=== PATIENT | male | born 1960 | race Caucasian/White ===

== ENCOUNTER 2020-08-24 08:09 | Outpatient (REF) | payer OTHER, SELFPAY ==
--- NOTE | 2020-08-24 08:16 | FL_ITS ---
EXAMINATION: FL BARIUM SWALLOW CLINICAL INFORMATION: Dysphagia. COMPARISON: None. TECHNIQUE: Barium swallow examination is performed using fluoroscopic evaluation in addition to multiple fluoroscopic spot views. The patient is imaged both upright and prone and using both thick and thin sulfate along with effervescent granules. Fluoroscopy time: 2.8 minutes DAP: 6.899 Gycm2 Images: 76 FINDINGS: On oral administration of thick barium in upright and left oblique view, there is normal propagation of bolus from the oral cavity through the pharynx and an initially tight cricoesophageal sphincter into the esophagus. Patient did have difficulty swallowing at this time. Mild ballooning of the pharynx was noted. On subsequent swallowing of thick barium in different positions, there is a patent cricoesophageal sphincter. Mild laryngeal aspiration was noted during the tightening of the cricoesophageal sphincter. There is normal passage of barium through the esophagus into the stomach with widely patent the GE junction. Incidentally noted is a small sliding hiatal hernia in upright, supine and prone lying positions. No intraluminal filling defects seen. On placing patient supine and prone lying, there is no gastroesophageal reflux seen. Small hiatal hernia is persistent. FL/FL barium swallow IMPRESSION: Initial tightness and narrowing of the cricoesophageal sphincter which opened up subsequently with further barium swallowing. Transient ballooning of the pharynx and a single episode of small laryngeal aspiration was noted. The rest of the barium swallow exam appears unremarkable.
--- NOTE | 2020-08-24 09:09 | ECG_ITS ---
Test Reason : EFF OF ANTIVIR MED Blood Pressure : / mmHG Vent. Rate : 068 BPM Atrial Rate : 068 BPM P-R Int : 150 ms QRS Dur : 064 ms QT Int : 392 ms P-R-T Axes : 086 060 093 degrees QTc Int : 416 ms Normal sinus rhythm Nonspecific T wave abnormality Abnormal ECG When compared with ECG of 27-AUG-2019 08:00, No significant change was found Referred By: Josué Esteban / [facility] Electronically Signed By:MARGARITA PAPPAS MD
== END 2020-08-24 08:10 | disposition home or self-care (01) ==
LOC: HO.XRAY 08:09
PROVIDERS: PCP Family Medicine; Visit Provider Otolaryngology
DX: Z79.899 Other long term (current) drug therapy (principal); T37.5X5A Adverse effect of antiviral drugs, initial encounter
CPT/HCPCS: 74220; 93005

== ENCOUNTER 2021-06-21 13:40 | Outpatient (REF) | payer OTHER, SELFPAY ==
--- NOTE | ~2021-06-21 | XR_ITS ---
EXAMINATION: XR CHEST CLINICAL INFORMATION: Dyspnea COMPARISON: Previous chest x-rays most recent July [address] scans most recent May 2020 TECHNIQUE: 2 views of the chest were obtained. FINDINGS: The cardiac and mediastinal contours are stable. The lungs are well inflated. The lungs are clear. There is blunting of the right lateral costophrenic angle. This is unchanged from previous exams. There is no pleural effusion or pneumothorax. Bony structures are unremarkable. XR/XR chest 2V IMPRESSION: Well-inflated lungs. No evidence for acute disease in the chest.
== END 2021-06-21 13:41 | disposition home or self-care (01) ==
LOC: HO.XRAY 13:40
PROVIDERS: PCP Family Medicine; Visit Provider Family Medicine
DX: B20 Human immunodeficiency virus [HIV] disease (principal); R06.00 Dyspnea, unspecified; J44.9 Chronic obstructive pulmonary disease, unspecified; F17.210 Nicotine dependence, cigarettes, uncomplicated; Z71.6 Tobacco abuse counseling
CPT/HCPCS: 71046; 99202

== ENCOUNTER → 2021-06-29 09:43 | Outpatient (BNVA) | payer OTHER, SELFPAY | PROVIDERS: PCP Family Medicine; Visit Provider Internal Medicine | DX: E23.0 Hypopituitarism (principal); R97.20 Elevated prostate specific antigen [PSA] | CPT/HCPCS: Q3014 ==

== ENCOUNTER 2021-07-07 13:30 | Outpatient (REF) | payer OTHER, SELFPAY ==
--- NOTE | 2021-07-07 17:01 | PFT_ITS ---
INDICATION: COPD. SPIROMETRY: The FEV1 to FVC of 27% with an FEV1 of 1.21 L, which is 35% predicted, and an FVC of 4.45 L, which is 97% predicted. Post bronchodilators, there was a significant improvement of the FEV1 by 14%. To note, the [id number] down to about 11% predicted. The maximum voluntary ventilation 35% predicted. LUNG VOLUMES: Total lung capacity 110% predicted with residual volume 169% predicted. DIFFUSION CAPACITY: DLCO 38% predicted. COMPARISONS: None available at this time. INTERPRETATION: There is an obstructive ventilatory defect consistent with severe COPD. There is a significant response to bronchodilators noted. There is also severe decrease in the maximum voluntary ventilation secondary to deconditioning, but also due to worsening dynamic inspiratory capacity. Lung volumes do demonstrate significant air trapping due to the COPD and there is also severe diffusion impairment secondary to emphysema and/or other parenchymal lung conditions or pulmonary vascular conditions should also be considered. Clinical correlation warranted. MD GOPAL Lynn/[facility] / [id number]
== END 2021-07-07 13:31 | disposition home or self-care (01) ==
LOC: HO.RESP 13:30
PROVIDERS: PCP Family Medicine; Visit Provider Internal Medicine
DX: J44.9 Chronic obstructive pulmonary disease, unspecified (principal); F17.210 Nicotine dependence, cigarettes, uncomplicated
CPT/HCPCS: 94060; 94727; 94729

== ENCOUNTER → 2021-08-29 14:15 | Outpatient (BNVA) | payer OTHER, SELFPAY | PROVIDERS: PCP Family Medicine; Visit Provider Internal Medicine | DX: J44.9 Chronic obstructive pulmonary disease, unspecified (principal); R09.02 Hypoxemia; F17.210 Nicotine dependence, cigarettes, uncomplicated | CPT/HCPCS: 99212 ==

== ENCOUNTER 2021-10-28 09:19 | Outpatient (REF) | payer OTHER, SELFPAY ==
[2021-10-28 09:42] LABS: MANUAL DIFF FLAG NO
[2021-10-28 10:17] LABS: Hematocrit 40.8 % (42.0-52.0); Hemoglobin 12.9 g/dl (14.0-18.0)
[2021-10-28 10:18] LABS: Basophils Percent Auto 0.4 % (0-2); Eosinophils Absolute Auto 0.1 X10*3/uL (0.0-0.4); Eosinophils Percent Auto 2.3 % (0-4); Hematocrit 40.6 % (42.0-52.0); Hemoglobin 12.8 g/dl (14.0-18.0); Imm Gran Abs Auto 0.01 X10*3/uL (0.00-0.03); Imm Gran Pct Auto 0.2 % (0.0-0.4); Lymphocytes Absolute Auto 1.5 X10*3/uL (1.2-4.9); Lymphocytes Percent Auto 28.5 % (20-40); Mean Corpuscular HGB Conc 31.5 g/dl (31.0-36.0); Mean Corpuscular Hemoglobin 27.6 pg (27.0-33.0); Mean Corpuscular Volume 87.7 fL (80.0-98.0); Mean Platelet Volume 9.6 fL (9.4-12.4); Monocytes Absolute Auto 0.3 X10*3/uL (0.1-1.2); Monocytes Percent Auto 5.4 % (2-11); Neutrophils Absolute Auto 3.3 x10*3/uL (2.0-8.3); Neutrophils Percent Auto 63.2 % (45-73); Platelet Count 176 X10*3/uL (160-400); Red Blood Count 4.63 X10*6/uL (4.60-5.80); White Blood Count 5.2 X10*3/uL (4.8-10.8)
[2021-10-28 10:48] LABS: Alanine Aminotransferase 20 U/L (0-40); Albumin Level 3.9 g/dL (3.5-5.0); Alkaline Phosphatase 168 U/L (39-117); Anion Gap 12 (12-20); Aspartate Amino Transferase 24 U/L (5-37); Bilirubin Total 0.5 mg/dL (0.0-1.0); Blood Urea Nitrogen 27 mg/dL (9-16); Calcium 9.2 mg/dL (8.4-10.2); Carbon Dioxide 29 mmol/L (22-29); Chloride 103 mmol/L (96-108); Estimated Glomerular Filt Rate 54; Glucose Random 71 mg/dL (60-115); Potassium 4.2 mmol/L (3.3-5.1); Sodium 140 mmol/L (135-145); Total Protein 7.5 g/dL (6.5-8.0)
[2021-10-28 10:52] LABS: Cholesterol 130 mg/dL; HDL Cholesterol 31 mg/dL; LDL Cholesterol Calculated 66 mg/dl; Triglycerides 166 mg/dL
[2021-10-28 11:07] LABS: Prostate Specific Antigen 4.74 ng/mL (<0.05-4.0)
[2021-10-28 11:09] LABS: TSH reflex Free T4 4.02 uIU/mL (0.32-4.0)
[2021-10-28 11:43] LABS: Free T4 (Free Thyroxine) 0.91 ng/dL (0.71-1.85)
[2021-10-29 13:41] LABS: Absolute CD3 Count 1172 cells/uL (840-3060); Absolute CD4 Count 495 cells/uL (490-1740); Absolute CD8 Count 630 cells/uL (180-1170); Absolute Lymphocytes 1479 cells/uL (850-3900); CD4 CD8 Ratio 0.79 (0.86-5.00); Percent CD3 Cells 79 % (57-85); Percent CD4 Cells 33 % (30-61); Percent CD8 Cells 43 % (12-42)
[2021-10-30 02:12] LABS: LDL Cholesterol Direct 65 mg/dL (<100)
[2021-10-30 08:06] LABS: Lutenizing Hormone 3.5 mIU/mL (1.6-15.2); Sex Hormone Binding Globulin 68 nmol/L (22-77)
[2021-11-03 10:26] LABS: Testosterone, Free 36.5 pg/mL (35.0-155.0); Testosterone, Total 304 ng/dL (250-1100)
[2021-11-03 10:46] LABS: HIV RNA PCR Qn Copies <20 Copies/mL; HIV RNA PCR Qn Log Copies <1.30 Log cps/mL
== END 2021-10-28 09:20 | disposition home or self-care (01) ==
LOC: HO.LAB 09:19
PROVIDERS: Absent Provider Internal Medicine; PCP Family Medicine; Visit Provider Internal Medicine
DX: B20 Human immunodeficiency virus [HIV] disease (principal); E23.0 Hypopituitarism
CPT/HCPCS: 36415; 80053; 80061; 83001; 83002; 83721; 84153; 84270; 84402; 84403; 84439; 84443; 85014; 85018; 85025; 86359; 86360; 87536

== ENCOUNTER → 2021-10-31 12:13 | Outpatient (BNVA) | payer OTHER, SELFPAY | PROVIDERS: PCP Family Medicine; Visit Provider Internal Medicine | DX: E23.0 Hypopituitarism (principal); R97.20 Elevated prostate specific antigen [PSA]; E03.9 Hypothyroidism, unspecified; Z79.899 Other long term (current) drug therapy | CPT/HCPCS: 99212 ==

== ENCOUNTER → 2021-11-07 13:51 | Outpatient (BNVA) | payer OTHER, SELFPAY | PROVIDERS: PCP Family Medicine; Visit Provider Internal Medicine | DX: J44.9 Chronic obstructive pulmonary disease, unspecified (principal); R09.02 Hypoxemia; F17.210 Nicotine dependence, cigarettes, uncomplicated | CPT/HCPCS: 99212 ==

== ENCOUNTER → 2022-03-06 13:36 | Outpatient (BNVA) | payer OTHER, SELFPAY | PROVIDERS: PCP Family Medicine; Visit Provider Internal Medicine | DX: J44.9 Chronic obstructive pulmonary disease, unspecified (principal); F17.210 Nicotine dependence, cigarettes, uncomplicated; Z71.6 Tobacco abuse counseling | CPT/HCPCS: 99212 ==

== ENCOUNTER → 2022-05-16 08:00 | Outpatient (BNV) | payer OTHER, SELFPAY | PROVIDERS: PCP Family Medicine; Visit Provider Internal Medicine | DX: Z85.72 Personal history of non-Hodgkin lymphomas (principal); Z87.891 Personal history of nicotine dependence | CPT/HCPCS: 99204; 99214 ==

== ENCOUNTER 2022-05-26 07:19 | Outpatient (REF) | payer OTHER, SELFPAY | END 2022-05-26 07:20 | disposition home or self-care (01) | LOC: HO.US 07:19 | PROVIDERS: PCP Family Medicine; Visit Provider Family Medicine | DX: Z13.89 Encounter for screening for other disorder (principal) ==

== ENCOUNTER 2022-07-25 07:07 | Outpatient (REF) | payer OTHER, SELFPAY ==
--- NOTE | ~2022-07-25 | CT_ITS ---
EXAMINATION: CT CHEST SCREENING CLINICAL INFORMATION: 50-pack year history. Former smoker. Quit 1 year ago. COMPARISON: Previous CT May 2020 and chest x-ray June 2021. TECHNIQUE: Multidetector volumetric CT imaging of the chest is performed without contrast using low dose technique. Additional 2-D coronal and sagittal reformatted images and axial 3-D maximum intensity projection (MIP) images are generated on the CT workstation. This CT examination was performed using dose optimization techniques as appropriate, variously including the following: *Automated exposure control *Adjustment of mA and/or kV according to patient size (this includes techniques or standardized protocols for targeted exams where dose is matched to indication/reason for exam; i.e. extremities or head) *Use of iterative reconstruction technique DLP: 58 mGy-cm FINDINGS: LUNGS: There is evidence of emphysema. There is a new 4 mm semisolid peripheral or subpleural posterior segment right upper lobe nodule adjacent to the fissure axial image 190 series 5. There is a 4 mm calcified left upper lobe nodule axial image 239 series 5 that is stable. There is a 2 mm right lower lobe nodule axial image 259 series 5 that is new. There is a 2 mm right lower lobe nodule axial image 437 series 5 that is new. There is increased soft tissue seen dependently in the trachea. This may represents patient secretions. No other endobronchial or endotracheal lesion. There are increased peripheral interstitial markings, particularly at the right lung base questionable for mild interstitial lung disease.. MEDIASTINUM: The mediastinum is normal. CORONARY ARTERY CALCIFICATION: Mild. PLEURA: There is no pleural effusion. No pleural mass or thickening. AXILLA: No lymphadenopathy. UPPER ABDOMEN: Unremarkable. OSSEOUS STRUCTURES: Degenerative changes. CT/CT lung screening IMPRESSION: Emphysema. New small right pulmonary nodules. Stable calcified left upper lobe nodule. Increased soft tissue in the dependent left side of the trachea, question representing patient secretions. Mild coronary artery calcification. ASSESSMENT: Lung-RADS Category 3: Probably Benign RECOMMENDATION: Six-month low-dose chest CT followup for dependent endotracheal density.
[2022-07-25 08:14] LABS: Free T4 (Free Thyroxine) 1.05 ng/dL (0.71-1.85); Thyroid Stimulating Hormone 3.14 uIU/mL (0.32-4.0)
[2022-07-26 17:46] LABS: Thyroid Peroxidase Antibodies 2 IU/mL (<9)
[2022-07-26 22:16] LABS: Thyroglobulin Antibodies <1 IU/mL (< or = 1)
== END 2022-07-25 07:08 | disposition home or self-care (01) ==
LOC: HO.CT 07:07
PROVIDERS: Absent Provider Internal Medicine; PCP Family Medicine; Visit Provider Physician Assistant Medical
DX: E03.9 Hypothyroidism, unspecified (principal); F17.210 Nicotine dependence, cigarettes, uncomplicated
CPT/HCPCS: 36415; 71271; 84439; 84443; 86376; 86800

== ENCOUNTER → 2022-09-04 14:06 | Outpatient (BNVA) | payer OTHER, SELFPAY | PROVIDERS: PCP Family Medicine; Visit Provider Internal Medicine | DX: J44.9 Chronic obstructive pulmonary disease, unspecified (principal); B20 Human immunodeficiency virus [HIV] disease; Z87.891 Personal history of nicotine dependence; Z85.79 Personal history of other malignant neoplasms of lymphoid, hematopoietic and related tissues | CPT/HCPCS: 99212 ==

== ENCOUNTER → 2023-02-08 13:11 | Outpatient (BNVA) | payer OTHER, SELFPAY | PROVIDERS: PCP Family Medicine; Visit Provider Internal Medicine | DX: J44.9 Chronic obstructive pulmonary disease, unspecified (principal); R06.09 Other forms of dyspnea | CPT/HCPCS: 99212 ==

== ENCOUNTER → 2023-03-07 08:26 | Outpatient (BNVA) | payer OTHER, SELFPAY | PROVIDERS: PCP Family Medicine; Referring Provider Family Medicine; Visit Provider Internal Medicine | DX: I25.10 Atherosclerotic heart disease of native coronary artery without angina pectoris (principal); I49.3 Ventricular premature depolarization; R06.09 Other forms of dyspnea | CPT/HCPCS: 93005; 99202 ==

== ENCOUNTER → 2023-03-23 10:24 | Outpatient (BNVA) | payer OTHER, SELFPAY | PROVIDERS: PCP Family Medicine; Visit Provider Nurse Practitioner Family | DX: R97.20 Elevated prostate specific antigen [PSA] (principal); R53.83 Other fatigue | CPT/HCPCS: 99202 ==

== ENCOUNTER 2023-03-28 12:55 | Outpatient (REF) | payer OTHER, SELFPAY ==
--- NOTE | ~2023-03-28 | CT_ITS ---
EXAMINATION: CT LOW-DOSE SCREENING CHEST WITHOUT CONTRAST CLINICAL INFORMATION: History of smoking. Follow-up lung nodule. COMPARISON: Chest CTs dating between July 25, 2022 and February 12, 2007. TECHNIQUE: Multidetector volumetric noncontrast CT imaging of the chest was obtained using low-dose screening CT technique. Axial thin section 0.625 mm reformations in soft tissue and lung windows were obtained. Sagittal and coronal reformations were obtained. Axial MIP images were also created and reviewed. RECONSTRUCTED WIDTH: 1.25 mm x1.[address] examination was performed using dose optimization techniques as appropriate, variously including the following: *Automated exposure control *Adjustment of mA and/or kV according to patient size (this includes techniques or standardized protocols for targeted exams where dose is matched to indication/reason for exam; i.e. extremities or head) *Use of iterative reconstruction technique TOTAL EXAM DLP: 56 mGy-cm. CTDIvol: 1.5 mGy. FINDINGS: PULMONARY NODULES: Approximately 1.2 cm right lower lobe groundglass density with possible 2 mm solid component (image 49, series 5). This was not evident on most recent prior study from July 25, 2022. No change in previously described, 4 mm right upper lobe lung nodule (image 188, series 5) compared with July 25, 2022. No change in previously described, 4 mm calcified left upper lobe lung nodule (image 240, series 5). No change in previously described 2 mm right lower lobe lung nodule (image 257, series 5). Additional, previously described 2 mm right lower lobe nodule not appreciated on the current study. Patent central bronchi. LUNGS: Mild bibasilar fibrotic changes, similar compared with July 25, 2022. No effusion or pneumothorax. Central airways patent. MEDIASTINUM: No mediastinal adenopathy by size criteria. No obvious hilar adenopathy on this noncontrast study. CORONARY ARTERY CALCIFICATION: Mild. THYROID GLAND: Unremarkable to the extent seen. CARDIOVASCULAR STRUCTURES: Aorta and heart size normal. No pericardial effusion. CHEST WALL/AXILLA: Unremarkable. No evidence of axillary adenopathy by size criteria. UPPER ABDOMEN: Suspect small hiatus hernia. OSSEOUS STRUCTURES: No suspicious finding. CT/CT lung screen follow up IMPRESSION: Approximately 1.2 cm right lower lobe groundglass density with possible 2 mm solid component. This was not evident on most recent prior study from July 25, 2022. Otherwise, no significant radiographic change, as above. ASSESSMENT: Lung-RADS category 4A: Suspicious RECOMMENDATION: Short interval 3 month follow up low dose CT chest.
== END 2023-03-28 12:56 | disposition home or self-care (01) ==
LOC: HO.CT 12:55
PROVIDERS: Visit Provider Physician Assistant Medical
DX: R91.1 Solitary pulmonary nodule (principal); Z87.891 Personal history of nicotine dependence
CPT/HCPCS: 71250

== ENCOUNTER → 2023-03-30 07:39 | Outpatient (REF) | payer OTHER, SELFPAY | LOC: HO.CARD 07:39 | PROVIDERS: PCP Family Medicine; Visit Provider Internal Medicine | DX: I49.3 Ventricular premature depolarization (principal); R00.2 Palpitations; R06.09 Other forms of dyspnea; I25.10 Atherosclerotic heart disease of native coronary artery without angina pectoris | CPT/HCPCS: 93225; 93306; Q9957 ==

== ENCOUNTER → 2023-04-05 07:31 | Outpatient (REF) | payer OTHER, SELFPAY | LOC: HO.CARD 07:31 | PROVIDERS: PCP Family Medicine; Visit Provider Internal Medicine | DX: R07.2 Precordial pain (principal); I25.119 Atherosclerotic heart disease of native coronary artery with unspecified angina pectoris | CPT/HCPCS: 78452; 93017; A9500; J0280; J2785 ==

== ENCOUNTER 2023-04-23 09:37 | Outpatient (REF) | payer OTHER, SELFPAY ==
--- NOTE | ~2023-04-23 | US_ITS ---
EXAMINATION: US RETROPERITONEAL LIMITED (RENAL ONLY) CLINICAL INFORMATION: Nocturia. COMPARISON: CT chest, abdomen and pelvis without contrast 08/25/2019. TECHNIQUE: Real-time imaging of the kidneys. Limited visualization due to bowel gas. FINDINGS: RIGHT KIDNEY: 10.2 x 5.4 x 4.8 cm (SAG x AP x TRV). Multiple echogenic foci scattered throughout the kidney may represent tiny calcified vessels versus tiny calculi. No hydronephrosis. No obstructing renal calculi. Limited visualization. LEFT KIDNEY: 10.5 x 4.5 x 5.0 cm (SAG x AP x TRV). Multiple echogenic foci scattered throughout the kidney may represent tiny calcified vessels versus tiny calculi. No hydronephrosis. No obstructing renal calculi. Limited visualization. US/US renal BI IMPRESSION: Multiple echogenic foci scattered throughout the kidney may represent tiny calcified vessels versus tiny calculi. No hydronephrosis. No obstructing renal calculi. Limited visualization. CT scan could be considered for further evaluation.
== END 2023-04-23 09:38 | disposition home or self-care (01) ==
LOC: HO.US 09:37
PROVIDERS: PCP Family Medicine; Visit Provider Nurse Practitioner Family
DX: R35.1 Nocturia (principal); R97.20 Elevated prostate specific antigen [PSA]
CPT/HCPCS: 76775

== ENCOUNTER 2023-04-25 11:11 | Outpatient (REF) | payer OTHER, SELFPAY ==
--- NOTE | ~2023-04-25 | US_ITS ---
EXAMINATION: US PELVIS LIMITED (BLADDER) CLINICAL INFORMATION: Nocturia. Elevated PSA. COMPARISON: CT abdomen and pelvis 08/25/2019. TECHNIQUE: Real-time imaging of the bladder. FINDINGS: BLADDER: Well distended and normal. Bilateral ureteral jets are demonstrated. Prevoid bladder volume is 179.2 mL. Postvoid bladder volume is 1.2 mL. Prostate volume 14 mL. Tiny prostatic calcification. US/US bladder IMPRESSION: 1. Normal sonographic appearance of the bladder. 2. Prostate volume is 14 mL which is within normal limits for size.
== END 2023-04-25 11:12 | disposition home or self-care (01) ==
LOC: HO.US 11:11
PROVIDERS: PCP Family Medicine; Visit Provider Nurse Practitioner Family
DX: R35.1 Nocturia (principal); R97.20 Elevated prostate specific antigen [PSA]
CPT/HCPCS: 76857

== ENCOUNTER 2023-05-01 12:46 | Outpatient (REF) | payer OTHER, SELFPAY ==
[2023-05-01 12:58] LABS: MANUAL DIFF FLAG NO
[2023-05-01 14:56] LABS: Basophils Percent Auto 0.8 % (0-2); Eosinophils Absolute Auto 0.2 X10*3/uL (0.0-0.4); Eosinophils Percent Auto 4.2 % (0-4); Hematocrit 37.1 % (42.0-52.0); Hemoglobin 11.8 g/dl (14.0-18.0); Lymphocytes Absolute Auto 1.2 X10*3/uL (1.2-4.9); Lymphocytes Percent Auto 32.3 % (20-40); Mean Corpuscular HGB Conc 31.8 g/dl (31.0-36.0); Mean Corpuscular Hemoglobin 27.6 pg (27.0-33.0); Mean Corpuscular Volume 86.7 fL (80.0-98.0); Mean Platelet Volume 9.5 fL (9.4-12.4); Monocytes Absolute Auto 0.2 X10*3/uL (0.1-1.2); Monocytes Percent Auto 6.4 % (2-11); Neutrophils Percent Auto 56.3 % (45-73); Platelet Count 133 X10*3/uL (160-400); Red Blood Count 4.28 X10*6/uL (4.60-5.80); Red Cell Distribution Width 13.8 % (11.0-16.0); White Blood Count 3.6 X10*3/uL (4.8-10.8)
[2023-05-01 15:32] LABS: Anion Gap 15 (12-20); Blood Urea Nitrogen 17 mg/dL (9-16); Calcium 9.2 mg/dL (8.4-10.2); Carbon Dioxide 22 mmol/L (22-29); Chloride 107 mmol/L (96-108); Estimated Glomerular Filt Rate 50; Glucose Random 111 mg/dL (60-115); Potassium 4.2 mmol/L (3.3-5.1); Sodium 140 mmol/L (135-145)
== END 2023-05-01 12:47 | disposition home or self-care (01) ==
LOC: HO.LAB 12:46
PROVIDERS: PCP Family Medicine; Visit Provider Internal Medicine
DX: J44.9 Chronic obstructive pulmonary disease, unspecified (principal); R09.02 Hypoxemia; I25.10 Atherosclerotic heart disease of native coronary artery without angina pectoris; R94.39 Abnormal result of other cardiovascular function study; Z87.891 Personal history of nicotine dependence
CPT/HCPCS: 36415; 80048; 85025; 99212

== ENCOUNTER 2023-05-01 13:02 | Outpatient (AMB) | payer OTHER, SELFPAY ==
--- NOTE | 2023-05-01 13:57 | MHC.OFFVIS ---
Intake Vital Signs 05/01/23 13:58 Height 5 ft 9 in Weight 160 lb BMI 23.6 BP 110/70 Blood Pressure Location Lt brachial Position Sitting Pulse 62 Pulse Source Pulse Oximeter Pulse Oximetry (%) 93 Oxygen Delivery Method Room Air Intake Visit Reasons: COPD Intake Note: pt is here for follow up and states he is having an angiogram in May, he is having fatigue, and states his breathing is okay when using his medication which he does most of the times. It Desktop Support Technician Required: No Allergies No Known Allergies [No Known Allergies*] Allergy (Verified 05/01/23 14:26) Medication List - Last Reconciled 05/01/23 by Virgilio Momin MD albuterol sulfate 90 mcg/actuation (Ventolin HFA) 1 puff PO Q4H PRN aspirin 81 mg PO DAILY 90 days gtmvxzggdc-ykwghebc-cgiety ala 200-25-25 mg (Odefsey) 1 tab PO DAILY fluticasone propion-salmeterol 250-50 mcg/dose (Wixela Inhub) 1 inh inhalation BID levothyroxine 25 mcg PO DAILY methadone 55 mg PO Q4H umeclidinium 62.5 mcg/actuation (Incruse Ellipta) 1 inh PO DAILY Do you need a note to return to daycare/school/sports/work: No HPI COPD HPI Details 63 YEARS OLD GENTLEMAN, BEING TREATED FOR COPD. HE CLAIMS THAT LONG HE TAKES HIS MAINTENANCE INHALERS INCLUDING WIXELA 250-50 AND INCRUSE ELLIPTA 1 INHALATION DAILY, HE DOES WELL. ONLY ON DAYS WHEN HE DOES NOT USE 1 OF THESE INHALERS THEN HE MAY USE ALBUTEROL ONCE OR TWICE ON THAT DAY. HE DENIES ANY COUGH OR EXPECTORATION. HE STILL FEELS SOMEWHAT WEAK AND GETS SHORT OF BREATH ON EXERTION SUCH WALKING UP HILL OR CLIMBING STAIRS. DOES NOT SMOKE ANYMORE. HE IS 80 DENTAL IS AND EATS ONLY SOME I SOLID TYPE OF FOODS. PATIENT IS ON MAINTENANCE THERAPY FOR HIV. HYPOTHYROIDISM. AND ALSO ON METHADONE 55 MG PER DAY. FOR[facility]LY [facility], LATER [facility] Medical History Anal fistula Chronic hepatitis C without hepatic coma COPD (chronic obstructive pulmonary disease) Dyspnea on exertion Elevated PSA Exercise hypoxemia History of lymphoma (~2004) HIV (human immunodeficiency virus infection) Hypogonadism in male Hypogonadotropic hypogonadism (~2019) Hypothyroidism Personal history of nicotine dependence Polysubstance abuse Surgical History History of surgery Hx of fracture Family History Father Cancer Mother No problems noted. Sister Cancer Social History Household Members: Family Housing: Apartment Alcohol intake: never Patient Tobacco Use Status: Former Tobacco user Quit Date: 3 weeks ago from 06/21/21 Years Smoked: 40 years +/- Substance Use Type: Amphetamines, Crack/Cocaine, Heroin, Marijuana and Painkillers service: No Current occupational status: disabled Review of Systems Const All systems reviewed & are unremarkable except as noted in HPI and below Eyes Reports no additional complaints ENT Reports nasal congestion (Mild off and on) Card Reports chest pain, Denies irregular heart rhythm and Denies leg edema Resp Reports as per HPI GI Reports no additional complaints Reports no additional complaints Musc Reports no additional complaints Skin/Breast Reports system reviewed and no additional complaints, except as documented Neuro Reports no additional complaints Psych Reports no additional complaints Endo Reports other (Being treated for diabetes mellitus, and hypothyroidism.) Physical Exam Vital Signs: Last Vital Signs Pulse 62 05/01/23 13:58 BP 110/70 05/01/23 13:58 Pulse Ox 93 05/01/23 13:58 Oxygen Delivery Method Room Air 05/01/23 13:58 BMI result Body Mass Index 23.6 Const General: comfortable (Slightly short of breath when walking), no acute distress, alert and awake Orientation/consciousness: patient oriented x3 HEENT Head: Yes normal to inspection General nose exam: No nasal polyps present and No nasal discharge present Face and sinus: Yes sinuses nontender Mouth: oropharynx normal Teeth and gingiva: edentulous Throat: Yes posterior oropharynx normal Eyes General: appearance normal, both eyes and all related structures Neck Neck: Yes normal visual inspection, Yes no lymphadenopathy, Yes trachea midline and Yes no JVD Thyroid: Thyroid normal Chest Chest palpation & inspection: normal inspection of the chest, normal palpation of entire chest wall and no tenderness Resp Other: Percussion note hyper-resonant, breath sounds are distant with prolonged expiratory phase, but equal on both sides. No audible wheezes or rhonchi. Cardio Palpation: normal PMI Rate: regular rate Rhythm: regular rhythm Heart sounds: no gallops and no murmurs GI Palpation (GI): Soft to palpation, nontender, No hepatosplenomegaly present and no masses Auscultation: normal bowel sounds Back/Spine/Pelvis Thoracic/Lumbar Spine: thoracic and lumbar spine normal to inspection Skin General skin exam: no rashes or lesions noted and dry skin Neuro General: patient oriented x3 and no focal motor deficits Cranial nerves: Yes CN's II-XII intact bilaterally Extrem General: Yes normal to inspection, Yes no clubbing, cyanosis or edema and Yes no calf tenderness Psych Appearance: grossly normal and well kempt Speech and movement: Normal speech and movement present Assessment & Plan Assessment & Plan (1) COPD (chronic obstructive pulmonary disease): Comment: Has advanced chronic obstructive pulmonary disease, related to his past smoking He is doing very well with the current regimen. And is advised to continue the same,: TX : Incruse Ellipta 62.5 mg 1 inhalation daily Fluticasone-Salmetrol ( Wixela ) 250-50 1 inhalation b.i.d.. Ventolin HFA 2 puffs Q 4-6 hours p.r.n..( explained about the usage when he needs ) Code(s): J44.9 - Chronic obstructive pulmonary disease, unspecified (2) Personal history of nicotine dependence: Comment: (Former smoker, onset 12yo, 1-2ppd x 49yrs, 60+PYH, quit in 2020) He is active in annual lung screening program. Code(s): Z87.891 - Personal history of nicotine dependence (3) Exercise hypoxemia: Comment: Pulmonary function test showed severe obstructive disorder. And 6 minutes walk showed that he does desaturate quickly on walking, but O2 sat resumes back to normal after rest. On his last visit , he was tested for portable O2 . But it was found that his O2 sat to remained between 93-94% even on walking. So it was determined that he does not need oxygen. Code(s): R09.02 - Hypoxemia Coding Level of Care Code Est Pt Level 3 (30746) Diagnoses COPD (chronic obstructive pulmonary disease) J44.9 Personal history of nicotine dependence Z87.891 Exercise hypoxemia R09.02
[2023-05-01 13:58] VITALS: BP 110/70; PULSE 62; O2SAT 93; BMI 23.6
== END 2023-05-01 14:27 | disposition home or self-care (01) ==
PROVIDERS: PCP Family Medicine; Visit Provider Internal Medicine
DX: J44.9 Chronic obstructive pulmonary disease, unspecified (principal); Z87.891 Personal history of nicotine dependence; R09.02 Hypoxemia
CPT/HCPCS: 99213

== ENCOUNTER 2023-05-09 11:59 | Outpatient (REF) | payer OTHER, SELFPAY ==
[2023-05-09 12:33] LABS: INTERNATIONAL NORM RATIO 0.9 (0.9-1.1); Prothrombin Time 11.5 SEC (11.1-13.3)
== END 2023-05-09 12:00 | disposition home or self-care (01) ==
LOC: HO.LAB 11:59
PROVIDERS: Internal Medicine; PCP Family Medicine; Visit Provider Nurse Practitioner Family
DX: I25.10 Atherosclerotic heart disease of native coronary artery without angina pectoris (principal); R94.39 Abnormal result of other cardiovascular function study
CPT/HCPCS: 36415; 85610

== ENCOUNTER → 2023-05-22 23:59 | Outpatient (BNV) | payer OTHER, SELFPAY | PROVIDERS: PCP Family Medicine; Visit Provider Internal Medicine Cardiovascular Disease | DX: I20.8 Other forms of angina pectoris (principal) | CPT/HCPCS: 93458; 99152 ==

== ENCOUNTER 2023-05-29 11:37 | Outpatient (REF) | payer OTHER, SELFPAY ==
[2023-05-31 10:38] LABS: Free Prostate Spec Ag 0.6 ng/mL; Percent Free Prostate Spec Ag 12 % (calc) (>25); Prostate Specific Ag Total 4.9 ng/mL (< OR = 4.0)
[2023-06-02 17:13] LABS: Testosterone, Free 29.8 pg/mL (35.0-155.0); Testosterone, Total 211 ng/dL (250-1100)
== END 2023-05-29 11:38 | disposition home or self-care (01) ==
LOC: HO.LAB 11:37
PROVIDERS: Visit Provider Nurse Practitioner Family
DX: R97.20 Elevated prostate specific antigen [PSA] (principal); R53.83 Other fatigue; Z12.5 Encounter for screening for malignant neoplasm of prostate
CPT/HCPCS: 36415; 84153; 84154; 84402; 84403

== ENCOUNTER 2023-06-11 08:23 | Outpatient (AMB) | payer OTHER, SELFPAY ==
--- NOTE | 2023-06-11 08:25 | A.OFFVIS_ITS ---
Intake Intake Visit Reasons: 2m/US/labs(set) Intake Note: Patient presents for follow up visit Elevated PSA/labs/ultrasound (imaging 04/23 & 04/25) (total psa 5.60) (test 211) Urology Medications: none Blood Thinner: aspirin Material Damage Appraiser Required: No Accompanied by: Self / Same As Patient Allergies No Known Allergies [No Known Allergies*] Allergy (Verified 06/11/23 11:15) Medication List - Last Reconciled 06/11/23 by PAULA Adames- albuterol sulfate 90 mcg/actuation (Ventolin HFA) 1 puff PO Q4H PRN aspirin 81 mg PO DAILY 90 days xqmtxwseha-jddkdfex-hpqsvn ala 200-25-25 mg (Odefsey) 1 tab PO DAILY fluticasone propion-salmeterol 250-50 mcg/dose (Wixela Inhub) 1 inh inhalation BID levothyroxine 25 mcg PO DAILY methadone 55 mg PO Q4H umeclidinium 62.5 mcg/actuation (Incruse Ellipta) 1 inh PO DAILY HPI HPI Comments History of Present Illness Details Ra is a 63 year old male patient of Dr. Quintanilla. He has a past medical history of chronic hep C, history of lymphoma, HIV, hypothyroidism, nicotine dependence, and polysubstance abuse on methadone maintenance. He presents to the office today for follow-up. Of note, patient was seen as a new patient for elevated PSA and hypogonadism approximately 2 months ago at which t keila a retroperitoneal ultrasound and labs were drawn for further assessment evaluation. These results reviewed with the patient today. Bilateral multiple echogenic foci scattered throughout the kidney may represent tiny calcified vessels versus tiny calculi. No hydronephrosis or obstructing calculi noted. The bladder is well distended and normal. Bilateral ureteral jets are demonstrated. Pre void bladder volume is approximately 180 mL. Postvoid bladder volume is approximately 2 mL. Prostate volume 14 mL. PSAs are as follows: 11/19--2.7, 02/16--3.5, 05/23--5.6, 05/23--4 .9 percent free 12% Testosterone levels are as follows: 11/19--226, 02/20--317, 10/22--304, 05/23--2 11. Discussed at length potential causes for elevated PSA as well as low testosterone levels. Patient reports he feels symptoms are related to his COPD and breathing issues. He reports since his last visit here his fatigue has somewhat improved as he is more compliant with his inhalers. He denies any urinary issues or concerns at this time. He denies any known family history of prostate cancer. Discussed at length potential causes for elevated PSA as well as hypogonadism in the setting of HIV, hep C, and chronic methadone use. He otherwise offers no issues or concerns at this time. In office urinalysis results reviewed with the patient today. When asked he reports to be happy with his current voiding paramters. YESSICA offered however decline. Discussed redraw of PSA as well as potential prostate biopsy risks versus benefits. Discussed trial of low-dose Cialis for improvement in testosterone levels verses testosterone therapy. However, patient does not wish to start any medications at this time as he reports feeling issues or more related to his breathing and feels symptoms of fatigue are improving. He otherwise offers no other issues or concerns at this time. [facility] Medical History (Updated 06/11/23 @ 18:04 by ATIYA Adames) Dyspnea on exertion Personal history of nicotine dependence History of lymphoma (~2004) Hypogonadism in male Chronic hepatitis C without hepatic coma Anal fistula Polysubstance abuse Hypothyroidism Exercise hypoxemia Elevated PSA Hypogonadotropic hypogonadism (~2018) HIV (human immunodeficiency virus infection) COPD (chronic obstructive pulmonary disease) Surgical History History of surgery Hx of fracture Family History Father Cancer Mother No problems noted. Sister Cancer Social History Household Members: Family Housing: Apartment Alcohol intake: never Patient Tobacco Use Status: Former Tobacco user Quit Date: 3 weeks ago from 06/21/21 Years Smoked: 40 years +/- Substance Use Type: Amphetamines, Crack/Cocaine, Heroin, Marijuana and Painkillers service: No Current occupational status: disabled Review of Systems Const Reports as per HPI Eyes Reports no additional complaints ENT Reports no additional complaints Card Reports no additional complaints Resp Reports as per HPI GI Reports as per HPI Reports as per HPI Musc Reports as per HPI Psych Reports as per HPI Endo Reports as per HPI Randy/Lymph Reports as per HPI Physical Exam Const General: cooperative, comfortable, no acute distress, well developed, alert and awake Orientation/consciousness: patient oriented x3 Limitations: no limitations HEENT Head: Yes normal to inspection, Yes normocephalic and Yes atraumatic Ears: hearing grossly normal bilaterally Eyes General: appearance normal, both eyes and all related structures Neck Neck: Yes normal visual inspection and Yes trachea midline Chest Chest palpation & inspection: normal inspection of the chest Resp Effort & Inspection: normal respiratory effort and able to speak in complete sentences Cardio Rate: regular rate GI Inspection: Yes normal to inspection Rectal Exam - Male: Yes deferred General: Yes no CVA tenderness Back/Spine/Pelvis Back: no CVA tenderness Skin General skin exam: no rashes or lesions noted Neuro General: patient oriented x3 Extrem General: Yes normal to inspection Psych Appearance: grossly normal and well kempt Mental Status: mental status grossly normal Speech and movement: Normal speech and movement present and Clear speech present Affect: normal affect Attitude: cooperative Thought process: Normal thought process present Thought content: Normal thought content present Insight: Fair insight present (Psych) Judgement: Fair judgement present (Psych) Results AMB Urinalysis, Automated UA Leukoctes 0 Asha/uL Last Edit by Mindi Clark on 06/11/23 08:33 UA Nitrite Last Edit by Mindi Clark on 06/11/23 08:33 UA Urobilinogen 0.2 mg/dL Last Edit by Mindi Clark on 06/11/23 08:33 UA Protein 15 mg/dL Last Edit by Mindi Clark on 06/11/23 08:33 UA pH 5.5 Last Edit by [email or web address] Clark on 06/11/23 08:33 UA Blood 0 Jerome/uL Last Edit by [email or web address] Clark on 06/11/23 08:33 UA Specific Koppel 1.030 Last Edit by OcAuxogynrk Clark on 06/11/23 08:33 UA Ketone Negative Last Edit by OcAuxogynrk Clark on 06/11/23 08:33 UA Bilirubin 1 mg/dL Last Edit by OcAuxogynrk Clark on 06/11/23 08:33 UA Glucose 0 mg/dL Last Edit by Mindi Clark on 06/11/23 08:33 Results Reviewed Results Reviewed: Laboratory Last Values Urine pH (Auto) 5.5 06/11/23 08:26 Specific Koppel (Auto) 1.030 06/11/23 08:26 Urine Protein (Auto) 15 mg/dL 06/11/23 08:26 Glucose (UA)(Auto) 0 mg/dL 06/11/23 08:26 Urine Ketones (Auto) Negative 06/11/23 08:26 Urine Blood (Auto) 0 Jerome/uL 06/11/23 08:26 Urine Bilirubin (Auto) 1 mg/dL 06/11/23 08:26 Urine Urobilinogen (Auto) 0.2 mg/dL 06/11/23 08:26 Leukocyte Esterase (Auto) 0 Asha/uL 06/11/23 08:26 Date of Service: 04/23/23 EXAMINATION: US RETROPERITONEAL LIMITED (RENAL ONLY) FINDINGS: RIGHT KIDNEY: 10.2 x 5.4 x 4.8 cm (SAG x AP x TRV). Multiple echogenic foci scattered throughout the kidney may represent tiny calcified vessels versus tiny calculi. No hydronephrosis. No obstructing renal calculi. Limited visualization. LEFT KIDNEY: 10.5 x 4.5 x 5.0 cm (SAG x AP x TRV). Multiple echogenic foci scattered throughout the kidney may represent tiny calcified vessels versus tiny calculi. No hydronephrosis. No obstructing renal calculi. Limited visualization. IMPRESSION: Multiple echogenic foci scattered throughout the kidney may represent tiny calcified vessels versus tiny calculi. No hydronephrosis. No obstructing renal calculi. Limited visualization. CT scan could be considered for further evaluation. Ordering Physician: Ines Mosher Date of Service: 04/25/23 EXAMINATION: US PELVIS LIMITED (BLADDER) FINDINGS: BLADDER: Well distended and normal. Bilateral ureteral jets are demonstrated. Prevoid bladder volume is 179.2 mL. Postvoid bladder volume is 1.2 mL. Prostate volume 14 mL. Tiny prostatic calcification. IMPRESSION: 1. Normal sonographic appearance of the bladder. 2. Prostate volume is 14 mL which is within normal limits for size. Assessment & Plan Assessment & Plan (1) Elevated PSA: Code(s): R97.20 - Elevated prostate specific antigen [PSA] (2) Fatigue: Code(s): R53.83 - Other fatigue (3) Hypogonadism in male: Code(s): E29.1 - Testicular hypofunction Plan In office urinalysis results reviewed with the patient today; as noted above. Recent labs reviewed with the patient today; as noted above. Recent retroperitoneal ultrasound results reviewed with the patient today; as noted above. Discussed at length potential causes for hypogonadism as well as elevated PSA. Patient reports improvement in fatigue since last office visit and does not wish to undergo low-dose Cialis or testosterone replacement therapy at this time. Discussed redraw of PSA Discussed surveillance monitoring of elevated PSA verses prostate biopsy. Discussed ultrasound results showing 14 mL prostate volume PSA ordered Follow-up in 1 month with lab to be completed prior; or sooner with any issues, concerns, and or questions. Orders: Orders AMB Urinalysis Automated Today Z13.9 - Encounter for screening, unspecified PSA,Total (Free>4and<10) Today R97.20 - Elevated prostate specific antigen [PSA] Patient Instructions: The patient had an opportunity to ask questions regarding the treatment plan. All questions were answered. Physical exam, labs, and imaging were discussed and reviewed in detail. As well as risks, benefits, and discussion of treatment choices. No major barriers to understanding were identified. The patient expressed understanding and agreement with the above treatment plan. The patient was made aware they should contact our office by phone for worsening of their current condition, the appearance of new symptoms, or with any questions or concerns. Compliance is encouraged with any medications and follow up testing that is ordered. It is a privilege to be allowed the opportunity to participate in? your urological care.? Again, if you have any questions or concerns If you have any questions or concerns please do not hesitate to contact me. The office is [phone]. This note is constructed using voice recognition software. While every effort has been made to ensure accuracy manual lathe machinist errors may have been included. Yours sincerely, PAULA Adames-NELIDA Coding Level of Care Code Est Pt Level 3 (99755) Diagnoses Elevated PSA R97.20 Fatigue R53.83 Hypogonadism in male E29.1
== END 2023-06-11 09:10 | disposition home or self-care (01) ==
LOC: HO.HUSH 08:23
PROVIDERS: PCP Family Medicine; Visit Provider Nurse Practitioner Family
DX: R97.20 Elevated prostate specific antigen [PSA] (principal); R53.83 Other fatigue; E29.1 Testicular hypofunction; Z13.9 Encounter for screening, unspecified
CPT/HCPCS: 99213

== ENCOUNTER → 2023-06-11 08:23 | Outpatient (BNVA) | payer OTHER, SELFPAY | PROVIDERS: PCP Family Medicine; Visit Provider Nurse Practitioner Family | DX: R97.20 Elevated prostate specific antigen [PSA] (principal); E29.1 Testicular hypofunction; R53.83 Other fatigue | CPT/HCPCS: 81003; 99212 ==

== ENCOUNTER 2023-06-15 11:18 | Outpatient (REF) | payer OTHER, SELFPAY ==
[2023-06-15 13:19] LABS: PSA,Total (Free>4and<10) 6.78 ng/mL (0.00-4.00)
[2023-06-19 10:28] LABS: Free Prostate Spec Ag 0.8 ng/mL; Percent Free Prostate Spec Ag 12 % (calc) (>25); Prostate Specific Ag Total 6.7 ng/mL (< OR = 4.0)
== END 2023-06-15 11:19 | disposition home or self-care (01) ==
LOC: HO.LAB 11:18
PROVIDERS: PCP Family Medicine; Visit Provider Nurse Practitioner Family
DX: Z12.5 Encounter for screening for malignant neoplasm of prostate (principal); R97.20 Elevated prostate specific antigen [PSA]
CPT/HCPCS: 36415; 84153; 84154

== ENCOUNTER 2023-07-13 08:27 | Outpatient (AMB) | payer OTHER, SELFPAY ==
--- NOTE | 2023-07-13 08:35 | A.OFFVIS_ITS ---
Intake Intake Visit Reasons: Hypogonadism- follow up/PSA(set) Intake Note: Patient presents for follow up visit Elevated PSA/lab (total psa 5.60) Urology Medications: none Blood Thinner: aspirin Flight Data Technician Required: No Accompanied by: Self / Same As Patient Allergies No Known Allergies [No Known Allergies*] Allergy (Verified 07/13/23 09:19) Medication List - Last Reconciled 07/13/23 by PAULA Adames- albuterol sulfate 90 mcg/actuation (Ventolin HFA) 1 puff PO Q4H PRN aspirin 81 mg PO DAILY 90 days ppmodbscyc-fqmnqkvt-cregvv ala 200-25-25 mg (Odefsey) 1 tab PO DAILY fluticasone propion-salmeterol 250-50 mcg/dose (Wixela Inhub) 1 inh inhalation BID levothyroxine 25 mcg PO DAILY methadone 55 mg PO Q4H umeclidinium 62.5 mcg/actuation (Incruse Ellipta) 1 inh PO DAILY HPI HPI Comments History of Present Illness Details Ra is a pleasant 63 year old male patient of Dr. Quintanilla. He has a past medical history of chronic hep C, history of lymphoma, HIV, hypothyroidism, nicotine dependence, and polysubstance abuse on methadone maintenance. He presents to the office today for follow-up. Of note, patient was seen approximately 1 month ago at which time redraw of PSA was ordered for further assessment evaluation. These results reviewed with the patient today. Previous workup has included a retroperitoneal ultrasound noting bilateral multiple echogenic foci scattered throughout the kidney may represent tiny calcified vessels versus tiny calculi. No hydronephrosis or obstructing calculi noted. The bladder is well distended and normal. Bilateral ureteral jets are demonstrated. Pre void bladder volume is approximately 180 mL. Postvoid bladder volume is approximately 2 mL. Prostate volume 14 mL. PSAs are as follows: 11/19--2.7, 02/16--3.5, 05/23--5.6, 05/23--4 .9 percent free 12%, 06/23--6.8 % free PSA 12% Testosterone levels are as follows: 11/19--226, 02/20--317, 10/22--304, 05/23--2 11. Discussed at length potential causes for elevated PSA as well as low testosterone levels. PCP T calculator 07/23 52% negative, 34% chance of low- grade prostate cancer, and 14% chance of high-grade prostate cancer. Discussed at length surveillance monitoring verses prostate biopsy versus trial of Finasteride. Discussed risks and benefits of these asforementioned interventions/treatement options at length. In office urinalysis results reviewed with the patient today. Discuss treatment of hypogonadism with low-dose Cialis however will await at this time as patient wished to have prostate biopsy first. He states he would like tackle one thing at a time. He otherwise denies any bothersome urinary issues at this time. He denies urinary urgency, urinary frequency, incontinence, nocturia, hematuria, dysuria, foul smelling urine, changes to urinary stream, flank pain, fever, and or chills. He otherwise offers no other issues or concerns at this time. [facility] Medical History Dyspnea on exertion Personal history of nicotine dependence History of lymphoma (~2004) Hypogonadism in male Chronic hepatitis C without hepatic coma Anal fistula Polysubstance abuse Hypothyroidism Exercise hypoxemia Elevated PSA Hypogonadotropic hypogonadism (~2018) HIV (human immunodeficiency virus infection) COPD (chronic obstructive pulmonary disease) Surgical History History of surgery Hx of fracture Family History Father Cancer Mother No problems noted. Sister Cancer Social History Household Members: Family Housing: Apartment Alcohol intake: never Patient Tobacco Use Status: Former Tobacco user Quit Date: 3 weeks ago from 06/21/21 Years Smoked: 40 years +/- Substance Use Type: Amphetamines, Crack/Cocaine, Heroin, Marijuana and Painkillers service: No Current occupational status: disabled Review of Systems Const Reports as per HPI Eyes Reports no additional complaints ENT Reports no additional complaints Card Reports no additional complaints Resp Reports as per HPI GI Reports as per HPI Reports as per HPI Musc Reports as per HPI Psych Reports as per HPI Endo Reports as per HPI Randy/Lymph Reports as per HPI Physical Exam Const General: cooperative, comfortable, no acute distress, well developed, alert and awake Orientation/consciousness: patient oriented x3 Limitations: no limitations HEENT Head: Yes normal to inspection, Yes normocephalic and Yes atraumatic Ears: hearing grossly normal bilaterally Eyes General: appearance normal, both eyes and all related structures Neck Neck: Yes normal visual inspection and Yes trachea midline Chest Chest palpation & inspection: normal inspection of the chest Resp Effort & Inspection: normal respiratory effort and able to speak in complete sentences Cardio Rate: regular rate GI Inspection: Yes normal to inspection Rectal Exam - Male: Yes deferred General: Yes no CVA tenderness Back/Spine/Pelvis Back: no CVA tenderness Skin General skin exam: no rashes or lesions noted Neuro General: patient oriented x3 Extrem General: Yes normal to inspection Psych Appearance: grossly normal and well kempt Mental Status: mental status grossly normal Speech and movement: Normal speech and movement present and Clear speech present Affect: normal affect Attitude: cooperative Thought process: Normal thought process present Thought content: Normal thought content present Insight: Fair insight present (Psych) Judgement: Fair judgement present (Psych) Results AMB Urinalysis, Automated UA Leukoctes 0 Asha/uL Last Edit by [employer] on 07/13/23 09:05 UA Nitrite Negative Last Edit by [employer] on 07/13/23 09:05 UA Urobilinogen 0.2 mg/dL Last Edit by [employer] on 07/13/23 09:05 UA Protein 0 mg/dL Last Edit by [employer] on 07/13/23 09:05 UA pH 5.5 Last Edit by [employer] on 07/13/23 09:05 UA Blood 0 Jerome/uL Last Edit by [employer] on 07/13/23 09:05 UA Specific Robards 1.015 Last Edit by [employer] on 07/13/23 09:05 UA Ketone Negative Last Edit by [employer] on 07/13/23 09:05 UA Bilirubin 0 mg/dL Last Edit by [employer] on 07/13/23 09:05 UA Glucose 0 mg/dL Last Edit by [employer] on 07/13/23 09:05 Assessment & Plan Assessment & Plan (1) Hypogonadism in male: Code(s): E29.1 - Testicular hypofunction (2) Elevated PSA: Code(s): R97.20 - Elevated prostate specific antigen [PSA] Plan: Plan Risks and benefits regarding trans rectal ultrasound with prostate biopsy were discussed.? Options of continued surveillance, no treatment and biopsy were offered. The risks include but are not limited to, urinary tract infection, sepsis, difficulty urinating, bleeding into the rectum or bladder that requires intervention and transfusion,and failure to diagnose prostate cancer. The patient understands the options and the risks involved. They wish to proceed. Printed information was provided to ensure he remains off anticoagulation for the appropriate length of time. He may require cardiology or PCP clearance.? An antibiotic will be administered prior to, and following the procedure Plan In office urinalysis results reviewed with the patient today; as noted above Recent PSA results reviewed with the patient today; as noted above PCP T risk calculator reviewed with the patient today; as noted above Discussed risks and benefits of surveillance monitoring versus prostate biopsy;discussed at length Antibiotic therapy discussed; take day before, day of, and day after. Will address hypogonadism s/p biopsy per patient request. Will schedule for prostate biopsy as discussed Orders: Orders AMB Urinalysis Automated Today Z13.9 - Encounter for screening, unspecified Medications: New levofloxacin take 1 tablet day before procedure, 1 tablet day of procedure and 1 tablet day after procedure 500 mg PO daily 3 days 3 tabs 0RF Patient Instructions: The patient had an opportunity to ask questions regarding the treatment plan. All questions were answered. Physical exam, labs, and imaging were discussed and reviewed in detail. As well as risks, benefits, and discussion of treatment choices. No major barriers to understanding were identified. The patient expressed understanding and agreement with the above treatment plan. The patient was made aware they should contact our office by phone for worsening of their current condition, the appearance of new symptoms, or with any questions or concerns. Compliance is encouraged with any medications and follow up testing that is ordered. It is a privilege to be allowed the opportunity to participate in? your urological care.? Again, if you have any questions or concerns If you have any questions or concerns please do not hesitate to contact me. The office is [phone]. This note is constructed using voice recognition software. While every effort has been made to ensure accuracy pipe foreman errors may have been included. Yours sincerely, Ines Mosher, [employer] Coding Level of Care Code Est Pt Level 4 (05543) Diagnoses Hypogonadism in male E29.1 Elevated PSA R97.20
== END 2023-07-13 09:22 | disposition home or self-care (01) ==
LOC: HO.HUSH 08:27
PROVIDERS: PCP Family Medicine; Visit Provider Nurse Practitioner Family
DX: E29.1 Testicular hypofunction (principal); R97.20 Elevated prostate specific antigen [PSA]; Z13.9 Encounter for screening, unspecified
CPT/HCPCS: 99214

== ENCOUNTER → 2023-07-13 08:27 | Outpatient (BNVA) | payer OTHER, SELFPAY | PROVIDERS: PCP Family Medicine; Visit Provider Nurse Practitioner Family | DX: E29.1 Testicular hypofunction (principal); R97.20 Elevated prostate specific antigen [PSA] | CPT/HCPCS: 81003; 99212 ==

== ENCOUNTER → 2023-08-01 14:53 | Outpatient (BNVA) | payer OTHER, SELFPAY | PROVIDERS: PCP Family Medicine; Visit Provider Internal Medicine | DX: J44.9 Chronic obstructive pulmonary disease, unspecified (principal) | CPT/HCPCS: 99211 ==

== ENCOUNTER 2023-08-02 07:32 | Outpatient (REF) | payer OTHER, SELFPAY ==
[2023-08-02 07:48] VITALS: BMI 23.6
[2023-08-02 07:49] VITALS: BP 149/86; PULSE 61; RESP 16; TEMP 36.3; O2SAT 95
--- NOTE | 2023-08-02 08:18 | W.PM.OPN ---
Operative Note Operative Note Date of Service: 08/02/23 Narrative: Preoperative diagnosis: Elevated PSA Postoperative diagnosis: Elevated PSA Procedure: 1. transrectal ultrasound measurement of prostate 2. transrectal ultrasound-guided pudendal nerve block 3. transrectal ultrasound-guided prostate biopsy 12 core Surgeon: Dr. Yobani Stewart Anesthetic: Local Indications for procedure: Elevated PSA PSA 6.8 F 12% Procedure: After informed consent was verified, the patient was brought into the procedure area and lay left-hand side down on the table. Patient identity confirmed. Perioperative antibiotics confirmed. Safety pause time out performed. YESSICA performed to dilate rectal sphincter Iodine 10cc with Gel was placed per rectum Ultrasound probe was placed per rectum The prostate was measured in 3 dimensions Total volume equals 16 gm No cystic structures were noted calcifications were noted at the surgical margin The prostate was otherwise homogeneous in nature An ultrasound-guided pudendal nerve block was performed using 10 cc of 1% lidocaine. 8 cc was placed at the base and 2 cc of the apex. A 12 core biopsy was performed with 6 cores each side. Two cores were taken at the apex, mid and base. Cores were spaced between lateral and medial. He tolerated the procedure well. Was able to ambulate to bathroom after 5 minutes. Printed instructions regarding antibiotic use and common side effects such as low-grade temperature, potential infection and bleeding were given Pathology: 12 core prostate biopsy.
[2023-08-02 08:50] VITALS: BP 169/84; PULSE 73; RESP 18; O2SAT 95
== END 2023-08-02 07:33 | disposition home or self-care (01) ==
LOC: HO.MS 07:32
PROVIDERS: PCP Family Medicine; Visit Provider Urology
PROC: (CPT 55700; principal; 2023-08-02 08:00)
DX: C61 Malignant neoplasm of prostate (principal); R97.20 Elevated prostate specific antigen [PSA]
CPT/HCPCS: 55700; 76942; 88305; 88344

== ENCOUNTER → 2023-08-02 07:32 | Outpatient (BNV) | payer OTHER, SELFPAY | PROVIDERS: PCP Family Medicine; Visit Provider Urology | DX: R97.20 Elevated prostate specific antigen [PSA] (principal) | CPT/HCPCS: 55700; 76942 ==

== ENCOUNTER 2023-08-16 09:29 | Outpatient (AMB) | payer OTHER, SELFPAY ==
--- NOTE | 2023-08-16 09:35 | A.OFFVIS_ITS ---
Intake Intake Visit Reasons: Bx results Intake Note: Patient is Present for Follow Up [facility] U[facility] Medication: None Antibiotic Allergies: Levofloxacin Blood Thinners: Aspirin Allergies levofloxacin Allergy (Intermediate, Verified 08/01/23 10:18) Nausea, chills, SOB Medication List - Last Reconciled 08/16/23 by Yobani Stewart MD albuterol sulfate 90 mcg/actuation (Ventolin HFA) 1 puff PO Q4H PRN aspirin 81 mg PO DAILY 90 days wyrtcgrvoe-befeotrp-acwuhh ala 200-25-25 mg (Odefsey) 1 tab PO DAILY fluticasone propion-salmeterol 250-50 mcg/dose (Wixela Inhub) 1 inh inhalation BID levofloxacin 500 mg PO daily 3 days levothyroxine 25 mcg PO DAILY methadone 55 mg PO Q4H sulfamethoxazole-trimethoprim 800-160 mg (Bactrim DS) 1 tab PO BID 3 days umeclidinium 62.5 mcg/actuation (Incruse Ellipta) 1 inh PO DAILY HPI HPI Comments History of Present Illness Details Ra is a pleasant male. He is a patient of Dr. Hancock. He seen for the following urologic conditions - prostate cancer Background of HIV with lymphoma treated approximately 2009. Chronic hep C, polysubstance abuse. Discussion of biopsy results - PSA 6.8 12% Free Grade Group 2 prostate cancer Recommendation for prostate cancer staging per NCCN Guideline Prognostic Model Information calculated using STAR-CAPS [email or web address] Stage Prediction 1C 5yr Specific Mortality 0.5% 10yr Specfic Mortality 2.0% NCCN criteria for initial risk stratification and staging with evaluation were discussed. NCCN Guidelines Version 4.2023 INITIAL RISK STRATIFICATION AND STAGING WORKUP FOR CLINICALLY LOCALIZED DISEASE Pg 19 Evaluation depends on assignment to both risk group and grade group. This determines recommended evaluation. Grade group 2/favorable intermediate - included is the exact text from the NCCN Guideline NCCN Prostate Cancer Guideline 4.2022 PROS-F Page 2 PRINCIPLES OF ACTIVE SURVEILLANCE AND OBSERVATION Confirmatory Testing to Establish Appropriateness of Active Surveillance: - Goals of confirmatory testing are to h elp facilitate early identification of those patients who may be at a higher risk of future grade reclassification or cancer progression. - Since an initial prostate biopsy may u nderestimate tumor grade or volume, confirmatory testing is strongly recommended within the first 6 to 12 months of diagnosis for patients who are considering active surveillance. - Options for confirmatory testing inclu de prostate biopsy, mpMRI with calculation of PSA density (and repeat biopsy as indicated), and/or molecular tumor analysis, see Principles of Risk Stratification (PROS-D). - Early confirmatory testing may not be necessary in patients who have had an mpMRI prior to diagnostic biopsy. All patients should undergo a confirmatory prostate biopsy within 1?2 years of their diagnostic biopsy PRINCIPLES OF RISK STRATIFICATION PROS-D Page 2 There are advanced risk stratification tools (ie, gene expression biomarkers, AI digital pathology) that independently improve risk stratification. See Table 1: Initial Risk Stratification for Clinically Localized Disease. These tools are recommended to be used when they will have the potential ability to size changer. These tools should not be ordered reflexively. There are an extensive number of these tools created with substantial variability in quality of reporting and model design, endpoint selection, and quality and caliber of validation. It is recommended to use models that have high-quality and robust validation, ideally with randomized clinical trial data across multiple clinical trials. These tools are not recommended for patients with [id number] prostate cancer. Patients with NCCN low, favorable intermediate, unfavorable intermediate, or high-risk disease and life expectancy >=0 y may consider the use of the follow ing tumor-based molecular assays: Decipher, Oncotype DX Prostate, and Prolaris In accordance with NCCN guidelines multiparametric MRI will be ordered and due to diagnosis of favorable intermediate disease Prolaris testing will be requested - these tests will determine treatment a ctive surveillance versus cryotherapy versus brachytherapy. The stools in accordance with NCCN guidelines are recommended due to the potential ability to size changer Prostate Cancer 08/23 GG2, low volume Diagnosed by Dr. Stewart PSA at diagnosis 6.8 TRUS volume at diagnosis 20gm Histologic type: Prostatic adenocarcinoma Histologic grade: [place] score: 3+4=7 Grade group: 2 Tumor quantitation:Number cores positive: 3 (LBM 25%, LMM 5%, RBL 60%) Total number of cores: 12 - Periprostatic fat inv.: Not identified Seminal vesicle inv.: Not identified Perineural inv.: Present LVI: Not identified PFSH Medical History Dyspnea on exertion Personal history of nicotine dependence History of lymphoma (~2004) Hypogonadism in male Chronic hepatitis C without hepatic coma Anal fistula Polysubstance abuse Hypothyroidism Exercise hypoxemia Elevated PSA Hypogonadotropic hypogonadism (~2018) HIV (human immunodeficiency virus infection) COPD (chronic obstructive pulmonary disease) Surgical History History of surgery Hx of fracture Family History Father Cancer Mother No problems noted. Sister Cancer Social History Household Members: Family Housing: Apartment Alcohol intake: never Patient Tobacco Use Status: Former Tobacco user Quit Date: 3 weeks ago from 06/21/21 Years Smoked: 40 years +/- Substance Use Type: Amphetamines, Crack/Cocaine, Heroin, Marijuana and Painkillers service: No Current occupational status: disabled Review of Systems Const Denies chills and Denies fever(s) Card Reports no additional complaints and Denies syncope Resp Denies cough GI Denies abdominal pain and Denies heartburn Reports as per HPI and Denies change in libido Neuro Denies syncope Psych Denies change in libido Endo Denies change in libido Physical Exam Const General: cooperative, healthy appearing, comfortable and no acute distress Orientation/consciousness: patient oriented x3 HEENT Face and sinus: Yes normal facial exam Mouth: moist mucous membranes Neck Neck: Yes normal visual inspection, Yes full ROM and Yes trachea midline Chest Chest palpation & inspection: normal inspection of the chest Resp Effort & Inspection: normal respiratory effort, able to speak in complete sentences and no respiratory distress GI Inspection: Yes normal to inspection Back/Spine/Pelvis Cervical Spine: normal cervical lordosis Thoracic/Lumbar Spine: thoracic and lumbar spine normal to inspection Skin General skin exam: no rashes or lesions noted Neuro General: patient oriented x3, gait normal, tone normal and moves all extremities Extrem General: Yes normal to inspection and Yes capillary refill normal Assessment & Plan Assessment & Plan (1) Prostate cancer: Code(s): C61 - Malignant neoplasm of prostate Plan Prostate MRI Prolaris Genetic Testing Orders: Orders Creatinine Today C61 - Malignant neoplasm of prostate, R39.15 - Urgency of urination Blood Urea Nitrogen Today C61 - Malignant neoplasm of prostate, R39.15 - Urgency of urination MR pelvis wo/w con 4 Weeks C61 - Malignant neoplasm of prostate Patient Instructions: Imaging studies, laboratory and physical exam results were discussed and reviewed in detail. No major barriers to patient understanding were identified. An opportunity to ask questions regarding the treatment plan was provided. All questions were answered. The patient expressed understanding and agreement with the above treatment plan. The patient is aware they should contact our office by phone for worsening of their current condition or the appearance of new urologic symptoms. Compliance is encouraged with any medications and followup testing that is ordered. It is a privilege to participate in the urologic care of your patient. If you have any questions or concerns regarding treatment for the above conditions, or other urologic issues, please do not hesitate to contact me. The office telephone contact is [phone]. This note is constructed using voice recognition software. While every effort has been made to ensure accuracy coach driver errors may have been included. Yours sincerely, Dr Yobani Stewart MD, VARINDER [facility] - Urology Providers of Expert, Compassionate Care for the Genitourinary System Coding Level of Care Code Est Pt Level 4 (72540) Diagnoses Prostate cancer C61
== END 2023-08-16 10:04 | disposition home or self-care (01) ==
LOC: HO.HUSH 09:29
PROVIDERS: PCP Family Medicine; Visit Provider Urology
DX: C61 Malignant neoplasm of prostate (principal)
CPT/HCPCS: 99214

== ENCOUNTER → 2023-08-16 09:29 | Outpatient (BNVA) | payer OTHER, SELFPAY | PROVIDERS: PCP Family Medicine; Visit Provider Urology | DX: C61 Malignant neoplasm of prostate (principal) | CPT/HCPCS: 99212 ==

== ENCOUNTER 2023-09-04 07:07 | Outpatient (REF) | payer OTHER, SELFPAY ==
--- NOTE | ~2023-09-04 | CT_ITS ---
EXAMINATION: CT CHEST LOW-DOSE SCREENING WITHOUT CONTRAST HISTORY: Asymptomatic patient meeting criteria for lung screening. Nicotine dependence PATIENT PACK-YEAR HISTORY: 40 Current Smoker: No If former smoker, years since quittin COMPARISON: 03/28/2023 and 07/25/2022 TECHNIQUE: Multidetector volumetric non-contrast CT imaging of the chest was obtained on a [id number] 128 slice scanner using low dose screening CT technique. Axial thin section 0.625 mm reformations in soft tissue and lung windows were obtained. Sagittal and coronal reformations were obtained. Axial MIP images were also created and reviewed. RECONSTRUCTED WIDTH: 1.25 mm x 1.25 mm TOTAL EXAM DLP: 59 mGy-cm CTDIvol: 1.24 mGy FINDINGS: LUNGS: Lung nodules seen again bilaterally such as partially calcified 0.2 cm nodule in the left upper lobe seen on image 233 series 5. There are 0.2 cm right lower lobe subpleural nodule seen on image 185, there are no new lung nodules seen. There are changes of centrilobular emphysema with minimal subpleural scarring seen in the dependent portions of both upper lobes and no evidence of consolidation. MEDIASTINUM/LYMPHATIC STRUCTURES: No mediastinal, hilar or axillary adenopathy or free fluid collection. THYROID GLAND: Unremarkable to the extent seen. CARDIOVASCULAR STRUCTURES: Aortic and heart size normal. The mild coronary artery calcifications. No pericardial effusion. PLEURA: No evidence of pleural effusion or pleural thickening VISUALIZED ABDOMEN: Included portions of the solid organs in the upper abdomen unremarkable on noncontrast imaging. MUSCULO-SKELETAL: No suspicious focal findings. SPINAL COMPRESSION: Absent. CT/CT lung screen follow up IMPRESSION: 1. No findings suspicious for malignancy/pulmonary nodule(s)/other. 2. History of lung cancer: None 3. Lung-Rads DESCRIPTOR: benign 2. PHYSICAL FINDINGS (S CATEGORY): Finding: Coronary artery calcifications, mild Significance category: Potentially clinically significant RECOMMENDATION: Low dose lung CT. overall in 1 year. Visual estimate of coronary calcified plaque burden: None. However, this exam cannot replace a dedicated cardiac CT calcium score for accurate assessment.
== END 2023-09-04 07:08 | disposition home or self-care (01) ==
LOC: HO.CT 07:07
PROVIDERS: PCP Family Medicine; Visit Provider Physician Assistant Medical
DX: R91.1 Solitary pulmonary nodule (principal); Z87.891 Personal history of nicotine dependence
CPT/HCPCS: 71250

== ENCOUNTER 2023-09-06 10:41 | Outpatient (REF) | payer OTHER, SELFPAY ==
[2023-09-06 13:45] LABS: Anion Gap 13 (12-20); Blood Urea Nitrogen 21 mg/dL (9-16); Calcium 9.1 mg/dL (8.4-10.2); Carbon Dioxide 26 mmol/L (22-29); Chloride 105 mmol/L (96-108); Estimated Glomerular Filt Rate 55; Glucose Random 110 mg/dL (60-115); Potassium 4.3 mmol/L (3.3-5.1); Sodium 140 mmol/L (135-145)
[2023-09-06 14:04] LABS: TSH reflex Free T4 3.33 uIU/mL (0.32-4.0); Vitamin D 25-OH Total 29.8 ng/mL (>30)
[2023-09-06 14:09] LABS: Parathyroid Hormone Intact 57.3 pg/mL (8.7-77.1)
== END 2023-09-06 10:42 | disposition home or self-care (01) ==
LOC: HO.HHCL 10:41
PROVIDERS: Visit Provider Family Medicine
DX: E03.9 Hypothyroidism, unspecified (principal); E55.9 Vitamin D deficiency, unspecified
CPT/HCPCS: 36415; 80048; 82306; 83970; 84443

== ENCOUNTER 2023-09-11 08:48 | Outpatient (AMB) | payer OTHER, SELFPAY ==
[2023-09-11 08:50] VITALS: BP 120/82; PULSE 89; O2SAT 95; BMI 25.4
--- NOTE | 2023-09-11 08:50 | MHC.OFFVIS ---
Intake Vital Signs 09/11/23 08:50 Height 5 ft 9 in Weight 172 lb BMI 25.4 BP 120/82 Blood Pressure Location Lt brachial Position Sitting Pulse 89 Pulse Source Pulse Oximeter Pulse Oximetry (%) 95 Oxygen Delivery Method Room Air Intake Visit Reasons: copd Intake Note: pt is here and stating he is having some great difficulty with shortness of breath, it is very scary to him to have this short on breath, when in the shower, he has to get out and hit his inhaler (which he is doing very often) and hope is works and if not he has to sit and pray that his breathing is going to come back. He just doesnt' feel right at all with this breathing. Corporate Safety Manager Required: No Allergies levofloxacin Allergy (Intermediate, Verified 09/11/23 09:15) Nausea, chills, SOB Medication List - Last Reconciled 09/11/23 by Virgilio Momin MD albuterol sulfate 90 mcg/actuation (Ventolin HFA) 1 puff PO Q4H PRN pbsvoobnxd-bnzeypro-tmrvzw ala 200-25-25 mg (Odefsey) 1 tab PO DAILY fluticasone propion-salmeterol 250-50 mcg/dose (Wixela Inhub) 1 inh inhalation BID levothyroxine 25 mcg PO DAILY methadone 55 mg PO Q4H umeclidinium 62.5 mcg/actuation (Incruse Ellipta) 1 inh PO DAILY Do you need a note to return to daycare/school/sports/work: No HPI copd HPI Details This 63 years old gentleman a case of advanced chronic obstructive pulmonary disease in addition to multiple comorbidities including: All chronic opioids abuse, now on methadone, HIV infection, hypothyroidism, recent diagnosis of prostate cancer. He is edentulous, . Eats only soft diet For the last 2 weeks has increased cough and shortness of breath and has been overusing the Ventolin inhaler. However he has no fever chills or chest pain. He was checked for exercise hypoxemia about a month ago and he does desaturate on walking around. 6 minutes walk was positive. However because his oxygen level come down when he rests, he had opted not to use oxygen. Today he is describing that he feels weak and somewhat wobbly when walking. He feels insecure, and is expressing that if he had oxygen he may feel better. [facility] Medical History Dyspnea on exertion Personal history of nicotine dependence History of lymphoma (~2004) Hypogonadism in male Chronic hepatitis C without hepatic coma Anal fistula Polysubstance abuse Hypothyroidism Exercise hypoxemia Elevated PSA Hypogonadotropic hypogonadism (~2018) HIV (human immunodeficiency virus infection) COPD (chronic obstructive pulmonary disease) Surgical History History of surgery Hx of fracture Family History Father Cancer Mother No problems noted. Sister Cancer Social History Household Members: Family Housing: Apartment Alcohol intake: never Comment: NO COUNTS NEEDED Patient Tobacco Use Status: Former Tobacco user Quit Date: 3 weeks ago from 06/21/21 Years Smoked: 40 years +/- Substance Use Type: Amphetamines, Crack/Cocaine, Heroin, Marijuana and Painkillers service: No Current occupational status: disabled Review of Systems Const All systems reviewed & are unremarkable except as noted in HPI and below Eyes Reports no additional complaints ENT Reports nasal congestion (Mild off and on) Card Reports chest pain, Denies irregular heart rhythm and Denies leg edema Resp Reports as per HPI GI Reports no additional complaints Reports no additional complaints Musc Reports no additional complaints Skin/Breast Reports system reviewed and no additional complaints, except as documented Neuro Reports no additional complaints Psych Reports no additional complaints Endo Reports other (Being treated for diabetes mellitus, and hypothyroidism.) Physical Exam Vital Signs: Last Vital Signs Pulse 89 09/11/23 08:50 BP 120/82 09/11/23 08:50 Pulse Ox 95 09/11/23 08:50 Oxygen Delivery Method Room Air 09/11/23 08:50 BMI result Body Mass Index 25.4 Const General: comfortable (Slightly short of breath when walking), no acute distress, alert and awake Orientation/consciousness: patient oriented x3 HEENT Head: Yes normal to inspection General nose exam: No nasal polyps present and No nasal discharge present Face and sinus: Yes sinuses nontender Mouth: oropharynx normal Teeth and gingiva: edentulous Throat: Yes posterior oropharynx normal Eyes General: appearance normal, both eyes and all related structures Neck Neck: Yes normal visual inspection, Yes no lymphadenopathy, Yes trachea midline and Yes no JVD Thyroid: Thyroid normal Chest Chest palpation & inspection: normal inspection of the chest, normal palpation of entire chest wall and no tenderness Resp Other: Percussion note hyper-resonant, breath sounds are distant with prolonged expiratory phase, but equal on both sides. No audible wheezes or rhonchi. Cardio Palpation: normal PMI Rate: regular rate Rhythm: regular rhythm Heart sounds: no gallops and no murmurs GI Palpation (GI): Soft to palpation, nontender, No hepatosplenomegaly present and no masses Auscultation: normal bowel sounds Back/Spine/Pelvis Thoracic/Lumbar Spine: thoracic and lumbar spine normal to inspection Skin General skin exam: no rashes or lesions noted and dry skin Neuro General: patient oriented x3 and no focal motor deficits Cranial nerves: Yes CN's II-XII intact bilaterally Extrem General: Yes normal to inspection, Yes no clubbing, cyanosis or edema and Yes no calf tenderness Psych Appearance: grossly normal and well kempt Speech and movement: Normal speech and movement present Results Reviewed Results Reviewed: Office Procedures 6 Minute Walk on 08/02/23 Time:: 03:08 SPO2 % at rest:: 93 Pulse at rest:: 75 SPO2 % during excercise:: 86 Pulse during excercise:: 94 SPO2 % after excercise:: 95 Pulse after excercise:: 82 Distance in yards walked:: 200 Arlen Score: 2 Supplemental Oxygen: 2lpm Performance Observations:: Pt completed walk test w/o complications or stopping to rest. Sp02 dropped to 86% after 50 yards ambulating. Placed pt on 2 Lpm 02 . Pt completed walk with sp02 90-94% on 2 Lpm. 73953 - 6 Minute Walk TODAY I WALKED WITH HIM FOR 5 MINUTES IN THE HALLWAY. RESTING O2 SAT 95%, AFTER WALKING O2 SAT IS DOWN TO 87%, WITHIN 2 MINUTES IT COMES UP TO 90%. Assessment & Plan Assessment & Plan (1) COPD (chronic obstructive pulmonary disease): Comment: Has advanced chronic obstructive pulmonary disease, related to his past smoking He is doing very well with the current regimen. BUT HAS BEEN OVERUSING THE IT VENTOLIN INHALER And is advised to continue the same,: Code(s): J44.9 - Chronic obstructive pulmonary disease, unspecified Plan: TX : Incruse Ellipta 62.5 mg 1 inhalation daily Fluticasone-Salmetrol ( Wixela ) 250-50 1 inhalation b.i.d.. Ventolin HFA 2 puffs Q 4-6 hours p.r.n..( explained about the usage when he needs ) (2) Personal history of nicotine dependence: Comment: (Former smoker, onset 12yo, 1-2ppd x 49yrs, 60+PYH, quit in 2020) He is active in annual lung screening program. Code(s): Z87.891 - Personal history of nicotine dependence Plan: HE DOES NOT SMOKE ANY MORE WILL STAY IN ANNUAL LUNG SCREENING PROGRAM. (3) Exercise hypoxemia: Comment: Pulmonary function test showed severe obstructive disorder. And 6 minutes walk showed that he does desaturate quickly on walking, but O2 sat resumes back to normal after rest. THIS IS REINFORCED TODAY WHEN I WALKED HIM IN THE SU FOR 4-5 MINUTES O2 SAT DID COME DOWN TO 87%. Code(s): R09.02 - Hypoxemia Plan: WE WILL ORDER O2 SAT FOR HIS HOME AND HE IS INSTRUCTED TO USE O2 2 L/MINUTE WITH PORTABLE UNIT, WHENEVER HE HAS TO DO ANY EXERTION IN THE HOUSE OR GOING OUTDOORS. Coding Level of Care Code Est Pt Level 4 (06555) Diagnoses COPD (chronic obstructive pulmonary disease) J44.9 Personal history of nicotine dependence Z87.891 Exercise hypoxemia R09.02
== END 2023-09-11 09:12 | disposition home or self-care (01) ==
PROVIDERS: PCP Family Medicine; Visit Provider Internal Medicine
DX: J44.9 Chronic obstructive pulmonary disease, unspecified (principal); Z87.891 Personal history of nicotine dependence; R09.02 Hypoxemia
CPT/HCPCS: 99214

== ENCOUNTER → 2023-09-11 08:48 | Outpatient (BNVA) | payer OTHER, SELFPAY | PROVIDERS: PCP Family Medicine; Visit Provider Internal Medicine | DX: J44.9 Chronic obstructive pulmonary disease, unspecified (principal); R09.02 Hypoxemia; Z87.891 Personal history of nicotine dependence | CPT/HCPCS: 99212 ==

== ENCOUNTER 2023-09-13 10:16 | Outpatient (AMB) | payer OTHER, SELFPAY ==
--- NOTE | 2023-09-13 10:18 | MHC.OFFVIS ---
Intake Intake Visit Reasons: Prolaris results Intake Note: Patient is Present for Telephone Follow Up Prol[facility] Urology Med: none Antibiotic Allergy: Levofloxacin Blood Thinner: None Allergies levofloxacin Allergy (Intermediate, Verified 09/13/23 10:20) Nausea, chills, SOB HPI HPI Comments History of Present Illness Details Ra is a pleasant male. He is a patient of Dr. Hancock. He seen for the following urologic conditions - prostate cancer Telemedicine Evaluation 15 min Consultation Doximity Fela Video attempted Discussed Prolaris result Given background will continue with active surveillance Background of HIV with lymphoma treated approximately 2009. Chronic hep C, polysubstance abuse. Prognostic Model Information calculated using STAR-CAPS [email or web address]/ Stage Prediction 1C 5yr Specific Mortality 0.5% 10yr Specfic Mortality 2.0% Prostate Cancer 08/23 GG2, low volume Diagnosed by Dr. Stewart PSA at diagnosis 6.8 TRUS volume at diagnosis 20gm Prolaris 09/22 active surveillance cohort Histologic type: Prostatic adenocarcinoma Histologic grade: [place] score: 3+4=7 Grade group: 2 Tumor quantitation:Number cores positive: 3 (LBM 25%, LMM 5%, RBL 60%) Total number of cores: 12 - Periprostatic fat inv.: Not identified Seminal vesicle inv.: Not identified Perineural inv.: Present LVI: Not identified PFSH Medical History Dyspnea on exertion Personal history of nicotine dependence History of lymphoma (~2004) Hypogonadism in male Chronic hepatitis C without hepatic coma Anal fistula Polysubstance abuse Hypothyroidism Exercise hypoxemia Elevated PSA Hypogonadotropic hypogonadism (~2018) HIV (human immunodeficiency virus infection) COPD (chronic obstructive pulmonary disease) Surgical History History of surgery Hx of fracture Family History Father Cancer Mother No problems noted. Sister Cancer Social History Household Members: Family Housing: Apartment Alcohol intake: never Comment: NO COUNTS NEEDED Patient Tobacco Use Status: Former Tobacco user Quit Date: 3 weeks ago from 06/21/21 Years Smoked: 40 years +/- Substance Use Type: Amphetamines, Crack/Cocaine, Heroin, Marijuana and Painkillers service: No Current occupational status: disabled Review of Systems Const All systems reviewed & are unremarkable except as noted in HPI and below Reports no additional complaints Resp Reports no additional complaints GI Reports no additional complaints Reports as per HPI Musc Reports no additional complaints Physical Exam Telemedicine evaluation Appropriate responses Regular breathing rate and rhythm HEENT Head: Yes normal to inspection Ears: hearing grossly normal bilaterally Eyes General: appearance normal, both eyes and all related structures Neck Neck: Yes normal visual inspection Chest Chest palpation & inspection: normal inspection of the chest Resp Effort & Inspection: normal respiratory effort and able to speak in complete sentences Assessment & Plan Assessment & Plan (1) Prostate cancer: Code(s): C61 - Malignant neoplasm of prostate Plan Four month follow-up PSA Orders: Orders Prostate Specific Antigen 4 Months C61 - Malignant neoplasm of prostate Patient Instructions: Imaging studies, laboratory and physical exam results were discussed and reviewed in detail. No major barriers to patient understanding were identified. An opportunity to ask questions regarding the treatment plan was provided. All questions were answered. The patient expressed understanding and agreement with the above treatment plan. The patient is aware they should contact our office by phone for worsening of their current condition or the appearance of new urologic symptoms. Compliance is encouraged with any medications and followup testing that is ordered. It is a privilege to participate in the urologic care of your patient. If you have any questions or concerns regarding treatment for the above conditions, or other urologic issues, please do not hesitate to contact me. The office telephone contact is [phone]. This note is constructed using voice recognition software. While every effort has been made to ensure accuracy back shoe cutter errors may have been included. Yours sincerely, Dr Yobani Stewart MD, VARINDER [facility] - Urology Providers of Expert, Compassionate Care for the Genitourinary System Telehealth Telehealth Location of provider rendering services: practice address Location of patient: address on file Patient Identification confirmed using: Name, : Yes Telehealth method: video Patient verbally consented to treatment: Yes Patient verbally consented to billing insurance company: Yes Patient informed of any privacy concerns related to visit: Yes Coding Level of Care Code Tele Est Pt Level 3 (87367) Diagnoses Prostate cancer C61
== END 2023-09-13 11:41 | disposition home or self-care (01) ==
LOC: HO.HUSH 10:16
PROVIDERS: PCP Family Medicine; Visit Provider Urology
DX: C61 Malignant neoplasm of prostate (principal)
CPT/HCPCS: 99213

== ENCOUNTER → 2023-09-13 10:16 | Outpatient (BNVA) | payer OTHER, SELFPAY | PROVIDERS: PCP Family Medicine; Visit Provider Urology ==

== ENCOUNTER 2023-10-30 06:56 | Outpatient (REF) | payer OTHER, SELFPAY ==
--- NOTE | ~2023-10-30 | CT_ITS ---
EXAMINATION: CT ABDOMEN AND PELVIS WITHOUT CONTRAST CLINICAL INFORMATION: 63-year-old male with questionable splenomegaly COMPARISON: 08/25/2019 TECHNIQUE: Multidetector volumetric imaging was performed from the superior aspect of the liver through the pubic symphysis. Sagittal and coronal reformatted images were obtained on the technologist's workstation. This CT examination was performed using dose optimization techniques as appropriate, variously including the following: *Automated exposure control *Adjustment of mA and/or kV according to patient size (this includes techniques or standardized protocols for targeted exams where dose is matched to indication/reason for exam; i.e. extremities or head) *Use of iterative reconstruction technique DLP: 467 mGy-cm FINDINGS: LUNG BASES: There are changes of centrilobular emphysema and bullous disease, no evidence of masses or lung nodules. LIVER, GALLBLADDER, AND BILIARY TREE: The liver is normal in size, shape, and attenuation. No focal hepatic lesion or biliary ductal dilatation is present. The gallbladder is unremarkable with no evidence of radiopaque gallstones, gallbladder wall thickening, or obvious pericholecystic inflammatory changes. PANCREAS: Unremarkable. SPLEEN: When compared to the previous examination spleen diminished in size, measures now 13 cm and the larger dimension and on the previous study the spleen measured 16 cm and the larger dimension. ADRENAL GLANDS: Unremarkable. KIDNEYS AND URETERS: The kidneys are normal in size, shape, and attenuation. No hydronephrosis, hydroureter, or calculi seen. No perinephric stranding. BLADDER: Unremarkable. GASTROINTESTINAL TRACT: There is small hiatal hernia. The stomach and small bowel are unremarkable. Loops of colon are normal without evidence of diverticulitis or diverticulosis. Appendix is unremarkable. ABDOMINAL WALL: No significant hernia is appreciated. LYMPH NODES: Normal. VASCULAR: Unremarkable. PELVIC VISCERA: Unremarkable. OSSEOUS STRUCTURES: Unremarkable. CT/CT abdomen pelvis wo IV con IMPRESSION: 1. Interval decrease in size of spleen, with mild splenomegaly. 2. Changes of centrilobular emphysema and bullous disease at the lung bases. 3. Small hiatal hernia. Fleischner guidelines were followed.
[2023-10-30] MEDS: Barium Sulfate Oral (Berry) 450 ML ORAL.SUSP 900 ML PO (10:19)
== END 2023-10-30 06:57 | disposition home or self-care (01) ==
LOC: HO.CT 06:56
PROVIDERS: PCP Family Medicine; Visit Provider Internal Medicine
DX: Z85.79 Personal history of other malignant neoplasms of lymphoid, hematopoietic and related tissues (principal)
CPT/HCPCS: 74176

== ENCOUNTER 2023-11-07 09:53 | Outpatient (REF) | payer OTHER, SELFPAY ==
[2023-11-07 11:45] LABS: MANUAL DIFF FLAG NO
[2023-11-07 11:52] LABS: Basophils Percent Auto 0.8 % (0-2); Eosinophils Absolute Auto 0.2 X10*3/uL (0.0-0.4); Eosinophils Percent Auto 4.9 % (0-4); Hematocrit 38.1 % (42.0-52.0); Hemoglobin 12.5 g/dl (14.0-18.0); Imm Gran Abs Auto 0.02 X10*3/uL (0.00-0.03); Imm Gran Pct Auto 0.5 % (0.0-0.4); Lymphocytes Absolute Auto 1.2 X10*3/uL (1.2-4.9); Lymphocytes Percent Auto 30.1 % (20-40); Mean Corpuscular HGB Conc 32.8 g/dl (31.0-36.0); Mean Corpuscular Hemoglobin 28.5 pg (27.0-33.0); Mean Platelet Volume 9.5 fL (9.4-12.4); Monocytes Absolute Auto 0.2 X10*3/uL (0.1-1.2); Monocytes Percent Auto 5.4 % (2-11); Neutrophils Absolute Auto 2.3 x10*3/uL (2.0-8.3); Neutrophils Percent Auto 58.3 % (45-73); Platelet Count 142 X10*3/uL (160-400); Red Blood Count 4.38 X10*6/uL (4.60-5.80); Red Cell Distribution Width 14.1 % (11.0-16.0); White Blood Count 3.9 X10*3/uL (4.8-10.8)
[2023-11-08 10:49] LABS: Absolute CD3 Count 998 cells/uL (840-3060); Absolute CD4 Count 346 cells/uL (490-1740); Absolute CD8 Count 601 cells/uL (180-1170); Absolute Lymphocytes 1303 cells/uL (850-3900); CD4 CD8 Ratio 0.58 (0.86-5.00); Percent CD3 Cells 77 % (57-85); Percent CD4 Cells 27 % (30-61); Percent CD8 Cells 46 % (12-42)
[2023-11-08 14:04] LABS: HIV RNA PCR Qn Copies 76 copies/mL (NOT DETECTED); HIV RNA PCR Qn Log Copies 1.88 (NOT DETECTED)
== END 2023-11-07 09:54 | disposition home or self-care (01) ==
LOC: HO.HHCL 09:53
PROVIDERS: Visit Provider Internal Medicine
DX: B20 Human immunodeficiency virus [HIV] disease (principal)
CPT/HCPCS: 36415; 85025; 86359; 86360; 87536

== ENCOUNTER 2023-11-21 08:34 | Outpatient (AMB) | payer OTHER, SELFPAY ==
[2023-11-21 08:36] VITALS: BP 104/67; PULSE 100; BMI 25.2
--- NOTE | 2023-11-21 08:36 | A.OFFVIS_ITS ---
Intake Vital Signs 11/21/23 08:36 Height 5 ft 9 in Weight 170 lb 10.205 oz BMI 25.2 BP 104/67 Blood Pressure Location Lt brachial Position Sitting Pulse 100 Pulse Source Pulse Oximeter Intake Visit Reasons: Gastroesophageal reflux disease (GERD) Intake Note: Pt presents to the office today for GERD. Pt states he has been having GERD for years. He sates he gets burning in his chest that goes up his throat. Pt states he notices its worse when he eat or drinks acidic foods/drinks. Pt denies any N/V/D. Allergies levofloxacin Allergy (Intermediate, Verified 11/21/23 10:27) Nausea, chills, SOB HPI Gastroesophageal reflux disease (GERD) HPI Details 63-year-old male here for initial evalua tion of GERD. He is referred by Sisi Rivers of [facility]. PMX Methadone therapy History of opioid use disorder (heroin and cocaine) History of non-Hodgkin's lymphoma HIV History of [id number] with interferon therapy COPD Elevated PSA Hypogonadism Hypothyroid PVCs CAD ? 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% Major depressive disorder Fatigue History of declining colonoscopy History of anal fistula History of prostate cancer History of leg fractures * SURGICAL HISTORY Perirectal incision and drainage with seton placement-Sid * ALLERGIES: NKDA * [employer] LABS: Laboratory Tests 09/06/23 11/07/23 10:42 09:57 WBC 3.9 L RBC 4.38 L Hgb 12.5 L Hct 38.1 L MCV 87.0 MCH 28.5 Estimated GFR 55 TSH 3.33 BARIUM SWALLOW 08/24/20 FINDINGS: On oral administration of thick barium in upright and left oblique view, there is normal propagation of bolus from the oral cavity through the pharynx and an initially tight cricoesophageal sphincter into the esophagus. Patient did have difficulty swallowing at this time. Mild ballooning of the pharynx was noted. On subsequent swallowing of thick barium in different positions, there is a patent cricoesophageal sphincter. Mild laryngeal aspiration was noted during the tightening of the cricoesophageal sphincter. There is normal passage of barium through the esophagus into the stomach with widely patent the GE junction. Incidentally noted is a small sliding hiatal hernia in upright, supine and prone lying positions. No intraluminal filling defects seen. On placing patient supine and prone lying, there is no gastroesophageal reflux seen. Small hiatal hernia is persistent. FL/FL barium swallow IMPRESSION: Initial tightness and narrowing of the cricoesophageal sphincter which opened up subsequently with further barium swallowing. Transient ballooning of the pharynx and a single episode of small laryngeal aspiration was noted. The rest of the barium swallow exam appears unremarkable. TODAY'S VISIT He says he has had lifelong HB tierra with spaghetti sauce, but at times he will have it even with water. He will drink milk to calm it, but then I get milk problems. He was given omeprazole, but he was very resistant to taking a pill every day as he already has a complex medical regimen with his methadone and HIV meidcations. He also has some CIC, but is fearful of diarrhea. I will start with MOM and titrate as this is likely c/t the GERD. He had a barium swallow in 2019 after he was treated for lymphoma any had an endoscopy but this was out of a [place] facility. He was told at that point he had the beginnings of peptic ulcer disease. He did undergo extensive chemotherapy for his lymphoma which happily has been cured. He does have occasional dysphagia with food getting stuck at the sternal notch sometimes it is meat sometimes it is things like Ramen noodles. I think we should do an endoscopy to see if he has ulcer disease but also to see if we can dilate the esophagus in ease this for him at all. He does have absent dentition and this probably contributes since he can not chew very well. He also does not drink much water he says he has a small bottle by the side of his bed and that will last him for weeks! He drinks a lot of milk. He does not drink a lot of coffee but he does drink tea, he has been avoiding soda for quite some time because he knows that makes the heartburn worse. As above, will try giving him some milk of magnesia for constipation and titrate to affect her side effect. 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 He also tends to have his worst acid brash overnight when he lays down so the bedtime dosing may become a ritual when he finds it helpful for his sleep. Return office visit in 4 weeks. [facility] Medical History Dyspnea on exertion Personal history of nicotine dependence History of lymphoma (~2005) Hypogonadism in male Chronic hepatitis C without hepatic coma Anal fistula Polysubstance abuse Hypothyroidism Exercise hypoxemia Elevated PSA Hypogonadotropic hypogonadism (~2019) HIV (human immunodeficiency virus infection) COPD (chronic obstructive pulmonary disease) Surgical History S/P lesley-rectal abscess repair, follow-up exam Hx of fracture Family History Father Cancer Mother No problems noted. Sister Cancer Social History Household Members: Family Housing: Apartment Alcohol intake: never Comment: NO COUNTS NEEDED Patient Tobacco Use Status: Former Tobacco user Quit Date: 3 weeks ago from 06/21/21 Years Smoked: 40 years +/- Substance Use Type: Amphetamines, Crack/Cocaine, Heroin, Marijuana and Painkillers service: No Current occupational status: disabled Review of Systems Const Denies fatigue, Denies fever(s), Denies night sweats, Denies poor appetite and Denies weight loss ENT Reports Normal hearing present, Reports dysphagia, Denies odynophagia, Denies throat swelling and Denies tongue swelling Card Reports dyspnea on exertion Resp Reports dyspnea on exertion GI Details: Denies abdominal pain, Denies melena, Denies bloating, Denies hematochezia, Reports constipation, Denies GI cramping, Reports dysphagia, Denies excessive flatus, Denies early satiety, Reports heartburn, Denies diarrhea, Denies nausea, Denies odynophagia, Denies vomiting and Denies hematemesis Skin/Breast Details: Improves with sun exposure question psoriasis Reports dry skin, Denies pruritus, Denies lesions, Denies rash and Denies jaundice Neuro Reports Normal hearing present and Denies Abnormal speech present Endo Denies fatigue Aller/Immun Denies throat swelling and Denies tongue swelling Physical Exam Vital Signs: Last Vital Signs Pulse 100 11/21/23 08:36 BP 104/67 11/21/23 08:36 BMI result Body Mass Index 25.2 Const General: cooperative, no acute distress, well developed and well groomed Nutritional Appearance: average body habitus and well nourished Orientation/consciousness: oriented to person, oriented to place and oriented to time Limitations: No language barrier HEENT Head: Yes normocephalic and Yes atraumatic Teeth and gingiva: edentulous Eyes General: appearance normal, both eyes and all related structures Pupils: Equal, round and reactive pupils present Neck Neck: Yes normal visual inspection and Yes no lymphadenopathy Thyroid: Thyroid normal Resp Effort & Inspection: normal respiratory effort and able to speak in complete sentences Auscultation: clear to auscultation bilaterally Cardio Rate: regular rate Rhythm: regular rhythm Heart sounds: Normal, physiologic split S2 sound present Peripheral pulses: radial pulses present and posterior tibial pulses present GI Inspection: No distended and No Abdominal panniculus present Palpation (GI): Soft to palpation, nontender, no guarding, not rigid and No hepatosplenomegaly present Percussion: Yes normal to percussion Auscultation: normal bowel sounds Rectal Exam - Male: Yes deferred Skin General skin exam: no rashes or lesions noted, dry skin, no jaundice, lichenification, No spider nevi, no striae and turgor decreased Rashes: no rashes Nails: normal Neuro General: oriented to person, oriented to place and oriented to time Cranial nerves: Yes Equal, round and reactive pupils present and Yes Normal hearing present Speech: No Abnormal speech present Extrem General: Yes normal to inspection, No clubbing, No cyanosis and No edema Psych Appearance: grossly normal and well kempt Mental Status: mental status grossly normal Speech and movement: Normal speech and movement present Affect: normal affect Attitude: cooperative Thought process: Normal thought process present and not confabulating Thought content: Normal thought content present Insight: Limited insight present (Psych) Judgement: Limited judgement present (Psych) Assessment & Plan Assessment & Plan (1) GERD (gastroesophageal reflux disease): Code(s): K21.9 - Gastro-esophageal reflux disease without esophagitis (2) History of peripheral arterial disease: Code(s): Z86.79 - Personal history of other diseases of the circulatory system (3) Constipation: Code(s): K59.00 - Constipation, unspecified (4) Dysphagia: Code(s): R13.10 - Dysphagia, unspecified (5) Pre-op examination: Code(s): Z01.818 - Encounter for other preprocedural examination Plan He says he has had lifelong HB tierra with spaghetti sauce, but at times he will have it even with water. He will drink milk to calm it, but then I get milk problems. He was given omeprazole, but he was very resistant to taking a pill every day as he already has a complex medical regimen with his methadone and HIV meidcations. He also has some CIC, but is fearful of diarrhea. I will start with MOM and titrate as this is likely c/t the GERD. He had a barium swallow in 2019 after he was treated for lymphoma any had an endoscopy but this was out of a [place] facility. He was told at that point he had the beginnings of peptic ulcer disease. He did undergo extensive chemotherapy for his lymphoma which happily has been cured. He does have occasional dysphagia with food getting stuck at the sternal notch sometimes it is meat sometimes it is things like Ramen noodles. I think we should do an endoscopy to see if he has ulcer disease but also to see if we can dilate the esophagus in ease this for him at all. He does have absent dentition and this probably contributes since he can not chew very well. He also does not drink much water he says he has a small bottle by the side of his bed and that will last him for weeks! He drinks a lot of milk. He does not drink a lot of coffee but he does drink tea, he has been avoiding soda for quite some time because he knows that makes the heartburn worse. As above, will try giving him some milk of magnesia for constipation and titrate to affect her side effect. 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 He also tends to have his worst acid brash overnight when he lays down so the bedtime dosing may become a ritual when he finds it helpful for his sleep. He is also due for colonoscopy so we will order an EGD/colonoscopy There are no prior problems with anesthesia or sedation. He has COPD and a cardiac history that he says is currently stable. He is on anti-retroviral therapy for HIV but there are no other known infectious disease problems. His mother had breast cancer but there is no known family history of colorectal cancer or polyps. Return office visit in 4 weeks. Orders: Orders EGD/[place] Combo - GI Use Only Today K21.9 - Gastro-esophageal reflux disease without esophagitis, R13.10 - Dysphagia, unspecified Comprehensive Met. Panel Today Z01.818 - Encounter for other preprocedural examination Medications: New famotidine (Pepcid) 40 mg PO BEDTIME PRN 30 tabs 6RF heartburn K21.9 - Gastro- esophageal reflux disease without esophagitis, K59.00 - Constipation, unspecified, Z86.79 - Personal history of other diseases of the circulatory system magnesium hydroxide (Milk of Magnesia) 10 mL PO BEDTIME PRN 355 mL 3RF constipation K59.00 - Constipation, unspecified bisacodyl (Dulcolax (bisacodyl)) 10 mg (2 x 5 mg) PO BEDTIME 2 days 4 tabs 0RF peg 3350-electrolytes 236-22.74-6.74 -5.86 gram (Golytely) until fecal effluent is clear; do not exceed a total volume of 2,000 mL 240 mL PO Q10M 1 day 4,000 mL 0RF Z12.11 - Encounter for screening for malignant neoplasm of colon Coding Level of Care Code New Pt Level 3 (93644) Diagnoses GERD (gastroesophageal reflux disease) K21.9 History of peripheral arterial disease Z86.79 Constipation K59.00 Dysphagia R13.10 Pre-op examination Z01.818
== END 2023-11-21 17:48 ==
PROVIDERS: PCP Family Medicine; Visit Provider Nurse Practitioner
DX: K21.9 Gastro-esophageal reflux disease without esophagitis (principal); Z86.79 Personal history of other diseases of the circulatory system; K59.00 Constipation, unspecified; R13.10 Dysphagia, unspecified; Z01.818 Encounter for other preprocedural examination
CPT/HCPCS: 99203

== ENCOUNTER → 2023-11-21 08:34 | Outpatient (BNVA) | payer OTHER, SELFPAY | PROVIDERS: PCP Family Medicine; Visit Provider Nurse Practitioner | DX: Z01.818 Encounter for other preprocedural examination (principal); K21.9 Gastro-esophageal reflux disease without esophagitis; K59.00 Constipation, unspecified; R13.10 Dysphagia, unspecified; J44.9 Chronic obstructive pulmonary disease, unspecified; R09.02 Hypoxemia; Z87.891 Personal history of nicotine dependence; Z85.79 Personal history of other malignant neoplasms of lymphoid, hematopoietic and related tissues; Z86.79 Personal history of other diseases of the circulatory system | CPT/HCPCS: 94618; 99202; 99212 ==

== ENCOUNTER 2023-11-21 09:51 | Outpatient (AMB) | payer OTHER, SELFPAY ==
[2023-11-21 10:06] VITALS: BP 130/78; PULSE 50; O2SAT 94; BMI 25.1
--- NOTE | 2023-11-21 10:06 | MHC.OFFVIS ---
Intake Vital Signs 11/21/23 10:06 Height 5 ft 9 in Weight 170 lb BMI 25.1 BP 130/78 Blood Pressure Location Lt brachial Position Sitting Pulse 50 Pulse Source Pulse Oximeter Pulse Oximetry (%) 94 Oxygen Delivery Method Room Air Intake Visit Reasons: copd Intake Note: pt is here for follow up and would like to be tested for poc or pulse delivery for smaller tanks. pt has questions on the length of time he holds his inhaler in. Still having episodes of short of breath in early am, either using oxygen or inhaler. 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 Allergies levofloxacin Allergy (Intermediate, Verified 11/21/23 10:27) Nausea, chills, SOB Medication List - Last Reconciled 11/21/23 by Virgilio Momin MD albuterol sulfate 90 mcg/actuation (Ventolin HFA) 1 puff PO Q4H PRN bisacodyl (Dulcolax (bisacodyl)) 10 mg (2 x 5 mg) PO BEDTIME 2 days [id number]-egqwoqfo-hcpaib ala 200-25-25 mg (Odefsey) 1 tab PO DAILY famotidine (Pepcid) 40 mg PO BEDTIME PRN fluticasone propion-salmeterol 250-50 mcg/dose (Wixela Inhub) 1 inh inhalation BID levothyroxine 25 mcg PO DAILY magnesium hydroxide (Milk of Magnesia) 10 mL PO BEDTIME PRN methadone 55 mg PO Q4H peg 3350-electrolytes 236-22.74-6.74 -5.86 gram (Golytely) 240 mL PO Q10M 1 day umeclidinium 62.5 mcg/actuation (Incruse Ellipta) 1 inh PO DAILY Do you need a note to return to daycare/school/sports/work: No HPI copd HPI Details Ra is 63 years old gentleman of his simple mind, Comes for follow-up, Still gets short of breath on minimal effort at home or walking outdoors. He is not using portable cylinders because they are too bulky and he is shy of bringing them outdoors. When resting at home he is O2 sats are in normal range. But as he moves going to the bathroom or doing any physical work the O2 sats drop below 90%. He feels short of breath on doing any physical work, but not at rest. He has minimal cough or expectoration [facility] Medical History Dyspnea on exertion Personal history of nicotine dependence History of lymphoma (~2005) Hypogonadism in male Chronic hepatitis C without hepatic coma Anal fistula Polysubstance abuse Hypothyroidism Exercise hypoxemia Elevated PSA Hypogonadotropic hypogonadism (~2019) HIV (human immunodeficiency virus infection) COPD (chronic obstructive pulmonary disease) Surgical History S/P lesley-rectal abscess repair, follow-up exam Hx of fracture Family History Father Cancer Mother No problems noted. Sister Cancer Social History Household Members: Family Housing: Apartment Alcohol intake: never Comment: NO COUNTS NEEDED Patient Tobacco Use Status: Former Tobacco user Quit Date: 3 weeks ago from 06/21/21 Years Smoked: 40 years +/- Substance Use Type: Amphetamines, Crack/Cocaine, Heroin, Marijuana and Painkillers service: No Current occupational status: disabled Review of Systems Const All systems reviewed & are unremarkable except as noted in HPI and below Eyes Reports no additional complaints ENT Reports nasal congestion (Mild off and on) Card Reports chest pain, Denies irregular heart rhythm and Denies leg edema Resp Reports as per HPI GI Reports no additional complaints Reports no additional complaints Musc Reports no additional complaints Skin/Breast Reports system reviewed and no additional complaints, except as documented Neuro Reports no additional complaints Psych Reports no additional complaints Endo Reports other (Being treated for diabetes mellitus, and hypothyroidism.) Physical Exam Vital Signs: Last Vital Signs Pulse 50 11/21/23 10:06 BP 130/78 11/21/23 10:06 Pulse Ox 94 11/21/23 10:06 Oxygen Delivery Method Room Air 11/21/23 10:06 BMI result Body Mass Index 25.1 Const General: comfortable (Slightly short of breath when walking), no acute distress, alert and awake Orientation/consciousness: patient oriented x3 HEENT Head: Yes normal to inspection General nose exam: No nasal polyps present and No nasal discharge present Face and sinus: Yes sinuses nontender Mouth: oropharynx normal Teeth and gingiva: edentulous Throat: Yes posterior oropharynx normal Eyes General: appearance normal, both eyes and all related structures Neck Neck: Yes normal visual inspection, Yes no lymphadenopathy, Yes trachea midline and Yes no JVD Thyroid: Thyroid normal Chest Chest palpation & inspection: normal inspection of the chest, normal palpation of entire chest wall and no tenderness Resp Other: Percussion note hyper-resonant, breath sounds are distant with prolonged expiratory phase, but equal on both sides. No audible wheezes or rhonchi. Cardio Palpation: normal PMI Rate: regular rate Rhythm: regular rhythm Heart sounds: no gallops and no murmurs GI Palpation (GI): Soft to palpation, nontender, No hepatosplenomegaly present and no masses Auscultation: normal bowel sounds Back/Spine/Pelvis Thoracic/Lumbar Spine: thoracic and lumbar spine normal to inspection Skin General skin exam: no rashes or lesions noted and dry skin Neuro General: patient oriented x3 and no focal motor deficits Cranial nerves: Yes CN's II-XII intact bilaterally Extrem General: Yes normal to inspection, Yes no clubbing, cyanosis or edema and Yes no calf tenderness Psych Appearance: grossly normal and well kempt Speech and movement: Normal speech and movement present Results Reviewed Results Reviewed: 6 minutes walk, for use of O2 conserving unit. He does desaturate on minimal walking, He walked with 2 L/minute with, the POC ended well , maintained O2 sat above 90%. Assessment & Plan Assessment & Plan (1) COPD (chronic obstructive pulmonary disease): Comment: Has advanced chronic obstructive pulmonary disease, related to his past smoking He is doing very well with the current regimen. Code(s): J44.9 - Chronic obstructive pulmonary disease, unspecified Plan: Educated about the proper use of inhalers. Advair 250-51 inhalation b.i.d.. .Incruse Ellipta 1 inhalation daily Albuterol HFA 2 puffs Q 4-6 hours only p.r.n.. (2) Exercise hypoxemia: Comment: Pulmonary function test showed severe obstructive disorder. And 6 minutes walk showed that he does desaturate quickly on walking, Tested for using POC ( O2 conserving mode) he did okay with 2 L/minute , O2 sat stayed above 91%. Code(s): R09.02 - Hypoxemia Plan: Order for oxygen conserving unit for portability, ( POC OR B- CYLINDER ) IS BEING SENT TO DME SUPPLIER. (3) Personal history of nicotine dependence: Comment: (Former smoker, onset 12yo, 1-2ppd x 49yrs, 60+PYH, quit in 2020) He is active in annual lung screening program. Code(s): Z87.891 - Personal history of nicotine dependence Plan: Reinforced that he should not go back to smoking. 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 s/p EPOCH [id number] and intrathecal MANAGER CRISIS prophylaxis) No remissions . Code(s): Z85.79 - Personal history of other malignant neoplasms of lymphoid, hematopoietic and related tissues Plan: Patient was explained about his past history and reassured. Coding Level of Care Code Est Pt Level 3 (26770) Diagnoses COPD (chronic obstructive pulmonary disease) J44.9 Exercise hypoxemia R09.02 Personal history of nicotine dependence Z87.891 History of lymphoma Z85.79
[2023-11-21 10:51] VITALS: PULSE 77; O2SAT 94
== END 2023-11-21 10:49 | disposition home or self-care (01) ==
PROVIDERS: PCP Family Medicine; Visit Provider Internal Medicine
DX: J44.9 Chronic obstructive pulmonary disease, unspecified (principal); R09.02 Hypoxemia; Z87.891 Personal history of nicotine dependence; Z85.79 Personal history of other malignant neoplasms of lymphoid, hematopoietic and related tissues
CPT/HCPCS: 94618; 99213

== ENCOUNTER 2023-12-19 12:49 | Outpatient (AMB) | payer OTHER, SELFPAY ==
--- NOTE | 2023-12-19 12:50 | A.OFFVIS_ITS ---
Intake Visit Reasons: MRI results(set) Intake Note: Patient presents today for a telehealth follow-up on MRI Meds- None Allergies to Antibiotic- Levofloxacin Blood Thinner- None Storage Receipt Poster Required: No Allergies levofloxacin Allergy (Intermediate, Verified 12/19/23 12:52) Nausea, chills, SOB HPI Comments Details: Ra is a pleasant male. He is a patient of Dr. Hancock. He seen for the following urologic conditions - prostate cancer Telemedicine Evaluation 15 min Consultation [employer] Fela Video attempted Four month follow-up PSA Start finasteride Discussed Prolaris result Given background will continue with active surveillance Background of HIV with lymphoma treated approximately 2009. Chronic hep C, polysubstance abuse. Prognostic Model Information calculated using STAR[employer] [email or web address] (deal [email or web address]).[place] [address]/star-cap/ Stage Prediction 1C 5yr Specific Mortality 0.5% 10yr Specfic Mortality 2.0% Prostate Cancer 08/23 GG2, low volume Diagnosed by Dr. Stewart PSA at diagnosis 6.8 TRUS volume at diagnosis 20gm Prolaris 09/22 active surveillance cohort Histologic type: Prostatic adenocarcinoma Histologic grade: Brianne score: 3+4=7 Grade group: 2 Tumor quantitation:Number cores positive: 3 (LBM 25%, LMM 5%, RBL 60%) Total number of cores: 12 - Periprostatic fat inv.: Not identified Seminal vesicle inv.: Not identified Perineural inv.: Present LVI: Not identified PFSH Medical History Dyspnea on exertion Personal history of nicotine dependence History of lymphoma (~2004) Hypogonadism in male Chronic hepatitis C without hepatic coma Anal fistula Polysubstance abuse Hypothyroidism Exercise hypoxemia Elevated PSA Hypogonadotropic hypogonadism (~2018) HIV (human immunodeficiency virus infection) COPD (chronic obstructive pulmonary disease) Surgical History S/P lesley-rectal abscess repair, follow-up exam Hx of fracture Family History Father Cancer Mother No problems noted. Sister Cancer Social History Household Members: Family Housing: Apartment Alcohol intake: never Comment: NO COUNTS NEEDED Patient Tobacco Use Status: Former Tobacco user Quit Date: 3 weeks ago from 06/21/21 Years Smoked: 40 years +/- Substance Use Type: Amphetamines, Crack/Cocaine, Heroin, Marijuana and Painkillers service: No Current occupational status: disabled Review of Systems Const All systems reviewed & are unremarkable except as noted in HPI and below Reports no additional complaints Resp Reports no additional complaints GI Reports no additional complaints Reports as per HPI Musc Reports no additional complaints Physical Exam Telemedicine evaluation Appropriate responses Regular breathing rate and rhythm HEENT Head: Yes normal to inspection Ears: hearing grossly normal bilaterally Eyes General: appearance normal, both eyes and all related structures Neck Neck: Yes normal visual inspection Chest Chest palpation & inspection: normal inspection of the chest Resp Effort & Inspection: normal respiratory effort and able to speak in complete sentences Telehealth Telehealth Location of provider rendering services: practice address Location of patient: address on file Patient Identification confirmed using: Name, : Yes Telehealth method: video Patient verbally consented to treatment: Yes Patient verbally consented to billing insurance company: Yes Patient informed of any privacy concerns related to visit: Yes Assessment & Plan Assessment & Plan (1) Prostate cancer: Code(s): C61 - Malignant neoplasm of prostate Category: Medical Plan Start finasteride Four month follow-up PSA Orders: Orders Prostate Specific Antigen 4 Months C61 - Malignant neoplasm of prostate Medications: New finasteride 5 mg PO DAILY 90 tabs 1RF 90 days C61 - Malignant neoplasm of prostate, N40.1 - Benign prostatic hyperplasia with lower urinary tract symptoms, N13.8 - Other obstructive and reflux uropathy, R33.9 - Retention of urine, unspecified Patient Instructions: Imaging studies, laboratory and physical exam results were discussed and reviewed in detail. No major barriers to patient understanding were identified. An opportunity to ask questions regarding the treatment plan was provided. All questions were answered. The patient expressed understanding and agreement with the above treatment plan. The patient is aware they should contact our office by phone for worsening of their current condition or the appearance of new urologic symptoms. Compliance is encouraged with any medications and followup testing that is ordered. It is a privilege to participate in the urologic care of your patient. If you have any questions or concerns regarding treatment for the above conditions, or other urologic issues, please do not hesitate to contact me. The office telephone contact is [phone]. This note is constructed using voice recognition software. While every effort has been made to ensure accuracy fur examiner errors may have been included. Yours sincerely, Dr Yobani Stewart MD, [facility] - Urology Providers of Expert, Compassionate Care for the Genitourinary System
== END 2023-12-19 16:49 | disposition home or self-care (01) ==
LOC: HO.HUSH 12:50
PROVIDERS: PCP Family Medicine; Visit Provider Urology
DX: C61 Malignant neoplasm of prostate (principal)
CPT/HCPCS: 99213

== ENCOUNTER → 2023-12-19 12:49 | Outpatient (BNVA) | payer OTHER, SELFPAY | PROVIDERS: PCP Family Medicine; Visit Provider Urology ==

== ENCOUNTER 2024-02-04 11:41 | Outpatient (REF) | payer OTHER, SELFPAY ==
[2024-02-04 14:02] LABS: Estimated Average Glucose 126 mg/dL
[2024-02-04 14:23] LABS: Cholesterol 162 mg/dL (<200); HDL Cholesterol 40 mg/dL (>40); LDL Cholesterol Calculated 75 mg/dL (<100); TSH reflex Free T4 2.78 uIU/mL (0.32-4.0); Triglycerides 236 mg/dL (<150)
[2024-02-04 14:28] LABS: Reflex LDLD? No
== END 2024-02-04 11:42 | disposition home or self-care (01) ==
LOC: HO.HHCL 11:41
PROVIDERS: Visit Provider Family Medicine
DX: Z13.220 Encounter for screening for lipoid disorders (principal); E03.9 Hypothyroidism, unspecified
CPT/HCPCS: 36415; 80061; 83036; 84443

== ENCOUNTER 2024-03-10 13:22 | Outpatient (AMB) | payer OTHER, SELFPAY ==
--- NOTE | 2024-03-10 13:32 | MHC.OFFVIS ---
Vital Signs 03/10/24 13:33 Height 5 ft 9 in Weight 179 lb 10.828 oz BMI 26.5 BP 122/80 Blood Pressure Location Lt brachial Position Sitting Pulse 93 Pulse Source Pulse Oximeter Pulse Oximetry (%) 72 L Oxygen Delivery Method Room Air Intake Visit Reasons: COPD Intake Note: pt is here for follow up and is having a difficult time understanding the copd dx, he just doesn't feel right, he is tired all the time, phlegm is stuck in the chest, he feels like the could taste it (nasty taste) sometimes yellow. 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 Allergies levofloxacin Allergy (Intermediate, Verified 03/10/24 13:55) Nausea, chills, SOB Medication List - Last Reconciled 03/10/24 by Virgilio Momin MD albuterol sulfate 90 mcg/actuation (Ventolin HFA) 1 puff PO Q4H PRN bisacodyl (Dulcolax (bisacodyl)) 10 mg (2 x 5 mg) PO BEDTIME 2 days obbcrvfjxf-zkzmcavb-qzvjbi ala 200-25-25 mg (Odefsey) 1 tab PO DAILY famotidine (Pepcid) 40 mg PO BEDTIME PRN finasteride 5 mg PO DAILY 90 days fluticasone propion-salmeterol 250-50 mcg/dose (Wixela Inhub) 1 inh inhalation BID levothyroxine 25 mcg PO DAILY magnesium hydroxide (Milk of Magnesia) 10 mL PO BEDTIME PRN methadone 55 mg PO Q4H peg 3350-electrolytes 236-22.74-6.74 -5.86 gram (Golytely) 240 mL PO Q10M 1 day umeclidinium 62.5 mcg/actuation (Incruse Ellipta) 1 inh PO DAILY Do you need a note to return to daycare/school/sports/work: No HPI HPI COPD: Details: DOING FAIRLY WELL AND IS HERE FOR HIS ROUTINE FOLLOW-UP. HE DOES HAVE O2 CONCENTRATOR AT HOME AND ALSO HAS PORTABLE UNIT. HOWEVER HE DOES NOT USE MUCH OXYGEN. WHEN HE COMES OUT HE DOES NOT BRING HIS. PORTABLE UNIT HE HAS HAD NO ACUTE INFECTION OR EXACERBATION. HOWEVER HE CONTINUES TO BE SHORT OF BREATH ON WALKING AROUND AND ALSO FEELS TIRED AND EXHAUSTED. USUAL ON EVERY VISIT HE WOULD ASK WHY HE GETS TIRED AND EXHAUSTED AND I HAVE GIVEN HIM THE SAME EXPLANATION ALL THE TIME. HE DOES HAVE SEVERE OBSTRUCTIVE AIRWAY DISORDER, HE IS ON OPTIMAL MEDICAL REGIMEN. LUCKILY HE HAS QUIT SMOKING SINCE A FEW YEARS AGO. [facility] Medical History Dyspnea on exertion Personal history of nicotine dependence History of lymphoma (~2004) Hypogonadism in male Chronic hepatitis C without hepatic coma Anal fistula Polysubstance abuse Hypothyroidism Exercise hypoxemia Elevated PSA Hypogonadotropic hypogonadism (~2018) HIV (human immunodeficiency virus infection) COPD (chronic obstructive pulmonary disease) Surgical History S/P lesley-rectal abscess repair, follow-up exam Hx of fracture Family History Father Cancer Mother No problems noted. Sister Cancer Social History Household Members: Family Housing: Apartment Alcohol intake: never Comment: NO COUNTS NEEDED Patient Tobacco Use Status: Former Tobacco user Years Smoked: 40 years +/- Substance Use Type: Amphetamines, Crack/Cocaine, Heroin, Marijuana and Painkillers service: No Current occupational status: disabled Review of Systems Const All systems reviewed & are unremarkable except as noted in HPI and below Eyes Reports no additional complaints ENT Reports nasal congestion (Mild off and on) Card Reports chest pain, Denies irregular heart rhythm and Denies leg edema Resp Reports as per HPI GI Reports no additional complaints Reports no additional complaints Musc Reports no additional complaints Skin/Breast Reports system reviewed and no additional complaints, except as documented Neuro Reports no additional complaints Psych Reports no additional complaints Endo Reports other (Being treated for diabetes mellitus, and hypothyroidism.) Physical Exam Vital Signs: Last Vital Signs Pulse 93 03/10/24 13:33 BP 122/80 03/10/24 13:33 Pulse Ox 72 L 03/10/24 13:33 Oxygen Delivery Method Room Air 03/10/24 13:33 BMI result Body Mass Index 26.5 Const General: comfortable (Slightly short of breath when walking), no acute distress, alert and awake Orientation/consciousness: patient oriented x3 HEENT Head: Yes normal to inspection General nose exam: No nasal polyps present and No nasal discharge present Face and sinus: Yes sinuses nontender Mouth: oropharynx normal Teeth and gingiva: edentulous Throat: Yes posterior oropharynx normal Eyes General: appearance normal, both eyes and all related structures Neck Neck: Yes normal visual inspection, Yes no lymphadenopathy, Yes trachea midline and Yes no JVD Thyroid: Thyroid normal Chest Chest palpation & inspection: normal inspection of the chest, normal palpation of entire chest wall and no tenderness Resp Other: Percussion note hyper-resonant, breath sounds are distant with prolonged expiratory phase, but equal on both sides. No audible wheezes or rhonchi. Cardio Palpation: normal PMI Rate: regular rate Rhythm: regular rhythm Heart sounds: no gallops and no murmurs GI Palpation (GI): Soft to palpation, nontender, No hepatosplenomegaly present and no masses Auscultation: normal bowel sounds Back/Spine/Pelvis Thoracic/Lumbar Spine: thoracic and lumbar spine normal to inspection Skin General skin exam: no rashes or lesions noted and dry skin Neuro General: patient oriented x3 and no focal motor deficits Cranial nerves: Yes CN's II-XII intact bilaterally Extrem General: Yes normal to inspection, Yes no clubbing, cyanosis or edema and Yes no calf tenderness Psych Appearance: grossly normal and well kempt Speech and movement: Normal speech and movement present Assessment & Plan Assessment & Plan (1) COPD (chronic obstructive pulmonary disease): Comment: Has advanced chronic obstructive pulmonary disease, related to his past smoking He is doing very well with the current regimen. Code(s): J44.9 - Chronic obstructive pulmonary disease, unspecified Category: Medical Plan: CONTINUE TO USE Wixela 250-51 inhalation b.i.d. and Incruse Ellipta 1 inhalation daily. Ventolin HFA 2 puffs Q 4-6 hours p.r.n.. (2) Exercise hypoxemia: Comment: Pulmonary function test showed severe obstructive disorder. And 6 minutes walk showed that he does desaturate quickly on walking, Tested for using POC ( O2 conserving mode) he did okay with 2 L/minute , O2 sat stayed above 91%. Patient does not use portable oxygen , and even at home he uses O2 only sparingly. Code(s): R09.02 - Hypoxemia Category: Medical Plan: I again reinforced that he is supposed to bring the portable unit with him when he comes outdoors to the office or if he goes to the mall. At home he should use stationary O2 2 L/minute, if he feels short of breath. I think it will be good for him to use O2 2 L/minute even at night. (3) Personal history of nicotine dependence: Comment: (Former smoker, onset 12yo, 1-2ppd x 49yrs, 60+PYH, quit in 2020) He is active in annual lung screening program. Code(s): Z87.891 - Personal history of nicotine dependence Category: Medical Plan: Again commended for not going back to smoking. Coding Level of Care Code Est Pt Level 3 (23423) Diagnoses COPD (chronic obstructive pulmonary disease) J44.9 Exercise hypoxemia R09.02 Personal history of nicotine dependence Z87.891
[2024-03-10 13:33] VITALS: BP 122/80; PULSE 93; O2SAT 72; BMI 26.5
== END 2024-03-10 14:03 | disposition home or self-care (01) ==
PROVIDERS: PCP Family Medicine; Visit Provider Internal Medicine
DX: J44.9 Chronic obstructive pulmonary disease, unspecified (principal); R09.02 Hypoxemia; Z87.891 Personal history of nicotine dependence
CPT/HCPCS: 99213

== ENCOUNTER → 2024-03-10 13:22 | Outpatient (BNVA) | payer OTHER, SELFPAY | PROVIDERS: PCP Family Medicine; Visit Provider Internal Medicine | DX: J44.9 Chronic obstructive pulmonary disease, unspecified (principal); R09.02 Hypoxemia; Z87.891 Personal history of nicotine dependence | CPT/HCPCS: 99212 ==

== ENCOUNTER 2024-04-11 11:43 | Outpatient (REF) | payer OTHER, SELFPAY ==
[2024-04-11 12:04] LABS: MANUAL DIFF FLAG NO
[2024-04-11 12:42] LABS: Basophils Percent Auto 0.6 % (0-2); Eosinophils Absolute Auto 0.1 X10*3/uL (0.0-0.4); Eosinophils Percent Auto 1.8 % (0-4); Hematocrit 39.9 % (42.0-52.0); Hemoglobin 13.2 g/dl (14.0-18.0); Imm Gran Abs Auto 0.01 X10*3/uL (0.00-0.03); Imm Gran Pct Auto 0.2 % (0.0-0.4); Lymphocytes Absolute Auto 0.8 X10*3/uL (1.2-4.9); Lymphocytes Percent Auto 14.7 % (20-40); Mean Corpuscular HGB Conc 33.1 g/dl (31.0-36.0); Mean Corpuscular Hemoglobin 29.7 pg (27.0-33.0); Mean Corpuscular Volume 89.7 fL (80.0-98.0); Mean Platelet Volume 9.5 fL (9.4-12.4); Monocytes Absolute Auto 0.3 X10*3/uL (0.1-1.2); Monocytes Percent Auto 5.7 % (2-11); Neutrophils Absolute Auto 3.9 x10*3/uL (2.0-8.3); Platelet Count 142 X10*3/uL (160-400); Red Blood Count 4.45 X10*6/uL (4.60-5.80); Red Cell Distribution Width 13.7 % (11.0-16.0); White Blood Count 5.1 X10*3/uL (4.8-10.8)
[2024-04-11 13:10] LABS: Blood Urea Nitrogen 24 mg/dL (9-16)
[2024-04-11 13:13] LABS: Alanine Aminotransferase 16 U/L (0-40); Albumin Level 4.2 g/dL (3.5-5.0); Alkaline Phosphatase 142 U/L (39-117); Anion Gap 13 (12-20); Aspartate Amino Transferase 24 U/L (5-37); Bilirubin Total 0.8 mg/dL (0.0-1.0); Blood Urea Nitrogen 24 mg/dL (9-16); Carbon Dioxide 26 mmol/L (22-29); Chloride 106 mmol/L (96-108); Estimated Glomerular Filt Rate 35; Glucose Random 119 mg/dL (60-115); Potassium 4.5 mmol/L (3.3-5.1); Sodium 140 mmol/L (135-145); Total Protein 8.2 g/dL (6.5-8.0)
[2024-04-11 13:29] LABS: Prostate Specific Antigen 1.62 ng/mL (<0.05-4.0)
[2024-04-11 14:47] LABS: CT PCR NOT DETECTED (Not Detect.); NG PCR NOT DETECTED (Not Detect.)
[2024-04-14 00:14] LABS: TS Negative Control Passed; TS Panel A 2; TS Panel B 1; TS Positive Control Passed; TSpotTB Negative (Negative)
[2024-04-14 04:51] LABS: Syphilis Screen Nonreactive (Nonreactive)
[2024-04-14 05:13] LABS: HBS Num1 171.83 mIU/mL (0-7.99); HBc Num1 3.27 S/CO (0.00-0.79); HBsAGNum1 0.32 S/CO (0.00-0.99); Hepatitis B Surface Antigen Negative (Negative); ~Hepatitis B Surface Antibody REACTIVE (Nonreactive)
[2024-04-14 05:25] LABS: Hepatitis A Antibody IgG REACTIVE (Nonreactive)
[2024-04-14 05:58] LABS: HBc Num2 2.59 S/CO; HBc Num3 2.78 S/CO; Hepatitis B Core Antibody Reactive (Nonreactive)
[2024-04-14 13:24] LABS: HCV Log PCR <1.18 NOT DETECTED Log IU/mL (NOT DETECTED); HepC Viral Load <15 NOT DETECTED IU/mL (NOT DETECTED)
[2024-04-15 12:27] LABS: Absolute CD3 Count 633 cells/uL (840-3060); Absolute CD4 Count 237 cells/uL (490-1740); Absolute CD8 Count 381 cells/uL (180-1170); Absolute Lymphocytes 824 cells/uL (850-3900); CD4 CD8 Ratio 0.62 (0.86-5.00); Percent CD3 Cells 77 % (57-85); Percent CD4 Cells 29 % (30-61); Percent CD8 Cells 46 % (12-42)
[2024-04-16 08:42] LABS: HIV RNA PCR Qn Copies <20 DETECTED copies/mL (NOT DETECTED); HIV RNA PCR Qn Log Copies <1.30 DETECTED (NOT DETECTED)
== END 2024-04-11 11:44 | disposition home or self-care (01) ==
LOC: HO.LAB 11:43
PROVIDERS: Internal Medicine; Visit Provider Urology
DX: B20 Human immunodeficiency virus [HIV] disease (principal); R39.15 Urgency of urination; C61 Malignant neoplasm of prostate; Z12.5 Encounter for screening for malignant neoplasm of prostate
CPT/HCPCS: 36415; 80053; 84153; 84520; 85025; 86359; 86360; 86481; 86704; 86706; 86708; 86780; 87340; 87491; 87522; 87536; 87591

== ENCOUNTER 2024-05-30 10:40 | Outpatient (AMB) | payer OTHER, SELFPAY ==
--- NOTE | 2024-05-30 11:11 | A.OFFVIS_ITS ---
Intake Visit Reasons: 4M PSA(set) Intake Note: Patient is Present for Follow Up PSA Urology Medication: Finasteride Antibiotic Allergies:Levofloxacin Blood Thinners:None Informatics Physician Required: No Accompanied by: Self / Same As Patient Allergies levofloxacin Allergy (Intermediate, Verified 07/30/24 10:58) Nausea, chills, SOB HPI Comments Details: Ra is a pleasant male. He is a patient of Dr. Hancock. He seen for the following urologic conditions - prostate cancer Active surveillance continue to check PSA every 6 months PSA 04/23 1.6, 06/24 1.4 Background of HIV with lymphoma treated approximately 2009. Chronic hep C, polysubstance abuse. Prostate Cancer 08/23 GG2, low volume - Current therapy active surveillance Diagnosed by Dr. Stewart PSA at diagnosis 6.8 TRUS volume at diagnosis 20gm Prolaris 09/22 active surveillance cohort Stage Prediction 1C 5yr Specific Mortality 0.5% 10yr Specfic Mortality 2.0% Histologic type: Prostatic adenocarcinoma Histologic grade: Toledo score: 3+4=7 Grade group: 2 Tumor quantitation:Number cores positive: 3 (LBM 25%, LMM 5%, RBL 60%) Total number of cores: 12 - Periprostatic fat inv.: Not identified Seminal vesicle inv.: Not identified Perineural inv.: Present LVI: Not identified PFSH Medical History (Updated 08/05/24 @ 21:21 by Yobani Stewart MD) MICHELLE (obstructive sleep apnea) Dyspnea on exertion Personal history of nicotine dependence History of lymphoma (~2004) Hypogonadism in male Chronic hepatitis C without hepatic coma Anal fistula Polysubstance abuse Hypothyroidism Exercise hypoxemia Hypogonadotropic hypogonadism (~2018) HIV (human immunodeficiency virus infection) COPD (chronic obstructive pulmonary disease) Surgical History S/P lesley-rectal abscess repair, follow-up exam Hx of fracture Family History Father Cancer Mother No problems noted. Sister Cancer Social History Household Members: Family Housing: Apartment Alcohol intake: never Comment: NO COUNTS NEEDED Patient Tobacco Use Status: Former Tobacco user Years Smoked: 40 years +/- Substance Use Type: Amphetamines, Crack/Cocaine, Heroin, Marijuana and Painkillers service: No Current occupational status: disabled Review of Systems Const Denies chills and Denies fever(s) Card Reports no additional complaints and Denies syncope Resp Denies cough GI Denies abdominal pain and Denies heartburn Reports as per HPI and Denies change in libido Neuro Denies syncope Psych Denies change in libido Endo Denies change in libido Physical Exam Const General: cooperative, healthy appearing, comfortable and no acute distress Orientation/consciousness: patient oriented x3 HEENT Face and sinus: Yes normal facial exam Mouth: moist mucous membranes Neck Neck: Yes normal visual inspection, Yes full ROM and Yes trachea midline Chest Chest palpation & inspection: normal inspection of the chest Resp Effort & Inspection: normal respiratory effort, able to speak in complete sentences and no respiratory distress GI Inspection: Yes normal to inspection Back/Spine/Pelvis Cervical Spine: normal cervical lordosis Thoracic/Lumbar Spine: thoracic and lumbar spine normal to inspection Skin General skin exam: no rashes or lesions noted Neuro General: patient oriented x3, gait normal, tone normal and moves all extremities Extrem General: Yes normal to inspection and Yes capillary refill normal Assessment & Plan Assessment & Plan (1) Prostate cancer: Code(s): C61 - Malignant neoplasm of prostate Category: Medical Plan Six-month follow-up PSA Orders: Orders Prostate Specific Antigen 6 Months C61 - Malignant neoplasm of prostate Patient Instructions: Imaging studies, laboratory and physical exam results were discussed and reviewed in detail. No major barriers to patient understanding were identified. An opportunity to ask questions regarding the treatment plan was provided. All questions were answered. The patient expressed understanding and agreement with the above treatment plan. The patient is aware they should contact our office by phone for worsening of their current condition or the appearance of new urologic symptoms. Compliance is encouraged with any medications and followup testing that is ordered. It is a privilege to participate in the urologic care of your patient. If you have any questions or concerns regarding treatment for the above conditions, or other urologic issues, please do not hesitate to contact me. The office tel ephone contact is [phone]. This note is constructed using voice recognition software. While every effort has been made to ensure accuracy interactive media designer errors may have been included. Yours sincerely, Dr Yobani Stewart MD, [facility] - Urology Providers of Expert, Compassionate Care for the Genitourinary System Coding Level of Care Code Est Pt Level 3 (99369) Diagnoses Prostate cancer C61
== END 2024-05-30 11:48 | disposition home or self-care (01) ==
LOC: HO.HUSH 10:40
PROVIDERS: PCP Family Medicine; Visit Provider Urology
DX: C61 Malignant neoplasm of prostate (principal)
CPT/HCPCS: 99213

== ENCOUNTER → 2024-05-30 10:40 | Outpatient (BNVA) | payer OTHER, SELFPAY | PROVIDERS: PCP Family Medicine; Visit Provider Urology | DX: C61 Malignant neoplasm of prostate (principal) | CPT/HCPCS: 99212 ==

== ENCOUNTER 2024-06-04 14:18 | Outpatient (REF) | payer OTHER, SELFPAY ==
[2024-06-04 16:30] LABS: Estimated Average Glucose 120 mg/dL; Hemoglobin A1c % 5.8 % (<6.0)
[2024-06-04 16:55] LABS: Alanine Aminotransferase 22 U/L (0-40); Albumin Level 4.2 g/dL (3.5-5.0); Alkaline Phosphatase 140 U/L (39-117); Anion Gap 15 (12-20); Aspartate Amino Transferase 27 U/L (5-37); Bilirubin Direct 0.2 mg/dL (0.0-0.5); Bilirubin Total 0.6 mg/dL (0.0-1.0); Blood Urea Nitrogen 23 mg/dL (9-16); Calcium 9.7 mg/dL (8.4-10.2); Carbon Dioxide 23 mmol/L (22-29); Chloride 107 mmol/L (96-108); Cholesterol 160 mg/dL (<200); Estimated Glomerular Filt Rate 45; Glucose Random 123 mg/dL (60-115); HDL Cholesterol 42 mg/dL (>40); LDL Cholesterol Calculated 97 mg/dL (<100); Magnesium 2.2 mg/dL (1.6-2.6); Potassium 4.5 mmol/L (3.3-5.1); Sodium 140 mmol/L (135-145); Total Protein 8.2 g/dL (6.5-8.0); Triglycerides 107 mg/dL (<150)
[2024-06-04 16:59] LABS: TSH reflex Free T4 2.57 uIU/mL (0.32-4.0)
[2024-06-04 17:47] LABS: Reflex LDLD? No
== END 2024-06-04 14:19 | disposition home or self-care (01) ==
LOC: HO.HHCL 14:18
PROVIDERS: Visit Provider Family Medicine
DX: N18.30 Chronic kidney disease, stage 3 unspecified (principal); E03.9 Hypothyroidism, unspecified; Z91.89 Other specified personal risk factors, not elsewhere classified; R53.83 Other fatigue; R73.01 Impaired fasting glucose
CPT/HCPCS: 36415; 80048; 80061; 80076; 83036; 83735; 84443

== ENCOUNTER 2024-06-05 09:59 | Outpatient (REF) | payer OTHER, SELFPAY ==
[2024-06-05 12:20] LABS: Creatinine Urine 316.32 mg/dL; Microalbum/Creatinine Ratio Ur 6.3 ug/mg cr (<30)
== END 2024-06-05 10:00 | disposition home or self-care (01) ==
LOC: HO.HHCL 09:59
PROVIDERS: Visit Provider Family Medicine
DX: N18.30 Chronic kidney disease, stage 3 unspecified (principal)
CPT/HCPCS: 82043; 82570

== ENCOUNTER → 2024-06-18 20:30 | Outpatient (REF) | payer OTHER, SELFPAY | LOC: HO.SL 20:30 | PROVIDERS: PCP Family Medicine; Visit Provider Family Medicine | DX: Z13.89 Encounter for screening for other disorder (principal) ==

== ENCOUNTER 2024-06-27 14:53 | Outpatient (AMB) | payer OTHER, SELFPAY ==
[2024-06-27 14:59] VITALS: BP 120/82; PULSE 80; O2SAT 94; BMI 25.8
--- NOTE | 2024-06-27 14:59 | HO.NEPHOV ---
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 End Required: No Accompanied by: Self / Same As Patient Allergies levofloxacin Allergy (Intermediate, Verified 06/27/24 15:01) Nausea, chills, SOB Medication List - Last Reconciled 06/27/24 by Harpal Sotomayor MD albuterol sulfate 90 mcg/actuation (Ventolin HFA) 1 puff PO Q4H PRN bisacodyl (Dulcolax (bisacodyl)) 10 mg (2 x 5 mg) PO BEDTIME 2 days xseetgktfj-qxunyevt-jpmceo ala 200-25-25 mg (Odefsey) 1 tab PO DAILY famotidine (Pepcid) 40 mg PO BEDTIME PRN finasteride 5 mg PO DAILY 90 days fluticasone propion-salmeterol 250-50 mcg/dose (Wixela Inhub) 1 inh inhalation BID levothyroxine 25 mcg PO DAILY magnesium hydroxide (Milk of Magnesia) 10 mL PO BEDTIME PRN methadone 55 mg PO Q4H peg 3350-electrolytes 236-22.74-6.74 -5.86 gram (Golytely) 240 mL PO Q10M 1 day umeclidinium 62.5 mcg/actuation (Incruse Ellipta) 1 inh PO DAILY HPI Comments Details: Boo is a pleasant 64-year-old man who has been referred for evaluation of CKD. He has a history of prostate cancer Adenocarcinoma grade [address] Stewart. History of COPD History of non-Hodgkin's lymphoma and being followed by Dr. Guerin History of HIV and being followed by Dr. Almaguer. He is currently on odetsey Recent creatinine was 1.96 mg/dL hence this referral. He underwent renal ultrasonogram which was unremarkable. Back in 2022 serum creatinine was 1.53. [facility] Medical History Dyspnea on exertion Personal history of nicotine dependence History of lymphoma (~2004) Hypogonadism in male Chronic hepatitis C without hepatic coma Anal fistula Polysubstance abuse Hypothyroidism Exercise hypoxemia Elevated PSA Hypogonadotropic hypogonadism (~2019) HIV (human immunodeficiency virus infection) COPD (chronic obstructive pulmonary disease) Surgical History S/P lesley-rectal abscess repair, follow-up exam Hx of fracture Family History Father Cancer Mother No problems noted. Sister Cancer Social History Household Members: Family Housing: Apartment Alcohol intake: never Comment: NO COUNTS NEEDED Patient Tobacco Use Status: Former Tobacco user Years Smoked: 40 years +/- Substance Use Type: Amphetamines, Crack/Cocaine, Heroin, Marijuana and Painkillers service: No Current occupational status: disabled Review of Systems Const Denies fever(s) and Denies weight loss Card Denies chest pain Resp Denies cough and Denies hemoptysis GI Denies abdominal pain, Denies diarrhea and Denies nausea Musc Denies back pain Neuro Denies focal weakness Physical Exam Vital Signs: Last Vital Signs Pulse 80 06/27/24 14:59 BP 120/82 06/27/24 14:59 Pulse Ox 94 06/27/24 14:59 Oxygen Delivery Method Room Air 06/27/24 14:59 BMI result Body Mass Index 25.8 Const General: comfortable; No acute distress Orientation/consciousness: patient oriented x3 Eyes General: appearance normal, both eyes and all related structures Visual Rudolph: normal visual rudolph by confrontation Neck Neck: Yes supple and Yes no JVD Resp Effort & Inspection: normal respiratory effort and respiratory effort not decreased Auscultation: rhonchi Cardio Palpation: no palpable S3 and no palpable S4 Heart sounds: no rubs GI Inspection: Yes normal to inspection Palpation (GI): Soft to palpation Percussion: Yes normal to percussion Auscultation: normal bowel sounds General: Yes no CVA tenderness Back/Spine/Pelvis Back: no CVA tenderness Skin General skin exam: no petechiae and no purpura Neuro General: patient oriented x3 and no focal motor deficits Extrem General: No clubbing and No edema Results Reviewed Nephrology Results: Hgb 13.2 g/dl (14.0-18.0) L 04/11/24 WBC 5.1 X10*3/uL (4.8-10.8) 04/11/24 Plt Count 142 X10*3/uL (160-400) L 04/11/24 Sodium 140 mmol/L (135-145) 06/04/24 Potassium 4.5 mmol/L (3.3-5.1) 06/04/24 Chloride 107 mmol/L (96-108) 06/04/24 Carbon Dioxide 23 mmol/L (22-29) 06/04/24 BUN 23 mg/dL (9-16) H 06/04/24 Creatinine 1.57 mg/dL (0.5-1.4) H 06/04/24 Calcium 9.7 mg/dL (8.4-10.2) 06/04/24 Urine Creatinine 316.32 mg/dL 06/05/24 Assessment & Plan Assessment & Plan (1) CKD (chronic kidney disease) stage 3, GFR 30-59 ml/min: Code(s): N18.30 - Chronic kidney disease, stage 3 unspecified Category: Medical (2) Prostate cancer: Code(s): C61 - Malignant neoplasm of prostate Category: Medical (3) HIV (human immunodeficiency virus infection): Comment: (on HAART tx - stable in the last 20 years) Code(s): B20 - Human immunodeficiency virus [HIV] disease Category: Medical (4) History of lymphoma: Onset Date: ~2004 Comment: (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 Code(s): Z85.79 - Personal history of other malignant neoplasms of lymphoid, hematopoietic and related tissues Category: Medical Plan [age] man with stage III CKD in a setting of prostate cancer and HIV. He did sustained acute kidney injury with a creatinine peaking at 1.9 and subsequently decreased to 1.5. His baseline might be 1.5 mg/dL. Further clinical course we will determine this. Urinalysis unremarkable and no significant proteinuria. Underlying glomerular nephritis seems unlikely. Ongoing obstructive uropathy should be ruled out. Workup as outlined below including urine studies, blood studies and renal ultrasonogram. Encouraged him to increase his fluid intake to avoid dehydration. Continue to avoid nephrotoxic agents including NSAIDs. Optimize blood pressure and avoid hypotension. Further workup will depend on the outcome of the baseline investigations. All his questions were answered. Orders: Orders Basic Metabolic Panel Today N18.30 - Chronic kidney disease, stage 3 unspecified UA and rflx microscopic Today N18.30 - Chronic kidney disease, stage 3 unspecified Creatinine Urine Today N18.30 - Chronic kidney disease, stage 3 unspecified Creatinine Clearance Urine 24U Today N18.30 - Chronic kidney disease, stage 3 unspecified Creatinine, 24 Hr Group Today N18.30 - Chronic kidney disease, stage 3 unspecified Total Protein Urine Random Today N18.30 - Chronic kidney disease, stage 3 unspecified Complete Blood Count no Diff Today N18.30 - Chronic kidney disease, stage 3 unspecified Protein Electrophoresis, Serum Today N18.30 - Chronic kidney disease, stage 3 unspecified Scribe Plan - Not visible on output: HIV many yrs Coding Level of Care Code New Pt Level 4 (22788) Diagnoses CKD (chronic kidney disease) stage 3, GFR 30-59 ml/min N18.30 Prostate cancer C61 HIV (human immunodeficiency virus infection) B20 History of lymphoma Z85.79
== END 2024-06-27 15:13 | disposition home or self-care (01) ==
PROVIDERS: PCP Family Medicine; Referring Provider Family Medicine; Visit Provider Internal Medicine Hypertension Specialist
DX: N18.30 Chronic kidney disease, stage 3 unspecified (principal); C61 Malignant neoplasm of prostate; B20 Human immunodeficiency virus [HIV] disease; Z85.79 Personal history of other malignant neoplasms of lymphoid, hematopoietic and related tissues
CPT/HCPCS: 99204

== ENCOUNTER 2024-06-27 14:53 | Outpatient (REF) | payer OTHER, SELFPAY ==
[2024-06-27 16:01] LABS: Hematocrit 37.1 % (42.0-52.0); Hemoglobin 12.5 g/dl (14.0-18.0); Mean Corpuscular HGB Conc 33.7 g/dl (31.0-36.0); Mean Corpuscular Hemoglobin 29.8 pg (27.0-33.0); Mean Corpuscular Volume 88.3 fL (80.0-98.0); Mean Platelet Volume 9.5 fL (9.4-12.4); NRBC Pct Auto 0.6 /100WBC (0.0-0.2); Platelet Count 144 X10*3/uL (160-400); Red Cell Distribution Width 13.4 % (11.0-16.0); White Blood Count 3.5 X10*3/uL (4.8-10.8)
[2024-06-27 16:24] LABS: Alanine Aminotransferase 16 U/L (0-40); Albumin Level 4.1 g/dL (3.5-5.0); Alkaline Phosphatase 141 U/L (39-117); Anion Gap 15 (12-20); Aspartate Amino Transferase 21 U/L (5-37); Bilirubin Total 0.7 mg/dL (0.0-1.0); Blood Urea Nitrogen 22 mg/dL (9-16); Calcium 9.6 mg/dL (8.4-10.2); Carbon Dioxide 26 mmol/L (22-29); Chloride 102 mmol/L (96-108); Estimated Glomerular Filt Rate 41; Glucose Random 85 mg/dL (60-115); Potassium 3.9 mmol/L (3.3-5.1); Sodium 139 mmol/L (135-145); Total Protein 8.2 g/dL (6.5-8.0)
[2024-06-27 16:45] LABS: Prostate Specific Antigen 1.36 ng/mL (<0.05-4.0)
[2024-07-01 12:49] LABS: Prot Elec - Albumin 3.9 g/dL (3.8-4.8); Prot Elec - Alpha1 0.3 g/dL (0.2-0.3); Prot Elec - Alpha2 0.7 g/dL (0.5-0.9); Prot Elec - Beta 1 0.5 g/dL (0.4-0.6); Prot Elec - Beta 2 0.5 g/dL (0.2-0.5); Prot Elec - Gamma 1.6 g/dL (0.8-1.7); Prot Elec - Total Protein 7.4 g/dL (6.1-8.1)
== END 2024-06-27 14:54 | disposition home or self-care (01) ==
LOC: HO.LAB 14:53
PROVIDERS: Urology; PCP Family Medicine; Referring Provider Family Medicine; Visit Provider Internal Medicine Hypertension Specialist
DX: Z01.818 Encounter for other preprocedural examination (principal); N18.30 Chronic kidney disease, stage 3 unspecified; C61 Malignant neoplasm of prostate; Z12.5 Encounter for screening for malignant neoplasm of prostate; B20 Human immunodeficiency virus [HIV] disease; Z85.79 Personal history of other malignant neoplasms of lymphoid, hematopoietic and related tissues
CPT/HCPCS: 36415; 80053; 84153; 84165; 85027; 99202

== ENCOUNTER 2024-07-01 12:09 | Outpatient (REF) | payer OTHER, SELFPAY | END 2024-07-01 12:10 | disposition home or self-care (01) | LOC: HO.LAB 12:09 | PROVIDERS: Visit Provider Internal Medicine Hypertension Specialist | DX: Z13.89 Encounter for screening for other disorder (principal) | CPT/HCPCS: 82575 ==

== ENCOUNTER 2024-07-01 15:19 | Outpatient (REF) | payer OTHER, SELFPAY ==
[2024-07-01 16:07] LABS: Appearance Urine Clear; Color Urine Yellow; Glucose Urine UA Negative (Negative); Leukocyte Esterase Urine Trace (Negative); Nitrite Urine Negative (Negative); Specific Gravity - Urine 1.015 (1.005-1.025); UMIC TRIGGER UA YES; Urine Blood Negative (Negative); Urine Ketones Negative (Negative); Urine Protein Negative (Neg-Trace)
[2024-07-01 16:12] LABS: Bacteria Urine None Seen (None Seen); Hyaline Casts Urine 0-2 /LPF (0-2); RBC Urine 0-2 /HPF (0-2); Squamous Epithelial Cell Urine 0-2 /HPF (0-2); WBC Urine 0-5 /HPF (0-5)
[2024-07-01 16:21] LABS: Anion Gap 14 (12-20); Blood Urea Nitrogen 27 mg/dL (9-16); Calcium 9.2 mg/dL (8.4-10.2); Carbon Dioxide 25 mmol/L (22-29); Chloride 104 mmol/L (96-108); Estimated Glomerular Filt Rate 41; Glucose Random 97 mg/dL (60-115); Sodium 139 mmol/L (135-145)
[2024-07-01 17:07] LABS: Creatinine, mg/dL 88.27
[2024-07-01 17:16] LABS: Creatinine Urine 102.16 mg/dL; Total Protein Urine Random < 7 mg/dL (<12)
[2024-07-01 18:07] LABS: Creatinine Clearance 50.4 mL/min (85-125); Creatinine, 24Hr Urine 1.2 G/Day (1.0-2.0); Total Volume 24 Hour Urine 1400 mL
== END 2024-07-01 15:20 | disposition home or self-care (01) ==
LOC: HO.LAB 15:19
PROVIDERS: Visit Provider Internal Medicine Hypertension Specialist
DX: N18.30 Chronic kidney disease, stage 3 unspecified (principal)
CPT/HCPCS: 36415; 80048; 81001; 81003; 82570; 82575; 84156

== ENCOUNTER 2024-07-25 09:30 | Outpatient (AMB) | payer OTHER, SELFPAY ==
[2024-07-25 09:33] VITALS: BP 110/72; PULSE 52; O2SAT 90; BMI 25.8
--- NOTE | 2024-07-25 09:33 | HO.NEPHOV_ITS ---
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 Required: No Accompanied by: Self / Same As Patient Allergies levofloxacin Allergy (Intermediate, Verified 07/25/24 09:35) Nausea, chills, SOB Medication List - Last Reconciled 07/25/24 by Harpal Sotomayor MD albuterol sulfate 90 mcg/actuation (Ventolin HFA) 1 puff PO Q4H PRN bisacodyl (Dulcolax (bisacodyl)) 10 mg (2 x 5 mg) PO BEDTIME 2 days twmpqgpzvj-zgitkaff-hjdbcs ala 200-25-25 mg (Odefsey) 1 tab PO DAILY famotidine (Pepcid) 40 mg PO BEDTIME PRN finasteride 5 mg PO DAILY 90 days fluticasone propion-salmeterol 250-50 mcg/dose (Wixela Inhub) 1 inh inhalation BID levothyroxine 25 mcg PO DAILY magnesium hydroxide (Milk of Magnesia) 10 mL PO BEDTIME PRN methadone 55 mg PO Q4H peg 3350-electrolytes 236-22.74-6.74 -5.86 gram (Golytely) 240 mL PO Q10M 1 day umeclidinium 62.5 mcg/actuation (Incruse Ellipta) 1 inh PO DAILY HPI Comments Details: Boo is a pleasant 64-year-old man who has been referred for evaluation of CKD. He has a history of prostate cancer Adenocarcinoma grade [address] Stewart. History of COPD History of non-Hodgkin's lymphoma and being followed by Dr. Guerin History of HIV and being followed by Dr. Almaguer. He is currently on odetsey Recent creatinine was 1.96 mg/dL hence this referral. He underwent renal ultrasonogram which was unremarkable. Back in 2022 serum creatinine was 1.53. 07/25/24 Increased urinary frequency PFSH Medical History (Updated 07/22/24 @ 08:50 by Nancy Villarreal PA-C) Dyspnea on exertion Personal history of nicotine dependence History of lymphoma (~2005) Hypogonadism in male Chronic hepatitis C without hepatic coma Anal fistula Polysubstance abuse Hypothyroidism Exercise hypoxemia Elevated PSA Hypogonadotropic hypogonadism (~2019) HIV (human immunodeficiency virus infection) COPD (chronic obstructive pulmonary disease) Surgical History S/P lesley-rectal abscess repair, follow-up exam Hx of fracture Family History Father Cancer Mother No problems noted. Sister Cancer Social History Household Members: Family Housing: Apartment Alcohol intake: never Comment: NO COUNTS NEEDED Patient Tobacco Use Status: Former Tobacco user Years Smoked: 40 years +/- Substance Use Type: Amphetamines, Crack/Cocaine, Heroin, Marijuana and Painkillers service: No Current occupational status: disabled Physical Exam Vital Signs: Last Vital Signs Pulse 52 07/25/24 09:33 BP 110/72 07/25/24 09:33 Pulse Ox 90 L 07/25/24 09:33 Oxygen Delivery Method Room Air 07/25/24 09:33 BMI result Body Mass Index 25.8 Const General: comfortable; No acute distress Orientation/consciousness: patient oriented x3 Eyes General: appearance normal, both eyes and all related structures Visual Rudolph: normal visual rudolph by confrontation Neck Neck: Yes supple and Yes no JVD Resp Effort & Inspection: normal respiratory effort and respiratory effort not decreased Auscultation: rhonchi Cardio Palpation: no palpable S3 and no palpable S4 Heart sounds: no rubs GI Inspection: Yes normal to inspection Palpation (GI): Soft to palpation Percussion: Yes normal to percussion Auscultation: normal bowel sounds General: Yes no CVA tenderness Back/Spine/Pelvis Back: no CVA tenderness Skin General skin exam: no petechiae and no purpura Neuro General: patient oriented x3 and no focal motor deficits Extrem General: No clubbing and No edema Results Reviewed Nephrology Results: Hgb 12.5 g/dl (14.0-18.0) L 06/27/24 WBC 3.5 X10*3/uL (4.8-10.8) L 06/27/24 Plt Count 144 X10*3/uL (160-400) L 06/27/24 Sodium 139 mmol/L (135-145) 07/01/24 Potassium 4.0 mmol/L (3.3-5.1) 07/01/24 Chloride 104 mmol/L (96-108) 07/01/24 Carbon Dioxide 25 mmol/L (22-29) 07/01/24 BUN 27 mg/dL (9-16) H 07/01/24 Creatinine 1.70 mg/dL (0.5-1.4) H 07/01/24 Calcium 9.2 mg/dL (8.4-10.2) 07/01/24 Urine Protein Negative mg/dL (Neg-Trace) 07/01/24 Urine Creatinine 102.16 mg/dL 07/01/24 Assessment & Plan Assessment & Plan (1) CKD (chronic kidney disease) stage 3, GFR 30-59 ml/min: Code(s): N18.30 - Chronic kidney disease, stage 3 unspecified Category: Medical (2) HIV (human immunodeficiency virus infection): Comment: (on HAART tx - stable in the last 20 years) Code(s): B20 - Human immunodeficiency virus [HIV] disease Category: Medical (3) History of lymphoma: Onset Date: ~2004 Comment: (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 Code(s): Z85.79 - Personal history of other malignant neoplasms of lymphoid, hematopoietic and related tissues Category: Medical Plan [age] man with stage III CKD in a setting of prostate cancer and HIV. He did sustained acute kidney injury with a creatinine peaking at 1.9 and subsequently decreased to 1.5. His baseline might be 1.5 mg/dL. Creatinine appears stable around 1.7 Increase PO fluids Low salt diet Avoid nephrotoxins including NSAIDS Urinalysis unremarkable and no significant proteinuria. Underlying glomerular nephritis seems unlikely. Ongoing obstructive uropathy should be ruled out. Will reorder USG Encouraged him to increase his fluid intake to avoid dehydration. Continue to avoid nephrotoxic agents including NSAIDs. Optimize blood pressure and avoid hypotension. Orders: Orders US renal BI Today I10 - Essential (primary) hypertension, N18.30 - Chronic kidney disease, stage 3 unspecified Basic Metabolic Panel 3 Months N18.30 - Chronic kidney disease, stage 3 unspecified Coding Level of Care Code Est Pt Level 4 (49365) Diagnoses CKD (chronic kidney disease) stage 3, GFR 30-59 ml/min N18.30 HIV (human immunodeficiency virus infection) B20 History of lymphoma Z85.79
== END 2024-07-25 09:56 | disposition home or self-care (01) ==
PROVIDERS: PCP Family Medicine; Visit Provider Internal Medicine Hypertension Specialist
DX: N18.30 Chronic kidney disease, stage 3 unspecified (principal); B20 Human immunodeficiency virus [HIV] disease; Z85.79 Personal history of other malignant neoplasms of lymphoid, hematopoietic and related tissues
CPT/HCPCS: 99214

== ENCOUNTER → 2024-07-25 09:30 | Outpatient (BNVA) | payer OTHER, SELFPAY | PROVIDERS: PCP Family Medicine; Visit Provider Internal Medicine Hypertension Specialist | DX: N18.30 Chronic kidney disease, stage 3 unspecified (principal); B20 Human immunodeficiency virus [HIV] disease; Z85.79 Personal history of other malignant neoplasms of lymphoid, hematopoietic and related tissues | CPT/HCPCS: 99212 ==

== ENCOUNTER 2024-07-28 09:01 | Outpatient (REF) | payer OTHER, SELFPAY ==
--- NOTE | ~2024-07-28 | US_ITS ---
EXAMINATION: US RETROPERITONEAL LIMITED (RENAL ONLY) CLINICAL INFORMATION: Essential (primary) hypertension. COMPARISON: CT abdomen and pelvis 10/30/2023. Renal ultrasound 04/23/2023. TECHNIQUE: Real-time imaging of the kidneys. Limited visualization due to bowel gas. FINDINGS: RIGHT KIDNEY: 10.4 x 4.4 x 4.8 cm (SAG x AP x TRV). No hydronephrosis. No renal calculi. Renal cortical thickness is normal. Limited visualization. LEFT KIDNEY: 10.4 x 4.7 x 4.6 cm (SAG x AP x TRV). No hydronephrosis. No renal calculi. Renal cortical thickness is normal. Limited visualization. US/US renal BI IMPRESSION: No hydronephrosis. No renal calculi. Electronically signed by: Theresa Pelletier MD 07/28/2024 12:44 PM EDT
== END 2024-07-28 09:02 | disposition home or self-care (01) ==
LOC: HO.US 09:01
PROVIDERS: PCP Family Medicine; Visit Provider Internal Medicine Hypertension Specialist
DX: I12.9 Hypertensive chronic kidney disease with stage 1 through stage 4 chronic kidney disease, or unspecified chronic kidney disease (principal); N18.30 Chronic kidney disease, stage 3 unspecified
CPT/HCPCS: 76775

== ENCOUNTER 2024-07-30 10:14 | Outpatient (AMB) | payer OTHER, SELFPAY ==
[2024-07-30 10:22] VITALS: BP 130/72; PULSE 51; O2SAT 95; BMI 25.8
--- NOTE | 2024-07-30 10:22 | A.OFFVIS_ITS ---
Vital Signs 07/30/24 10:22 Height 5 ft 9 in Weight 175 lb BMI 25.8 BP 130/72 Blood Pressure Location Lt brachial Position Sitting Pulse 51 Pulse Source Pulse Oximeter Pulse Oximetry (%) 95 Oxygen Delivery Method Room Air Intake Visit Reasons: increased shortness of breath Intake Note: pt is here for follow up and having a lot of issues with his breathing, he has a lot of episodes to discuss. 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 Required: No Allergies levofloxacin Allergy (Intermediate, Verified 07/30/24 10:58) Nausea, chills, SOB Medication List - Last Reconciled 07/30/24 by Virgilio Momin MD albuterol sulfate 90 mcg/actuation (Ventolin HFA) 1 puff PO Q4H PRN bisacodyl (Dulcolax (bisacodyl)) 10 mg (2 x 5 mg) PO BEDTIME 2 days uvkqlkunok-cokwtelo-nevnsw ala 200-25-25 mg (Odefsey) 1 tab PO DAILY famotidine 40 mg PO BEDTIME PRN finasteride 5 mg PO DAILY 90 days fluticasone propion-salmeterol 250-50 mcg/dose (Wixela Inhub) 1 inh inhalation BID levothyroxine 25 mcg PO DAILY magnesium hydroxide (Milk of Magnesia) 10 mL PO BEDTIME PRN methadone 70 mg PO DAILY peg 3350-electrolytes 236-22.74-6.74 -5.86 gram (Golytely) 240 mL PO Q10M 1 day umeclidinium 62.5 mcg/actuation (Incruse Ellipta) 1 inh PO DAILY Do you need a note to return to daycare/school/sports/work: No HPI HPI increased shortness of breath: Details: Ra is 64 years old gentleman a case of severe obstructive airway disorder, and he also has obstructive sleep apnea , 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 He is not overweight his BMI is only 25.8. He is being treated for advanced chronic obstructive pulmonary disease and he is doing fairly well. His symptoms continue to be somewhat nonspecific. When he goes to the shower and comes out he has feeling of choking, He sits down and uses oxygen but it takes several minutes before he feels better. Similarly at night he wakes up with some choking like feeling and he sits by the bedside puts on the oxygen and it takes several minutes for him to recover. Psychologically he is afraid that after one of these spells use the mask he may . During the daytime he is okay except when he walks around then he gets short of breath. He does have a stationary concentrator at home and uses oxygen only as needed. Similarly he has a POC which he has started carrying with him when he goes outdoors. He had a polysomnogram study in the sleep lab on 06/18/2024 . The baseline study was positive for sleep apnea with total sleep time AHI 21 per hours. CPAP titration was started but after 2 hours he pulled off the mask and did not want to go any further. He say is that he would not use the mask . [facility] Medical History (Updated 07/30/24 @ 11:09 by Virgilio Momin MD) MICHELLE (obstructive sleep apnea) Dyspnea on exertion Personal history of nicotine dependence History of lymphoma (~2004) Hypogonadism in male Chronic hepatitis C without hepatic coma Anal fistula Polysubstance abuse Hypothyroidism Exercise hypoxemia Elevated PSA Hypogonadotropic hypogonadism (~2018) HIV (human immunodeficiency virus infection) COPD (chronic obstructive pulmonary disease) Surgical History S/P lesley-rectal abscess repair, follow-up exam Hx of fracture Family History Father Cancer Mother No problems noted. Sister Cancer Social History Household Members: Family Housing: Apartment Alcohol intake: never Comment: NO COUNTS NEEDED Patient Tobacco Use Status: Former Tobacco user Years Smoked: 40 years +/- Substance Use Type: Amphetamines, Crack/Cocaine, Heroin, Marijuana and Painkillers service: No Current occupational status: disabled Review of Systems Const All systems reviewed & are unremarkable except as noted in HPI and below Eyes Reports no additional complaints ENT Reports nasal congestion (Mild off and on) Card Reports chest pain, Denies irregular heart rhythm and Denies leg edema Resp Reports as per HPI GI Reports no additional complaints Reports no additional complaints Musc Reports no additional complaints Skin/Breast Reports system reviewed and no additional complaints, except as documented Neuro Reports no additional complaints Psych Reports no additional complaints Endo Reports other (Being treated for diabetes mellitus, and hypothyroidism.) Physical Exam Vital Signs: Last Vital Signs Pulse 51 07/30/24 10:22 BP 130/72 07/30/24 10:22 Pulse Ox 95 07/30/24 10:22 Oxygen Delivery Method Room Air 07/30/24 10:22 BMI result Body Mass Index 25.8 Const General: comfortable (Slightly short of breath when walking), no acute distress, alert and awake Orientation/consciousness: patient oriented x3 HEENT Head: Yes normal to inspection General nose exam: No nasal polyps present and No nasal discharge present Face and sinus: Yes sinuses nontender Mouth: oropharynx normal Teeth and gingiva: edentulous Throat: Yes posterior oropharynx normal Eyes General: appearance normal, both eyes and all related structures Neck Neck: Yes normal visual inspection, Yes no lymphadenopathy, Yes trachea midline and Yes no JVD Thyroid: Thyroid normal Chest Chest palpation & inspection: normal inspection of the chest, normal palpation of entire chest wall and no tenderness Resp Other: Percussion note hyper-resonant, breath sounds are distant with prolonged expiratory phase, but equal on both sides. No audible wheezes or rhonchi. Cardio Palpation: normal PMI Rate: regular rate Rhythm: regular rhythm Heart sounds: no gallops and no murmurs GI Palpation (GI): Soft to palpation, nontender, No hepatosplenomegaly present and no masses Auscultation: normal bowel sounds Back/Spine/Pelvis Thoracic/Lumbar Spine: thoracic and lumbar spine normal to inspection Skin General skin exam: no rashes or lesions noted and dry skin Neuro General: patient oriented x3 and no focal motor deficits Cranial nerves: Yes CN's II-XII intact bilaterally Extrem General: Yes normal to inspection, Yes no clubbing, cyanosis or edema and Yes no calf tenderness Psych Appearance: grossly normal and well kempt Speech and movement: Normal speech and movement present Results Reviewed Results Reviewed: Results of polysomnogram study on 06/18/2024 as described above. He does have obstructive sleep apnea but did not tolerate the CPAP at all Assessment & Plan Assessment & Plan (1) COPD (chronic obstructive pulmonary disease): Comment: Has advanced chronic obstructive pulmonary disease, related to his past smoking He is doing very well with the current regimen. Code(s): J44.9 - Chronic obstructive pulmonary disease, unspecified Category: Medical Plan: Continue to use Wixela 250-51 inhalation b.i.d. Incruse Ellipta 1 inhalation daily in the evening Albuterol HFA 2 puffs Q 6 hours p.r.n. (2) History of lymphoma: Onset Date: ~2004 Comment: (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 Code(s): Z85.79 - Personal history of other malignant neoplasms of lymphoid, hematopoietic and related tissues Category: Medical Plan: Continue to follow with the Oncology Service (3) Exercise hypoxemia: Comment: Pulmonary function test showed severe obstructive disorder. And 6 minutes walk showed that he does desaturate quickly on walking, Tested for using POC ( O2 conserving mode) he did okay with 2 L/minute , O2 sat stayed above 91%. Patient does not use portable oxygen , and even at home he uses O2 only sparingly. Code(s): R09.02 - Hypoxemia Category: Medical Plan: Encouraged to use POC and O2 2 L/minute with any physical exercise and also when he goes outdoors. I had a long discussion with him and told him that sometime it will take a few minutes before the O2 sat comes up , and he should not feel panicky. .He is reassured and understands well (4) Personal history of nicotine dependence: Comment: (Former smoker, onset 12yo, 1-2ppd x 49yrs, 60+PYH, quit in 2020) He is active in annual lung screening program. Code(s): Z87.891 - Personal history of nicotine dependence Category: Medical Plan: Continue to participate in the annual lung screening program (5) MICHELLE (obstructive sleep apnea): Code(s): G47.33 - Obstructive sleep apnea (adult) (pediatric) Category: Medical Plan: This patient had polysomnogram study on 06/18/2024. ( SPLIT NIGHT STUDY ) Baseline study did show that he has moderate degree of obstructive sleep apnea. CPAP titration was started but he did not tolerate the mask at all and discontinued the study. Plan This gentleman is going to be intolerant of the CPAP, He is not overweight, the MICHELLE aim is mainly due to chronic craniofacial abnorm ality. Other options such as Deysi dental device or inspire discussed with him. I do not think he understands very well and would take some time to think and then decide. Coding Level of Care Code Est Pt Level 4 (60327) Diagnoses COPD (chronic obstructive pulmonary disease) J44.9 History of lymphoma Z85.79 Exercise hypoxemia R09.02 Personal history of nicotine dependence Z87.891 MICHELLE (obstructive sleep apnea) G47.33
== END 2024-07-30 11:01 | disposition home or self-care (01) ==
LOC: HO.HPS 10:15
PROVIDERS: PCP Family Medicine; Visit Provider Internal Medicine
DX: J44.9 Chronic obstructive pulmonary disease, unspecified (principal); Z85.79 Personal history of other malignant neoplasms of lymphoid, hematopoietic and related tissues; R09.02 Hypoxemia; Z87.891 Personal history of nicotine dependence; G47.33 Obstructive sleep apnea (adult) (pediatric)
CPT/HCPCS: 99214

== ENCOUNTER → 2024-07-30 10:14 | Outpatient (BNVA) | payer OTHER, SELFPAY | PROVIDERS: PCP Family Medicine; Visit Provider Internal Medicine | DX: J44.9 Chronic obstructive pulmonary disease, unspecified (principal); G47.33 Obstructive sleep apnea (adult) (pediatric); R09.02 Hypoxemia; Z85.79 Personal history of other malignant neoplasms of lymphoid, hematopoietic and related tissues; Z87.891 Personal history of nicotine dependence | CPT/HCPCS: 99212 ==

== ENCOUNTER 2024-09-08 15:07 | Outpatient (AMB) | payer OTHER, SELFPAY ==
[2024-09-08 15:20] VITALS: BP 120/68; PULSE 47; O2SAT 94; BMI 26.0
--- NOTE | 2024-09-08 15:20 | MHC.OFFVIS ---
Vital Signs 09/08/24 15:20 Height 5 ft 9 in Weight 176 lb 5.917 oz BMI 26.0 BP 120/68 Blood Pressure Location Lt brachial Position Sitting Pulse 47 L Pulse Source Pulse Oximeter Pulse Oximetry (%) 94 Oxygen Delivery Method Room Air Intake Visit Reasons: copd Intake Note: pt is here for follow up and still having good days and bad days, but understands little better now. showering still bothering him, but he is trying more all the time. 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 Allergies levofloxacin Allergy (Intermediate, Verified 09/08/24 15:33) Nausea, chills, SOB Medication List - Last Reconciled 09/08/24 by Virgilio Momin MD albuterol sulfate 90 mcg/actuation (Ventolin HFA) 1 puff PO Q4H PRN bisacodyl (Dulcolax (bisacodyl)) 10 mg (2 x 5 mg) PO BEDTIME 2 days pdntejmbkz-bjprzfcc-yuvndw ala 200-25-25 mg (Odefsey) 1 tab PO DAILY famotidine 40 mg PO BEDTIME PRN finasteride 5 mg PO DAILY 90 days fluticasone propion-salmeterol 250-50 mcg/dose (Wixela Inhub) 1 inh inhalation BID levothyroxine 25 mcg PO DAILY magnesium hydroxide (Milk of Magnesia) 10 mL PO BEDTIME PRN methadone 70 mg PO DAILY peg 3350-electrolytes 236-22.74-6.74 -5.86 gram (Golytely) 240 mL PO Q10M 1 day umeclidinium 62.5 mcg/actuation (Incruse Ellipta) 1 inh PO DAILY Do you need a note to return to daycare/school/sports/work: No HPI HPI copd: Details: THIS 64 YEARS OLD GENTLEMAN IS HERE FOR HIS ROUTINE FOLLOW-UP. HE CLAIMS THAT HIS BREATHING IS BETTER THIS TIME. .COUGH IS MUCH LESS HE GOES OUTDOORS AND DOES NOT HAVE TO USE THE PORTABLE OXYGEN THOUGH HE CARRIES POC WITH HIM. AT HOME HE USES OXYGEN 2 L/MINUTE P.R.N. DURING THE DAYTIME . HE DOES NOT USE OXYGEN AT NIGHT. HE CLAIMS THAT HIS APPETITE IS BETTER AND HE IS A EATING WELL. [facility] Medical History IMCHELLE (obstructive sleep apnea) Dyspnea on exertion Personal history of nicotine dependence History of lymphoma (~2005) Hypogonadism in male Chronic hepatitis C without hepatic coma Anal fistula Polysubstance abuse Hypothyroidism Exercise hypoxemia Hypogonadotropic hypogonadism (~2018) HIV (human immunodeficiency virus infection) COPD (chronic obstructive pulmonary disease) Surgical History S/P lesley-rectal abscess repair, follow-up exam Hx of fracture Family History Father Cancer Mother No problems noted. Sister Cancer Social History Household Members: Family Housing: Apartment Alcohol intake: never Comment: NO COUNTS NEEDED Patient Tobacco Use Status: Former Tobacco user Years Smoked: 40 years +/- Substance Use Type: Amphetamines, Crack/Cocaine, Heroin, Marijuana and Painkillers service: No Current occupational status: disabled Review of Systems Const All systems reviewed & are unremarkable except as noted in HPI and below Eyes Reports no additional complaints ENT Reports nasal congestion (Mild off and on) Card Reports chest pain, Denies irregular heart rhythm and Denies leg edema Resp Reports as per HPI GI Reports no additional complaints Reports no additional complaints Musc Reports no additional complaints Skin/Breast Reports system reviewed and no additional complaints, except as documented Neuro Reports no additional complaints Psych Reports no additional complaints Endo Reports other (Being treated for diabetes mellitus, and hypothyroidism.) Physical Exam Vital Signs: Last Vital Signs Pulse 47 L 09/08/24 15:20 BP 120/68 09/08/24 15:20 Pulse Ox 94 09/08/24 15:20 Oxygen Delivery Method Room Air 09/08/24 15:20 BMI result Body Mass Index 26.0 Const General: comfortable (Slightly short of breath when walking), no acute distress, alert and awake Orientation/consciousness: patient oriented x3 HEENT Head: Yes normal to inspection General nose exam: No nasal polyps present and No nasal discharge present Face and sinus: Yes sinuses nontender Mouth: oropharynx normal Teeth and gingiva: edentulous Throat: Yes posterior oropharynx normal Eyes General: appearance normal, both eyes and all related structures Neck Neck: Yes normal visual inspection, Yes no lymphadenopathy, Yes trachea midline and Yes no JVD Thyroid: Thyroid normal Chest Chest palpation & inspection: normal inspection of the chest, normal palpation of entire chest wall and no tenderness Resp Other: Percussion note hyper-resonant, breath sounds are distant with prolonged expiratory phase, but equal on both sides. No audible wheezes or rhonchi. Cardio Palpation: normal PMI Rate: regular rate Rhythm: regular rhythm Heart sounds: no gallops and no murmurs GI Palpation (GI): Soft to palpation, nontender, No hepatosplenomegaly present and no masses Auscultation: normal bowel sounds Back/Spine/Pelvis Thoracic/Lumbar Spine: thoracic and lumbar spine normal to inspection Skin General skin exam: no rashes or lesions noted and dry skin Neuro General: patient oriented x3 and no focal motor deficits Cranial nerves: Yes CN's II-XII intact bilaterally Extrem General: Yes normal to inspection, Yes no clubbing, cyanosis or edema and Yes no calf tenderness Psych Appearance: grossly normal and well kempt Speech and movement: Normal speech and movement present Assessment & Plan Assessment & Plan (1) History of lymphoma: Onset Date: ~2004 Comment: (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 s/p EPOCH 1734-4646 and intrathecal CHIEF PORT DIRECTOR prophylaxis) No remissions . Code(s): Z85.79 - Personal history of other malignant neoplasms of lymphoid, hematopoietic and related tissues Category: Medical Plan: CONTINUE FOLLOW-UP WITH ONCOLOGY SERVICE (2) COPD (chronic obstructive pulmonary disease): Comment: Has advanced chronic obstructive pulmonary disease, related to his past smoking He is doing very well with the current regimen. Code(s): J44.9 - Chronic obstructive pulmonary disease, unspecified Category: Medical Plan: WIXELA 250-50 1 INHALATION B.I.D. INCRUSE ELLIPTA 1 INHALATION DAILY ALBUTEROL HFA 2 PUFFS Q 4-6 HOURS P.R.N. (3) Personal history of nicotine dependence: Comment: (Former smoker, onset 12yo, 1-2ppd x 49yrs, 60+PYH, quit in 2020) He is active in annual lung screening program. Code(s): Z87.891 - Personal history of nicotine dependence Category: Medical Plan: CONTINUE ANNUAL LUNG SCREENING (4) Exercise hypoxemia: Comment: Pulmonary function test showed severe obstructive disorder. And 6 minutes walk showed that he does desaturate quickly on walking, Tested for using POC ( O2 conserving mode) he did okay with 2 L/minute , O2 sat stayed above 91%. Patient does not use portable oxygen , and even at home he uses O2 only sparingly. Code(s): R09.02 - Hypoxemia Category: Medical Plan: KEEP THE POC ON HAND WHEN GOING OUTDOORS AND USE IT IF THERE IS ANY RESPIRATORY DISTRESS. 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 HE CLAIMS THAT HE IS SLEEPING WELL AND HE IS NOT ABLE TO USE THE CPAP. Code(s): G47.33 - Obstructive sleep apnea (adult) (pediatric) Category: Medical Plan: NO ACTIVE TREATMENT AT THIS TIME BUT HE WILL LET US KNOW IF THERE IS ANY DISTRESS AT NIGHT. Coding Level of Care Code Est Pt Level 3 (91869) Diagnoses History of lymphoma Z85.79 COPD (chronic obstructive pulmonary disease) J44.9 Personal history of nicotine dependence Z87.891 Exercise hypoxemia R09.02 HIV (human immunodeficiency virus infection) B20 MICHELLE (obstructive sleep apnea) G47.33
== END 2024-09-08 15:34 | disposition home or self-care (01) ==
PROVIDERS: PCP Family Medicine; Visit Provider Internal Medicine
DX: Z85.79 Personal history of other malignant neoplasms of lymphoid, hematopoietic and related tissues (principal); J44.9 Chronic obstructive pulmonary disease, unspecified; Z87.891 Personal history of nicotine dependence; R09.02 Hypoxemia; B20 Human immunodeficiency virus [HIV] disease; G47.33 Obstructive sleep apnea (adult) (pediatric)
CPT/HCPCS: 99213

== ENCOUNTER → 2024-09-08 15:07 | Outpatient (BNVA) | payer OTHER, SELFPAY | PROVIDERS: PCP Family Medicine; Visit Provider Internal Medicine | DX: J44.9 Chronic obstructive pulmonary disease, unspecified (principal); R09.02 Hypoxemia; G47.33 Obstructive sleep apnea (adult) (pediatric); B20 Human immunodeficiency virus [HIV] disease; Z87.891 Personal history of nicotine dependence; Z85.79 Personal history of other malignant neoplasms of lymphoid, hematopoietic and related tissues; Z99.89 Dependence on other enabling machines and devices | CPT/HCPCS: 99212 ==

== ENCOUNTER 2024-10-13 07:15 | Outpatient (REF) | payer OTHER, SELFPAY ==
--- NOTE | ~2024-10-13 | CT_ITS ---
CLINICAL HISTORY: hoarseness. CT soft tissue neck with contrast Comparison: None Findings: The visualized intracranial contents are unremarkable. Pharyngeal mucosal space, parapharyngeal fat, prevertebral tissues, and epiglottis are within normal limits. Salivary glands are within normal limits. No sialoliths. Thyroid gland is unremarkable. Approximately 50% narrowing noted of the origin of the left internal carotid artery. Less than 50% narrowing of the origin of the right internal carotid artery. The right vertebral artery is significantly attenuated. The left vertebral dominant. Visualized lung apices are clear. No acute fractures. IMPRESSION: No acute findings. No CT explanation for the reported hoarseness. There is approximately 50% narrowing of the origin of the left internal carotid artery. This document has been electronically signed by: Franklin Smith MD on 10/13/2024 12:40:23
[2024-10-13] MEDS: iohexoL 350 MG/ML 100 ML INFUS..BTL 60 ML IV (08:44)
[2024-10-14 07:52] LABS: Creatinine POC 0.9 mg/dL (0.5-1.4); GFR POC > 60
== END 2024-10-13 07:16 | disposition home or self-care (01) ==
LOC: HO.CT 07:15
PROVIDERS: PCP Family Medicine; Visit Provider Family Medicine
DX: R49.0 Dysphonia (principal); Z87.891 Personal history of nicotine dependence; Z85.72 Personal history of non-Hodgkin lymphomas
CPT/HCPCS: 70491; 82565; 99212; Q9967

== ENCOUNTER → 2024-10-13 07:17 | Outpatient (BNV) | payer OTHER, SELFPAY | PROVIDERS: PCP Family Medicine; Visit Provider Radiology Vascular & Interventional Radiology | DX: R49.0 Dysphonia (principal) | CPT/HCPCS: 70491 ==

== ENCOUNTER 2024-10-13 08:47 | Outpatient (AMB) | payer OTHER, SELFPAY ==
[2024-10-13 08:52] VITALS: BP 152/72; PULSE 93; O2SAT 95; BMI 25.7
--- NOTE | 2024-10-13 08:52 | A.OFFVIS_ITS ---
Vital Signs 10/13/24 08:52 Height 5 ft 9 in Weight 174 lb 2.643 oz BMI 25.7 BP 152/72 H Blood Pressure Location Lt brachial Position Sitting Pulse 93 Pulse Source Pulse Oximeter Pulse Oximetry (%) 95 Oxygen Delivery Method Nasal Cannula Oxygen Flow Rate 2 Intake Visit Reasons: copd Intake Note: pt is here for follow up and has been sick for a few weeks, dealing with mucous, and low oxygen with exertion and oxygen on poc and home concentrator this occurs on. Inspector Aligning Required: No Allergies levofloxacin Allergy (Intermediate, Verified 10/13/24 09:03) Nausea, chills, SOB Medication List - Last Reconciled 10/13/24 by Virgilio Momin MD albuterol sulfate 90 mcg/actuation (Ventolin HFA) 1 puff PO Q4H PRN bisacodyl (Dulcolax (bisacodyl)) 10 mg (2 x 5 mg) PO BEDTIME 2 days mbfmetqrfc-vhjksrbd-vsozhq ala 200-25-25 mg (Odefsey) 1 tab PO DAILY famotidine 40 mg PO BEDTIME PRN finasteride 5 mg PO DAILY 90 days fluticasone propion-salmeterol 250-50 mcg/dose (Wixela Inhub) 1 inh inhalation BID levothyroxine 25 mcg PO DAILY magnesium hydroxide (Milk of Magnesia) 10 mL PO BEDTIME PRN methadone 70 mg PO DAILY peg 3350-electrolytes 236-22.74-6.74 -5.86 gram (Golytely) 240 mL PO Q10M 1 day umeclidinium 62.5 mcg/actuation (Incruse Ellipta) 1 inh PO DAILY Do you need a note to return to daycare/school/sports/work: No HPI HPI copd: Details: Ra, 64 years old gentleman, comes here for follow-up after 4 weeks. In the last 2 weeks he was having increased chest congestion cough and expectoration. Last week was started on short course of prednisone and Z-Jovon. He feels better and now his cough is minimal. He still gets short of breath on minimal exertion and even his O2 sat falls below 88% ( with POC 2 L/minute ) on walking. Today he just had CT scan of the chest as ordered by his PCP. [facility] Medical History (Updated 10/13/24 @ 09:19 by Virgilio Momin MD) Bronchitis MICHELLE (obstructive sleep apnea) Dyspnea on exertion Personal history of nicotine dependence History of lymphoma (~2005) Hypogonadism in male Chronic hepatitis C without hepatic coma Anal fistula Polysubstance abuse Hypothyroidism Exercise hypoxemia Hypogonadotropic hypogonadism (~2019) HIV (human immunodeficiency virus infection) COPD (chronic obstructive pulmonary disease) Surgical History S/P lesley-rectal abscess repair, follow-up exam Hx of fracture Family History Father Cancer Mother No problems noted. Sister Cancer Social History Household Members: Family Housing: Apartment Alcohol intake: never Comment: NO COUNTS NEEDED Patient Tobacco Use Status: Former Tobacco user Years Smoked: 40 years +/- Substance Use Type: Amphetamines, Crack/Cocaine, Heroin, Marijuana and Painkillers service: No Current occupational status: disabled Review of Systems Const All systems reviewed & are unremarkable except as noted in HPI and below Eyes Reports no additional complaints ENT Reports nasal congestion (Mild off and on) Card Reports chest pain, Denies irregular heart rhythm and Denies leg edema Resp Reports as per HPI GI Reports no additional complaints Reports no additional complaints Musc Reports no additional complaints Skin/Breast Reports system reviewed and no additional complaints, except as documented Neuro Reports no additional complaints Psych Reports no additional complaints Endo Reports other (Being treated for diabetes mellitus, and hypothyroidism.) Physical Exam Vital Signs: Last Vital Signs Pulse 93 10/13/24 08:52 BP 152/72 H 10/13/24 08:52 Pulse Ox 95 10/13/24 08:52 Oxygen Delivery Method Nasal Cannula 10/13/24 08:52 Oxygen Flow Rate 2 10/13/24 08:52 BMI result Body Mass Index 25.7 Const General: comfortable (Slightly short of breath when walking), no acute distress, alert and awake Orientation/consciousness: patient oriented x3 HEENT Head: Yes normal to inspection General nose exam: No nasal polyps present and No nasal discharge present Face and sinus: Yes sinuses nontender Mouth: oropharynx normal Teeth and gingiva: edentulous Throat: Yes posterior oropharynx normal Eyes General: appearance normal, both eyes and all related structures Neck Neck: Yes normal visual inspection, Yes no lymphadenopathy, Yes trachea midline and Yes no JVD Thyroid: Thyroid normal Chest Chest palpation & inspection: normal inspection of the chest, normal palpation of entire chest wall and no tenderness Resp Other: Percussion note hyper-resonant, breath sounds are distant with prolonged expiratory phase, but equal on both sides. No audible wheezes or rhonchi. Cardio Palpation: normal PMI Rate: regular rate Rhythm: regular rhythm Heart sounds: no gallops and no murmurs GI Palpation (GI): Soft to palpation, nontender, No hepatosplenomegaly present and no masses Auscultation: normal bowel sounds Back/Spine/Pelvis Thoracic/Lumbar Spine: thoracic and lumbar spine normal to inspection Skin General skin exam: no rashes or lesions noted and dry skin Neuro General: patient oriented x3 and no focal motor deficits Cranial nerves: Yes CN's II-XII intact bilaterally Extrem General: Yes normal to inspection, Yes no clubbing, cyanosis or edema and Yes no calf tenderness Psych Appearance: grossly normal and well kempt Speech and movement: Normal speech and movement present Assessment & Plan Assessment & Plan (1) MICHELLE (obstructive sleep apnea): Comment: PATIENT DOES HAVE CHRONIC OBSTRUCTIVE SLEEP APNEA DUE TO COURTNEY DENTAL MALFORMATION. HE CLAIMS THAT HE IS SLEEPING WELL AND HE IS NOT ABLE TO USE THE CPAP. Code(s): G47.33 - Obstructive sleep apnea (adult) (pediatric) Category: Medical Plan: sleep hygiene explained . CANNOT USE CPAP (2) COPD (chronic obstructive pulmonary disease): Comment: Has advanced chronic obstructive pulmonary disease, related to his past smoking He is doing very well with the current regimen. BUT STILL GETS VERY FREQUENT ACUTE EXACERBATIONS. JUST COMPLETED COURSE OF PREDNISONE AND Z-JOVON AND IS FEELING BETTER. Code(s): J44.9 - Chronic obstructive pulmonary disease, unspecified Category: Medical Plan: CONTINUE: WIXELA 250-51 INHALATION B.I.D. INCRUSE ELLIPTA 1 INHALATION DAILY ALBUTEROL HFA 2 PUFFS Q 4-6 HOURS P.R.N. (3) Exercise hypoxemia: Comment: Pulmonary function test showed severe obstructive disorder. And 6 minutes walk showed that he does desaturate quickly on walking, Tested for using POC ( O2 conserving mode) he did okay with 2 L/minute , O2 sat stayed above 91%. Patient is now using the portable O2 with POC, when he goes outdoors, and p.r.n. at home Code(s): R09.02 - Hypoxemia Category: Medical Plan: Continue as above. (4) HIV (human immunodeficiency virus infection): Comment: (on HAART tx - stable in the last 20 years) Code(s): B20 - Human immunodeficiency virus [HIV] disease Category: Medical Plan: He is doing well and it has been in remission for the last 20+ years with his . Maintenance medical regimen (5) Bronchitis: Comment: Patient is prone to have recurrent bouts of bronchitis/alveolitis, Code(s): J40 - Bronchitis, not specified as acute or chronic Category: Medical Plan: As he improves with short course of prednisone and azithromycin, I think I will keep him on azithromycin 250 mg 3 days a week on an ongoing basis. Coding Level of Care Code Est Pt Level 3 (41369) Diagnoses MICHELLE (obstructive sleep apnea) G47.33 COPD (chronic obstructive pulmonary disease) J44.9 Exercise hypoxemia R09.02 HIV (human immunodeficiency virus infection) B20 Bronchitis J40
== END 2024-10-13 09:10 | disposition home or self-care (01) ==
PROVIDERS: PCP Family Medicine; Visit Provider Internal Medicine
DX: G47.33 Obstructive sleep apnea (adult) (pediatric) (principal); J44.9 Chronic obstructive pulmonary disease, unspecified; R09.02 Hypoxemia; B20 Human immunodeficiency virus [HIV] disease; J40 Bronchitis, not specified as acute or chronic
CPT/HCPCS: 99213

== ENCOUNTER 2024-10-16 11:54 | Outpatient (REF) | payer OTHER, SELFPAY ==
[2024-10-16 13:04] LABS: MANUAL DIFF FLAG NO
[2024-10-16 13:18] LABS: Basophils Percent Auto 0.5 % (0-2); Eosinophils Absolute Auto 0.2 X10*3/uL (0.0-0.4); Eosinophils Percent Auto 2.5 % (0-4); Hematocrit 40.6 % (42.0-52.0); Hemoglobin 13.2 g/dl (14.0-18.0); Imm Gran Abs Auto 0.05 X10*3/uL (0.00-0.03); Imm Gran Pct Auto 0.8 % (0.0-0.4); Lymphocytes Absolute Auto 1.7 X10*3/uL (1.2-4.9); Lymphocytes Percent Auto 26.4 % (20-40); Mean Corpuscular HGB Conc 32.5 g/dl (31.0-36.0); Mean Corpuscular Hemoglobin 29.7 pg (27.0-33.0); Mean Corpuscular Volume 91.2 fL (80.0-98.0); Mean Platelet Volume 9.1 fL (9.4-12.4); Monocytes Absolute Auto 0.4 X10*3/uL (0.1-1.2); Monocytes Percent Auto 5.9 % (2-11); Neutrophils Absolute Auto 4.1 x10*3/uL (2.0-8.3); Neutrophils Percent Auto 63.9 % (45-73); Platelet Count 224 X10*3/uL (160-400); Red Blood Count 4.45 X10*6/uL (4.60-5.80); Red Cell Distribution Width 13.8 % (11.0-16.0); White Blood Count 6.4 X10*3/uL (4.8-10.8)
[2024-10-16 13:37] LABS: Alanine Aminotransferase 17 U/L (0-40); Albumin Level 3.9 g/dL (3.5-5.0); Alkaline Phosphatase 119 U/L (39-117); Anion Gap 11 (12-20); Aspartate Amino Transferase 20 U/L (5-37); Bilirubin Total 0.4 mg/dL (0.0-1.0); Blood Urea Nitrogen 27 mg/dL (9-16); Calcium 8.9 mg/dL (8.4-10.2); Carbon Dioxide 28 mmol/L (22-29); Chloride 105 mmol/L (96-108); Estimated Glomerular Filt Rate 50; Glucose Random 86 mg/dL (60-115); Potassium 4.7 mmol/L (3.3-5.1); Sodium 139 mmol/L (135-145); Total Protein 8.2 g/dL (6.5-8.0)
[2024-10-18 19:44] LABS: HIV RNA PCR Qn Copies 65 copies/mL (NOT DETECTED); HIV RNA PCR Qn Log Copies 1.81 (NOT DETECTED)
[2024-10-20 16:28] LABS: Absolute CD3 Count 1187 cells/uL (840-3060); Absolute CD4 Count 480 cells/uL (490-1740); Absolute CD8 Count 716 cells/uL (180-1170); Absolute Lymphocytes 1630 cells/uL (850-3900); CD4 CD8 Ratio 0.67 (0.86-5.00); Percent CD3 Cells 73 % (57-85); Percent CD4 Cells 29 % (30-61); Percent CD8 Cells 44 % (12-42)
== END 2024-10-16 11:55 | disposition home or self-care (01) ==
LOC: HO.HHCL 11:54
PROVIDERS: Internal Medicine; Visit Provider Internal Medicine Hypertension Specialist
DX: Z21 Asymptomatic human immunodeficiency virus [HIV] infection status (principal)
CPT/HCPCS: 36415; 80053; 85025; 86359; 86360; 87536

== ENCOUNTER 2024-10-20 11:53 | Outpatient (AMB) | payer OTHER, SELFPAY ==
--- NOTE | 2024-10-20 12:01 | HO.NEPHOV_ITS ---
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 Accompanied by: Self / Same As Patient Allergies levofloxacin Allergy (Intermediate, Verified 10/20/24 12:02) Nausea, chills, SOB Medication List - Last Reconciled 10/20/24 by Harpal Sotomayor MD albuterol sulfate 90 mcg/actuation (Ventolin HFA) 1 puff PO Q4H PRN azithromycin 250 mg PO 3XW 10 days bisacodyl (Dulcolax (bisacodyl)) 10 mg (2 x 5 mg) PO BEDTIME 2 days fypqinmxff-wepdjgpd-ukafco ala 200-25-25 mg (Odefsey) 1 tab PO DAILY famotidine 40 mg PO BEDTIME PRN finasteride 5 mg PO DAILY 90 days fluticasone propion-salmeterol 250-50 mcg/dose (Wixela Inhub) 1 inh inhalation BID levothyroxine 25 mcg PO DAILY magnesium hydroxide (Milk of Magnesia) 10 mL PO BEDTIME PRN methadone 70 mg PO DAILY peg 3350-electrolytes 236-22.74-6.74 -5.86 gram (Golytely) 240 mL PO Q10M 1 day umeclidinium 62.5 mcg/actuation (Incruse Ellipta) 1 inh PO DAILY HPI Comments Details: Boo is a pleasant 64-year-old man who has been referred for evaluation of CKD. He has a history of prostate cancer Adenocarcinoma grade [address] Stewart. History of COPD History of non-Hodgkin's lymphoma and being followed by Dr. Guerin History of HIV and being followed by Dr. Almaguer. He is currently on odetsey Recent creatinine was 1.96 mg/dL hence this referral. He underwent renal ultrasonogram which was unremarkable. Back in 2022 serum creatinine was 1.53. 07/25/24 Increased urinary frequency 10/20/24 Overall doing well. Hoarsenessof voice x dew months CT neck unremarkable -except for < 50% stenosis of carotid PFSH Medical History (Updated 10/13/24 @ 09:19 by Virgilio Momin MD) Bronchitis MICHELLE (obstructive sleep apnea) Dyspnea on exertion Personal history of nicotine dependence History of lymphoma (~2004) Hypogonadism in male Chronic hepatitis C without hepatic coma Anal fistula Polysubstance abuse Hypothyroidism Exercise hypoxemia Hypogonadotropic hypogonadism (~2018) HIV (human immunodeficiency virus infection) COPD (chronic obstructive pulmonary disease) Surgical History S/P lesley-rectal abscess repair, follow-up exam Hx of fracture Family History Father Cancer Mother No problems noted. Sister Cancer Social History Household Members: Family Housing: Apartment Alcohol intake: never Comment: NO COUNTS NEEDED Patient Tobacco Use Status: Former Tobacco user Years Smoked: 40 years +/- Substance Use Type: Amphetamines, Crack/Cocaine, Heroin, Marijuana and Painkillers service: No Current occupational status: disabled Physical Exam Vital Signs: Last Vital Signs Pulse 51 10/20/24 12:02 BP 152/62 H 10/20/24 12:02 Pulse Ox 93 10/20/24 12:02 Oxygen Delivery Method Room Air 10/20/24 12:02 Comfortable Neck supple no JVD. Lungs entry equal no rales. Heart S1-S2 heard no gallop or rub. Abdomen soft nontender. Neuro alert awake oriented. No asterixis. Extremities no edema. Results Reviewed Nephrology Results: Hgb 13.2 g/dl (14.0-18.0) L 10/16/24 WBC 6.4 X10*3/uL (4.8-10.8) 10/16/24 Plt Count 224 X10*3/uL (160-400) 10/16/24 Sodium 139 mmol/L (135-145) 10/16/24 Potassium 4.7 mmol/L (3.3-5.1) 10/16/24 Chloride 105 mmol/L (96-108) 10/16/24 Carbon Dioxide 28 mmol/L (22-29) 10/16/24 BUN 27 mg/dL (9-16) H 10/16/24 Creatinine 1.43 mg/dL (0.5-1.4) H 10/16/24 Calcium 8.9 mg/dL (8.4-10.2) 10/16/24 Renal US 07/28/24 Assessment & Plan Assessment & Plan (1) CKD (chronic kidney disease) stage 3, GFR 30-59 ml/min: Code(s): N18.30 - Chronic kidney disease, stage 3 unspecified Category: Medical (2) HIV (human immunodeficiency virus infection): Comment: (on HAART tx - stable in the last 20 years) Code(s): B20 - Human immunodeficiency virus [HIV] disease Category: Medical (3) History of lymphoma: Onset Date: ~2004 Comment: (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 s/p EPOCH 5065-8007 and intrathecal [employer] prophylaxis) No remissions . Code(s): Z85.79 - Personal history of other malignant neoplasms of lymphoid, hematopoietic and related tissues Category: Medical Plan [age] man with stage III CKD in a setting of prostate cancer and HIV. He did sustained acute kidney injury with a creatinine peaking at 1.9 and subsequently decreased to 1.5. His baseline might be 1.5 mg/dL. Creatinine appears stable around 1.43 ! Increase PO fluids Low salt diet Avoid nephrotoxins including NSAIDS Encouraged him to increase his fluid intake to avoid dehydration. Continue to avoid nephrotoxic agents including NSAIDs. Optimize blood pressure and avoid hypotension. Orders: Orders Basic Metabolic Panel 4 Months N18.30 - Chronic kidney disease, stage 3 unspecified Coding Level of Care Code Est Pt Level 4 (20348) Diagnoses CKD (chronic kidney disease) stage 3, GFR 30-59 ml/min N18.30 HIV (human immunodeficiency virus infection) B20 History of lymphoma Z85.79
[2024-10-20 12:02] VITALS: BP 152/62; PULSE 51; O2SAT 93
[2024-10-20 12:10] VITALS: BP 128/70
== END 2024-10-20 12:14 | disposition home or self-care (01) ==
PROVIDERS: PCP Family Medicine; Visit Provider Internal Medicine Hypertension Specialist
DX: N18.30 Chronic kidney disease, stage 3 unspecified (principal); B20 Human immunodeficiency virus [HIV] disease; Z85.79 Personal history of other malignant neoplasms of lymphoid, hematopoietic and related tissues
CPT/HCPCS: 99214

== ENCOUNTER → 2024-10-20 11:53 | Outpatient (BNVA) | payer OTHER, SELFPAY | PROVIDERS: PCP Family Medicine; Visit Provider Internal Medicine Hypertension Specialist | DX: N18.30 Chronic kidney disease, stage 3 unspecified (principal); B20 Human immunodeficiency virus [HIV] disease; Z85.79 Personal history of other malignant neoplasms of lymphoid, hematopoietic and related tissues | CPT/HCPCS: 99212 ==

== ENCOUNTER 2024-11-04 08:35 | Emergency (ER) | payer OTHER, SELFPAY ==
--- NOTE | ~2024-11-04 | XR_ITS ---
EXAMINATION: XR WRIST, LEFT CLINICAL INFORMATION: fall COMPARISON: None available. TECHNIQUE: PA, lateral, and oblique views of the left wrist. Scaphoid projection. FINDINGS: The carpal bones are intact. The alignment is normal. Distal radius and ulna are intact. Probable old traumatic deformity of the proximal diaphysis of the fifth metacarpal. No lytic or blastic lesions. The scaphoid bone is intact. XR/XR wrist LT min 3V IMPRESSION: No acute fracture or dislocation. Electronically signed by: Sam Wolfe MD 11/04/2024 12:30 PM EST
--- NOTE | ~2024-11-04 | CT_ITS ---
EXAMINATION: CT CERVICAL SPINE WITHOUT CONTRAST CLINICAL INFORMATION: Neck trauma COMPARISON: None available. TECHNIQUE: Axial 3 mm thin and reformatted 2 mm thin sagittal and coronal images of cervical spine were obtained without contrast. This CT examination was performed using dose optimization techniques as appropriate, variously including the following: *Automated exposure control *Adjustment of mA and/or kV according to patient size (this includes techniques or standardized protocols for targeted exams where dose is matched to indication/reason for exam; i.e. extremities or head) *Use of iterative reconstruction technique DLP: 1045 mGy/cm. FINDINGS: There is mild straightening of cervical lordosis. There is grade 1 anterolisthesis C4 or C5. Rest of the alignment is normal. There is loss of C5-C6 and C6-C7 disc heights with mild ventral and posterior spondylosis. No aggressive lytic or sclerotic process seen . The craniovertebral junction and the C1-C2 alignment is normal. There is moderate bilateral C2-3, left C3-4 facet joint arthropathy and hypertrophy. This results in moderate left C3-4 and bilateral mild C4-5, C5-6 neural foraminal narrowing. Also visualized is moderate right C7-T1 facet joint arthropathy and hypertrophy. No visible acute fracture or dislocation seen. The pharyngeal and tracheal airway is widely patent. The prevertebral and paravertebral soft tissues are normal. CT/CT cervical spine wo IV con IMPRESSION: No acute fracture or dislocation. Grade 1 anterolisthesis C4 over C5 and degenerative disc changes C5-6 and C6-7 disc levels. Facet joint arthropathy as described above Fleischner guidelines were followed. Electronically signed by: Daquan Jimenez MD 11/04/2024 01:51 PM [facility]
--- NOTE | ~2024-11-04 | CT_ITS ---
EXAMINATION: CT HEAD WITHOUT CONTRAST CLINICAL INFORMATION: Head trauma COMPARISON: None available. TECHNIQUE: Contiguous axial imaging was performed from the skull base to vertex without intravenous administration of contrast. This CT examination was performed using dose optimization techniques as appropriate, variously including the following: *Automated exposure control *Adjustment of mA and/or kV according to patient size (this includes techniques or standardized protocols for targeted exams where dose is matched to indication/reason for exam; i.e. extremities or head) *Use of iterative reconstruction technique DLP: 1045 mGy/cm. FINDINGS: There is no acute intra-axial, extracerebral bleed, masses, collection or midline shift. There is no acute infarction evolution. There is no edema the jacques to white matter differentiation is maintained normal. The lateral ventricles are symmetrical in size and configuration without enlargement. Windows reveal no calvarial abnormality. There is no scalp soft tissue abnormality. Bilateral paranasal sinuses and mastoid air cells are well-aerated. There is no scalp soft tissue abnormality. CT/CT head/brain wo IV con IMPRESSION: No acute intracranial process seen seen. Electronically signed by: Daquan Jimenez MD 11/04/2024 01:46 PM EST
[2024-11-04 08:42] VITALS: BP 158/90; PULSE 51; O2SAT 97
[2024-11-04 08:45] VITALS: BP 154/99; PULSE 79; RESP 18; TEMP 36.5; O2SAT 96; BMI 26.0
[2024-11-04] MEDS: Lidocaine HCl 1 % MPF 5 ML VIAL SUBCUT (11:46)
--- NOTE | 2024-11-04 11:47 | ED.FALL ---
HPI - Fall General Chief Complaint: Fall Stated Complaint: FALL,HIT HEAD,ABOVE L EYE CUT PER EMS Time Seen by Provider: 11/04/24 10:50 Source: patient and old records reviewed Mode of arrival: ambulatory Limitations: no limitations History of Present Illness ED Provider: YARED HOFFMAN Narrative: 64 yo male with PMH of MICHELLE, GERD, CKD, CAD, HIV, hypothyroidism, COPD on 2L NC, not on blood thinners here with c/o tripping on curb with R foot and landing on head no LOC was able to get up c/o laceration to face (Tdap is UTD) and L wrist pain. He denies any other injury or complaint. He reports he is able to walk without issue and denies CP/SOB or dizziness preceding fall. 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) Fall from: standing Fall witnessed: yes, by bystander Place fall occurred: street Loss of consciousness: none Prolonged down time: no Symptoms prior to fall: none Context: tripped/slipped Location of injury: head and face Location of injury - extremities: left: arm (wrist) Severity: mild Quality: aching Associated symptoms (after fall): denies Related Data Home Medications ?Medication ?Instructions ?Recorded ?Confirmed albuterol sulfate 90 mcg/actuation 1 puff PO Q4H PRN dyspnea 06/21/21 10/20/24 aerosol inhaler (Ventolin HFA) fluticasone 250 mcg-salmeterol 50 1 inh inhalation BID 06/21/21 10/20/24 mcg/dose blistr powdr for inhalation (Wixela Inhub) levothyroxine 25 mcg tablet 25 mcg PO DAILY 06/21/21 10/20/24 umeclidinium 62.5 mcg/actuation 1 inh PO DAILY 06/21/21 10/20/24 blister powder for inhalation (Incruse Ellipta) emtricitabine 200 mg-rilpivirine 1 tab PO DAILY 05/05/22 10/20/24 25 mg-tenofovir alafenam 25 mg tablet (Annaefsey) methadone 5 mg tablet 70 mg PO DAILY 07/30/24 10/20/24 Previous Rx's ?Medication ?Instructions ?Recorded bisacodyl 5 mg tablet,delayed 10 mg (2 x 5 mg) PO BEDTIME 2 days 11/21/23 release (Dulcolax (bisacodyl)) #4 tabs peg 3350-electrolytes 236 240 ml PO Q10M 1 day #4,000 mL 11/21/23 gram-22.74 gram-6.74 gram-5.86 gram solution (Golytely) magnesium hydroxide 400 mg/5 mL 10 ml PO BEDTIME PRN for 04/17/24 oral suspension (Milk of Magnesia) constipation #355 mL finasteride 5 mg tablet 5 mg PO DAILY 90 days #90 tabs 05/30/24 famotidine 40 mg tablet 40 mg PO BEDTIME PRN for heartburn 07/28/24 #30 tabs azithromycin 250 mg tablet 250 mg PO 3XW recurrent bronchitis 10/13/24 10 days #5 tabs Allergies Allergy/AdvReac Type Severity Reaction Status Date / Time levofloxacin Allergy Intermediate Nausea, Verified 11/04/24 08:46 chills, SOB Review of Systems Review of Systems: Constitutional : No Fever, No Chills, No Fatigue ENT/Mouth : No sore throat, No Rhinorrhea Eyes: No Eye Pain, No Swelling, No Redness Cardiovascular : No Chest Pain, No SOB, No Dyspnea on Exertion Respiratory : No Cough, No Sputum Gastrointestinal : No Nausea, No Vomiting, No Diarrhea, No abdominal Pain Genitourinary : No Dysuria, No Urinary Frequency, No Hematuria, Musculoskeletal : pos joint pain, No Myalgias, No Joint Swelling Skin : No Skin Lesions, No rash, pos laceration Neuro : No Weakness, No Numbness, No Dizziness, no Headache All other systems reviewed and are negative PMFSH Past Medical History Attestation statement: The following information was validated with the patient. Source: old records reviewed Medical History Bronchitis MICHELLE (obstructive sleep apnea) Dyspnea on exertion Personal history of nicotine dependence History of lymphoma (~2005) Hypogonadism in male Chronic hepatitis C without hepatic coma Anal fistula Polysubstance abuse Hypothyroidism Exercise hypoxemia Hypogonadotropic hypogonadism (~2018) HIV (human immunodeficiency virus infection) COPD (chronic obstructive pulmonary disease) Surgical History S/P lesley-rectal abscess repair, follow-up exam Hx of fracture Family History Family History Father Cancer Mother No problems noted. Sister Cancer Social History Social History Household Members: Family Housing: Apartment Alcohol intake: never Comment: NO COUNTS NEEDED Patient Tobacco Use Status: Former Tobacco user Years Smoked: 40 years +/- Smoked in Last 30 Days: No Use of substances other than those prescribed or required for medical reasons: No Substance Use Type: Amphetamines, Crack/Cocaine, Heroin, Marijuana and Painkillers Advance Directives: Yes Advance Directives Information Provided: Yes Advance Directives on File: No service: No Current occupational status: disabled Physical Exam Vital Signs: Vital Signs: Last Vital Signs Temp 97.7 F 11/04/24 08:45 Pulse 58 11/04/24 13:17 Resp 16 11/04/24 13:17 BP 132/78 11/04/24 13:17 Pulse Ox 98 11/04/24 13:17 O2 Del Method Room Air 11/04/24 13:17 O2 Flow Rate 2 11/04/24 13:17 Oxygen Flow Rate 2 11/04/24 08:45 BMI result Body Mass Index 26.0 Appearance: Alert. Oriented X3. No acute distress. Eyes: Pupils equal, round and reactive to light. ENT: Pharynx normal. L forehead 2cm gouge but abrasion Neck: Normal inspection. Neck supple. no midline ttp CVS: Normal heart rate and rhythm. Pulses normal. Respiratory: No respiratory distress. Breath sounds normal. Abdomen: Soft and non-tender. Skin: Skin warm and dry. Normal skin color. Normal skin turgor. Extremities: No lower extremity edema. No calf ttp L wrist ttp along dorsum but normal NV exam and no other sites of pain, flex and ext fingers. Neuro: Oriented X 3. No motor deficit. No sensory deficit. CN2-12 intact Medications Administered Discontinued Medications Generic Name Dose Route Start Last Admin Trade Name Freq PRN Reason Stop Dose Admin Acetaminophen 650 mg 11/04/24 11:54 11/04/24 12:17 Acetaminophen 325 Mg Tablet PO 11/04/24 11:55 650 mg ONCE ONE Administration Lidocaine HCl 5 ml 11/04/24 11:17 11/04/24 11:46 Lidocaine Hcl 1 % Mpf 5 Ml Vial SUBCUT 11/04/24 11:18 5 ml ONCE ONE Administration Procedures Laceration Laceration 1: Site: face Side (If applicable): left Size (cm): 2 Description: irregular Depth: simple, single layer Local Anesthetic: lidocaine 1% Amount of anesthesia used (mL): 2 Pre-repair: wound explored Skin layer closed with: nylon Size (cm): 6-0 Number of sutures: 4 Technique: simple, interrupted Medical Decision Making Medical Decision Making MDM Narrative: 64 yo male with PMH of MICHELLE, GERD, CKD, CAD, HIV, hypothyroidism, COPD on 2L NC, not on blood thinners here with c/o L facial laceration after a trip and fall. No preceding CP/SOB or illness. He will need sutures on L eyebrow and given age and fall CT head/cspine and xray of L wrist Differential Diagnosis Differential Diagnoses: The differential diagnosis associated with the presentation includes laceration, head injury, wrist sprain/fracture Admission/Observation Consideration of admission/observation: Escalation of care including admission/observation considered GCS 15 stable for DC Independent Interpretation I performed an independent interpretation of an: Plain X-Ray (no trauma) and CT Scan (no trauma) Radiology Impression Discussion of test interpretation with radiology: I have reviewed the radiologist's reading. Independent Historian Clinical information obtained from an independent historian. History obtained from or confirmed by: EMS External Record Review External record reviewed: Outpatient record Discharge Plan Discharge Clinical Impression: Head injury Qualifiers: Encounter type: initial encounter Qualified Code(s): S09.90XA - Unspecified injury of head, initial encounter Left wrist sprain Qualifiers: Encounter type: initial encounter Qualified Code(s): S63.502A - Unspecified sprain of left wrist, initial encounter Face lacerations Qualifiers: Encounter type: initial encounter Qualified Code(s): S01.81XA - Laceration without foreign body of other part of head, initial encounter Patient Disposition: Home, Self-Care Instructions: Laceration (ED), Sprain (ED), Head Injury (ED) Additional Instructions: CT scans and xray no broken bones or trauma okay to get stitches wet in 24 hours but only a quick shower return for redness, fevers, swelling, yellow drainage, confusion, vomiting, severe pain or any other concerns stitches out in 7 days here, urgent care or primary care provider Prescriptions: No Action magnesium hydroxide [Milk of Magnesia] 400 mg/5 mL suspension 10 ml PO BEDTIME PRN (Reason: for constipation) Qty: 355 3RF famotidine 40 mg tablet 40 mg PO BEDTIME PRN (Reason: for heartburn) Qty: 30 6RF albuterol sulfate [Ventolin HFA] 90 mcg/actuation HFA aerosol inhaler 1 puff PO Q4H PRN (Reason: dyspnea) fluticasone propion-salmeterol [Wixela Inhub] 250-50 mcg/dose blister with device 1 inh inhalation BID Incruse Ellipta 62.5 mcg/actuation blister with device 1 inh PO DAILY levothyroxine 25 mcg tablet 25 mcg PO DAILY Odefsey 200-25-25 mg tablet 1 tab PO DAILY methadone 5 mg tablet 70 mg PO DAILY finasteride 5 mg tablet 5 mg PO DAILY 90 Days Qty: 90 1RF azithromycin 250 mg tablet 250 mg PO 3XW 10 Days Qty: 5 3RF bisacodyl [Dulcolax (bisacodyl)] 5 mg tablet,delayed release (DR/EC) 10 mg PO BEDTIME 2 Days Qty: 4 0RF peg 3350-electrolytes [Golytely] 236-22.74-6.74 -5.86 gram recon soln 240 ml PO Q10M 1 Days Qty: 4000 0RF Rx Instructions: until fecal effluent is clear; do not exceed a total volume of 2,000 mL Print Language: Gibraltarian
[2024-11-04] MEDS: Acetaminophen 325 MG TABLET 650 MG PO (12:17)
[2024-11-04 13:17] VITALS: BP 132/78; PULSE 58; RESP 16; O2SAT 98
[2024-11-04 14:26] VITALS: BP 132/78; PULSE 58; RESP 16; TEMP 36.4; O2SAT 98
== END 2024-11-04 14:27 | disposition home or self-care (01) ==
PROVIDERS: Emergency Provider Emergency Medicine; PCP Family Medicine
DX: S01.81XA Laceration without foreign body of other part of head, initial encounter (principal); S63.502A Unspecified sprain of left wrist, initial encounter; R51.9 Headache, unspecified; M25.532 Pain in left wrist; I25.10 Atherosclerotic heart disease of native coronary artery without angina pectoris; J44.9 Chronic obstructive pulmonary disease, unspecified; Y93.01 Activity, walking, marching and hiking; W01.0XXA Fall on same level from slipping, tripping and stumbling without subsequent striking against object, initial encounter; Y92.480 Sidewalk as the place of occurrence of the external cause; Y99.8 Other external cause status; Z99.81 Dependence on supplemental oxygen; Z79.899 Other long term (current) drug therapy; Z87.891 Personal history of nicotine dependence
CPT/HCPCS: 12011; 70450; 72125; 73110; 99284; J2003

== ENCOUNTER → 2024-11-04 11:17 | Outpatient (BNV) | payer OTHER, SELFPAY | PROVIDERS: Emergency Provider Emergency Medicine; PCP Family Medicine; Visit Provider Radiology Diagnostic Radiology | DX: M46.92 Unspecified inflammatory spondylopathy, cervical region (principal); S09.90XA Unspecified injury of head, initial encounter; M25.532 Pain in left wrist | CPT/HCPCS: 70450; 72125; 73110 ==

== ENCOUNTER → 2024-11-05 09:48 | Outpatient (BNVA) | payer OTHER, SELFPAY | PROVIDERS: PCP Family Medicine; Visit Provider Surgery | DX: Z01.818 Encounter for other preprocedural examination (principal) | CPT/HCPCS: 99202 ==

== ENCOUNTER 2024-11-11 11:17 | Outpatient (REF) | payer OTHER, SELFPAY | END 2024-11-11 11:18 | disposition home or self-care (01) | LOC: HO.US 11:17 | PROVIDERS: PCP Family Medicine; Visit Provider Family Medicine | DX: I65.23 Occlusion and stenosis of bilateral carotid arteries (principal) | CPT/HCPCS: 93880 ==

== ENCOUNTER → 2024-11-11 11:20 | Outpatient (BNV) | payer OTHER, SELFPAY | PROVIDERS: PCP Family Medicine; Visit Provider Radiology Diagnostic Radiology | DX: I65.23 Occlusion and stenosis of bilateral carotid arteries (principal) | CPT/HCPCS: 93880 ==

== ENCOUNTER 2024-11-11 12:04 | Emergency (ER) | payer OTHER, SELFPAY | END 2024-11-11 16:25 | disposition left against medical advice (07) | PROVIDERS: Emergency Provider Emergency Medicine | DX: Z53.21 Procedure and treatment not carried out due to patient leaving prior to being seen by health care provider (principal); R06.02 Shortness of breath ==

== ENCOUNTER 2024-11-24 08:57 | Outpatient (AMB) | payer OTHER, SELFPAY ==
[2024-11-24 09:34] VITALS: BP 130/68; PULSE 58; O2SAT 90; BMI 25.9
--- NOTE | 2024-11-24 09:34 | MHC.OFFVIS ---
Vital Signs 11/24/24 09:34 Height 5 ft 9 in Weight 175 lb 4.28 oz BMI 25.9 BP 130/68 Blood Pressure Location Lt brachial Position Sitting Pulse 58 Pulse Source Pulse Oximeter Pulse Oximetry (%) 90 L Oxygen Delivery Method Room Air Intake Visit Reasons: COPD Intake Note: pt is here for follow up and states he is holding off colonoscopy until 6 months, he wishes to hold off at this time. 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: No Allergies levofloxacin Allergy (Intermediate, Verified 11/24/24 10:01) Nausea, chills, SOB Medication List - Last Reconciled 11/24/24 by Virgilio Momin MD albuterol sulfate 90 mcg/actuation (Ventolin HFA) 1 puff PO Q4H PRN azithromycin 250 mg PO 3XW 10 days bisacodyl (Dulcolax (bisacodyl)) 10 mg (2 x 5 mg) PO BEDTIME 2 days budesonide-formoterol 160-4.5 mcg/actuation 2 puffs inhalation BID 30 days kbactpgodo-ddtiasbq-wrgbud ala 200-25-25 mg (Odefsey) 1 tab PO DAILY famotidine 40 mg PO BEDTIME PRN finasteride 5 mg PO DAILY 90 days levothyroxine 25 mcg PO DAILY magnesium hydroxide (Milk of Magnesia) 10 mL PO BEDTIME PRN methadone 70 mg PO DAILY peg 3350-electrolytes 236-22.74-6.74 -5.86 gram (Golytely) 240 mL PO Q10M 1 day sodium,potassium,mag sulfates 17.5-3.13-1.6 gram (Suprep Bowel Prep Kit) DILUTE; drink full amount early evening before AND next morning at least 2 hr before procedure; follow w 960 mL water PO umeclidinium 62.5 mcg/actuation (Incruse Ellipta) 1 inh PO DAILY Do you need a note to return to daycare/school/sports/work: No HPI HPI COPD: Details: THIS 64 YEARS OLD GENTLEMAN CAME TO THE OFFICE FOR FOLLOW-UP, ACTUALLY INITIALLY INTENDED TO BE CLEARED FOR COLONOSCOPY. HOWEVER TODAY HE IS TELLING ME THAT HE IS NOT GOING TO HAVE COLONOSCOPY FOR AT LEAST 6 MONTHS FROM NOW. BREATHING CUMMINGS HE IS DOING WELL, AND HAS HAD NO ACUTE EXACERBATION. HE DOES HAVE INOGEN FOR PORTABLE OXYGEN, BUT IS USING IT ONLY SPARINGLY. AT HOME HE USES FOR ANY PHYSICAL ACTIVITY. [facility] Medical History Colon cancer screening Bronchitis MICHELLE (obstructive sleep apnea) Dyspnea on exertion Personal history of nicotine dependence History of lymphoma (~2004) Hypogonadism in male Chronic hepatitis C without hepatic coma Anal fistula Polysubstance abuse Hypothyroidism Exercise hypoxemia Hypogonadotropic hypogonadism (~2018) HIV (human immunodeficiency virus infection) COPD (chronic obstructive pulmonary disease) Surgical History S/P lesley-rectal abscess repair, follow-up exam Hx of fracture Family History Father Cancer Mother No problems noted. Sister Cancer Social History Household Members: Family Housing: Apartment Alcohol intake: never Comment: NO COUNTS NEEDED Patient Tobacco Use Status: Former Tobacco user Years Smoked: 40 years +/- Substance Use Type: Amphetamines, Crack/Cocaine, Heroin, Marijuana and Painkillers service: No Current occupational status: disabled Review of Systems Const All systems reviewed & are unremarkable except as noted in HPI and below Eyes Reports no additional complaints ENT Reports nasal congestion (Mild off and on) Card Reports chest pain, Denies irregular heart rhythm and Denies leg edema Resp Reports as per HPI GI Reports no additional complaints Reports no additional complaints Musc Reports no additional complaints Skin/Breast Reports system reviewed and no additional complaints, except as documented Neuro Reports no additional complaints Psych Reports no additional complaints Endo Reports other (Being treated for diabetes mellitus, and hypothyroidism.) Physical Exam Vital Signs: Last Vital Signs Pulse 58 11/24/24 09:34 BP 130/68 11/24/24 09:34 Pulse Ox 90 L 11/24/24 09:34 Oxygen Delivery Method Room Air 11/24/24 09:34 BMI result Body Mass Index 25.9 Const General: comfortable (Slightly short of breath when walking), no acute distress, alert and awake Orientation/consciousness: patient oriented x3 HEENT Head: Yes normal to inspection General nose exam: No nasal polyps present and No nasal discharge present Face and sinus: Yes sinuses nontender Mouth: oropharynx normal Teeth and gingiva: edentulous Throat: Yes posterior oropharynx normal Eyes General: appearance normal, both eyes and all related structures Neck Neck: Yes normal visual inspection, Yes no lymphadenopathy, Yes trachea midline and Yes no JVD Thyroid: Thyroid normal Chest Chest palpation & inspection: normal inspection of the chest, normal palpation of entire chest wall and no tenderness Resp Other: Percussion note hyper-resonant, breath sounds are distant with prolonged expiratory phase, but equal on both sides. No audible wheezes or rhonchi. Cardio Palpation: normal PMI Rate: regular rate Rhythm: regular rhythm Heart sounds: no gallops and no murmurs GI Palpation (GI): Soft to palpation, nontender, No hepatosplenomegaly present and no masses Auscultation: normal bowel sounds Back/Spine/Pelvis Thoracic/Lumbar Spine: thoracic and lumbar spine normal to inspection Skin General skin exam: no rashes or lesions noted and dry skin Neuro General: patient oriented x3 and no focal motor deficits Cranial nerves: Yes CN's II-XII intact bilaterally Extrem General: Yes normal to inspection, Yes no clubbing, cyanosis or edema and Yes no calf tenderness Psych Appearance: grossly normal and well kempt Speech and movement: Normal speech and movement present Assessment & Plan Assessment & Plan (1) COPD (chronic obstructive pulmonary disease): Comment: Has advanced chronic obstructive pulmonary disease, related to his past smoking He is doing very well with the current regimen. BUT STILL GETS VERY FREQUENT ACUTE EXACERBATIONS. RECENTLY HAS NOT NEEDED ANY PREDNISONE. Code(s): J44.9 - Chronic obstructive pulmonary disease, unspecified Category: Medical Plan: CONTINUE PRESENT MEDICAL REGIMEN INCLUDING : SYMBICORT. 160-4.52 PUFFS B.I.D. INCRUSE ELLIPTA 1 INHALATION DAILY ALBUTEROL HFA 2 PUFFS Q 6 HOURS P.R.N. AZITHROMYCIN 250 MG ON Sunday (2) Personal history of nicotine dependence: Comment: (Former smoker, onset 12yo, 1-2ppd x 49yrs, 60+PYH, quit in 2020) He is active in annual lung screening program. Code(s): Z87.891 - Personal history of nicotine dependence Category: Medical Plan: ADVISE THAT HE SHOULD CONTINUE TO HAVE ANNUAL LUNG SCREENING WITH LDCT (3) Exercise hypoxemia: Comment: Pulmonary function test showed severe obstructive disorder. And 6 minutes walk showed that he does desaturate quickly on walking, Tested for using POC ( O2 conserving mode) he did okay with 2 L/minute , O2 sat stayed above 91%. Patient is now using the portable O2 with POC, when he goes outdoors, and p.r.n. at home Code(s): R09.02 - Hypoxemia Category: Medical Plan: HE IS USING POC WHENEVER HE GOES OUTDOORS FOR SHOPPING OTHER CHORES HE IS NOT USING OXYGEN AT NIGHT Coding Level of Care Code Est Pt Level 3 (27345) Diagnoses COPD (chronic obstructive pulmonary disease) J44.9 Personal history of nicotine dependence Z87.891 Exercise hypoxemia R09.02
== END 2024-11-24 10:13 | disposition home or self-care (01) ==
PROVIDERS: PCP Family Medicine; Visit Provider Internal Medicine
DX: J44.9 Chronic obstructive pulmonary disease, unspecified (principal); Z87.891 Personal history of nicotine dependence; R09.02 Hypoxemia
CPT/HCPCS: 99213

== ENCOUNTER → 2024-11-24 08:57 | Outpatient (BNVA) | payer OTHER, SELFPAY | PROVIDERS: PCP Family Medicine; Visit Provider Internal Medicine | DX: J44.9 Chronic obstructive pulmonary disease, unspecified (principal); R09.02 Hypoxemia; Z87.891 Personal history of nicotine dependence | CPT/HCPCS: 99212 ==

== ENCOUNTER 2024-12-03 12:10 | Outpatient (REF) | payer OTHER, SELFPAY ==
--- NOTE | ~2024-12-03 | CT_ITS ---
CLINICAL HISTORY: Z87.891 - Personal history of nicotine dependence CT lung cancer screening (LDCT) Comparison: Chest CT from 09/04/2023 Technique: Axial CT images of the chest using low-dose technique. Referring provider counseled the patient on shared decision-making for LDCT screening. Additional counseling was provided on smoking cessation. Effective radiation dose total: DLP 45.4 mGycm, CTDIvol 1.2 mGy. Findings: Lung: Multiple pulmonary nodules in the right upper lobe, are new from comparison, measuring up to 5 mm, imaged 69 of series 6 (category 3, given new from comparison) redemonstration of mild-moderate emphysematous changes and mild bilateral scarring. Mild secretions present in the trachea. No pneumothorax or pleural effusion. Coronary artery calcifications: Mild-moderate Limited upper abdomen: Small hiatal hernia. Mild volume loss of the imaged pancreas Other: Degenerative changes include imaged shoulders and imaged spine Impression: Category 3: Probably benign, [address] recommended, given NEW pulmonary nodules measuring up to 5 mm in the right upper lobe This document has been electronically signed by: Yves Guerrero MD on 12/04/2024 20:14:50
[2024-12-03 14:19] LABS: Prostate Specific Antigen 1.21 ng/mL (<0.05-4.0)
== END 2024-12-03 12:11 | disposition home or self-care (01) ==
LOC: HO.CT 12:10
PROVIDERS: Nurse Practitioner Family; PCP Family Medicine; Visit Provider Physician Assistant Medical
DX: Z12.2 Encounter for screening for malignant neoplasm of respiratory organs (principal); Z12.5 Encounter for screening for malignant neoplasm of prostate; Z87.891 Personal history of nicotine dependence
CPT/HCPCS: 36415; 71271; 84153

== ENCOUNTER → 2024-12-03 12:12 | Outpatient (BNV) | payer OTHER, SELFPAY | PROVIDERS: PCP Family Medicine; Visit Provider Radiology Neuroradiology | DX: Z87.891 Personal history of nicotine dependence (principal); C61 Malignant neoplasm of prostate | CPT/HCPCS: 71271 ==

== ENCOUNTER 2025-02-05 09:12 | Outpatient (AMB) | payer OTHER, SELFPAY ==
--- NOTE | 2025-02-05 09:34 | MHC.OFFVIS ---
Vital Signs 02/05/25 09:35 Height 5 ft 9 in Weight 181 lb BMI 26.7 BP 132/84 Blood Pressure Location Lt brachial Position Sitting Pulse 83 Pulse Source Pulse Oximeter Pulse Oximetry (%) 90 L Oxygen Delivery Method Room Air Intake Visit Reasons: Obstructive sleep apnea Intake Note: pt is here to talk about sleep study, he sleeps about 15 min and wakes up and this happens all the time, using oxygen with exertion. Inspector Bicycle Required: No Allergies levofloxacin Allergy (Intermediate, Verified 02/05/25 10:00) Nausea, chills, SOB Medication List - Last Reconciled 02/05/25 by Virgilio Momin MD albuterol sulfate 90 mcg/actuation (Ventolin HFA) 1 puff PO Q4H PRN azithromycin 250 mg PO 3XW 10 days bisacodyl (Dulcolax (bisacodyl)) 10 mg (2 x 5 mg) PO BEDTIME 2 days budesonide-formoterol 160-4.5 mcg/actuation 2 puffs inhalation BID 30 days rpdpydnhsj-hjcubkbb-vrlpsl ala 200-25-25 mg (Odefsey) 1 tab PO DAILY famotidine 40 mg PO BEDTIME PRN finasteride 5 mg PO DAILY 90 days levothyroxine 25 mcg PO DAILY magnesium hydroxide (Milk of Magnesia) 10 mL PO BEDTIME PRN methadone 70 mg PO DAILY peg 3350-electrolytes 236-22.74-6.74 -5.86 gram (Golytely) 240 mL PO Q10M 1 day sodium,potassium,mag sulfates 17.5-3.13-1.6 gram (Suprep Bowel Prep Kit) DILUTE; drink full amount early evening before AND next morning at least 2 hr before procedure; follow w 960 mL water PO umeclidinium 62.5 mcg/actuation (Incruse Ellipta) 1 inh PO DAILY Do you need a note to return to daycare/school/sports/work: No HPI HPI Obstructive sleep apnea: Details: JONATHAN IS 64 YEARS OLD GENTLEMAN HERE FOR HIS ROUTINE F U. VISIT HE IS CURRENTLY LIVING WITH HIS BROTHER. FROM COPD POINT OF VIEW HE IS DOING WELL. HAS HAD NO EXACERBATIONS SINCE HIS LAST VISIT. HE IS EATING BETTER AND HAS ACTUALLY PUT ON SOME WEIGHT. HIS MAIN COMPLAINT TODAY IS THAT HE KEEPS ON WAKING UP EVERY 15-20 MINUTES. HE DOES HAVE HISTORY OF OBSTRUCTIVE SLEEP APNEA IN THE PAST BUT COULD NOT USE THE CPAP. HAD A POLYSOMNOGRAM STUDY IN THE SLEEP LAB LOST July BASELINE PART OF THE STUDY CONFIRMED MICHELLE WITH TOTAL SLEEP TIME AHI 21. HE DID NOT TOLERATE THE CPAP, AND SO COULD NOT COMPLETE THE STUDY. TODAY HE WANTS TO TALK ABOUT AND SEE IF HE CAN TRY TO USE THE CPAP. [facility] [place] Medical History (Updated 02/05/25 @ 10:08 by Virgilio Momin MD) History of smoking at least 1 pack per day for at least 30 years Colon cancer screening Bronchitis MICHELLE (obstructive sleep apnea) Dyspnea on exertion Personal history of nicotine dependence History of lymphoma (~2004) Hypogonadism in male Chronic hepatitis C without hepatic coma Anal fistula Polysubstance abuse Hypothyroidism Exercise hypoxemia Hypogonadotropic hypogonadism (~2018) HIV (human immunodeficiency virus infection) COPD (chronic obstructive pulmonary disease) Surgical History S/P lesley-rectal abscess repair, follow-up exam Hx of fracture Family History Father Cancer Mother No problems noted. Sister Cancer Social History Household Members: Family Housing: Apartment Alcohol intake: never Comment: NO COUNTS NEEDED Patient Tobacco Use Status: Former Tobacco user Years Smoked: 40 years +/- Substance Use Type: Amphetamines, Crack/Cocaine, Heroin, Marijuana and Painkillers service: No Current occupational status: disabled Review of Systems Const All systems reviewed & are unremarkable except as noted in HPI and below Eyes Reports no additional complaints ENT Reports nasal congestion (Mild off and on) Card Reports chest pain, Denies irregular heart rhythm and Denies leg edema Resp Reports as per HPI GI Reports no additional complaints Reports no additional complaints Musc Reports no additional complaints Skin/Breast Reports system reviewed and no additional complaints, except as documented Neuro Reports no additional complaints Psych Reports no additional complaints Endo Reports other (Being treated for diabetes mellitus, and hypothyroidism.) Physical Exam Vital Signs: Last Vital Signs Pulse 83 02/05/25 09:35 BP 132/84 02/05/25 09:35 Pulse Ox 90 L 02/05/25 09:35 Oxygen Delivery Method Room Air 02/05/25 09:35 BMI result Body Mass Index 26.7 Const General: comfortable (Slightly short of breath when walking), no acute distress, alert and awake Orientation/consciousness: patient oriented x3 HEENT Head: Yes normal to inspection General nose exam: No nasal polyps present and No nasal discharge present Face and sinus: Yes sinuses nontender Mouth: oropharynx normal Teeth and gingiva: edentulous Throat: Yes posterior oropharynx normal Eyes General: appearance normal, both eyes and all related structures Neck Neck: Yes normal visual inspection, Yes no lymphadenopathy, Yes trachea midline and Yes no JVD Thyroid: Thyroid normal Chest Chest palpation & inspection: normal inspection of the chest, normal palpation of entire chest wall and no tenderness Resp Other: Percussion note hyper-resonant, breath sounds are distant with prolonged expiratory phase, but equal on both sides. No audible wheezes or rhonchi. Cardio Palpation: normal PMI Rate: regular rate Rhythm: regular rhythm Heart sounds: no gallops and no murmurs GI Palpation (GI): Soft to palpation, nontender, No hepatosplenomegaly present and no masses Auscultation: normal bowel sounds Back/Spine/Pelvis Thoracic/Lumbar Spine: thoracic and lumbar spine normal to inspection Skin General skin exam: no rashes or lesions noted and dry skin Neuro General: patient oriented x3 and no focal motor deficits Cranial nerves: Yes CN's II-XII intact bilaterally Extrem General: Yes normal to inspection, Yes no clubbing, cyanosis or edema and Yes no calf tenderness Psych Appearance: grossly normal and well kempt Speech and movement: Normal speech and movement present Assessment & Plan Assessment & Plan (1) COPD (chronic obstructive pulmonary disease): Comment: Has advanced chronic obstructive pulmonary disease, related to his past smoking He is doing very well with the current regimen. BUT STILL GETS VERY FREQUENT ACUTE EXACERBATIONS. RECENTLY HAS NOT NEEDED ANY PREDNISONE. Code(s): J44.9 - Chronic obstructive pulmonary disease, unspecified Category: Medical Plan: CONTINUE THE FOLLOWING : SYMBICORT. 160-4.52 PUFFS B.I.D. AZITHROMYCIN 250 MG P.O. 3 DAYS A WEEK ALBUTEROL HFA 2 PUFFS Q 6 HOURS P.R.N. 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 HE HAD POLYSOMNOGRAM STUDY IN THE SLEEP LAB IN JULY 2024. BASELINE PART OF THE STUDY WAS POSITIVE FOR MODERATELY SEVERE OBSTRUCTIVE SLEEP APNEA. HE COULD NOT TOLERATE WEARING THE CPAP MASK SO LEFT D LAB. TODAY HIS MAIN COMPLAINT IS ABOUT SLEEP PATTERN. CLAIMS THAT HE WAKES UP EVERY 15-20 MINUTES, AND DOES NOT GET GOOD SLEEP. HE WANTS TO TRY USING THE CPAP MASK. * HE ALSO SAT THAT IF HE USES O2 2 L/MINUTE AT NIGHT THEN HE SLEEPS BETTER. Code(s): G47.33 - Obstructive sleep apnea (adult) (pediatric) Category: Medical Plan: BASED ON THE RESULTS OF HIS POLYSOMNOGRAM STUDY IN JULY 2024, I WILL GO AHEAD AND ORDER A CPAP APPARATUS WITH PRESSURE SETTING OF 6-20 CM, USING A FULLFACE MASK WHICH WOULD FIT HIM WELL. IF HE CAN NOT USE THE CPAP MASK, THEN HE MAY NEED TO RESORT TO USING O2 2 L/MINUTE AT NIGHTTIME. (3) Exercise hypoxemia: Comment: Pulmonary function test showed severe obstructive disorder. And 6 minutes walk showed that he does desaturate quickly on walking, Tested for using POC ( O2 conserving mode) he did okay with 2 L/minute , O2 sat stayed above 91%. Patient is now using the portable O2 with POC, when he goes outdoors, and p.r.n. at home Code(s): R09.02 - Hypoxemia Category: Medical Plan: CONTINUE TO USE O2 AT 2 L/MINUTE WHENEVER GOING OUTDOORS OR DOING ANY PHYSICAL WORK AT HOME (4) History of smoking at least 1 pack per day for at least 30 years: Comment: THIS GENTLEMAN DOES HAVE PAST HISTORY OF SMOKING FOR ALMOST 40 YEARS, 1 PACK A DAY. LUCKILY HE WAS ABLE TO QUIT BACK IN 2020. HE DOES NOT HAVE ANY URGE TO GO BACK TO SMOKING. Code(s): Z87.891 - Personal history of nicotine dependence Category: Social Hx Plan: COMMENDED FOR NOT GOING BACK TO SMOKING. CONTINUE IN ANNUAL LUNG SCREENING PROGRAM . Coding Level of Care Code Est Pt Level 3 (38650) Diagnoses COPD (chronic obstructive pulmonary disease) J44.9 MICHELLE (obstructive sleep apnea) G47.33 Exercise hypoxemia R09.02 History of smoking at least 1 pack per day for at least 30 years Z87.891
[2025-02-05 09:35] VITALS: BP 132/84; PULSE 83; O2SAT 90; BMI 26.7
== END 2025-02-05 10:04 | disposition home or self-care (01) ==
LOC: HO.HPS 09:12
PROVIDERS: PCP Family Medicine; Visit Provider Internal Medicine
DX: J44.9 Chronic obstructive pulmonary disease, unspecified (principal); G47.33 Obstructive sleep apnea (adult) (pediatric); R09.02 Hypoxemia; Z87.891 Personal history of nicotine dependence
CPT/HCPCS: 99213

== ENCOUNTER → 2025-02-05 09:12 | Outpatient (BNVA) | payer OTHER, SELFPAY | PROVIDERS: PCP Family Medicine; Visit Provider Internal Medicine | DX: N18.30 Chronic kidney disease, stage 3 unspecified (principal); B20 Human immunodeficiency virus [HIV] disease; G47.33 Obstructive sleep apnea (adult) (pediatric); J44.9 Chronic obstructive pulmonary disease, unspecified; R09.02 Hypoxemia; Z85.79 Personal history of other malignant neoplasms of lymphoid, hematopoietic and related tissues; Z87.891 Personal history of nicotine dependence | CPT/HCPCS: 99212 ==

== ENCOUNTER 2025-02-05 10:43 | Outpatient (AMB) | payer OTHER, SELFPAY ==
--- NOTE | 2025-02-05 10:51 | HO.NEPHOV ---
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 Accompanied by: Self / Same As Patient Allergies levofloxacin Allergy (Intermediate, Verified 02/05/25 10:53) Nausea, chills, SOB Medication List - Last Reconciled 02/05/25 by Harpal Sotomayor MD albuterol sulfate 90 mcg/actuation (Ventolin HFA) 1 puff PO Q4H PRN azithromycin 250 mg PO 3XW 10 days bisacodyl (Dulcolax (bisacodyl)) 10 mg (2 x 5 mg) PO BEDTIME 2 days budesonide-formoterol 160-4.5 mcg/actuation 2 puffs inhalation BID 30 days cjhxbdesrc-pvdsydey-eqpupi ala 200-25-25 mg (Odefsey) 1 tab PO DAILY famotidine 40 mg PO BEDTIME PRN finasteride 5 mg PO DAILY 90 days levothyroxine 25 mcg PO DAILY magnesium hydroxide (Milk of Magnesia) 10 mL PO BEDTIME PRN methadone 70 mg PO DAILY peg 3350-electrolytes 236-22.74-6.74 -5.86 gram (Golytely) 240 mL PO Q10M 1 day sodium,potassium,mag sulfates 17.5-3.13-1.6 gram (Suprep Bowel Prep Kit) DILUTE; drink full amount early evening before AND next morning at least 2 hr before procedure; follow w 960 mL water PO umeclidinium 62.5 mcg/actuation (Incruse Ellipta) 1 inh PO DAILY HPI Comments Details: Ra is a pleasant 64-year-old man who has been referred for evaluation of CKD. He has a history of prostate cancer Adenocarcinoma grade [address] Stewart. History of COPD History of non-Hodgkin's lymphoma and being followed by Dr. Guerin History of HIV and being followed by Dr. Almaguer. He is currently on odetsey Recent creatinine was 1.96 mg/dL hence this referral. He underwent renal ultrasonogram which was unremarkable. Back in 2022 serum creatinine was 1.53. 10/25/24; Increased urinary frequency 10/20/24 ;Overall doing well. Hoarseness of voice x few months CT neck unremarkable -except for < 50% stenosis of carotid 02/05/25; Recently had a fall.No syncope. No improvement in hoarseness [facility] Medical History (Updated 02/05/25 @ 10:08 by Virgilio Momin MD) History of smoking at least 1 pack per day for at least 30 years Colon cancer screening Bronchitis MICHELLE (obstructive sleep apnea) Dyspnea on exertion Personal history of nicotine dependence History of lymphoma (~2004) Hypogonadism in male Chronic hepatitis C without hepatic coma Anal fistula Polysubstance abuse Hypothyroidism Exercise hypoxemia Hypogonadotropic hypogonadism (~2018) HIV (human immunodeficiency virus infection) COPD (chronic obstructive pulmonary disease) Surgical History S/P lesley-rectal abscess repair, follow-up exam Hx of fracture Family History Father Cancer Mother No problems noted. Sister Cancer Social History Household Members: Family Housing: Apartment Alcohol intake: never Comment: NO COUNTS NEEDED Patient Tobacco Use Status: Former Tobacco user Years Smoked: 40 years +/- Substance Use Type: Amphetamines, Crack/Cocaine, Heroin, Marijuana and Painkillers service: No Current occupational status: disabled Physical Exam Vital Signs: Last Vital Signs Pulse 78 02/05/25 10:52 BP 112/68 02/05/25 10:52 Pulse Ox 93 02/05/25 10:52 Oxygen Delivery Method Room Air 02/05/25 10:52 BMI result Body Mass Index 26.3 Comfortable Neck supple no JVD. Lungs entry equal no rales. Heart S1-S2 heard no gallop or rub. Abdomen soft nontender. Neuro alert awake oriented. No asterixis. Extremities no edema. Results Reviewed Results Reviewed: Jul 2024 USG RIGHT KIDNEY: 10.4 x 4.4 x 4.8 cm (SAG x AP x TRV). No hydronephrosis. No renal calculi. Renal cortical thickness is normal. Limited visualization. LEFT KIDNEY: 10.4 x 4.7 x 4.6 cm (SAG x AP x TRV). No hydronephrosis. No renal calculi. Renal cortical thickness is normal. Limited visualization. Nephrology Results: Hgb 13.7 g/dl (14.0-18.0) L 01/28/25 WBC 4.8 X10*3/uL (4.8-10.8) 01/28/25 Plt Count 148 X10*3/uL (160-400) L 01/28/25 Sodium 141 mmol/L (135-145) 01/28/25 Potassium 4.2 mmol/L (3.3-5.1) 01/28/25 Chloride 103 mmol/L (96-108) 01/28/25 Carbon Dioxide 26 mmol/L (22-29) 01/28/25 BUN 23 mg/dL (9-16) H 01/28/25 Creatinine 1.74 mg/dL (0.5-1.4) H 01/28/25 Calcium 9.6 mg/dL (8.4-10.2) 01/28/25 Assessment & Plan Assessment & Plan (1) CKD (chronic kidney disease) stage 3, GFR 30-59 ml/min: Code(s): N18.30 - Chronic kidney disease, stage 3 unspecified Category: Medical (2) HIV (human immunodeficiency virus infection): Comment: (on HAART tx - stable in the last 20 years) Code(s): B20 - Human immunodeficiency virus [HIV] disease Category: Medical (3) History of lymphoma: Onset Date: ~2004 Comment: (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 Code(s): Z85.79 - Personal history of other malignant neoplasms of lymphoid, hematopoietic and related tissues Category: Medical Plan [age] man with stage III CKD in a setting of prostate cancer and HIV. He did sustained acute kidney injury with a creatinine peaking at 1.9 and subsequently decreased to 1.5. His baseline might be 1.5 mg/dL. to 1.7 mg/dL Urine : No protein or RBCs and benign Low salt diet Avoid nephrotoxins including NSAIDS Encouraged him to increase his fluid intake to avoid dehydration. Continue to avoid nephrotoxic agents including NSAIDs. Optimize blood pressure and avoid hypotension. Orders: Orders Basic Metabolic Panel 4 Months N18.30 - Chronic kidney disease, stage 3 unspecified UA and rflx microscopic 4 Months N18.30 - Chronic kidney disease, stage 3 unspecified Creatinine Urine 4 Months N18.30 - Chronic kidney disease, stage 3 unspecified Total Protein Urine Random 4 Months N18.30 - Chronic kidney disease, stage 3 unspecified Coding Level of Care Code Est Pt Level 4 (44361) Diagnoses CKD (chronic kidney disease) stage 3, GFR 30-59 ml/min N18.30 HIV (human immunodeficiency virus infection) B20 History of lymphoma Z85.79
[2025-02-05 10:52] VITALS: BP 112/68; PULSE 78; O2SAT 93; BMI 26.3
== END 2025-02-05 11:03 | disposition home or self-care (01) ==
LOC: HO.HKA 10:44
PROVIDERS: PCP Family Medicine; Visit Provider Internal Medicine Hypertension Specialist
DX: N18.30 Chronic kidney disease, stage 3 unspecified (principal); B20 Human immunodeficiency virus [HIV] disease; Z85.79 Personal history of other malignant neoplasms of lymphoid, hematopoietic and related tissues
CPT/HCPCS: 99214

== ENCOUNTER 2025-02-10 11:51 | Outpatient (REF) | payer OTHER, SELFPAY ==
[2025-02-10 14:15] LABS: Erythrocyte Sedimentation Rate 19 MM/HR (0-15)
[2025-02-12 13:28] LABS: ANA Pattern 2 Nuclear, Speckled; ANA Titer 2 1:40 titer; Anti Nuclear Antibody Screen POSITIVE (NEGATIVE)
[2025-02-12 16:09] LABS: Antibody to SS-A Antigen <1.0 NEG AI (<1.0 NEG); Antibody to SS-B Antigen <1.0 NEG AI (<1.0 NEG)
== END 2025-02-10 11:52 | disposition home or self-care (01) ==
LOC: HO.HHCL 11:51
PROVIDERS: Visit Provider Family Medicine
DX: R68.2 Dry mouth, unspecified (principal)
CPT/HCPCS: 36415; 85652; 86038; 86039; 86140; 86235

== ENCOUNTER 2025-03-30 10:29 | Outpatient (REF) | payer OTHER, SELFPAY ==
[2025-03-30 11:51] LABS: Estimated Average Glucose 126 mg/dL
[2025-03-30 12:00] LABS: Creatinine Urine 165.28 mg/dL; Microalbum/Creatinine Ratio Ur 5.4 ug/mg cr (<30)
[2025-03-30 12:11] LABS: Alanine Aminotransferase 24 U/L (0-40); Albumin Level 4.4 g/dL (3.5-5.0); Alkaline Phosphatase 122 U/L (39-117); Anion Gap 15 (12-20); Aspartate Amino Transferase 28 U/L (5-37); Bilirubin Total 0.5 mg/dL (0.0-1.0); Blood Urea Nitrogen 27 mg/dL (9-16); Calcium 9.2 mg/dL (8.4-10.2); Carbon Dioxide 25 mmol/L (22-29); Chloride 102 mmol/L (96-108); Cholesterol 165 mg/dL (<200); Estimated Glomerular Filt Rate 46; Glucose Random 108 mg/dL (60-115); HDL Cholesterol 43 mg/dL (>40); LDL Cholesterol Calculated 84 mg/dL (<100); Sodium 138 mmol/L (135-145); Total Protein 7.5 g/dL (6.5-8.0); Triglycerides 193 mg/dL (<150)
[2025-03-30 13:42] LABS: Reflex LDLD? No
== END 2025-03-30 10:30 | disposition home or self-care (01) ==
LOC: HO.HHCL 10:29
PROVIDERS: PCP Family Medicine; Visit Provider Family Medicine
DX: Z13.1 Encounter for screening for diabetes mellitus (principal); Z13.220 Encounter for screening for lipoid disorders; E03.9 Hypothyroidism, unspecified; N18.31 Chronic kidney disease, stage 3a
CPT/HCPCS: 36415; 80053; 80061; 82043; 82570; 83036; 84443

== ENCOUNTER 2025-04-03 10:30 | Emergency (ER) | payer OTHER, SELFPAY ==
--- NOTE | ~2025-04-03 | CT_ITS ---
CLINICAL HISTORY: fall, head strike, pain CT head without contrast Comparison: None Findings: No evidence of acute territorial infarct. There is patchy low density in the periventricular and subcortical white matter. Diffuse volume loss is noted. No hydrocephalus. No hemorrhage, mass effect, mass lesion, or midline shift. No abnormal extra-axial fluid. No calvarial fracture. Paranasal sinuses and mastoid air cells are clear. Impression: No acute intracranial process. Chronic changes as detailed. This document has been electronically signed by: Franklin Smith MD on 04/03/2025 12:33:35
--- NOTE | ~2025-04-03 | CT_ITS ---
CLINICAL HISTORY: fall, head strike, pain CT maxillofacial without contrast Comparison: None provided Findings: Age-indeterminate nasal bone fracture, axial 177. Bony orbits and remaining osseous structures appear unremarkable. Temporomandibular joints are intact. Paranasal sinuses and mastoid air cells clear. Rightward nasal septal deviation. Orbital contents within normal limits. Visualized intracranial contents are within normal limits. No foreign bodies. IMPRESSION: Age-indeterminate nasal bone fracture. No surrounding soft tissue edema to confirm acuity. This document has been electronically signed by: Franklin Smith MD on 04/03/2025 12:39:34
--- NOTE | ~2025-04-03 | CT_ITS ---
CLINICAL HISTORY: fall, head strike, pain CT cervical spine without contrast Comparison: 10/13/2024 Findings: There is straightening of the normal cervical lordosis. No fracture or acute malalignment. Multilevel degenerative changes with disc space narrowing throughout the cervical spine. The facet joints are normally imbricated. No prevertebral soft tissue edema. Lung apicies demonstrate no acute process. Impression: Multilevel degenerative changes without evidence of acute fracture or acute malalignment. This document has been electronically signed by: Franklin Smith MD on 04/03/2025 12:36:47
[2025-04-03 10:45] VITALS: BP 171/63; PULSE 68; RESP 18; TEMP 36.6; O2SAT 95; BMI 26.6
--- NOTE | 2025-04-03 11:05 | ED_ITS ---
HPI - General Adult General Chief complaint: Fall Stated complaint: SOB, wound R arm Time Seen by Provider: 04/03/25 11:03 Source: patient Mode of arrival: ambulatory Limitations: no limitations History of Present Illness ED Provider: Nayeli Odom PA-C HPI narrative: Patient is a 65 year old assigned male at with a history of CKD, MICHELLE, GERD, prostate cancer, CAD, HIV, lymphoma, COPD, and tobacco use presenting to the emergency department today with right forearm pain and nose pain after a fall. Patient states that he often has dreams where he fights in his sleep and he had one last night that caused him to fall out of bed, hitting his face and arm on his nightstand. Patient states that he is unsure when his last tetanus shot was. Patient denies any dizziness, lightheadedness, abdominal pain, nausea, vomiting, fever, chills, blurry vision, double vision, loss of vision, chest pain, difficulty breathing, shortness of breath, back pain, night sweats, pain with urination, increased urinary frequency, increased urinary urgency, blood in his urine or stool, syncope or a near syncopal episode, bowel incontinence, bladder incontinence, or any other complaints at this time. Relieving factors: none Exacerbating factors: none Associated symptoms: denies other symptoms Treatments prior to arrival: none Related Data Home Medications ?Medication ?Instructions ?Recorded ?Confirmed albuterol sulfate 90 mcg/actuation 1 puff PO Q4H PRN d yspnea 06/21/21 02/05/25 aerosol inhaler (Ventolin HFA) levothyroxine 25 mcg tablet 25 mcg PO DAILY 06/21/21 0 02/05/25 umeclidinium 62.5 mcg/actuation 1 inh PO DAILY 1 02/05/25 blister powder for inhalation (Incruse Ellipta) emtricitabine 200 mg-rilpivirine 1 tab PO DAILY 02/05/25 25 mg-tenofovir alafenam 25 mg tablet (Annaefsey) methadone 5 mg tablet 70 mg PO DAILY 07/30/2405/25 Previous Rx's ?Medication ?Instructions ?Recorded bisacodyl 5 mg tablet,delayed 10 mg (2 x 5 mg) PO BEDT ALONSO 2 days 11/21/23 release (Dulcolax (bisacodyl)) #4 tabs peg 3350-electrolytes 236 240 ml PO Q10M 1 day #4,000 mL 11/21/23 gram-22.74 gram-6.74 gram-5.86 gram solution (Golytely) magnesium hydroxide 400 mg/5 mL 10 ml PO BEDTIME PRN f or 04/17/24 oral suspension (Milk of Magnesia) constipation #355 m L famotidine 40 mg tablet 40 mg PO BEDTIME PRN for hea rtburn 07/28/24 #30 tabs sodium,potassium,mag sulfates 17.5 See Rx Instructions PO .COMPLEX 11/05/24 gram-3.13 gram-1.6 gram oral soln #354 mL (Suprep Bowel Prep Kit) budesonide-formoterol HFA 160 2 puff inhalation BID 30 days 11/20/24 mcg-4.5 mcg/actuation aerosol #10.2 grams inhaler azithromycin 250 mg tablet 250 mg PO 3XW recurrent bro nchitis 12/04/24 10 days #5 tabs finasteride 5 mg tablet 5 mg PO DAILY 90 days #90 ta bs 12/29/24 prednisone 20 mg tablet 20 mg PO BID COPD EXCERBATIO N 5 02/24/25 days #10 tabs Allergies Allergy/AdvReac Type Severity Reaction Status Date / Time levofloxacin Allergy Intermediate Nausea, Verified 04/03/25 10:48 chills, SOB Review of Systems 2 Constitutional: Constitutional: Reports no additional constitutional complaints, Denies chills, Denies fever(s) and Denies night sweats Eyes: Eyes: Reports no additional eye complaints, Denies blurry vision, Denies change in vision, Denies diplopia, Denies eye discharge, Denies loss of vision and Denies eye pain ENT: Denies dizziness Comments: nasal pain Cardiovascular: Cardiovascular: Reports no additional cardiovascular complaints, Denies chest pain, Denies lightheadedness, Denies Loss of Consciousness and Denies dyspnea Respiratory: Respiratory: Reports no additional respiratory complaints and Denies dyspnea Gastrointestinal: Gastrointestinal: Reports no additional gastrointestinal complaints, Denies abdominal pain, Denies melena, Denies hematochezia, Denies change in bowel habits and Denies change in stool character Genitourinary: Genitourinary: Reports no additional male genitourinary complaints, Denies hematuria, Denies oliguria, Denies difficulty urinating, Denies dysuria, Denies urinary frequency, Denies urinary hesitancy, Denies urinary incontinence and Denies urinary urgency Musculoskeletal: Musculoskeletal: Reports no additional musculoskeletal complaints, Denies numbness and Denies tingling Comments: right arm pain Neurologic: Denies dizziness, Denies loss of vision, Denies numbness and Denies tingling Psychiatric: Psychiatric: Reports no additional psychiatric complaints Endocrine: Endocrine: Reports no additional endocrine complaints Hematologic/Lymphatic: Hematologic/Lymphatic: Reports no additional hematologic/lymphatic complaints Allergic/Immunologic: Allergic/Immunologic: Reports no additional allergic/immunologic complaints [facility] Past Medical History Attestation statement: The following information was validated with the patient. Source: old records reviewed and nursing notes reviewed Medical History History of smoking at least 1 pack per day for at least 30 years Colon cancer screening Bronchitis MICHELLE (obstructive sleep apnea) Dyspnea on exertion Personal history of nicotine dependence History of lymphoma (~2004) Hypogonadism in male Chronic hepatitis C without hepatic coma Anal fistula Polysubstance abuse Hypothyroidism Exercise hypoxemia Hypogonadotropic hypogonadism (~2018) HIV (human immunodeficiency virus infection) COPD (chronic obstructive pulmonary disease) Surgical History S/P lesley-rectal abscess repair, follow-up exam Hx of fracture Family History Family History Father Cancer Mother No problems noted. Sister Cancer Social History Social History Household Members: Family Housing: Apartment Alcohol intake: never Comment: NO COUNTS NEEDED Patient Tobacco Use Status: Former Tobacco user Years Smoked: 40 years +/- Substance Use Type: Amphetamines, Crack/Cocaine, Heroin, Marijuana and Painkillers service: No Current occupational status: disabled Physical Exam ED Vital Signs: Vital Signs - 24 hr 04/03/25 10:45 04/03/25 12:06 04/03/25 13:02 Temperature 97.9 F 97.1 F 98.2 F Pulse Rate 68 54 60 Respiratory Rate 18 14 16 Blood Pressure 171/63 H 130/75 151/90 H Pulse Oximetry 95 96 93 Oxygen Delivery Method Room Air Room Air Room Air BMI result Body Mass Index 26.6 Const General: cooperative, no acute distress, alert and awake Nutritional Appearance: well nourished Orientation/consciousness: patient oriented x3 HENMT Other: Head: Yes normal to inspection Ears: hearing grossly normal bilaterally and external ears normal General nose exam: no nasal discharge noted and no epistaxis Mouth: Normal oral and palatal mucosa present, no drooling and no muffled voice Eyes General: appearance normal, both eyes and all related structures Periorbital: periorbital findings normal Eyelids: Yes eyelids normal Conjunctivae: conjunctivae normal Pupils: Equal, round and reactive pupils present EOM: EOMs intact bilaterally Neck Neck: Yes normal visual inspection, Yes full ROM and Yes no lymphadenopathy Resp Effort & Inspection: normal respiratory effort and able to speak in complete sentences Neuro General: patient oriented x3, moves all extremities and CN's II-XI intact bilaterally Cranial nerves: Yes Equal, round and reactive pupils present Cognition (Neuro): normal cognition Extrem Other: General: Yes full ROM and Yes capillary refill normal Psych Appearance: grossly normal Mental Status: mental status grossly normal Affect: normal affect Attitude: cooperative Thought process: Normal thought process present Thought content: Normal thought content present Insight: Good insight present (Psych) Medications Administered Discontinued Medications Generic Name Dose Route Start Last Admin Trade Name Freq PRN Reason Stop Dose Admin Diphtheria/Tetanus/Acell Pertussis 0.5 ml 04/03/25 11:24 04/03/25 11:48 Diphth,Pertus(Acell),Tet Adult 0.5 Ml Syringe IM 04/03/25 11:25 0.5 ml .ONCE ONE Administration Procedures Laceration R forearm skin tear: Site: upper extremity Side (If applicable): right Size (cm): 0.5 Description: flap Depth: simple, single layer Pre-repair: irrigated extensively and deep structures intact Skin layer closed with: other (steri-strips) Size (cm): other (steri-strips) Technique: other (3 steri-strips) Medical Decision Making Medical Decision Making MDM Narrative: Patient is a 65 year old assigned male at with a history of CKD, MICHELLE, GERD, prostate cancer, CAD, HIV, lymphoma, COPD, and tobacco use presenting to the emergency department today with right forearm pain and nose pain after a fall. Patient's physical exam was as noted in the physical exam portion of this note. Patient's CT head and c-spine showed no acute process. Patient's facial CT showed an age indeterminate nasal fracture - given the patient's physical examination and mechanism of injury, will consider it acute. I explained my physical exam findings as well as all test results to the patient. I answered all questions asked by the patient. Patient's right forearm skin tear was repaired, per procedure note, with steri-strips - without incident. Patient's PMS was intact prior to and after steri-strip application. I stressed the importance of the patient taking his medication as directed (either prescribed or as the over the counter packaging recommends). I stressed the importance of the patient following up with his primary care provider and an ENT. I stressed the importance of the patient returning to the emergency department immediately if his symptoms were to worsen or if he were to develop any dizziness, shortness of breath, difficulty breathing, chest pain, blurry vision, loss of vision, nausea, vomiting, abdominal pain, fever, chills, back pain, or any other complaints. Patient verbalized agreement and understanding with this treatment plan and discharge. Differential Diagnosis Differential Diagnoses: The differential diagnosis associated with the presentation includes Skin tear Fall Nasal fracture Admission/Observation Consideration of admission/observation: Escalation of care including admission/observation considered Patient would have been admitted to the hospital had his work up had any findings where hospital admission was appropriate and his clinical presentation warranted hospital admission. Independent Interpretation I performed an independent interpretation of an: CT Scan Interpretation: My interpretation is in agreement with the radiologist's impression of these imaging studies. L Report Number: [id number]: Total DLP = 661.50 mGy-cm CLINICAL HISTORY: fall, head strike, pain CT head without contrast Comparison: None Findings: No evidence of acute territorial infarct. There is patchy low density in the periventricular and subcortical white matter. Diffuse volume loss is noted. No hydrocephalus. No hemorrhage, mass effect, mass lesion, or midline shift. No abnormal extra-axial fluid. No calvarial fracture. Paranasal sinuses and mastoid air cells are clear. Impression: No acute intracranial process. Chronic changes as detailed. This document has been electronically signed by: Franklin Smith MD on 04/03/2025 12:33:35 Dictated By: Franklin Smith MD Signed By: Electronically signed by Franklin Smith MD 04/03/25 1234 Report Number: [id number]: Total DLP = 422.72 mGy-cm CLINICAL HISTORY: fall, head strike, pain CT cervical spine without contrast Comparison: 10/13/2024 Findings: There is straightening of the normal cervical lordosis. No fracture or acute malalignment. Multilevel degenerative changes with disc space narrowing throughout the cervical spine. The facet joints are normally imbricated. No prevertebral soft tissue edema. Lung apicies demonstrate no acute process. Impression: Multilevel degenerative changes without evidence of acute fracture or acute malalignment. This document has been electronically signed by: Franklin Smith MD on 04/03/2025 12:36:47 Dictated By: Franklin Smith MD Signed By: Electronically signed by Franklin Smith MD 04/03/25 1237 Report Number: [id number]: Total DLP = 310.94 mGy-cm CLINICAL HISTORY: fall, head strike, pain CT maxillofacial without contrast Comparison: None provided Findings: Age-indeterminate nasal bone fracture, axial 177. Bony orbits and remaining osseous structures appear unremarkable. Temporomandibular joints are intact. Paranasal sinuses and mastoid air cells clear. Rightward nasal septal deviation. Orbital contents within normal limits. Visualized intracranial contents are within normal limits. No foreign bodies. IMPRESSION: Age-indeterminate nasal bone fracture. No surrounding soft tissue edema to confirm acuity. This document has been electronically signed by: Franklin Smith MD on 04/03/2025 12:39:34 Dictated By: Franklin Smith MD Signed By: Electronically signed by Franklin Smith MD 04/03/25 1240 Radiology Impression Discussion of test interpretation with radiology: I have reviewed the radiologist's reading. Discharge Plan Discharge Clinical Impression: Skin tear of forearm without complication, Closed fracture nasal bone Patient Disposition: Home, Self-Care Instructions: Nasal Fracture (ED), Skin Tear (ED), Skin Adhesive Strips (ED) Additional Instructions: Your imaging today showed a nasal bone fracture. You should avoid blowing your nose or sneezing (as best you can). You got 3 steri strips to your right forearm. Do NOT get these wet. They will fall off on their own. Perform daily wound checks and dressing changes. Follow up with your primary care provider and an ENT. Return to the emergency department immediately if your symptoms worsen or if you develop any numbness, tingling, dizziness, shortness of breath, difficulty breathing, chest pain, blurry vision, loss of vision, nausea, vomiting, abdominal pain, fever, chills, back pain, or any other complaints. Please see the information below about our Patient Portal. If you are not yet enrolled in the [facility] Patient Portal, you will receive an enrollment email invitation following your visit to any [facility] care setting. You may also self-enroll in the Patient Portal by visiting our website: [email or web address] The following information is required to access the Patient Portal: - Your [facility] Medical Record Number - Your personal home email address (must match what is in your electronic medical record, Registration staff can assist with this) - Name - Date of Capabilities of the Patient Portal: - Message some providers - View upcoming appointments - Access your health summary, medical history, and visit history - View current conditions and allergies - View procedure and lab results - View your medications, including guidelines, side effects, and precautions - Complete pre-appointment questionnaires requested by your provider - Ready summary reports of your office visits and procedures To access the Patient Portal Mobile Fela, follow these directions: - Search abeo in the Fela Store or Google Play Store - Download the Fela - Search for [facility] - Enter your login/password Prescriptions: No Action magnesium hydroxide [Milk of Magnesia] 400 mg/5 mL suspension 10 ml PO BEDTIME PRN (Reason: for constipation) Qty: 355 3RF famotidine 40 mg tablet 40 mg PO BEDTIME PRN (Reason: for heartburn) Qty: 30 6RF budesonide-formoterol 160-4.5 mcg/actuation HFA aerosol inhaler 2 puff inhalation BID 30 Days Qty: 10.2 5RF azithromycin 250 mg tablet 250 mg PO 3XW 10 Days Qty: 5 3RF finasteride 5 mg tablet 5 mg PO DAILY 90 Days Qty: 90 1RF prednisone 20 mg tablet 20 mg PO BID 5 Days Qty: 10 0RF albuterol sulfate [Ventolin HFA] 90 mcg/actuation HFA aerosol inhaler 1 puff PO Q4H PRN (Reason: dyspnea) Incruse Ellipta 62.5 mcg/actuation blister with device 1 inh PO DAILY levothyroxine 25 mcg tablet 25 mcg PO DAILY Odefsey 200-25-25 mg tablet 1 tab PO DAILY methadone 5 mg tablet 70 mg PO DAILY sodium,potassium,mag sulfates [Suprep Bowel Prep Kit] 17.5-3.13-1.6 gram recon soln See Rx Instructions PO .COMPLEX Qty: 354 0RF Rx Instructions: DILUTE; drink full amount early evening before AND next morning at least 2 hr before procedure; follow w 960 mL water PO bisacodyl [Dulcolax (bisacodyl)] 5 mg tablet,delayed release (DR/EC) 10 mg PO BEDTIME 2 Days Qty: 4 0RF peg 3350-electrolytes [Golytely] 236-22.74-6.74 -5.86 gram recon soln 240 ml PO Q10M 1 Days Qty: 4000 0RF Rx Instructions: until fecal effluent is clear; do not exceed a total volume of 2,000 mL Referrals: [facility] [Provider Group, Ear, Nose, Throat] Referral Note: Call to establish and follow up with the ENT for your nasal bone fracture. Sisi Quintanilla MD [Primary Care Provider, Internal Medicine] Interventions: ED Discharge Assessment Last Done: 04/03/25 13:02 Discharge Date/Time: 04/03/25 13:02 Print Language: Czech
[2025-04-03] MEDS: Diphth,Pertus(ACell),Tet Adult 0.5 ML SYRINGE IM (11:48)
[2025-04-03 12:06] VITALS: BP 130/75; PULSE 54; RESP 14; TEMP 36.2; O2SAT 96
[2025-04-03 13:02] VITALS: BP 151/90; PULSE 60; RESP 16; TEMP 36.8; O2SAT 93
== END 2025-04-03 13:02 | disposition home or self-care (01) ==
PROVIDERS: Emergency Provider Emergency Medicine Emergency Medical Services; PCP Family Medicine
DX: S51.811A Laceration without foreign body of right forearm, initial encounter (principal); S00.31XA Abrasion of nose, initial encounter; R51.9 Headache, unspecified; M54.2 Cervicalgia; R06.02 Shortness of breath; I25.10 Atherosclerotic heart disease of native coronary artery without angina pectoris; M79.631 Pain in right forearm; W06.XXXA Fall from bed, initial encounter; Z91.81 History of falling; Y93.9 Activity, unspecified; Y92.9 Unspecified place or not applicable; Y99.8 Other external cause status; Z87.891 Personal history of nicotine dependence; Z23 Encounter for immunization; Z79.899 Other long term (current) drug therapy
CPT/HCPCS: 12001; 70450; 70486; 72125; 90471; 90715; 99283; 99284

== ENCOUNTER → 2025-04-03 11:24 | Outpatient (BNV) | payer OTHER, SELFPAY | PROVIDERS: PCP Family Medicine; Visit Provider Radiology Vascular & Interventional Radiology | DX: M50.30 Other cervical disc degeneration, unspecified cervical region (principal); S09.90XA Unspecified injury of head, initial encounter; R51.9 Headache, unspecified; W19.XXXA Unspecified fall, initial encounter | CPT/HCPCS: 70450; 70486; 72125 ==

== ENCOUNTER 2025-04-07 08:25 | Outpatient (AMB) | payer OTHER, SELFPAY ==
--- NOTE | 2025-04-07 09:06 | A.OFFVIS_ITS ---
Vital Signs 04/07/25 09:09 Height 5 ft 9 in Weight 174 lb 2.643 oz BMI 25.7 BP 110/70 Blood Pressure Location Lt brachial Position Sitting Pulse 77 Pulse Source Pulse Oximeter Pulse Oximetry (%) 94 Oxygen Delivery Method Room Air Intake Visit Reasons: Obstructive sleep apnea Intake Note: pt is here for follow up and states he had a breathing attack in [facility], he is learning how to deal, and he on the cpap he is struggling due to a broken nose, Lace Burn Out Tender Required: No Allergies levofloxacin Allergy (Intermediate, Verified 04/07/25 09:15) Nausea, chills, SOB Medication List - Last Reviewed 04/07/25 by Olivia Camarillo, Robert albuterol sulfate 90 mcg/actuation (Ventolin HFA) 1 puff PO Q4H PRN azithromycin 250 mg PO 3XW 10 days bisacodyl (Dulcolax (bisacodyl)) 10 mg (2 x 5 mg) PO BEDTIME 2 days budesonide-formoterol 160-4.5 mcg/actuation 2 puffs inhalation BID 30 days ebkoasimpw-xmgbebao-ehgarr ala 200-25-25 mg (Odefsey) 1 tab PO DAILY famotidine 40 mg PO BEDTIME PRN finasteride 5 mg PO DAILY 90 days levothyroxine 25 mcg PO DAILY magnesium hydroxide (Milk of Magnesia) 10 mL PO BEDTIME PRN methadone 70 mg PO DAILY peg 3350-electrolytes 236-22.74-6.74 -5.86 gram (Golytely) 240 mL PO Q10M 1 day sodium,potassium,mag sulfates 17.5-3.13-1.6 gram (Suprep Bowel Prep Kit) DILUTE; drink full amount early evening before AND next morning at least 2 hr before procedure; follow w 960 mL water PO umeclidinium 62.5 mcg/actuation (Incruse Ellipta) 1 inh PO DAILY HPI HPI Obstructive sleep apnea: Details: This 65 years old very pleasant but somewhat anxious gentleman is here for follow-up. Breathing maher has remained very stable without any acute infection or exacerbation. He does have spells of anxiety with increased shortness of breath once in a while. He has portable O2 but does not use it all the times. For his sleep apnea he is trying to use the CPAP more often. Recently he has had nasal trauma due to falling down from the bed, and could not use the CPAP all the nights. He is now using with F 40 mask , which seems to be more comfortable. [facility] Medical History History of smoking at least 1 pack per day for at least 30 years Colon cancer screening Bronchitis MICHELLE (obstructive sleep apnea) Dyspnea on exertion Personal history of nicotine dependence History of lymphoma (~2004) Hypogonadism in male Chronic hepatitis C without hepatic coma Anal fistula Polysubstance abuse Hypothyroidism Exercise hypoxemia Hypogonadotropic hypogonadism (~2018) HIV (human immunodeficiency virus infection) COPD (chronic obstructive pulmonary disease) Surgical History S/P lesley-rectal abscess repair, follow-up exam Hx of fracture Family History Father Cancer Mother No problems noted. Sister Cancer Social History Household Members: Family Housing: Apartment Alcohol intake: never Comment: NO COUNTS NEEDED Patient Tobacco Use Status: Former Tobacco user Years Smoked: 40 years +/- Substance Use Type: Amphetamines, Crack/Cocaine, Heroin, Marijuana and Painkillers service: No Current occupational status: disabled Review of Systems Const All systems reviewed & are unremarkable except as noted in HPI and below Eyes Reports no additional complaints ENT Reports nasal congestion (Mild off and on) Card Reports chest pain, Denies irregular heart rhythm and Denies leg edema Resp Reports as per HPI GI Reports no additional complaints Reports no additional complaints Musc Reports no additional complaints Skin/Breast Reports system reviewed and no additional complaints, except as documented Neuro Reports no additional complaints Psych Reports no additional complaints Endo Reports other (Being treated for diabetes mellitus, and hypothyroidism.) Physical Exam Const General: comfortable (Slightly short of breath when walking), no acute distress, alert and awake Orientation/consciousness: patient oriented x3 HEENT Head: Yes normal to inspection General nose exam: No nasal polyps present and No nasal discharge present Face and sinus: Yes sinuses nontender Mouth: oropharynx normal Teeth and gingiva: edentulous Throat: Yes posterior oropharynx normal Eyes General: appearance normal, both eyes and all related structures Neck Neck: Yes normal visual inspection, Yes no lymphadenopathy, Yes trachea midline and Yes no JVD Thyroid: Thyroid normal Chest Chest palpation & inspection: normal inspection of the chest, normal palpation of entire chest wall and no tenderness Resp Other: Percussion note hyper-resonant, breath sounds are distant with prolonged expiratory phase, but equal on both sides. No audible wheezes or rhonchi. Cardio Palpation: normal PMI Rate: regular rate Rhythm: regular rhythm Heart sounds: no gallops and no murmurs GI Palpation (GI): Soft to palpation, nontender, No hepatosplenomegaly present and no masses Auscultation: normal bowel sounds Back/Spine/Pelvis Thoracic/Lumbar Spine: thoracic and lumbar spine normal to inspection Skin General skin exam: no rashes or lesions noted and dry skin Neuro General: patient oriented x3 and no focal motor deficits Cranial nerves: Yes CN's II-XII intact bilaterally Extrem General: Yes normal to inspection, Yes no clubbing, cyanosis or edema and Yes no calf tenderness Psych Appearance: grossly normal and well kempt Speech and movement: Normal speech and movement present Results Reviewed Results Reviewed: Compliance report for the last 30 nights reviewed and he has use 19/30 nights,, 63% Average usage per night 3 hours 33 minutes which is still suboptimal but improved from before. His residual AHI is still 21 Assessment & Plan Assessment & Plan (1) COPD (chronic obstructive pulmonary disease): Comment: Has advanced chronic obstructive pulmonary disease, related to his past smoking He is doing very well with the current regimen. BUT STILL GETS intermittent attacks of Dyspnea, more like Hyperventilation . Code(s): J44.9 - Chronic obstructive pulmonary disease, unspecified Category: Medical Plan: Advised to continue the present regimen which is as follows : Symbicort 160-4.52 puffs b.i.d. Incruse Ellipta 1 inhalation daily Azithromycin 250 mg 3 days a week Ventolin HFA 2 puffs Q 4-6 hours p.r.n.. (2) Exercise hypoxemia: Comment: He is known to have exercise induced hypoxemia. He does have POC which he uses when walking around, and doing some physical work , outside the house. Code(s): R09.02 - Hypoxemia Category: Medical Plan: Use O2 2 L/minute p.r.n. 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 HE HAD POLYSOMNOGRAM STUDY IN THE SLEEP LAB IN JULY 2024. BASELINE PART OF THE STUDY WAS POSITIVE FOR MODERATELY SEVERE OBSTRUCTIVE SLEEP APNEA. INITIALLY HAD DIFFICULTY IN USING THE CPAP. NOW HE HAS NASAL MASK WELL A FULLFACE MASK AND TRIES TO USE ALTERNATIVELY. HE IS MORE COMPLIANT BUT THE COMPLIANCE IS STILL SUBOPTIMAL. Code(s): G47.33 - Obstructive sleep apnea (adult) (pediatric) Category: Medical Plan: ADVISED TO IMPROVE THE COMPLIANCE AND TRY TO USE THE CPAP EVERY NIGHT FOR AT LEAST 4 HOURS PER NIGHT. (4) History of smoking at least 1 pack per day for at least 30 years: Comment: THIS GENTLEMAN DOES HAVE PAST HISTORY OF SMOKING FOR ALMOST 40 YEARS, 1 PACK A DAY. LUCKILY HE WAS ABLE TO QUIT BACK IN 2020. HE DOES NOT HAVE ANY URGE TO GO BACK TO SMOKING. Code(s): Z87.891 - Personal history of nicotine dependence Category: Social Hx Plan: COMMENDED FOR NOT GOING BACK TO SMOKING Coding Level of Care Code Est Pt Level 3 (78164) Diagnoses COPD (chronic obstructive pulmonary disease) J44.9 Exercise hypoxemia R09.02 MICHELLE (obstructive sleep apnea) G47.33 History of smoking at least 1 pack per day for at least 30 years Z87.891
[2025-04-07 09:09] VITALS: BP 110/70; PULSE 77; O2SAT 94; BMI 25.7
== END 2025-04-07 09:26 | disposition home or self-care (01) ==
LOC: HO.HPS 08:26
PROVIDERS: PCP Family Medicine; Visit Provider Internal Medicine
DX: J44.9 Chronic obstructive pulmonary disease, unspecified (principal); R09.02 Hypoxemia; G47.33 Obstructive sleep apnea (adult) (pediatric); Z87.891 Personal history of nicotine dependence
CPT/HCPCS: 99213

== ENCOUNTER → 2025-04-07 08:25 | Outpatient (BNVA) | payer OTHER, SELFPAY | PROVIDERS: PCP Family Medicine; Visit Provider Internal Medicine | DX: G47.33 Obstructive sleep apnea (adult) (pediatric) (principal); J44.9 Chronic obstructive pulmonary disease, unspecified; R09.02 Hypoxemia; Z87.891 Personal history of nicotine dependence | CPT/HCPCS: 99212 ==

== ENCOUNTER 2025-04-17 09:44 | Outpatient (REF) | payer OTHER, SELFPAY ==
[2025-04-17 11:29] LABS: MANUAL DIFF FLAG NO
[2025-04-17 11:35] LABS: Hematocrit 39.7 % (42.0-52.0); Hemoglobin 13.1 g/dl (14.0-18.0); Imm Gran Abs Auto 0.02 X10*3/uL (0.00-0.03); Imm Gran Pct Auto 0.5 % (0.0-0.4); Lymphocytes Absolute Auto 1.2 X10*3/uL (1.2-4.9); Mean Corpuscular HGB Conc 33.0 g/dl (31.0-36.0); Mean Corpuscular Hemoglobin 29.6 pg (27.0-33.0); Mean Corpuscular Volume 89.6 fL (80.0-98.0); NRBC Abs Auto 0.000 X10*3/uL (0.0-0.012); NRBC Pct Auto 0.0 /100WBC (0.0-0.2); Platelet Count 142 X10*3/uL (160-400); Red Blood Count 4.43 X10*6/uL (4.60-5.80); White Blood Count 4.0 X10*3/uL (4.8-10.8)
[2025-04-17 12:05] LABS: Alanine Aminotransferase 21 U/L (0-40); Albumin Level 4.5 g/dL (3.5-5.0); Alkaline Phosphatase 122 U/L (39-117); Anion Gap 13 (12-20); Aspartate Amino Transferase 28 U/L (5-37); Blood Urea Nitrogen 21 mg/dL (9-16); Calcium 8.8 mg/dL (8.4-10.2); Carbon Dioxide 25 mmol/L (22-29); Chloride 107 mmol/L (96-108); Cholesterol 172 mg/dL (<200); Estimated Glomerular Filt Rate 47; HDL Cholesterol 46 mg/dL (>40); Potassium 4.2 mmol/L (3.3-5.1); Sodium 141 mmol/L (135-145); Total Protein 7.5 g/dL (6.5-8.0); Triglycerides 129 mg/dL (<150)
[2025-04-17 12:10] LABS: Syphilis Screen Nonreactive (Nonreactive)
[2025-04-17 12:11] LABS: ~HepC Num1 4.47 S/CO (0.00-0.79); ~Hepatitis C Antibody Reactive (Nonreactive)
[2025-04-17 12:12] LABS: Reflex LDLD? No
[2025-04-20 12:59] LABS: HCV Log PCR <1.18 NOT DETECTED Log IU/mL (NOT DETECTED); HepC Viral Load <15 NOT DETECTED IU/mL (NOT DETECTED)
[2025-04-20 16:49] LABS: TS Negative Control Passed; TS Panel A 0; TS Panel B 0; TS Positive Control Passed; TSpotTB Negative (Negative)
== END 2025-04-17 09:45 | disposition home or self-care (01) ==
LOC: HO.HHCL 09:44
PROVIDERS: PCP Family Medicine; Visit Provider Internal Medicine
DX: Z21 Asymptomatic human immunodeficiency virus [HIV] infection status (principal)
CPT/HCPCS: 36415; 80053; 80061; 85025; 86481; 86780; 86803; 87522; 87536

== ENCOUNTER 2025-04-20 09:24 | Outpatient (REF) | payer OTHER, SELFPAY ==
[2025-04-20 11:40] LABS: Appearance Urine Clear; Glucose Urine UA Negative (Negative); PH 5.5 (5.0-9.0); Specific Gravity - Urine 1.010 (1.005-1.025)
[2025-04-20 11:58] LABS: Anion Gap 14 (12-20); Blood Urea Nitrogen 20 mg/dL (9-16); Calcium 9.0 mg/dL (8.4-10.2); Carbon Dioxide 26 mmol/L (22-29); Chloride 106 mmol/L (96-108); Estimated Glomerular Filt Rate 46; Potassium 3.9 mmol/L (3.3-5.1); Sodium 142 mmol/L (135-145)
[2025-04-21 17:19] LABS: HIV RNA PCR Qn Copies 34 copies/mL (NOT DETECTED); HIV RNA PCR Qn Log Copies 1.53 (NOT DETECTED)
== END 2025-04-20 09:25 | disposition home or self-care (01) ==
LOC: HO.HHCL 09:24
PROVIDERS: Internal Medicine Hypertension Specialist; PCP Family Medicine; Visit Provider Internal Medicine
DX: C61 Malignant neoplasm of prostate (principal); N18.30 Chronic kidney disease, stage 3 unspecified; R39.15 Urgency of urination; Z21 Asymptomatic human immunodeficiency virus [HIV] infection status
CPT/HCPCS: 36415; 80048; 81003; 87536

== ENCOUNTER → 2025-04-26 00:22 | Outpatient (BNV) | payer OTHER, SELFPAY | PROVIDERS: Emergency Provider Emergency Medicine; Visit Provider Radiology Diagnostic Radiology | DX: R91.8 Other nonspecific abnormal finding of lung field (principal); R68.89 Other general symptoms and signs | CPT/HCPCS: 71045; 71275 ==

== ENCOUNTER 2025-04-26 01:05 | Inpatient (IN) | payer OTHER, SELFPAY ==
[2025-04-26] VITALS (12 sets, daily range): BP systolic 111–148; BP diastolic 61–87; PULSE 57–106; RESP 16–26; TEMP 36–36.6; O2SAT 91–99; BMI 20.8; BMI 25.7; BMI 25.0
--- NOTE | 2025-04-26 | ECG_ITS ---
Test Reason : cp Blood Pressure : */* mmHG Vent. Rate : 82 BPM Atrial Rate : 82 BPM P-R Int : 134 ms QRS Dur : 68 ms QT Int : 418 ms P-R-T Axes : 74 7 54 degrees QTcB Int : 488 ms Sinus rhythm with frequent Premature ventricular complexes in a pattern of bigeminy Prolonged QT Abnormal ECG When compared with ECG of 26-Apr-2025 01:30, Premature ventricular complexes are now Present QT has lengthened Referred By: Antelmo Almeida Electronically Signed By: ABRIL BAEZ MD
--- NOTE | ~2025-04-26 | CT_ITS ---
CLINICAL HISTORY: Shortness of Breath; Hypoxia CT angiography chest with contrast. 3D Postprocessing. Comparison: None provided Findings: The heart size is normal. RV/LV ratio is normal. The thoracic aorta is normal caliber. No pulmonary artery filling defects to the lobar or segmental levels. There are right lower lobe predominant airspace and multifocal reticular opacities. Right lower lobe bronchial thickening is present. No large endobronchial lesions. No pneumothorax or pleural effusion. The visualized thyroid and mediastinum are unremarkable. Aorta and cervical vasculature are normal. The visualized upper abdomen is unremarkable. No acute fractures. IMPRESSION: 1. No pulmonary embolus. 2. Multifocal airspace and reticular opacities predominantly in the right lower lobe may represent sequelae of infection, inflammation, or pneumonitis. This document has been electronically signed by: Chad Linares III, MD PHD on 04/26/2025 04:56:10
--- NOTE | ~2025-04-26 | XR_ITS ---
CLINICAL HISTORY: short of breath 1 view chest x-ray Comparison: None provided Findings: Increased interstitial markings which may represent volume overload. Possible tiny right pleural effusion. No pleural effusion on the left. No focal consolidative airspace opacity. Heart size normal. IMPRESSION: 1. Increased interstitial markings possibly representing volume overload along with possible tiny right pleural effusion. This document has been electronically signed by: Norman Zimmerman MD on 04/26/2025 01:45:12
--- NOTE | ~2025-04-26 | XR_ITS ---
EXAMINATION: XR ABDOMEN 1 VIEW (KUB) HISTORY: abd pain COMPARISON: There are no prior studies available for comparison. FINDINGS: Two supine views of the abdomen are submitted. The bowel gas pattern is unremarkable, without evidence of mechanical obstruction. There is a large amount of stool throughout the colon. There is a phlebolith in the left hemipelvis. There are no abnormal soft tissue masses. There is mild degenerative disc disease of the spine. XR/XR KUB IMPRESSION: Large amount of stool throughout the colon. Electronically signed by: Awais Saenz MD 04/28/2025 07:04 AM EDT
--- NOTE | 2025-04-26 01:23 | ED_ITS ---
HPI - SOB/Dyspnea General Chief Complaint: Dyspnea Stated Complaint: SOB hx COPD Time Seen by Provider: 04/26/25 01:10 Source: patient Mode of arrival: ambulatory Limitations: no limitations History of Present Illness ED Provider: Antelmo SMALL HPI Narrative: The patient is a 65-year-old male with a history of COPD, MICHELLE, CKD, PID, GERD, HIV, and lymphoma in 2004, presenting to the ED for evaluation of worsening shortness of breath over the past 2 days without significant relief from rescue inhalers. The patient reports he uses oxygen intermittently at home, usually at 2 L/min, has required 4 L today. The patient was found hypoxic by EMS, however oxygenation improved with DuoNeb and Solu-Medrol. Patient denies associated chest pain, fever/chills, nausea, vomiting, abdominal pain, recent sick contacts, or recent trauma. The patient reports he just recently was prescribed CPAP for MICHELLE, but has not gotten used to using it yet, denies previous in- hospital intubation or BiPAP. Related Data Home Medications ?Medication ?Instructions ?Recorded ?Confirmed albuterol sulfate 90 mcg/actuation 1 puff PO Q4H PRN d yspnea 06/21/21 04/07/25 aerosol inhaler (Ventolin HFA) levothyroxine 25 mcg tablet 25 mcg PO DAILY 06/21/21 0 04/07/25 umeclidinium 62.5 mcg/actuation 1 inh PO DAILY 1 04/07/25 blister powder for inhalation (Incruse Ellipta) emtricitabine 200 mg-rilpivirine 1 tab PO DAILY 04/07/25 25 mg-tenofovir alafenam 25 mg tablet (Guillerminasey) methadone 5 mg tablet 70 mg PO DAILY 07/30/2405/25 Previous Rx's ?Medication ?Instructions ?Recorded bisacodyl 5 mg tablet,delayed 10 mg (2 x 5 mg) PO BEDT ALONSO 2 days 11/21/23 release (Dulcolax (bisacodyl)) #4 tabs peg 3350-electrolytes 236 240 ml PO Q10M 1 day #4,000 mL 11/21/23 gram-22.74 gram-6.74 gram-5.86 gram solution (Golytely) magnesium hydroxide 400 mg/5 mL 10 ml PO BEDTIME PRN f or 04/17/24 oral suspension (Milk of Magnesia) constipation #355 m L famotidine 40 mg tablet 40 mg PO BEDTIME PRN for hea rtburn 07/28/24 #30 tabs sodium,potassium,mag sulfates 17.5 See Rx Instructions PO .COMPLEX 11/05/24 gram-3.13 gram-1.6 gram oral soln #354 mL (Suprep Bowel Prep Kit) budesonide-formoterol HFA 160 2 puff inhalation BID 30 days 11/20/24 mcg-4.5 mcg/actuation aerosol #10.2 grams inhaler azithromycin 250 mg tablet 250 mg PO 3XW recurrent bro nchitis 12/04/24 10 days #5 tabs finasteride 5 mg tablet 5 mg PO DAILY 90 days #90 ta bs 12/29/24 Allergies Allergy/AdvReac Type Severity Reaction Status Date / Time levofloxacin Allergy Intermediate Nausea, Verified 04/26/25 01:22 chills, SOB Review of Systems 2 Review of Systems: Yes all other systems are reviewed and are negative [facility] Past Medical History Medical History History of smoking at least 1 pack per day for at least 30 years Colon cancer screening Bronchitis MICHELLE (obstructive sleep apnea) Dyspnea on exertion Personal history of nicotine dependence History of lymphoma (~2004) Hypogonadism in male Chronic hepatitis C without hepatic coma Anal fistula Polysubstance abuse Hypothyroidism Exercise hypoxemia Hypogonadotropic hypogonadism (~2018) HIV (human immunodeficiency virus infection) COPD (chronic obstructive pulmonary disease) Surgical History S/P lesley-rectal abscess repair, follow-up exam Hx of fracture Family History Family History Father Cancer Mother No problems noted. Sister Cancer Social History Social History Household Members: Family Housing: Apartment Alcohol intake: never Comment: NO COUNTS NEEDED Patient Tobacco Use Status: Former Tobacco user Years Smoked: 40 years +/- Substance Use Type: Amphetamines, Crack/Cocaine, Heroin, Marijuana and Painkillers Advance Directives: No Advance Directives Information Provided: Yes service: No Current occupational status: disabled Physical Exam 2 Vital Signs: Vital Signs: Last Vital Signs Temp 97.8 F 04/26/25 01:20 Pulse 92 04/26/25 05:20 Resp 26 H 04/26/25 05:20 BP 148/73 H 04/26/25 05:31 Pulse Ox 93 04/26/25 05:20 O2 Del Method Nasal Cannula 04/26/25 05:20 O2 Flow Rate 2 04/26/25 05:20 Oxygen Flow Rate 4 04/26/25 01:20 BMI result Body Mass Index 20.8 CONSTITUTIONAL: The patient appears chronically ill, but otherwise non-toxic, well nourished and in no acute distress. Vital signs as documented. HEAD: Atraumatic, normocephalic. EYES: EOMs grossly intact, pupils equal, conjunctiva clear, no exudate. ENT: Nares patent, no discharge. Airway patent, no audible stridor, visible mucosa is pink and moist without noted lesions. NECK: Trachea is midline, no obvious masses or gross abnormalities. CHEST: Symmetric movement, normal appearance. LUNGS: LS present but with diminished breath sounds throughout. Non-labored work of breathing at rest with FiO2 in the exam stretcher. CARDIAC: Regular Rhythm, S1/S2 appreciated, no murmurs, rubs or gallops. ABDOMEN: Abdomen soft and non-tender x4 quadrants, no palpable masses or organomegaly. : Deferred. EXTREMITIES: Normal tone, moves all extremities spontaneously without reported pain. No obvious acute injury or deformity noted. No pedal edema. NEURO: Alert and oriented x3, CN II-XII appear grossly intact. Cerebellar Functioning grossly intact. No obvious sensory or motor deficits. Speech clear and appropriate. PSYCH: normal affect, appropriate eye contact, fluid speech, with appropriate response to questioning. No reported suicidality or homicidality. SKIN: Warm, dry, color appropriate, normal turgor. No rashes noted. Medications Administered Generic Name Dose Route Start Last Admin Trade Name Freq PRN Reason Stop Dose Admin Enoxaparin Sodium 40 mg 04/26/25 06:00 04/26/25 05:32 Enoxaparin Sodium 40 Mg/0.4 Ml Syringe SUBCUT 40 mg Q24H AURELIANO Administration Discontinued Medications Generic Name Dose Route Start Last Admin Trade Name Freq PRN Reason Stop Dose Admin Albuterol Sulfate 2.5 mg/ 5 mg 04/26/25 03:47 04/26/25 03:49 Albuterol Sulfate 2.5 mg INHALE 04/26/25 03:48 5 mg ONCE ONE Administration Famotidine 20 mg 04/26/25 04:54 04/26/25 05:31 Famotidine/Pf 20 Mg/2 Ml Vial IVPUSH 04/26/25 04:55 20 mg ONCE ONE Administration Furosemide 10 mg 04/26/25 04:55 04/26/25 05:31 Furosemide 20 Mg/2 Ml Vial IVPUSH 04/26/25 04:56 10 mg ONCE ONE Administration Protocol Magnesium Sulfate/Dextrose 1 gm in 100 mls @ 100 mls/hr 04/26/25 04:54 04/26/25 05:31 Magnesium Sulfate/D5w IV 04/26/25 05:53 100 mls/hr ONCE ONE Administration Iohexol 75 ml 04/26/25 03:56 04/26/25 03:57 Iohexol 350 Mg/Ml 100 Ml Infus..Btl IV 04/26/25 03:57 75 ml ONCE ONE Administration Medical Decision Making Medical Decision Making MDM Narrative: 2:47 AM 04/26/2025 (Latoya SMALL): The patient is a 65-year-old male with history of COPD presenting to the ED for evaluation of worsening shortness of breath with increased oxygen requirement and no relief from rescue inhalers. Patient's EKG is nonischemic, troponin is negative, patient does not endorse chest pain. The patient is BNP is normal, there is no pedal edema. The patient is viral swab is negative. Laboratory evaluation shows no leukocytosis, clinically significant anemia, or electrolyte abnormality, renal function demonstrates known CKD, no significant deviation from baseline renal function, T bili is mildly elevated at 1.2, no other LFT abnormalities. Chest x-ray shows question increased interstitial markings possibly representing volume overload and a tiny right pleural effusion. Patient will be treated with a additional DuoNeb, and we will add on a VBG and chest CT to further clarify x-ray findings. 4:21 AM 04/26/2025 (Latoya SMALL): The patient reports breathing has improved with additional nebs. The patient's WBCs normal, T bili less than 2, creatinine less than 2, no hypotension, tachypnea, or fever. The patient's mild tachycardia is due to treatment with beta agonists, not due to an infectious source, patient is not requiring mechanical ventilation, at this time the patient does not meet sepsis criteria. The patient is requiring increased FiO2 compared to his baseline, patient's case will be discussed with the hospitalist for admission for COPD exacerbation pending CTA interpretation. 6:53 AM 04/26/2025 (Dr. Arabella Caceres, Bridget.O.) CT shows evidence of multifocal airspace disease, potential pneumonia versus pneumonitis. At this time infection is suspected. We will cover with antibiotics including doxycycline and Rocephin. Added on lactic acid and blood cultures. Patient will be admitted for further care and evaluation. Differential Diagnosis Differential Diagnoses: The differential diagnosis associated with the presentation includes (As above) Admission/Observation Consideration of admission/observation: Escalation of care including admission/observation considered Consult Healthcare Provider Management of the patient was discussed with: Hospitalist (Dr. Martinez) Lab Data MDM Lab Attestation statement: I reviewed the patient's lab results. 04/26/25 01:45 04/26/25 01:45 Labs: Lab Results 04/26/25 04/26/25 04/26/25 Range/Units 01:45 04:20 05:16 WBC 6.5 (4.8-10.8) X10*3/uL RBC 4.45 L (4.60-5.80) X10*6/uL Hgb 13.1 L (14.0-18.0) g/dl Hct 38.9 L (42.0-52.0) % MCV 87.4 (80.0-98.0) fL MCH 29.4 (27.0-33.0) pg MCHC 33.7 (31.0-36.0) g/dl RDW 13.5 (11.0-16.0) % Plt Count 117 L (160-400) X10*3/uL MPV 9.4 (9.4-12.4) fL Absolute Nucleated RBC 0.000 (0.0-0.012) X10*3/uL Nucleated RBC % (auto) 0.0 (0.0-0.2) /100WBC VBG pH 7.41 (7.32-7.43) VBG pCO2 40 mmHg VBG pO2 89 mmHg VBG HCO3 26 (22-26) mmol/L VBG O2 Saturation 98.0 % VBG Base Excess 1.5 mmol/L Sodium 138 (135-145) mmol/L Potassium 4.3 (3.3-5.1) mmol/L Chloride 105 (96-108) mmol/L Carbon Dioxide 24 (22-29) mmol/L Anion Gap 13 (12-20) BUN 22 H (9-16) mg/dL Creatinine 1.44 H (0.5-1.4) mg/dL Estim Creat Clear Calc 46.2 Estimated GFR 49 Random Glucose 184 H (60-115) mg/dL Calcium 9.1 (8.4-10.2) mg/dL Magnesium 2.0 (1.6-2.6) mg/dL Total Bilirubin 1.2 H (0.0-1.0) mg/dL AST 31 (5-37) U/L ALT 18 (0-40) U/L Alkaline Phosphatase 111 (39-117) U/L Troponin I High Sens 6.4 (<3.5-35.0) ng/L B-Natriuretic Peptide 42 (<100) pg/mL Total Protein 7.2 (6.5-8.0) g/dL Albumin 4.2 (3.5-5.0) g/dL Urine Color Yellow Urine Appearance Clear Urine pH 5.5 (5.0-9.0) Ur Specific [place] >= 1.030 H (1.005-1.025) Urine Protein Negative (Neg-Trace) mg/dL Urine Glucose (UA) Negative (Negative) mg/dL Urine Ketones Negative (Negative) mg/dL Urine Blood Negative (Negative) Urine Nitrite Negative (Negative) Ur Leukocyte Esterase Negative (Negative) Influenza Type A (PCR) NEGATIVE (Negative) Influenza Type B (PCR) NEGATIVE (Negative) RSV RNA Qual (PCR) NEGATIVE (Negative) SARS-CoV-2 RNA (RT-PCR) NEGATIVE (Negative) Independent Interpretation I performed an independent interpretation of an: EKG (EKG shows sinus rhythm with a rate of 90, no evidence of acute ischemia, no ST elevation, no ectopy. QTC 418.) Interpretation: Repeat EKG at 03:13 shows sinus rhythm with rate of 82 with frequent PVCs, and a run of bigeminy, otherwise no evidence of acute ischemia, no ST elevation, no other ectopy. QTC is 488. Compared to previous the ectopy is new. Radiology Impression Discussion of test interpretation with radiology: I have reviewed the radiologist's reading. Radiologist Impression: 1 view chest x-ray Comparison: None provided Findings: Increased interstitial markings which may represent volume overload. Possible tiny right pleural effusion. No pleural effusion on the left. No focal consolidative airspace opacity. Heart size normal. IMPRESSION: 1. Increased interstitial markings possibly representing volume overload along with possible tiny right pleural effusion. This document has been electronically signed by: Norman Zimmerman MD on 04/26/2025 01:45:12 External Record Review External record reviewed: Outpatient record Chronic Conditions Patient?s care impacted by: Other (COPD, opiate dependence) Social Determinants Patient?s care significantly limited by Social Determinants of Health including: Alcoholism and drug addiction in family Discharge Plan Discharge Clinical Impression: Acute exacerbation of chronic obstructive pulmonary disease, Acute and chronic respiratory failure with hypoxia Pneumonia Qualifiers: Pneumonia type: due to unspecified organism Laterality: bilateral Lung location: lower lobe of lung Qualified Code(s): J18.9 - Pneumonia, unspecified organism Patient Disposition: Admitted As Inpatient Print Language: Lithuanian
--- NOTE | 2025-04-26 01:24 | ECG_ITS ---
Test Reason : SOB Blood Pressure : */* mmHG Vent. Rate : 90 BPM Atrial Rate : 90 BPM P-R Int : 138 ms QRS Dur : 66 ms QT Int : 342 ms P-R-T Axes : 81 10 65 degrees QTcB Int : 418 ms Normal sinus rhythm Nonspecific T wave abnormality Abnormal ECG When compared with ECG of 24-Aug-2020 09:22, No significant change was found Referred By: Antelmo Almeida Electronically Signed By: Tonio Hdz
[2025-04-26 02:02] LABS: Hematocrit 38.9 % (42.0-52.0); Hemoglobin 13.1 g/dl (14.0-18.0); Mean Corpuscular HGB Conc 33.7 g/dl (31.0-36.0); Mean Corpuscular Hemoglobin 29.4 pg (27.0-33.0); Mean Corpuscular Volume 87.4 fL (80.0-98.0); NRBC Abs Auto 0.000 X10*3/uL (0.0-0.012); NRBC Pct Auto 0.0 /100WBC (0.0-0.2); Platelet Count 117 X10*3/uL (160-400); Red Blood Count 4.45 X10*6/uL (4.60-5.80); White Blood Count 6.5 X10*3/uL (4.8-10.8)
[2025-04-26 02:07] LABS: Alanine Aminotransferase 18 U/L (0-40); Albumin Level 4.2 g/dL (3.5-5.0); Alkaline Phosphatase 111 U/L (39-117); Anion Gap 13 (12-20); Aspartate Amino Transferase 31 U/L (5-37); Blood Urea Nitrogen 22 mg/dL (9-16); Calcium 9.1 mg/dL (8.4-10.2); Carbon Dioxide 24 mmol/L (22-29); Chloride 105 mmol/L (96-108); Creatinine Clr Calc Pharmacy 46.2; Estimated Glomerular Filt Rate 49; Magnesium 2.0 mg/dL (1.6-2.6); Potassium 4.3 mmol/L (3.3-5.1); Sodium 138 mmol/L (135-145); Total Protein 7.2 g/dL (6.5-8.0)
[2025-04-26 02:11] LABS: B Type Natriuretic Peptide 42 pg/mL (<100)
[2025-04-26 02:14] LABS: Troponin-I High Sensitivity 6.4 ng/L (<3.5-35.0)
[2025-04-26 02:29] LABS: Resp Syncy Virus RNA Qual PCR NEGATIVE (Negative); SARS COV2 PCR INHOUSE NEGATIVE (Negative)
--- NOTE | 2025-04-26 03:26 | PC.NURSE ---
this nurse called by patient to notify of his 70mg methadone due at 0400. said hes starting with cold sweats. pt called out verbally saying something is wrong about 30 seconds after this nurse left room. pt appeared to behaving frequent PVCs also going in and out of ventricular bigeminy. BP normal. pt speaking clearly, no change in orientation/mentation. MD Caceres observed. EKG done and signed by . patient returned to NSR after a few minutes. when asked if he felt the same, patient stated he felt normal. GEOVANNY Rodriges notified of methadone and aforementioned episode at 0333.
[2025-04-26] MEDS: Albuterol Sulfate 2.5 MG, Albuterol Sulfate (0.083%) 2.5 MG 5 MG INHALE (03:49)
[2025-04-26] MEDS: iohexoL 350 MG/ML 100 ML INFUS..BTL 75 ML IV (03:57)
[2025-04-26 04:27] LABS: VBG HCO3 26 mmol/L (22-26); VBG O2 % Saturation 98.0 %
[2025-04-26 04:32] LABS: Venous Blood Gas Refer to POC result
--- NOTE | 2025-04-26 04:56 | P.HPHOSP_ITS ---
History of Present Illness Date of Service: 04/26/25 Attending physician on admission: Mikel Martinez Chief Complaint: SOB Patient is a 65-year-old male with past medical history substance use disorder on methadone, COPD/emphysema, bronchitis, tobacco dependence, lymphoma in remission, cyst on buttocks, MICHELLE on nasal mask, chronic kidney disease stage 3 a, HIV on medication, hepatitis-C undetected without tx, GERD, pulmonary nodules, hypothyroidism, BPH presents to the emergency room via ambulance with complaints of shortness of breath since yesterday. Patient states he awakens early everyday to take his methadone at 04:00 AM. Then patient has a big breakfast. Then patient sleeps. When patient awakened to use the bathroom, he usually requires oxygen. Patient did wear oxygen but on the return would usually take the oxygen off but was unable to because his oxygen level would not return back to baseline. Patient had attempted to use his rescue inhaler 4 times with no relief. Patient also reported symptoms of reflux. Patient normally uses 2 L when needed but increased level to 3 L. Patient did call EMS for assistance. Patient came in on 4 L. Patient did receive DuoNeb and Solu- Medrol on route. CXR notes increased interstitial markings possibly representing volume overload with a tiny right pleural effusion. VBG 7.41, 40, 89, 26. Viral studies all negative. Patient does not have leukocytosis or fever. Emergency room provider indicated no evidence of sepsis. Patient remains on 4 L nasal cannula is mildly tachycardic at 103 with PVCs. EKG is negative for any ischemic changes noted to be normal sinus rhythm. Troponins negative. BNP 42. CTA negative for PE, noted for sequela of inflammation, infection or pneumonitis. Patient currently denies any chest pain, nausea or vomiting. Patient states he is currently going through withdrawal because it is past 4 a.m. when he normally takes his 70 mg of methadone. This service writer advisor and ED staff are unable to confirm patient's current dose as it is not listed in [facility] and the clinic is currently closed. Nursing will send requestfor dose confirmation to the clinic at 07:00AM. In the meantime patient will receive 30 mg which is the maximum amount we can administer without confirmation. Patient is somewhat sweaty and diaphoretic but otherwise asymptomatic. Vital signs currently remained stable. Patient is on 4 L and POX 93%. Patient has a noted sinus arrhythmia with evidence of PVCs on telemetry. Patient is troponin is negative and BNP is also normal. Patient as above states no chest pain. Patient electrolytes are stable, magnesium 2.0, and TSH in March was 3.80. 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 Patient states he has a cyst in the buttocks area that opens and closes at times. Currently this cyst is open and draining slightly. Patient denies any pain associated with the cyst. Review of Systems 2 Review of Systems: Patient currently denies any chest pain or shortness of breath at rest while wearing 4 L nasal cannula oxygen. Patient denies any nausea, vomiting, abdominal pain, diarrhea or constipation issues. Patient reports a cyst on his buttocks that is chronic in his currently opened draining slightly. Patient follows with GI specialist for this problem and is planned to have a colonoscopy in the near future. Patient denies any recent falls. Patient states he feels like he is going through withdrawal from methadone as usually takes it at 04:00. Yes all other systems are reviewed and are negative [facility] Medical History History of smoking at least 1 pack per day for at least 30 years Colon cancer screening Bronchitis MICHELLE (obstructive sleep apnea) Dyspnea on exertion Personal history of nicotine dependence History of lymphoma (~2004) Hypogonadism in male Chronic hepatitis C without hepatic coma Anal fistula Polysubstance abuse Hypothyroidism Exercise hypoxemia Hypogonadotropic hypogonadism (~2018) HIV (human immunodeficiency virus infection) COPD (chronic obstructive pulmonary disease) Cognitive capacity: Alert and orientated x3 Functional capacity: uses cane/walker Family History Father Cancer Mother No problems noted. Sister Cancer Surgical History S/P lesley-rectal abscess repair, follow-up exam Hx of fracture Social History Household Members: Family Housing: Apartment Alcohol intake: never Comment: NO COUNTS NEEDED Patient Tobacco Use Status: Former Tobacco user Years Smoked: 40 years +/- Substance Use Type: Amphetamines, Crack/Cocaine, Heroin, Marijuana and Painkillers Advance Directives: No Advance Directives Information Provided: Yes service: No Current occupational status: disabled Ebola Risk: Travel/Contact With Anyone From Affected Area/s: No Has Patient Experienced Ebola Symptoms: No Meds Allergies Allergy/AdvReac Type Severity Reaction Status Date / Time levofloxacin Allergy Intermediate Nausea, Verified 04/26/25 01:22 chills, SOB Active Medications: Current Medications Acetaminophen (Acetaminophen 325 Mg Tablet) 650 mg PO Q6H PRN PRN Reason: Pain, Mild 1-3,fever,headache Albuterol/Ipratropium (Albuterol/Iprat 2.5/0.5mg 3 Ml Ampul.Neb) 3 ml INHALE Q4H PRN PRN Reason: Shortness of Breath/Wheezing Budesonide (Budesonide Dr 3 Mg Capsule) 9 mg PO DAILY AURELIANO Budesonide (Budesonide 0.5 Mg/2 Ml Ampul.Neb) 0.5 mg INHALE RBID [facility] Calcium Carbonate (Calcium Carbonate 750 Mg Tab.Chew) 750 mg PO Q4H PRN PRN Reason: Heartburn Enoxaparin Sodium (Enoxaparin Sodium 40 Mg/0.4 Ml Syringe) 40 mg SUBCUT Q24H [facility] Magnesium Sulfate/Dextrose (Magnesium Sulfate/D5w) 1 gm in 100 mls @ 100 mls/hr IV ONCE ONE Stop: 04/26/25 05:53 Magnesium Hydroxide (Milk Of Magnesia 30 Ml Oral.Susp) 30 ml PO DAILY PRN PRN Reason: Constipation Melatonin (Melatonin 3 Mg Tablet) 6 mg PO BEDTIME PRN PRN Reason: Insomnia Methylprednisolone Sodium Succinate (Methylprednisolone Sod Succ 125 Mg/2 Ml Vial) 60 mg IVPUSH Q12H AURELIANO Ondansetron HCl (Ondansetron Hcl 4 Mg/2 Ml Vial) 4 mg IVPUSH Q8H PRN PRN Reason: Nausea and Vomiting Polyethylene Glycol (Polyethylene Glycol 3350 17 Gm Powd.Pack) 17 gm PO DAILY PRN PRN Reason: Constipation Senna (Sennosides 8.6 Mg Tablet) 17.2 mg PO BEDTIME [facility] Sodium Chloride (0.9 % Sodium Chloride Flush 3 Ml Syringe) 3 ml IVFLUSH QSHIFT [facility] Home Medications ?Medication ?Instructions ?Recorded ?Confirmed ?Last Taken ?Type albuterol sulfate 90 mcg/actuation 1 puff PO Q4H PRN d yspnea 06/21/21 04/07/25 Unknown History aerosol inhaler (Ventolin HFA) levothyroxine 25 mcg tablet 25 mcg PO DAILY 06/21/21 0 04/07/25 Unknown History umeclidinium 62.5 mcg/actuation 1 inh PO DAILY 1 04/07/25 Unknown History blister powder for inhalation (Incruse Ellipta) emtricitabine 200 mg-rilpivirine 1 tab PO DAILY 04/07/25 Unknown History 25 mg-tenofovir alafenam 25 mg tablet (Odefsey) methadone 5 mg tablet 70 mg PO DAILY 07/30/2405/25 Unknown History Physical Exam 2 Vital Signs and Narrative: Vital Signs: Last Vital Signs Temp 97.8 F 04/26/25 01:20 Pulse 103 H 04/26/25 01:20 Resp 20 04/26/25 01:20 BP 114/76 04/26/25 01:20 Pulse Ox 91 L 04/26/25 01:20 O2 Del Method Nasal Cannula 04/26/25 01:20 Oxygen Flow Rate 4 04/26/25 01:20 BMI result Body Mass Index 20.8 Alert and orientated X3, able to give good history. Patient very concerned about withdrawal from methadone as usually takes his dose at 04:00. Neuro: CN II-X11 intact, no deficits, visual acuity intact EYES: PERRLA, EOM intact, sclerae nonicteric, conjunctiva pink ENT: hearing intact, no issues with swallowing, uvula midline, lips moist, nares patent no epistaxis Cardiac: S1 S2 RRR, PVCs noted on telemetry, no murmur, no JVD, no edema in Lower ext Pulmonary: lungs diminished bilaterally, upper respiratory wheeze right upper lobe Abdominal: BS active in all 4 quadrants, no guarding, tenderness, rebounding MSK: strength 4/5 upper and lower extremities : no CVA tenderness no bladder distension Extremities: no edema in lower extremities, PT and DP pulses palpable +2 Psych: mood mildly anxious, judgement and insight good Skin: Mildly diaphoretic, reports cyst in the buttocks area that open recently Results Labs 04/26/25 01:45 04/26/25 01:45 Labs: Laboratory Results - last 24 hr 04/26/25 04/26/25 01:45 04:20 MCV 87.4 MCH 29.4 MCHC 33.7 RDW 13.5 Plt Count 117 L MPV 9.4 Absolute Nucleated RBC 0.000 Nucleated RBC % (auto) 0.0 VBG pH 7.41 VBG pCO2 40 VBG pO2 89 VBG HCO3 26 VBG O2 Saturation 98.0 VBG Base Excess 1.5 Anion Gap 13 Estim Creat Clear Calc 46.2 Estimated GFR 49 Random Glucose 184 H Calcium 9.1 Magnesium 2.0 Total Bilirubin 1.2 H AST 31 ALT 18 Alkaline Phosphatase 111 B-Natriuretic Peptide 42 Total Protein 7.2 Albumin 4.2 Influenza Type A (PCR) NEGATIVE Influenza Type B (PCR) NEGATIVE RSV RNA Qual (PCR) NEGATIVE SARS-CoV-2 RNA (RT-PCR) NEGATIVE ECG Attestation: I personally reviewed and interpreted this ECG as follows: (Normal sinus rhythm no ischemic changes) Prior ECG tracings: available for review Imaging Radiologist's Impressions: Chest x-ray Increased interstitial markings possibly related to volume overload along with possible tiny right pleural effusion CTA IMPRESSION: 1. No pulmonary embolus. 2. Multifocal airspace and reticular opacities predominantly in the right lower lobe may represent sequelae of infection, inflammation, or pneumonitis. Assessment and Plan (1) COPD exacerbation: Status: Acute Plan Patient is a 65-year-old male with past medical history substance use disorder on methadone, COPD/emphysema, bronchitis, tobacco dependence, lymphoma in remission, cyst on buttocks, MICHELLE on nasal mask, chronic kidney disease stage 3 a, HIV on medication, hepatitis-C undetected without tx, GERD, pulmonary nodules, hypothyroidism, BPH presents to the emergency room via ambulance with complaints of shortness of breaths since yesterday. Patient called 911 as his rescue inhaler was not helping. Patient did have to turn up his oxygen from 2-3 L at home. Patient is having noted PVCs on telemetry. Patient being admitted with the following medical problems: Acute hypoxic respiratory failure Patient currently requires 4 L of oxygen via nasal cannula, uses up to 2 L at home as needed with exertion Duo nebs and methylprednisolone initiated via EMS with improvement VBG reassuring CTA negative for PE, indicative of multifocal airspace disease with reticular opacities indicating infection, inflammation or pneumonitis Patient does not meet the criteria for sepsis at this time COPD exacerbation/ pneumonitis Duo nebs p.r.n. Budesonide b.i.d. Methylprednisolone 60 mg IV b.i.d. Patient received magnesium 1 g and Pepcid 20 IV Telemetry, continuous pulse ox Incentive spirometry Currently no indication to initiate empiric antibiotics Patient stopped smoking in 2020 Rectal cyst Patient follows with Dr. Lau for this. Patient states there is plans for colonoscopy in the near future. Wound care consulted No leukocytosis or fever reported Unable to view wound as patient reported withdrawal from methadone, adamant about receiving dose MICHELLE Patient can only tolerate nasal mask at home intermittently, was prescribed CPAP 2 months ago We will hold off on ordering in-house CPAP as patient states he will not be able to tolerate the mask we provide Continuous CO2 monitoring ordered GERD Continue famotidine orally Chronic kidney disease stage IIIA Renal function at baseline UA with reflex negative for proteinuria, UTI Avoid hypotension Avoid nephrotoxic medications Pulmonary nodules Patient follows in the outpatient setting with routine CT scans per outpatient provider - last checked November 2024 History of substance use disorder Patient currently on methadone Unable to confirm patient's daily dose via [facility], able to provide 30 mg of methadone at time of admission 0545 Nursing we will send request for dose confirmation form to methadone clinic at 07:00 Patient is exhibiting some diaphoresis and mild symptoms of withdrawal HIV Continue Biktarvy Follow with specialist as an outpatient Hypothyroidism Continue levothyroxine BPH Continue finasteride DVT prophylaxis: Lovenox Med rec pending Full Code status Quality Stroke Does the patient have a stroke diagnosis?: No Reason for No Anti-thrombotic by Day Two: N/A - Med Ordered VTE Prior VTE?: No VTE Risk Level:: Medical - moderate - high VTE Device Contraindication: N/A - Device Ordered VTE Drug Contraindication: N/A - Med Ordered
--- NOTE | 2025-04-26 05:20 | PC.NURSE ---
Addendum entered by Du Reynolds RN 04/26/25 05:27: currently in ventricular bigeminy. 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 pt conversing, no SOB, maintaining SpO2 >92 on 2L NC
[2025-04-26 05:22] LABS: Appearance Urine Clear; Glucose Urine UA Negative (Negative); PH 5.5 (5.0-9.0); Specific Gravity - Urine >= 1.030 (1.005-1.025)
[2025-04-26] MEDS: Furosemide 20 MG/2 ML VIAL 10 MG IVPUSH (05:31)
[2025-04-26 06:30] LABS: Hematocrit 39.2 % (42.0-52.0); Hemoglobin 13.4 g/dl (14.0-18.0); Imm Gran Abs Auto 0.03 X10*3/uL (0.00-0.03); Imm Gran Pct Auto 0.4 % (0.0-0.4); Lymphocytes Absolute Auto 0.2 X10*3/uL (1.2-4.9); MANUAL DIFF FLAG NO; Mean Corpuscular HGB Conc 34.2 g/dl (31.0-36.0); Mean Corpuscular Hemoglobin 30.1 pg (27.0-33.0); Mean Corpuscular Volume 88.1 fL (80.0-98.0); NRBC Abs Auto 0.000 X10*3/uL (0.0-0.012); NRBC Pct Auto 0.0 /100WBC (0.0-0.2); Platelet Count 103 X10*3/uL (160-400); Red Blood Count 4.45 X10*6/uL (4.60-5.80); SCAN SMEAR FLAG 1; White Blood Count 6.8 X10*3/uL (4.8-10.8)
[2025-04-26] MEDS: methADONE HCl 20 MG/2 ML ORAL.CONC 30 MG PO (06:30)
[2025-04-26 06:43] LABS: Anion Gap 13 (12-20); Blood Urea Nitrogen 19 mg/dL (9-16); Calcium 9.1 mg/dL (8.4-10.2); Carbon Dioxide 24 mmol/L (22-29); Chloride 105 mmol/L (96-108); Creatinine Clr Calc Pharmacy 50.0; Estimated Glomerular Filt Rate 54; Potassium 4.1 mmol/L (3.3-5.1); Sodium 138 mmol/L (135-145)
--- NOTE | 2025-04-26 07:17 | PC.NURSE ---
methadone maintenance verification form filled out and faxed to pharmacy. spoke with Tita MONTE at [facility]. dose verified. pt recieved one dose at site and 27 take home on 04/24. patient must return to [facility] facility after discharge to return quantity of full bottles equal to amount of administered doses [place] [facility]
[2025-04-26] MEDS: Lactated Ringers 500 ML IV (09:00)
--- NOTE | 2025-04-26 09:37 | HE.PHANOTE ---
RE: methadone Patient gets 70mg methadone, last dose at [facility] 04/24 and given 27 take home bottles
--- NOTE | 2025-04-26 10:00 | PHA.MEDREC ---
Addendum entered by Mingo Lundberg jina 04/26/25 11:50: MED REC REVIEWED BY [facility] Original Note: Pharmacy Consult ? Medication Reconciliation Pharmacy has completed the medication reconciliation. Spoke with patient to confirm. He is no longer taking famotidine. He last took Odefesy 04/25 at 11:30 PM. He reports 70 mg methadone, last had 04/25 at 4AM. He gets take home bottles as well.
[2025-04-26] MEDS: methADONE HCl 20 MG/2 ML ORAL.CONC 40 MG PO (10:09)
[2025-04-26] MEDS: Budesonide DR 3 MG Capsule 9 MG PO (10:24)
[2025-04-26 13:40] LABS: Chlamydia pneumoniae PCR Not Detected (Not Detect.); Coronavirus 229E PCR Not Detected (Not Detect.); Coronavirus HKU1 PCR Not Detected (Not Detect.); Coronavirus NL63 PCR Not Detected (Not Detect.); Coronavirus OC43 PCR Not Detected (Not Detect.); RSV PCR Not Detected (Not Detect.); Rhino/Enterovirus PCR Not Detected (Not Detect.)
[2025-04-26 13:55] LABS: Influenza A H1 PCR Not Detected (Not Detect.); Influenza A H1-2009 PCR Not Detected (Not Detect.); Influenza A H3 PCR Not Detected (Not Detect.); SARS-CoV-2 PCR Not Detected (Not Detect.)
[2025-04-26] MEDS: 0.9 % Sodium Chloride Flush 3 ML SYRINGE IVFLUSH ×2 (16:52→21:13)
--- NOTE | 2025-04-26 18:32 | PM.EVENT ---
Event Note Date of Service: 04/27/25 Event Note: Patient seen and examined by hospitalist team this morning, seen and examined again Shortness of breaths seems to be improving Rest of physical exam and assessment plan as per H andp: Acute hypoxemic respiratory failure secondary to COPD exacerbation/pneumonitis: Continue nebs, steroids, antibiotics Time Spent With Patient Time: Total time managing care of this patient today ____ minutes.
[2025-04-26] MEDS: Emtricitabine/Tenofov Alafenam TABLET 1 TAB PO (21:12)
[2025-04-27] VITALS (8 sets, daily range): BP systolic 119–156; BP diastolic 57–85; PULSE 56–122; RESP 16–22; TEMP 36.3–37.2; O2SAT 93–98
--- NOTE | 2025-04-27 | ECG_ITS ---
Test Reason : tachycardia Blood Pressure : */* mmHG Vent. Rate : 107 BPM Atrial Rate : 107 BPM P-R Int : 190 ms QRS Dur : 72 ms QT Int : 316 ms P-R-T Axes : 77 18 53 degrees QTcB Int : 421 ms Sinus tachycardia Possible Left atrial enlargement Nonspecific T wave abnormality Abnormal ECG When compared with ECG of 26-Apr-2025 03:13, Premature ventricular complexes are no longer Present QT has shortened Referred By: Mikel Martinez Electronically Signed By: ABRIL BAEZ MD
[2025-04-27] MEDS: Fluticasone/Vilanterol 200/25 BLST.W.DEV 1 PUFF INHALE (07:35)
[2025-04-27] MEDS: Albuterol/Iprat 2.5/0.5MG 3 ML AMPUL.NEB INHALE ×4 (07:35→20:02)
[2025-04-27] MEDS: methADONE HCl 20 MG/2 ML ORAL.CONC 70 MG PO (08:09)
[2025-04-27] MEDS: 0.9 % Sodium Chloride Flush 3 ML SYRINGE IVFLUSH ×3 (08:11→20:30)
--- NOTE | 2025-04-27 16:24 | P.PNIM_ITS ---
Subjective Subjective Date of Service: 04/27/25 Interval History: copd excerebation Review of Systems sob somewhat improving denies any chest pain Physical Exam 2 Exam: Exam: Appearance: Alert.? Oriented X3.? . cvs: [id number], [id number]. res: air entry diminished bilaterally, upper respiratory wheeze right upper lob.e abd: no rebound or guarding ,nt, bs present. ext pulses present , no cyanosis. neuro: axo3 , nonfocal. Vital Signs: Vital Signs: Last Vital Signs Temp 98.2 F 04/27/25 15:52 Pulse 88 04/27/25 15:52 Resp 16 04/27/25 15:52 BP 132/67 04/27/25 15:52 Pulse Ox 95 04/27/25 15:52 O2 Del Method Nasal Cannula 04/27/25 15:52 O2 Flow Rate 2 04/27/25 15:52 Oxygen Flow Rate 4 04/26/25 01:20 BMI result Body Mass Index 25.0 Objective Data Active Medications Acetaminophen (Acetaminophen 325 Mg Tablet) 650 mg PO Q6H PRN PRN Reason: Pain, Mild 1-3,fever,headache Last Admin: 04/27/25 10:01 Dose: 650 mg Documented By: FREDDY Albuterol Sulfate (Albuterol Sulfate 90 Mcg 8 Gm Inhaler) 1 puff INHALE Q4H PRN On Hold: 04/26/25 22:27 PRN Reason: Dyspnea Albuterol/Ipratropium (Albuterol/Iprat 2.5/0.5mg 3 Ml Ampul.Neb) 3 ml INHALE Q4H PRN PRN Reason: Shortness of Breath/Wheezing Albuterol/Ipratropium (Albuterol/Iprat 2.5/0.5mg 3 Ml Ampul.Neb) 3 ml INHALE RQ4H WHILE AWAKE [facility] Last Admin: 04/27/25 15:44 Dose: 3 ml Documented By: PIETRO Budesonide (Budesonide Dr 3 Mg Capsule) 9 mg PO DAILY AURELIANO On Hold: 04/26/25 22:25 Last Admin: 04/26/25 10:24 Dose: 9 mg Documented By: MAYE Budesonide (Budesonide 0.5 Mg/2 Ml Ampul.Neb) 0.5 mg INHALE RBID AURELIANO On Hold: 04/26/25 22:30 Last Admin: 04/26/25 19:54 Dose: 0.5 mg Documented By: SHERRELL Calcium Carbonate (Calcium Carbonate 750 Mg Tab.Chew) 750 mg PO Q4H PRN PRN Reason: Heartburn Ceftriaxone Sodium (Ceftriaxone Sodium 1 Gm Vial) 1 gm IVPUSH Q24H [facility] Last Admin: 04/27/25 08:11 Dose: 1 gm Documented By: FREDDY Emtricitabine/Tenofovir Alafenamide (Emtricitabine/Tenofov Alafenam Tablet) 1 tab PO BEDTIME [facility] Last Admin: 04/26/25 21:12 Dose: 1 tab Documented By: JUANJO Enoxaparin Sodium (Enoxaparin Sodium 40 Mg/0.4 Ml Syringe) 40 mg SUBCUT Q24H [facility] Last Admin: 04/27/25 05:31 Dose: 40 mg Documented By: JUANJO Finasteride (Finasteride 5 Mg Tablet) 5 mg PO DAILY [facility] Last Admin: 04/27/25 08:11 Dose: 5 mg Documented By: FREDDY Fluticasone/Vilanterol (Fluticasone/Vilanterol 200/25 Blst.W.Dev) 1 puff INHALE RDAILY [facility] Last Admin: 04/27/25 07:35 Dose: 1 puff Documented By: PIETRO Doxycycline Hyclate 100 mg/ (Sodium Chloride) 250 mls @ 166.67 mls/hr IV Q12H [facility] Last Infusion: 04/27/25 09:49 Dose: Infused Documented By: FREDDY Levothyroxine Sodium (Levothyroxine Sodium 25 Mcg Tablet) 25 mcg PO DAILY@0600 [facility] Last Admin: 04/27/25 05:31 Dose: 25 mcg Documented By: JUANJO Magnesium Hydroxide (Milk Of Magnesia 30 Ml Oral.Susp) 30 ml PO DAILY PRN PRN Reason: Constipation Melatonin (Melatonin 3 Mg Tablet) 6 mg PO BEDTIME PRN PRN Reason: Insomnia Methadone HCl (Methadone Hcl 20 Mg/2 Ml Oral.Conc) 70 mg PO DAILY [facility] Last Admin: 04/27/25 08:09 Dose: 70 mg Documented By: FREDDY Co-signed By: KASSIE Methylprednisolone Sodium Succinate (Methylprednisolone Sod Succ 40 Mg/Ml Vial) 40 mg IVPUSH Q12H [facility] Last Admin: 04/27/25 05:31 Dose: 40 mg Documented By: JUANJO Ondansetron HCl (Ondansetron Hcl 4 Mg/2 Ml Vial) 4 mg IVPUSH Q8H PRN PRN Reason: Nausea and Vomiting Polyethylene Glycol (Polyethylene Glycol 3350 17 Gm Powd.Pack) 17 gm PO DAILY PRN PRN Reason: Constipation Rilpivirine (Rilpivirine Hcl 25 Mg Tablet) 25 mg PO BEDTIME [facility] Last Admin: 04/26/25 21:12 Dose: 25 mg Documented By: JUANJO Senna (Sennosides 8.6 Mg Tablet) 17.2 mg PO BEDTIME [facility] Last Admin: 04/26/25 21:12 Dose: 17.2 mg Documented By: JUANJO Sodium Chloride (0.9 % Sodium Chloride Flush 3 Ml Syringe) 3 ml IVFLUSH QSHIFT [facility] Last Admin: 04/27/25 08:11 Dose: 3 ml Documented By: ARTING Labs 04/26/25 06:25 04/26/25 06:25 Microbiology Microbiology Results: Microbiology 04/26/25 08:30 Blood Culture - Preliminary Blood - Venous No growth after 24 hours. 04/26/25 08:23 Blood Culture - Preliminary Blood - Venous No growth after 24 hours. Assessment and Plan (1) COPD (chronic obstructive pulmonary disease): Status: Acute Plan 65-year-old male with past medical history substance use disorder on methadone, COPD/emphysema, bronchitis, tobacco dependence, lymphoma in remission, cyst on buttocks, MICHELLE on nasal mask, chronic kidney disease stage 3 a, HIV on medication, hepatitis-C undetected without tx, GERD, pulmonary nodules, hypothyroidism, BPH presents to the emergency room via ambulance with complaints of shortness of breaths since yesterday. Patient called 911 as his rescue inhaler was not helping. Patient did have to turn up his oxygen from 2-3 L at home. Patient is having noted PVCs on telemetry. Patient being admitted with the following medical problems: Acute hypoxic respiratory failure sec COPD exacerbation/ pneumonitis CTA negative for PE, indicative of multifocal airspace disease with reticular opacities indicating infection, inflammation or pneumonitis. continue nebs ,steriods ,Telemetry, continuous pulse oxIncentive spirometry , added antibiotics. Rectal cyst Patient follows with Dr. Lau for this. Patient states there is plans for colonoscopy in the near future. Wound care consulted No leukocytosis or fever reported Unable to view wound as patient reported withdrawal from methadone, adamant about receiving dose MICHELLE Patient can only tolerate nasal mask at home intermittently, was prescribed CPAP 2 months ago We will hold off on ordering in-house CPAP as patient states he will not be able to tolerate the mask we provide Continuous CO2 monitoring ordered GERD Continue famotidine orally Chronic kidney disease stage IIIA Renal function at baseline UA with reflex negative for proteinuria, UTI Avoid hypotension,Avoid nephrotoxic medications Pulmonary nodules Patient follows in the outpatient setting with routine CT scans per outpatient provider . History of substance use disorder Patient currently on methadone HIV Continue Biktarvy Follow with specialist as an outpatient Hypothyroidism Continue levothyroxine BPH Continue finasteride DVT prophylaxis: Lovenox ongoing need:Acute hypoxic respiratory failure sec COPD exacerbation/ pneumonitis-need oxygen weanin, nebs,setriods,antibiotics Quality Stroke Does the patient have a stroke diagnosis?: No Reason for No Anti-thrombotic by Day Two: N/A - Med Ordered VTE Prior VTE?: No VTE Risk Level:: Medical - moderate - high VTE Device Contraindication: N/A - Device Ordered VTE Drug Contraindication: N/A - Med Ordered
--- NOTE | 2025-04-27 16:30 | MHC.CM.PN ---
PT REPORTS HE LIVES ALONE AND HAS 12 HRS OF [employer] SERVICES PER WEEK HE IS ACTIVE WITH [facility] FOR HOME O2 PCP: EPHRAIM GUTIERREZ COPY OF HCP REQUESTED IMM DELIVERED DCP: [facility]
[2025-04-27] MEDS: Magnesium Hydrox/Alum Hydrox 30 ML ORAL.SUSP PO (18:49)
[2025-04-27 19:48] LABS: Troponin-I High Sensitivity 3.2 ng/L (<3.5-35.0)
[2025-04-27] MEDS: Emtricitabine/Tenofov Alafenam TABLET 1 TAB PO (20:30)
[2025-04-28] VITALS (11 sets, daily range): BP systolic 100–149; BP diastolic 55–79; PULSE 64–95; RESP 16–20; TEMP 36.3–36.6; O2SAT 92–98
[2025-04-28] MEDS: Fluticasone/Vilanterol 200/25 BLST.W.DEV 1 PUFF INHALE (07:57)
[2025-04-28] MEDS: Albuterol/Iprat 2.5/0.5MG 3 ML AMPUL.NEB INHALE ×4 (07:57→19:52)
[2025-04-28] MEDS: 0.9 % Sodium Chloride Flush 3 ML SYRINGE IVFLUSH ×3 (08:17→20:14)
[2025-04-28] MEDS: methADONE HCl 20 MG/2 ML ORAL.CONC 70 MG PO (08:18)
--- NOTE | 2025-04-28 13:57 | P.PNIM_ITS ---
Subjective Subjective Date of Service: 04/28/25 Interval History: copd excerebation Review of Systems sob somewhat improving denies any chest pain feels constipated yesterday events noted-felt little anxious /jittery which resolved spontaneously. Physical Exam 2 Exam: Exam: Appearance: Alert.? Oriented X3.? . cvs: [id number], [id number]. res: air entry diminished bilaterally, upper respiratory wheeze right upper lob.e abd: no rebound or guarding ,nt, bs present. ext pulses present , no cyanosis. neuro: axo3 , nonfocal. Vital Signs: Vital Signs: Last Vital Signs Temp 97.7 F 04/28/25 11:19 Pulse 86 04/28/25 12:02 Resp 20 04/28/25 12:02 BP 100/55 L 04/28/25 11:19 Pulse Ox 94 04/28/25 11:19 O2 Del Method Nasal Cannula 04/28/25 11:19 O2 Flow Rate 2 04/28/25 11:19 Oxygen Flow Rate 4 04/26/25 01:20 BMI result Body Mass Index 25.0 Objective Data Active Medications Acetaminophen (Acetaminophen 325 Mg Tablet) 650 mg PO Q6H PRN PRN Reason: Pain, Mild 1-3,fever,headache Last Admin: 04/28/25 05:27 Dose: 650 mg Documented By: JUANJO Albuterol Sulfate (Albuterol Sulfate 90 Mcg 8 Gm Inhaler) 1 puff INHALE Q4H PRN On Hold: 04/26/25 22:27 PRN Reason: Dyspnea Albuterol/Ipratropium (Albuterol/Iprat 2.5/0.5mg 3 Ml Ampul.Neb) 3 ml INHALE Q4H PRN PRN Reason: Shortness of Breath/Wheezing Albuterol/Ipratropium (Albuterol/Iprat 2.5/0.5mg 3 Ml Ampul.Neb) 3 ml INHALE RQ4H WHILE AWAKE [facility] Last Admin: 04/28/25 12:01 Dose: 3 ml Documented By: ARIA Budesonide (Budesonide Dr 3 Mg Capsule) 9 mg PO DAILY AURELIANO On Hold: 04/26/25 22:25 Last Admin: 04/26/25 10:24 Dose: 9 mg Documented By: MAYE Budesonide (Budesonide 0.5 Mg/2 Ml Ampul.Neb) 0.5 mg INHALE RBID [facility] On Hold: 04/26/25 22:30 Last Admin: 04/26/25 19:54 Dose: 0.5 mg Documented By: SHERRELL Calcium Carbonate (Calcium Carbonate 750 Mg Tab.Chew) 750 mg PO Q4H PRN PRN Reason: Heartburn Ceftriaxone Sodium (Ceftriaxone Sodium 1 Gm Vial) 1 gm IVPUSH Q24H [facility] Last Admin: 04/28/25 09:16 Dose: 1 gm Documented By: MEAGHAN Emtricitabine/Tenofovir Alafenamide (Emtricitabine/Tenofov Alafenam Tablet) 1 tab PO BEDTIME [facility] Last Admin: 04/27/25 20:30 Dose: 1 tab Documented By: JUANJO Enoxaparin Sodium (Enoxaparin Sodium 40 Mg/0.4 Ml Syringe) 40 mg SUBCUT Q24H [facility] Last Admin: 04/28/25 05:19 Dose: 40 mg Documented By: JUANJO Finasteride (Finasteride 5 Mg Tablet) 5 mg PO DAILY [facility] Last Admin: 04/28/25 08:17 Dose: 5 mg Documented By: MEAGHAN Fluticasone/Vilanterol (Fluticasone/Vilanterol 200/25 Blst.W.Dev) 1 puff INHALE RDAILY [facility] Last Admin: 04/28/25 07:57 Dose: 1 puff Documented By: ARIA Doxycycline Hyclate 100 mg/ (Sodium Chloride) 250 mls @ 166.67 mls/hr IV Q12H [facility] Last Infusion: 04/28/25 10:46 Dose: Infused Documented By: MEAGHAN Levothyroxine Sodium (Levothyroxine Sodium 25 Mcg Tablet) 25 mcg PO DAILY@0600 [facility] Last Admin: 04/28/25 05:19 Dose: 25 mcg Documented By: JUANJO Magnesium Hydroxide (Milk Of Magnesia 30 Ml Oral.Susp) 30 ml PO DAILY PRN PRN Reason: Constipation Melatonin (Melatonin 3 Mg Tablet) 6 mg PO BEDTIME PRN PRN Reason: Insomnia Methadone HCl (Methadone Hcl 20 Mg/2 Ml Oral.Conc) 70 mg PO DAILY [facility] Last Admin: 04/28/25 08:18 Dose: 70 mg Documented By: MEAGHAN Co-signed By: AGUSTÍN Methylprednisolone Sodium Succinate (Methylprednisolone Sod Succ 40 Mg/Ml Vial) 40 mg IVPUSH Q12H [facility] Last Admin: 04/28/25 05:19 Dose: 40 mg Documented By: JUANJO Ondansetron HCl (Ondansetron Hcl 4 Mg/2 Ml Vial) 4 mg IVPUSH Q8H PRN PRN Reason: Nausea and Vomiting Polyethylene Glycol (Polyethylene Glycol 3350 17 Gm Powd.Pack) 17 gm PO DAILY PRN PRN Reason: Constipation Rilpivirine (Rilpivirine Hcl 25 Mg Tablet) 25 mg PO BEDTIME [facility] Last Admin: 04/27/25 20:29 Dose: 25 mg Documented By: JUANJO Senna (Sennosides 8.6 Mg Tablet) 17.2 mg PO BEDTIME [facility] Last Admin: 04/27/25 20:29 Dose: 17.2 mg Documented By: JUANJO Sodium Chloride (0.9 % Sodium Chloride Flush 3 Ml Syringe) 3 ml IVFLUSH QSHIFT [facility] Last Admin: 04/28/25 08:17 Dose: 3 ml Documented By: MEAGHAN Labs 04/26/25 06:25 04/26/25 06:25 Microbiology Microbiology Results: Microbiology 04/26/25 08:30 Blood Culture - Preliminary Blood - Venous No growth after 48 hours. 04/26/25 08:23 Blood Culture - Preliminary Blood - Venous No growth after 48 hours. Assessment and Plan (1) COPD (chronic obstructive pulmonary disease): Status: Acute Plan 65-year-old male with past medical history substance use disorder on methadone, COPD/emphysema, bronchitis, tobacco dependence, lymphoma in remission, cyst on buttocks, MICHELLE on nasal mask, chronic kidney disease stage 3 a, HIV on medication, hepatitis-C undetected without tx, GERD, pulmonary nodules, hypothyroidism, BPH presents to the emergency room via ambulance with complaints of shortness of breaths since yesterday. Patient called 911 as his rescue inhaler was not helping. Patient did have to turn up his oxygen from 2-3 L at home. Patient is having noted PVCs on telemetry. Patient being admitted with the following medical problems: Acute hypoxic respiratory failure sec COPD exacerbation/ pneumonitis CTA negative for PE, indicative of multifocal airspace disease with reticular opacities indicating infection, inflammation or pneumonitis. continue nebs ,steriods ,Telemetry, continuous pulse oxIncentive spirometry , added antibiotics. chest tightness/jittery : ekg and trop negative , not symptomatic. Rectal cyst Patient follows with Dr. Lau for this. Patient states there is plans for colonoscopy in the near future. Wound care consulted No leukocytosis or fever reported Unable to view wound as patient reported withdrawal from methadone, adamant about receiving dose MICHELLE Patient can only tolerate nasal mask at home intermittently, was prescribed CPAP 2 months ago We will hold off on ordering in-house CPAP as patient states he will not be able to tolerate the mask we provide Continuous CO2 monitoring ordered GERD Continue famotidine orally Chronic kidney disease stage IIIA Renal function at baseline UA with reflex negative for proteinuria, UTI Avoid hypotension,Avoid nephrotoxic medications Pulmonary nodules Patient follows in the outpatient setting with routine CT scans per outpatient provider . History of substance use disorder Patient currently on methadone HIV Continue Biktarvy Follow with specialist as an outpatient Hypothyroidism Continue levothyroxine BPH Continue finasteride DVT prophylaxis: Lovenox ongoing need:Acute hypoxic respiratory failure sec COPD exacerbation/ pneumonitis-need oxygen weanin, nebs,setriods,antibiotics Quality Stroke Does the patient have a stroke diagnosis?: No Reason for No Anti-thrombotic by Day Two: N/A - Med Ordered VTE Prior VTE?: No VTE Risk Level:: Medical - moderate - high VTE Device Contraindication: N/A - Device Ordered VTE Drug Contraindication: N/A - Med Ordered
--- NOTE | 2025-04-28 14:40 | P.CDIM_ITS ---
PROVIDER RESPONSE TEXT: To clarify, the appropriate diagnosis supported by the clinical indicators: Pneumonitis: possible pneumonia QUERY TEXT: PHYSICIAN'S DOCUMENTATION REQUEST Date of Query: 04/28/2025 11:03 AM EDT Patient Name: Ra Roth Admit Date: 04/26/2025 Dear Luis Wesley MD, A review of the medical record indicates additional documentation may be needed. Please review below and update the documentation accordingly. Clinical Indicators: Progress note 04/27/25 - Acute hypoxic respiratory failure secondary to COPD exacerbation/pneumonitis. CTA negative for PE, indicative of multifocal airspace disease with reticular opacities indicating infection, inflammation or pneumonitis. Continue nebs, steroids, added antibiotics. Based on the above, could you clarify in the Progress Notes further specificity regarding the documented Pneumonitis, if known? Pneumonitis due to aspiration, chemical, food, vomitus, interstitial, drug induced, chronic etc. Other specifics to the noted Pneumonitis Other (explain) Clinically unable to determine (explain) Thank you, Liane Shelton, CCS, CDIS Use of terms such as suspected, likely, concern for, or probable (associated with a specific diagnosis that is being evaluated, monitored, or treated as if it exists) are acceptable and can be coded in the inpatient setting, when documented at the time of discharge. Please use your independent medical judgment in providing your response. THIS QUERY IS PART OF THE PERMANENT MEDICAL RECORD
[2025-04-28] MEDS: Milk of Magnesia 30 ML ORAL.SUSP PO (20:09)
[2025-04-28] MEDS: Emtricitabine/Tenofov Alafenam TABLET 1 TAB PO (20:10)
[2025-04-29] VITALS (9 sets, daily range): BP systolic 141–165; BP diastolic 71–82; PULSE 62–86; RESP 16–18; TEMP 36.3–36.7; O2SAT 93–98
--- NOTE | 2025-04-29 | ECG_ITS ---
Test Reason : Tachycardia, bigeminy Blood Pressure : */* mmHG Vent. Rate : 85 BPM Atrial Rate : 85 BPM P-R Int : 140 ms QRS Dur : 70 ms QT Int : 336 ms P-R-T Axes : 79 22 43 degrees QTcB Int : 399 ms Normal sinus rhythm Normal ECG When compared with ECG of 27-Apr-2025 18:37, No significant change was found Referred By: Rachel Glass Electronically Signed By: ABRIL BAEZ MD
[2025-04-29] MEDS: Albuterol/Iprat 2.5/0.5MG 3 ML AMPUL.NEB INHALE ×3 (08:12→16:26)
[2025-04-29] MEDS: Fluticasone/Vilanterol 200/25 BLST.W.DEV 1 PUFF INHALE (08:12)
[2025-04-29 08:18] LABS: Hematocrit 34.5 % (42.0-52.0); Hemoglobin 11.9 g/dl (14.0-18.0); Mean Corpuscular HGB Conc 34.5 g/dl (31.0-36.0); Mean Corpuscular Hemoglobin 30.6 pg (27.0-33.0); Mean Corpuscular Volume 88.7 fL (80.0-98.0); NRBC Abs Auto 0.000 X10*3/uL (0.0-0.012); NRBC Pct Auto 0.0 /100WBC (0.0-0.2); Red Blood Count 3.89 X10*6/uL (4.60-5.80); White Blood Count 4.9 X10*3/uL (4.8-10.8)
[2025-04-29 08:20] LABS: Platelet Count 98 X10*3/uL (160-400)
[2025-04-29] MEDS: methADONE HCl 20 MG/2 ML ORAL.CONC 70 MG PO (08:24)
[2025-04-29] MEDS: 0.9 % Sodium Chloride Flush 3 ML SYRINGE IVFLUSH ×3 (08:24→21:25)
--- NOTE | 2025-04-29 14:08 | CA_ITS ---
Transthoracic Echocardiogram Patient (Last, First, Middle): Ra Roth A Gender: Male Date of : 1960 Age: 65 Procedure Date: 04/29/2025 Procedure Type: Transthoracic Echocardiogram Location: [facility] [place] Height: 175.26 cm Weight: 76.66 kg BSA: 1.92 m2 Heart Rate: bpm BP: 141 / 82 mmHg [employer]: TO/RC Referring MD: Rachel SMALL Legal Billing Clerk: Pito Moulton MD Symptoms: Prolonged episode of tachycardia and bigeminy Study Quality: Fair/Contrast ECG Rhythm: Sinus Conclusions: - Essentially normal study, right ventricle appears mildly enlarged on some views. Findings Procedure Information Contrast agent, definity, is being given per protocol without apparent complications. Left Ventricle Normal left ventricular size, thickness, and systolic function. The visually estimated ejection fraction is between 55-60%. Spectral Doppler is indicative of a normal filling pattern. Right Ventricle Mildly increased right ventricular cavity size. There is normal right ventricular systolic function. Atria The left atrium is normal in size. Interatrial shunt cannot be excluded. The right atrium was not well visualized. Aortic Valve The aortic valve was not well visualized. There is no aortic valve stenosis. There is no aortic valve regurgitation. Mitral Valve Likely normal mitral valve structure and function. There is trace mitral valve regurgitation. There is no mitral valve stenosis. Pulmonic Valve The pulmonic valve was not well visualized. Tricuspid Valve Likely normal tricuspid valve structure and function. There is trace tricuspid valve regurgitation. Tricuspid regurgitation envelope is inadequate for calculation of right ventricular systolic pressure. Normal right atrial pressure. Great Vessels All visible segments of the aorta are normal in size. The pulmonary artery was not well visualized. There is no dilatation of the ascending aorta measuring 2.70 cm. Venous The inferior vena cava is normal in size and collapses greater than 50% with inspiration. Pericardium/Pleural There is no evidence of pericardial effusion. Measurements 2D Linear Measurements IVSd: 0.90 0.6-0.9/0.6-1.0 cm LVIDd: 5.44 3.9-5.3/4.2-5.9 cm LVIDd Index: 2.83 2.4-3.2/2.2-3.1 cm/m2 LVIDs: 3.72 2.0-3.6 cm LVPWd: 0.77 0.7-1.1 cm LV Mass: 206.53 67-162/88-224 g LV Mass Index: 107.57 43-95/49-115 g/m2 LVOT Diam: 2.20 3.0+(-)1.3 cm 2D Systolic Function EF 4C: 56.50 >55% EF 2C: 57.60 >55% EF BiP: 57.30 >55% Mitral Valve MV Pk E: 0.68 MV PK A: 0.69 MV Decel Time: 257.00 E/A: 1.00 E'Lateral: 16.60 E'Medial: 8.81 E/E' Med: 7.70 E/E' Lat: 4.10 PHT: 75.00 MVA PHT: 2.93 Decel [place]: 2.63 Aortic Valve AoV Pk Wali: 1.39 AoV Mn Wali: 0.88 AoV VTI: 0.28 AoV Pk Grad: 8.00 Aov Mn Grad: 3.00 MINISTERIO Cont.VTI: 2.21 LVOT LVOT Pk Wali: 0.76 LVOT Mn Wali: 0.47 LVOT VTI: 0.17 LVOT Pk Grad: 2.00 LVOT Mn Grad: 1.00 LVOT Diam: 2.20 LVOT Area: 3.80 Diastolic Function MV Pk E: 0.68 MV Pk A: 0.69 E/A: 1.00 E'Medial: 8.81 E/E' Med: 7.70 E' Laterial: 16.60 E/E' Lat: 4.10 Right Ventricle TAPSE (mm): 25.60 TVS' Wali: 17.50 Tricuspid Valve RA Press: 8.00 Great Vessels Aorta Sinus of Valsalva: 3.40 2.0-3.5 cm Ao Asc: 2.70 2.1-3.4 cm Updated in Other Vendor System with Status of Final Ptio Moulton MD electronically signed on 04/29/2025 4:38:50 PM with status of Final
--- NOTE | 2025-04-29 14:54 | MHC.CM.PN ---
EMR reviewed and per MD rounds, pt is not medically cleared for discharge due to management of COPD exacerbation, EKG today, may need cardiology consult.
--- NOTE | 2025-04-29 16:54 | P.PNIM_ITS ---
Subjective Subjective Date of Service: 04/29/25 Interval History: Pt noted to have an extended run of tachycardia into the 140s with bigeminy while attempting to have bowel movement; pt largely asymptomatic at that time Also noted to have tachycardia upon standing and with ambulation, some SOB Reports overall at rest feels much better with chronic SOB around baseline Denies chest pain/pressure, palpitations No lightheadedness or dizziness Physical Exam 2 Exam: Exam: General: AOx3, no acute distress Resp: CTA bilaterally though severely diminished CVS: S1, S2, tachycardic GI: +BS, NT, no distention Skin: Warm, dry Neuro: Cranial nerves II-XII grossly intact bilaterally. Motor grossly intact bilaterally Extremities: No edema Psych: Appropriate affect Vital Signs: Vital Signs: Last Vital Signs Temp 97.8 F 04/29/25 15:52 Pulse 69 04/29/25 16:27 Resp 16 04/29/25 16:27 BP 142/82 H 04/29/25 15:52 Pulse Ox 94 04/29/25 15:52 O2 Del Method Nasal Cannula 04/29/25 15:52 O2 Flow Rate 2 04/29/25 15:52 Oxygen Flow Rate 4 04/26/25 01:20 BMI result Body Mass Index 25.0 Objective Data Active Medications Acetaminophen (Acetaminophen 325 Mg Tablet) 650 mg PO Q6H PRN PRN Reason: Pain, Mild 1-3,fever,headache Last Admin: 04/28/25 05:27 Dose: 650 mg Documented By: JUANJO Albuterol Sulfate (Albuterol Sulfate 90 Mcg 8 Gm Inhaler) 1 puff INHALE Q4H PRN On Hold: 04/26/25 22:27 PRN Reason: Dyspnea Budesonide (Budesonide Dr 3 Mg Capsule) 9 mg PO DAILY AURELIANO On Hold: 04/26/25 22:25 Last Admin: 04/26/25 10:24 Dose: 9 mg Documented By: MAYE Budesonide (Budesonide 0.5 Mg/2 Ml Ampul.Neb) 0.5 mg INHALE RBID AURELIANO On Hold: 04/26/25 22:30 Last Admin: 04/26/25 19:54 Dose: 0.5 mg Documented By: SHERRELL Calcium Carbonate (Calcium Carbonate 750 Mg Tab.Chew) 750 mg PO Q4H PRN PRN Reason: Heartburn Last Admin: 04/29/25 16:02 Dose: 750 mg Documented By: CHRISTIN Ceftriaxone Sodium (Ceftriaxone Sodium 1 Gm Vial) 1 gm IVPUSH Q24H [facility] Last Admin: 04/29/25 08:23 Dose: 1 gm Documented By: ARCENIO Emtricitabine/Tenofovir Alafenamide (Emtricitabine/Tenofov Alafenam Tablet) 1 tab PO BEDTIME [facility] Last Admin: 04/28/25 20:10 Dose: 1 tab Documented By: ATTILA Enoxaparin Sodium (Enoxaparin Sodium 40 Mg/0.4 Ml Syringe) 40 mg SUBCUT Q24H [facility] Last Admin: 04/29/25 05:47 Dose: 40 mg Documented By: ATTILA Finasteride (Finasteride 5 Mg Tablet) 5 mg PO DAILY [facility] Last Admin: 04/29/25 08:24 Dose: 5 mg Documented By: ARCENIO Fluticasone/Vilanterol (Fluticasone/Vilanterol 200/25 Blst.W.Dev) 1 puff INHALE RDAILY [facility] Last Admin: 04/29/25 08:12 Dose: 1 puff Documented By: ROSI Doxycycline Hyclate 100 mg/ (Sodium Chloride) 250 mls @ 166.67 mls/hr IV Q12H [facility] Last Infusion: 04/29/25 10:52 Dose: Infused Documented By: ARCENIO Levalbuterol HCl (Levalbuterol Hcl 1.25 Mg/3 Ml Vial.Neb) 1.25 mg INHALE RQ4H WHILE AWAKE PRN PRN Reason: Shortness of Breath/Wheezing Levothyroxine Sodium (Levothyroxine Sodium 25 Mcg Tablet) 25 mcg PO DAILY@0600 [facility] Last Admin: 04/29/25 05:47 Dose: 25 mcg Documented By: ATTILA Magnesium Hydroxide (Milk Of Magnesia 30 Ml Oral.Susp) 30 ml PO DAILY PRN PRN Reason: Constipation Last Admin: 04/28/25 20:09 Dose: 30 ml Documented By: ATTILA Melatonin (Melatonin 3 Mg Tablet) 6 mg PO BEDTIME PRN PRN Reason: Insomnia Methadone HCl (Methadone Hcl 20 Mg/2 Ml Oral.Conc) 70 mg PO DAILY [facility] Last Admin: 04/29/25 08:24 Dose: 70 mg Documented By: ARCENIO Co-signed By: AGUSTÍN Ondansetron HCl (Ondansetron Hcl 4 Mg/2 Ml Vial) 4 mg IVPUSH Q8H PRN PRN Reason: Nausea and Vomiting Polyethylene Glycol (Polyethylene Glycol 3350 17 Gm Powd.Pack) 17 gm PO DAILY PRN PRN Reason: Constipation Last Admin: 04/29/25 08:29 Dose: 17 gm Documented By: ARCENIO Prednisone (Prednisone 20 Mg Tablet) 40 mg PO DAILY AURELIANO Rilpivirine (Rilpivirine Hcl 25 Mg Tablet) 25 mg PO BEDTIME AURELIANO Last Admin: 04/28/25 20:10 Dose: 25 mg Documented By: ATTILA Senna (Sennosides 8.6 Mg Tablet) 17.2 mg PO BEDTIME [facility]ANO Last Admin: 04/28/25 20:10 Dose: 17.2 mg Documented By: ATTILA Sodium Chloride (0.9 % Sodium Chloride Flush 3 Ml Syringe) 3 ml IVFLUSH QSHIFT [facility] Last Admin: 04/29/25 15:59 Dose: 3 ml Documented By: CHRISTIN Labs 04/29/25 08:13 04/26/25 06:25 Labs: Laboratory Results - last 24 hr 04/29/25 08:13 MCV 88.7 MCH 30.6 MCHC 34.5 RDW 14.1 Plt Count 98 L MPV 9.6 Absolute Nucleated RBC 0.000 Nucleated RBC % (auto) 0.0 Assessment and Plan (1) COPD exacerbation: Status: Acute Plan 65-year-old male with past medical history substance use disorder on methadone, COPD/emphysema, bronchitis, tobacco dependence, lymphoma in remission, cyst on buttocks, MICHELLE on nasal mask, chronic kidney disease stage 3 a, HIV on medication, hepatitis-C undetected without tx, GERD, pulmonary nodules, hypothyroidism, BPH presents to the emergency room via ambulance with complaints of shortness of breaths since yesterday. Patient called 911 as his rescue inhaler was not helping. Patient did have to turn up his oxygen from 2-3 L at home. Patient is having noted PVCs on telemetry. Patient being admitted with the following medical problems: Acute hypoxic respiratory failure sec COPD exacerbation/ pneumonitis CTA negative for PE, indicative of multifocal airspace disease with reticular opacities indicating infection, inflammation or pneumonitis. Continue ceftriaxone and doxycycline, started 04/26 Switch to prednisone 40 mg daily Hold albuterol, switch to Xopenex p.r.n. Telemetry, continuous pulse ox, Incentive spirometry Chest tightness/jittery : ekg and trop negative , not symptomatic. Tachycardia, bigeminy Will hold on albuterol and IV steroids as above We will get echocardiogram Continue to monitor on telemetry Rectal cyst Patient follows with Dr. Lau for this. Patient states there is plans for colonoscopy in the near future. Wound care consulted No leukocytosis or fever reported Unable to view wound as patient reported withdrawal from methadone, adamant about receiving dose MICHELLE Patient can only tolerate nasal mask at home intermittently, was prescribed CPAP 2 months ago We will hold off on ordering in-house CPAP as patient states he will not be able to tolerate the mask we provide Continuous CO2 monitoring ordered GERD Continue famotidine orally Chronic kidney disease stage IIIA Renal function at baseline UA with reflex negative for proteinuria, UTI Avoid hypotension,Avoid nephrotoxic medications Pulmonary nodules Patient follows in the outpatient setting with routine CT scans per outpatient provider . History of substance use disorder Patient currently on methadone HIV Continue Biktarvy Follow with specialist as an outpatient Hypothyroidism Continue levothyroxine BPH Continue finasteride DVT prophylaxis: Lovenox ongoing need:Acute hypoxic respiratory failure sec COPD exacerbation/ pneumonitis-need oxygen weanin, nebs,setriods,antibiotics Quality Stroke Does the patient have a stroke diagnosis?: No Reason for No Anti-thrombotic by Day Two: N/A - Med Ordered VTE Prior VTE?: No VTE Risk Level:: Medical - moderate - high VTE Device Contraindication: N/A - Device Ordered VTE Drug Contraindication: N/A - Med Ordered
[2025-04-29] MEDS: Emtricitabine/Tenofov Alafenam TABLET 1 TAB PO (21:22)
[2025-04-30 04:00] VITALS: BP 162/79; PULSE 61; RESP 16; TEMP 36.4; O2SAT 94
[2025-04-30 07:19] VITALS: BP 174/84; PULSE 65; RESP 16; TEMP 36.7; O2SAT 97
[2025-04-30] MEDS: methADONE HCl 20 MG/2 ML ORAL.CONC 70 MG PO (08:44)
[2025-04-30 10:55] VITALS: BP 122/78; PULSE 57; RESP 18; TEMP 36.8; O2SAT 95
--- NOTE | 2025-04-30 12:48 | PM.DS ---
DS: Providers Provider Date of Service: 04/30/25 Date of admission: 04/26/25 04:39 Date of discharge: 04/30/25 Primary care physician: Sisi Quintanilla MD Consults: 04/26/25 05:55 Consult to Wound Care Routine Reason for consultation: Rectal cyst that open recently, chronic in presentation DS: Diagnosis Discharge Diagnosis (1) COPD exacerbation: Status: Acute DS: Summary Hospital Course Hospital Course: From admission HPI: Date of Service: 04/26/25 Attending physician on admission: Mikel Martinez Chief Complaint: SOB Patient is a 65-year-old male with past medical history substance use disorder on methadone, COPD/emphysema, bronchitis, tobacco dependence, lymphoma in remission, cyst on buttocks, MICHELLE on nasal mask, chronic kidney disease stage 3 a, HIV on medication, hepatitis-C undetected without tx, GERD, pulmonary nodules, hypothyroidism, BPH presents to the emergency room via ambulance with complaints of shortness of breath since yesterday. Patient states he awakens early everyday to take his methadone at 04:00 AM. Then patient has a big breakfast. Then patient sleeps. When patient awakened to use the bathroom, he usually requires oxygen. Patient did wear oxygen but on the return would usually take the oxygen off but was unable to because his oxygen level would not return back to baseline. Patient had attempted to use his rescue inhaler 4 times with no relief. Patient also reported symptoms of reflux. Patient normally uses 2 L when needed but increased level to 3 L. Patient did call EMS for assistance. Patient came in on 4 L. Patient did receive DuoNeb and Solu-Medrol on route. CXR notes increased interstitial markings possibly representing volume overload with a tiny right pleural effusion. VBG 7.41, 40, 89, 26. Viral studies all negative. Patient does not have leukocytosis or fever. Emergency room provider indicated no evidence of sepsis. Patient remains on 4 L nasal cannula is mildly tachycardic at 103 with PVCs. EKG is negative for any ischemic changes noted to be normal sinus rhythm. Troponins negative. BNP 42. CTA negative for PE, noted for sequela of inflammation, infection or pneumonitis. Patient currently denies any chest pain, nausea or vomiting. Patient states he is currently going through withdrawal because it is past 4 a.m. when he normally takes his 70 mg of methadone. This commercial loan underwriter and ED staff are unable to confirm patient's current dose as it is not listed in [facility] and the clinic is currently closed. Nursing will send requestfor dose confirmation to the clinic at 07:00AM. In the meantime patient will receive 30 mg which is the maximum amount we can administer without confirmation. Patient is somewhat sweaty and diaphoretic but otherwise asymptomatic. Vital signs currently remained stable. Patient is on 4 L and POX 93%. Patient has a noted sinus arrhythmia with evidence of PVCs on telemetry. Patient is troponin is negative and BNP is also normal. Patient as above states no chest pain. Patient electrolytes are stable, magnesium 2.0, and TSH in March was 3.80. 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 Patient states he has a cyst in the buttocks area that opens and closes at times. Currently this cyst is open and draining slightly. Patient denies any pain associated with the cyst. Hospital course: Pt is admitted to the hospital for acute on chronic hypoxic respiratory failure in the setting of COPD exacerbation with likely underlying pneumonia/pneumonitis. Pt was treated with IV steroids, bronchodilator therapy, and IV antibiotics. Patient's breathing improved and reports he is now back to baseline. However, hospital course was complicated by chest tightness and ?jitteriness?. Pt was noted to have an extended run of tachycardia into the 140s with bigeminy when attempting to have a bowel movement on the night of 04/28. The following day also had some tachycardia upon standing with ambulation and some SOB. However, pt was largely asymptomatic. IV steroids and albuterol were stopped as they were likely contributory. Pt was switched to p.o. prednisone and Xopenex. Following day symptoms largely resolved, and patient's telemetry showed occasional PVCs, but no extended runs of bigeminy. Pt will be discharged on doxycycline 100 mg b.i.d. x3 days, cefuroxime 250 mg b.i.d. x3 days, and prednisone 40 mg daily x3 days. Pt should resume his home inhalers For bigeminy/frequent PVCs, pt should follow up with PCP in 1-2 weeks for possible additional cardiac workup, including Holter monitor and/or cardiology consultation. For rectal cyst, continue to follow up with Dr. Lau and General surgery. For MICHELLE, continue CPAP. Pt was recently prescribe this, and has only been intermittently compliant. For HIV continue Biktarvy For hypothyroidism continue levothyroxine For BPH continue finasteride Time Attestation Discharge Coordination Time (in mins): 40 Quality: Safe Use of Opioids Does Pt have an Active Cancer Diagnosis on the Problem List?: No Quality: Stroke Does the patient have a stroke diagnosis?: No Physical Exam Exam: Exam: General: AOx3, no acute distress Resp: CTA bilaterally though diminished throughout. No wheezing, rales, or rhonchi appreciated CVS: S1, S2, RRR GI: +BS, NT, no distention Skin: Warm, dry Neuro: Cranial nerves II-XII grossly intact bilaterally. Motor grossly intact bilaterally Extremities: No edema Psych: Appropriate affect Vital Signs: Vital Signs: Last Vital Signs Temp 98.3 F 04/30/25 10:55 Pulse 57 04/30/25 10:55 Resp 18 04/30/25 10:55 BP 122/78 04/30/25 10:55 Pulse Ox 95 04/30/25 10:55 O2 Del Method Nasal Cannula 04/30/25 10:55 O2 Flow Rate 2 04/30/25 10:55 Oxygen Flow Rate 4 04/26/25 01:20 BMI result Body Mass Index 25.0 DS: Data Data Completed and Pending Labs on day of discharge: Preliminary micro results at discharge 04/26/25 08:30 Blood Culture - Preliminary Blood - Venous No growth after 48 hours. 04/26/25 08:23 Blood Culture - Preliminary Blood - Venous No growth after 48 hours. Discharge Plan Discharge Anticipated Discharge Date/Time: 04/30/25 12:20 Patient Disposition: Home, Self-Care Discharge Diagnosis: Acute on chronic hypoxic respiratory failure in the setting of COPD exacerbation Referrals: Sisi Quintanilla MD [Primary Care Provider, Internal Medicine] - 1 Week Discharge Medications: New prednisone 20 mg tablet 40 mg PO DAILY Qty: 6 0RF Rx Instructions: Take two tablets (40mg total) twice a day for the next three days. cefuroxime axetil 250 mg tablet 250 mg PO BID Qty: 6 0RF Rx Instructions: Take one tablet twice a day for pneumonia. Start on the morning of 05/01 and end on the night of 05/03 doxycycline monohydrate 100 mg capsule 100 mg PO BID Qty: 7 0RF Rx Instructions: Take one tablet twice a day for the next three days. Begin taking on the evening/night of 04/30 and end on the evening/night of 05/03. Continued budesonide-formoterol 160-4.5 mcg/actuation HFA aerosol inhaler 2 puff inhalation BID 30 Days Qty: 10.2 5RF finasteride 5 mg tablet 5 mg PO DAILY 90 Days Qty: 90 1RF polyvinyl alcohol 1.4 % drops 1 drp ophthalmic (eye) TID PRN (Reason: dry eyes) methadone 10 mg/mL Concentrate 70 mg PO DAILY albuterol sulfate [Ventolin HFA] 90 mcg/actuation HFA aerosol inhaler 1 puff PO Q4H PRN (Reason: dyspnea) Incruse Ellipta 62.5 mcg/actuation blister with device 1 inh PO DAILY levothyroxine 25 mcg tablet 25 mcg PO DAILY Odefsey 200-25-25 mg tablet 1 tab PO BEDTIME Discharge Orders: Discharge Order (Routine); Ordered 04/30/25 Ordered By: Rachel Glass Activity on Discharge: As tolerated Stand Alone Forms: Patient Portal Discharge page Print Language: Estonian Care Plan Goals: See below Health Concerns: COPD exacerbation Pneumonia PVCs Plan of Treatment: You were admitted to the hospital for acute on chronic hypoxic respiratory failure in the setting of COPD exacerbation with underlying pneumonia/pneumonitis. You were treated with IV steroids, bronchodilator therapy, and IV antibiotics. You be discharged home on oral steroids and oral antibiotics. Take doxycycline 100 mg twice a day for the next 3 days. Start medication at home tonight and end course of antibiotics on night of 05/03. Take cefuroxime 250mg twice a day for the next 3 days. Start medication at home tomorrow morning and end course of antibiotics on night of 05/03. Take prednisone 40mg daily for the next three days, ending on 05/03 During your hospital stay you were noted to have tachycardia and frequent SVTs. Albuterol/Duonebs and IV steroids were likely contributory, but you should follow up with PCP in 1-2 weeks for possible cardiac workup, including Holter monitor. Assessment: See discharge summary Discharge Date/Time: 04/30/25 15:25
--- NOTE | 2025-04-30 13:13 | MHC.CM.PN ---
Pt has been medically cleared to [place]. 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
== END 2025-04-30 15:25 | disposition home or self-care (01) | DRG 190 ==
LOC: HO.ED 06:19 → HO.EDOVER 06:53 → HO.IMC 07:59
PROVIDERS: Internal Medicine; Nurse Practitioner Family; Physician Assistant; Admitting Provider Student in an Organized Health Care Education/Training Program; Emergency Provider Emergency Medicine; PCP Family Medicine; Visit Provider Student in an Organized Health Care Education/Training Program
DX: J43.9 Emphysema, unspecified (principal); J96.01 Acute respiratory failure with hypoxia; F11.20 Opioid dependence, uncomplicated; C85.9A Non-Hodgkin lymphoma, unspecified, in remission; J91.8 Pleural effusion in other conditions classified elsewhere; K62.89 Other specified diseases of anus and rectum; G47.33 Obstructive sleep apnea (adult) (pediatric); J98.4 Other disorders of lung; N18.31 Chronic kidney disease, stage 3a; I49.3 Ventricular premature depolarization; K21.9 Gastro-esophageal reflux disease without esophagitis; Z21 Asymptomatic human immunodeficiency virus [HIV] infection status; N40.0 Benign prostatic hyperplasia without lower urinary tract symptoms; E03.9 Hypothyroidism, unspecified; Z20.822 Contact with and (suspected) exposure to COVID-19; Z87.891 Personal history of nicotine dependence; Z79.890 Hormone replacement therapy; Z79.899 Other long term (current) drug therapy
CPT/HCPCS: 36415; 71045; 71275; 74018; 80048; 80053; 81003; 82803; 83605; 83735; 83880; 84484; 85025; 85027; 87040; 87633; 87637; 93005; 93306; 99285; J0696; J1271; J1308; J1650; J1938; J2919; J3475; J7120; Q9957; Q9967

== ENCOUNTER → 2025-04-26 01:24 | Outpatient (BNV) | payer OTHER, SELFPAY | PROVIDERS: Admitting Provider Student in an Organized Health Care Education/Training Program; Emergency Provider Emergency Medicine; PCP Family Medicine; Visit Provider Internal Medicine Cardiovascular Disease | DX: I49.9 Cardiac arrhythmia, unspecified (principal) | CPT/HCPCS: 93010 ==

== ENCOUNTER → 2025-04-26 02:42 | Outpatient (BNV) | payer OTHER, SELFPAY | PROVIDERS: Emergency Provider Emergency Medicine; PCP Family Medicine; Visit Provider Nurse Practitioner Family | DX: J44.9 Chronic obstructive pulmonary disease, unspecified (principal) | CPT/HCPCS: 99223; 99231; 99232; 99499 ==

== ENCOUNTER 2025-04-26 04:39 | Outpatient (BNV) | payer OTHER, SELFPAY | END 2025-04-27 18:37 | PROVIDERS: Admitting Provider Student in an Organized Health Care Education/Training Program; Emergency Provider Emergency Medicine; PCP Family Medicine; Visit Provider Internal Medicine Cardiovascular Disease | DX: R00.0 Tachycardia, unspecified (principal) | CPT/HCPCS: 93010 ==

== ENCOUNTER 2025-04-26 04:39 | Outpatient (BNV) | payer OTHER, SELFPAY | END 2025-04-29 09:45 | PROVIDERS: Admitting Provider Student in an Organized Health Care Education/Training Program; Emergency Provider Emergency Medicine; PCP Family Medicine; Visit Provider Internal Medicine Cardiovascular Disease | DX: I51.7 Cardiomegaly (principal); R00.0 Tachycardia, unspecified | CPT/HCPCS: 93010; 93306 ==

== ENCOUNTER 2025-04-26 04:39 | Outpatient (BNV) | payer OTHER, SELFPAY | END 2025-04-27 18:40 | PROVIDERS: Admitting Provider Student in an Organized Health Care Education/Training Program; Emergency Provider Emergency Medicine; PCP Family Medicine; Visit Provider Radiology Diagnostic Radiology | DX: K59.00 Constipation, unspecified (principal) | CPT/HCPCS: 74018 ==

== ENCOUNTER 2025-05-11 08:57 | Outpatient (AMB) | payer OTHER, SELFPAY ==
--- NOTE | 2025-05-11 09:11 | A.OFFVIS_ITS ---
Intake Visit Reasons: follow up/PSA(set) Intake Note: Patient is present today for follow up/PSA * PSA:1.21 Urology Medication: Finasteride Antibiotic Allergies:Levofloxacin Blood Thinners:None Dinkey Operator Slate Required: No Accompanied by: Self / Same As Patient Allergies levofloxacin Allergy (Intermediate, Verified 05/11/25 23:54) Nausea, chills, SOB Medication List - Last Reconciled 05/11/25 by PAULA Adames- albuterol sulfate 90 mcg/actuation (Ventolin HFA) 1 puff PO Q4H PRN budesonide-formoterol 160-4.5 mcg/actuation 2 puffs inhalation BID 30 days lhevberzzy-gkcqhyvy-umkgkl ala 200-25-25 mg (Odefsey) 1 tab PO BEDTIME finasteride 5 mg PO DAILY 90 days levothyroxine 25 mcg PO DAILY methadone 70 mg PO DAILY polyvinyl alcohol 1.4% 1 drp ophthalmic (eye) TID PRN umeclidinium 62.5 mcg/actuation (Incruse Ellipta) 1 inh PO DAILY HPI Comments Details: Ra is a pleasant 65-year-old male patient of Dr. Hancock. He has a past medical history of bronchitis, obstructive sleep apnea, nicotine dependence, lymphoma, hypogonadism, chronic hep C, anal fistula, polysubstance abuse, hypothyroidism, HIV, and COPD. He presents to the office today for follow-up of his prostate cancer. In discussion with the patient today he discusses his recent hospitalization for his COPD as well as bigeminy/PVCs he had been experiencing. He reports urologically he has been doing and feeling well. He denies having had any bothersome urinary issues. He reports compliance with finasteride as prescribed. He denies urinary urgency, urinary frequency, incontinence, nocturia, hematuria, dysuria, foul smelling urine, changes to urinary stream, flank pain, fever, and or chills. He is happy with his current voiding parameters. We did discuss low-grade prostate cancer as well as active surveillance. Recent PSA results reviewed with the patient today as noted and trended below: PSA 04/23 1.6, 06/24 1.4, 12/23 1.2 In office urinalysis results reviewed with the patient today. He discusses his follow-up today with pulmonology status post recent hospitalization. He also discusses his follow-up with Nephrology as well as Cardiology. All questions were answered. He otherwise offers no other issues or concerns at this time. PREVIOUS OFFICE NOTE: Background of HIV with lymphoma treated approximately 2009. Chronic hep C, polysubstance abuse. Prostate Cancer 08/23 GG2, low volume - Current therapy active surveillance Diagnosed by Dr. Stewart PSA at diagnosis 6.8 TRUS volume at diagnosis 20gm Prolaris 09/22 active surveillance cohort Stage Prediction 1C 5yr Specific Mortality 0.5% 10yr Specfic Mortality 2.0% Histologic type: Prostatic adenocarcinoma Histologic grade: [place] score: 3+4=7 Grade group: 2 Tumor quantitation:Number cores positive: 3 (LBM 25%, LMM 5%, RBL 60%) Total number of cores: 12 - Periprostatic fat inv.: Not identified Seminal vesicle inv.: Not identified Perineural inv.: Present LVI: Not identified PFSH Medical History (Updated 05/11/25 @ 10:26 by Virgilio Momin MD) COPD (chronic obstructive pulmonary disease) History of smoking at least 1 pack per day for at least 30 years Colon cancer screening Bronchitis MICHELLE (obstructive sleep apnea) Dyspnea on exertion Personal history of nicotine dependence History of lymphoma (~2004) Hypogonadism in male Chronic hepatitis C without hepatic coma Anal fistula Polysubstance abuse Hypothyroidism Exercise hypoxemia Hypogonadotropic hypogonadism (~2018) HIV (human immunodeficiency virus infection) Surgical History S/P lesley-rectal abscess repair, follow-up exam Hx of fracture Family History Father Cancer Mother No problems noted. Sister Cancer Social History Household Members: Family Housing: House Do you presently have visiting nurse or other home services: Yes ([facility] and [employer].) Alcohol intake: never Comment: NO COUNTS NEEDED Patient Tobacco Use Status: Former Tobacco user Years Smoked: 40 years +/- Substance Use Type: Amphetamines, Crack/Cocaine, Heroin, Marijuana and Painkillers service: No Current occupational status: disabled Review of Systems Const Reports as per HPI Eyes Reports no additional complaints ENT Reports no additional complaints Card Reports no additional complaints Resp Reports as per [facility] GI Reports as per [facility] Reports as per [facility] Musc Reports as per [facility] Psych Reports as per [facility] Endo Reports as per [facility] Randy/Lymph Reports as per [facility] Physical Exam Const General: cooperative, healthy appearing, comfortable, no acute distress, well developed, alert and awake Orientation/consciousness: patient oriented x3 Limitations: no limitations HEENT Head: Yes normal to inspection, Yes normocephalic and Yes atraumatic Ears: hearing grossly normal bilaterally Eyes General: appearance normal, both eyes and all related structures Neck Neck: Yes normal visual inspection and Yes trachea midline Chest Chest palpation & inspection: normal inspection of the chest Resp Effort & Inspection: normal respiratory effort and able to speak in complete sentences Cardio Rate: regular rate GI Inspection: Yes normal to inspection Rectal Exam - Male: Yes deferred General: Yes no CVA tenderness Back/Spine/Pelvis Back: no CVA tenderness Skin General skin exam: no rashes or lesions noted Neuro General: patient oriented x3 Extrem General: Yes normal to inspection Psych Appearance: grossly normal and well kempt Mental Status: mental status grossly normal Speech and movement: Normal speech and movement present and Clear speech present Affect: normal affect Attitude: cooperative Thought process: Normal thought process present Thought content: Normal thought content present Insight: Fair insight present (Psych) Judgement: Fair judgement present (Psych) Results AMB Urinalysis, Automated UA Leukoctes 0 Asha/uL Last Edit by Kaia Maier on 05/11/25 14:48 UA Nitrite Negative Last Edit by Kaia Maier on 05/11/25 14:48 UA Urobilinogen 3.5 mg/dL Last Edit by Kaia Maier on 05/11/25 14:48 UA Protein 0 mg/dL Last Edit by Kaia Maier on 05/11/25 14:48 UA pH 5.0 Last Edit by Kaia Maier on 05/11/25 14:48 UA Blood 0 Jerome/uL Last Edit by Kaia Maier on 05/11/25 14:48 UA Specific [place] 1.015 Last Edit by Kaia Maier on 05/11/25 14:48 UA Ketone Negative Last Edit by Kaia Maier on 05/11/25 14:48 UA Bilirubin 0 mg/dL Last Edit by Kaia Maier on 05/11/25 14:48 UA Glucose 0 mg/dL Last Edit by Kaia Darrion on 05/11/25 14:48 Results Reviewed Results Reviewed: Laboratory Last Values Urine pH (Auto) 5.0 05/11/25 13:23 Specific [place] (Auto) 1.015 05/11/25 13:23 Urine Protein (Auto) 0 mg/dL 05/11/25 13:23 Glucose (UA)(Auto) 0 mg/dL 05/11/25 13:23 Urine Ketones (Auto) Negative 05/11/25 13:23 Urine Blood (Auto) 0 Jerome/uL 05/11/25 13:23 Urine Nitrite (Auto) Negative 05/11/25 13:23 Urine Bilirubin (Auto) 0 mg/dL 05/11/25 13:23 Urine Urobilinogen (Auto) 3.5 mg/dL 05/11/25 13:23 Leukocyte Esterase (Auto) 0 Asha/uL 05/11/25 13:23 Assessment & Plan Assessment & Plan (1) Elevated PSA: Code(s): R97.20 - Elevated prostate specific antigen [PSA] Category: Medical (2) Prostate cancer managed with active surveillance: Code(s): C61 - Malignant neoplasm of prostate Category: Medical Plan In office urinalysis results reviewed with the patient today; as noted above. Recent PSA results reviewed with the patient today; as noted above. We discussed low-grade prostate cancer in surveillance monitoring. He currently denies any bothersome urinary issues or concerns. He reports be happy with current voiding parameters. All questions were answered. Continue with finasteride as discussed and prescribed; refill provided Will continue with surveillance monitoring Will obtain PSA in 3 months. Follow-up in 3 months with PSA; or sooner with any issues, concerns, and or questions. Orders: Orders AMB Urinalysis Automated Today C61 - Malignant neoplasm of prostate Medications: Refilled finasteride 5 mg PO DAILY 90 tabs 1RF 90 days C61 - Malignant neoplasm of prostate, N13.8 - Other obstructive and reflux uropathy, N40.1 - Benign prostatic hyperplasia with lower urinary tract symptoms, R33.9 - Retention of urine, unspecified Patient Instructions: The patient had an opportunity to ask questions regarding the treatment plan. All questions were answered. Physical exam, labs, and imaging were discussed and reviewed in detail. As well as risks, benefits, and discussion of treatment choices. No major barriers to understanding were identified. The patient expressed understanding and agreement with the above treatment plan. The patient was made aware they should contact our office by phone for worsening of their current condition, the appearance of new symptoms, or with any questions or concerns. Compliance is encouraged with any medications and follow up testing that is ordered. It is a privilege to be allowed the opportunity to participate in? your urological care.? Again, if you have any questions or concerns If you have any questions or concerns please do not hesitate to contact me. The office is [phone]. This note is constructed using voice recognition software. While every effort has been made to ensure accuracy contract associate errors may have been included. Yours sincerely, ATIYA Adames Coding Level of Care Code Est Pt Level 3 (25778) Complex EM visit Add On G2211 Diagnoses Elevated PSA R97.20 Prostate cancer managed with active surveillance C61
== END 2025-05-11 09:45 | disposition home or self-care (01) ==
PROVIDERS: PCP Family Medicine; Visit Provider Nurse Practitioner Family
DX: R97.20 Elevated prostate specific antigen [PSA] (principal); C61 Malignant neoplasm of prostate
CPT/HCPCS: 99213; G2211

== ENCOUNTER → 2025-05-11 08:57 | Outpatient (BNVA) | payer OTHER, SELFPAY | PROVIDERS: PCP Family Medicine; Visit Provider Nurse Practitioner Family | DX: R09.02 Hypoxemia (principal); J44.9 Chronic obstructive pulmonary disease, unspecified; G47.33 Obstructive sleep apnea (adult) (pediatric); Z99.89 Dependence on other enabling machines and devices; Z87.891 Personal history of nicotine dependence; R97.20 Elevated prostate specific antigen [PSA]; C61 Malignant neoplasm of prostate; Z71.2 Person consulting for explanation of examination or test findings | CPT/HCPCS: 81003; 99212 ==

== ENCOUNTER 2025-05-11 09:48 | Outpatient (AMB) | payer OTHER, SELFPAY ==
--- NOTE | 2025-05-11 09:57 | A.OFFVIS_ITS ---
Vital Signs 05/11/25 09:58 Height 5 ft 9 in Weight 174 lb 2.643 oz BMI 25.7 BP 110/72 Blood Pressure Location Lt brachial Position Sitting Pulse 82 Pulse Source Pulse Oximeter Pulse Oximetry (%) 93 Oxygen Delivery Method Room Air Intake Visit Reasons: copd/michelle Intake Note: pt is here for follow up of [facility] and states he is just tired. Inseminator Required: No Allergies levofloxacin Allergy (Intermediate, Verified 05/11/25 10:12) Nausea, chills, SOB Medication List - Last Reconciled 05/11/25 by Virgilio Momin MD albuterol sulfate 90 mcg/actuation (Ventolin HFA) 1 puff PO Q4H PRN budesonide-formoterol 160-4.5 mcg/actuation 2 puffs inhalation BID 30 days rqheokjgsv-lsmvfzfj-yptiqf ala 200-25-25 mg (Odefsey) 1 tab PO BEDTIME finasteride 5 mg PO DAILY 90 days levothyroxine 25 mcg PO DAILY methadone 70 mg PO DAILY polyvinyl alcohol 1.4% 1 drp ophthalmic (eye) TID PRN umeclidinium 62.5 mcg/actuation (Incruse Ellipta) 1 inh PO DAILY Do you need a note to return to daycare/school/sports/work: No HPI HPI copd/michelle: Details: JONATHAN WAS IN THE HOSPITAL FROM 04/26-04/30 , BECAUSE HIS O2 SATS HAD FALLEN DOWN EVEN WITH THE OXYGEN SUPPLEMENTATION. HE WAS EMPIRICALLY TREATED FOR ACUTE EXACERBATION OF COPD, WITH IV SOLU-MEDROL, ON ANTIBIOTICS. HE HAS IMPROVED, STILL GETS EPISODES WHEN HIS HEART RATE IS SOMEWHAT IRREGULAR, EKG IN THE EMERGENCY ROOM SHOWED SINUS ARRHYTHMIA. NO ACUTE CORONARY SYNDROME. HE TENDS TO BE ANXIOUS AT TIMES. HAS NOT BEEN USING CPAP REGULARLY. FORMERLY [facility] Medical History (Updated 05/11/25 @ 10:26 by Virgilio Momin MD) COPD (chronic obstructive pulmonary disease) History of smoking at least 1 pack per day for at least 30 years Colon cancer screening Bronchitis MICHELLE (obstructive sleep apnea) Dyspnea on exertion Personal history of nicotine dependence History of lymphoma (~2004) Hypogonadism in male Chronic hepatitis C without hepatic coma Anal fistula Polysubstance abuse Hypothyroidism Exercise hypoxemia Hypogonadotropic hypogonadism (~2018) HIV (human immunodeficiency virus infection) Surgical History S/P lesley-rectal abscess repair, follow-up exam Hx of fracture Family History Father Cancer Mother No problems noted. Sister Cancer Social History Household Members: Family Housing: House Do you presently have visiting nurse or other home services: Yes ([facility] and [employer].) Alcohol intake: never Comment: NO COUNTS NEEDED Patient Tobacco Use Status: Former Tobacco user Years Smoked: 40 years +/- Substance Use Type: Amphetamines, Crack/Cocaine, Heroin, Marijuana and Painkillers service: No Current occupational status: disabled Review of Systems Const All systems reviewed & are unremarkable except as noted in HPI and below Eyes Reports no additional complaints ENT Reports nasal congestion (Mild off and on) Card Reports chest pain, Denies irregular heart rhythm and Denies leg edema Resp Reports as per HPI GI Reports no additional complaints Reports no additional complaints Musc Reports no additional complaints Skin/Breast Reports system reviewed and no additional complaints, except as documented Neuro Reports no additional complaints Psych Reports no additional complaints Endo Reports other (Being treated for diabetes mellitus, and hypothyroidism.) Physical Exam Vital Signs: Last Vital Signs Pulse 82 05/11/25 09:58 BP 110/72 05/11/25 09:58 Pulse Ox 93 05/11/25 09:58 Oxygen Delivery Method Room Air 05/11/25 09:58 BMI result Body Mass Index 25.7 Const General: comfortable (Slightly short of breath when walking), no acute distress, alert and awake Orientation/consciousness: patient oriented x3 HEENT Head: Yes normal to inspection General nose exam: No nasal polyps present and No nasal discharge present Face and sinus: Yes sinuses nontender Mouth: oropharynx normal Teeth and gingiva: edentulous Throat: Yes posterior oropharynx normal Eyes General: appearance normal, both eyes and all related structures Neck Neck: Yes normal visual inspection, Yes no lymphadenopathy, Yes trachea midline and Yes no JVD Thyroid: Thyroid normal Chest Chest palpation & inspection: normal inspection of the chest, normal palpation of entire chest wall and no tenderness Resp Other: Percussion note hyper-resonant, breath sounds are distant with prolonged expiratory phase, but equal on both sides. No audible wheezes or rhonchi. Cardio Palpation: normal PMI Rate: regular rate Rhythm: regular rhythm Heart sounds: no gallops and no murmurs GI Palpation (GI): Soft to palpation, nontender, No hepatosplenomegaly present and no masses Auscultation: normal bowel sounds Back/Spine/Pelvis Thoracic/Lumbar Spine: thoracic and lumbar spine normal to inspection Skin General skin exam: no rashes or lesions noted and dry skin Neuro General: patient oriented x3 and no focal motor deficits Cranial nerves: Yes CN's II-XII intact bilaterally Extrem General: Yes normal to inspection, Yes no clubbing, cyanosis or edema and Yes no calf tenderness Psych Appearance: grossly normal and well kempt Speech and movement: Normal speech and movement present Results Reviewed Results Reviewed: COURSE IN THE HOSPITAL REVIEWED Assessment & Plan Assessment & Plan (1) COPD (chronic obstructive pulmonary disease): Comment: Has advanced chronic obstructive pulmonary disease, related to his past smoking He is doing very well with the current regimen. BUT STILL GETS intermittent attacks of Dyspnea, more like Hyperventilation . * HAS BEEN TREATED IN THE HOSPITAL SETTING FOR ACUTE EXACERBATION OF COPD, AND CURRENTLY SEEMS TO BE AT HIS BASELINE. Code(s): J44.9 - Chronic obstructive pulmonary disease, unspecified Category: Medical Plan: CONTINUE TO USE SYMBICORT 160-4.5 2 PUFFS B.I.D. INCRUSE ELLIPTA 1 INHALATION DAILY. AND ALBUTEROL 2 PUFFS Q 6 HOURS P.R.N., BUT AVOID USING EXCESSIVELY. (2) Exercise hypoxemia: Comment: He is known to have exercise induced hypoxemia. He does have POC which he uses when walking around, and doing some physical work , outside the house. 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 HE HAD POLYSOMNOGRAM STUDY IN THE SLEEP LAB IN JULY 2024. BASELINE PART OF THE STUDY WAS POSITIVE FOR MODERATELY SEVERE OBSTRUCTIVE SLEEP APNEA. INITIALLY HAD DIFFICULTY IN USING THE CPAP. NOW HE HAS NASAL MASK WELL A FULLFACE MASK AND TRIES TO USE ALTERNATIVELY. HE IS MORE COMPLIANT BUT THE COMPLIANCE IS STILL SUBOPTIMAL. Code(s): G47.33 - Obstructive sleep apnea (adult) (pediatric) Category: Medical Plan: ADVISED TO USE THE CPAP EVERY NIGHT REGULARLY AT LEAST 6 HOURS PER NIGHT (4) History of smoking at least 1 pack per day for at least 30 years: Comment: THIS GENTLEMAN DOES HAVE PAST HISTORY OF SMOKING FOR ALMOST 40 YEARS, 1 PACK A DAY. * LUCKILY HE WAS ABLE TO QUIT BACK IN 2020. HE DOES NOT HAVE ANY URGE TO GO BACK TO SMOKING. Code(s): Z87.891 - Personal history of nicotine dependence Category: Social Hx Plan: COMMENDED FOR NOT SMOKING. Coding Level of Care Code Est Pt Level 4 (82714) Diagnoses COPD (chronic obstructive pulmonary disease) J44.9 Exercise hypoxemia R09.02 MICHELLE (obstructive sleep apnea) G47.33 History of smoking at least 1 pack per day for at least 30 years Z87.891
[2025-05-11 09:58] VITALS: BP 110/72; PULSE 82; O2SAT 93; BMI 25.7
== END 2025-05-11 10:19 | disposition home or self-care (01) ==
LOC: HO.HPS 09:48
PROVIDERS: PCP Family Medicine; Visit Provider Internal Medicine
DX: J44.9 Chronic obstructive pulmonary disease, unspecified (principal); R09.02 Hypoxemia; G47.33 Obstructive sleep apnea (adult) (pediatric); Z87.891 Personal history of nicotine dependence
CPT/HCPCS: 99214

== ENCOUNTER → 2025-05-25 09:00 | Outpatient (REF) | payer OTHER, SELFPAY ==
--- NOTE | 2025-05-25 09:10 | HM_ITS ---
Conclusion: 1. Patient was monitored for total period of 2 days 2. Baseline was normal sinus rhythm with average heart rate of 73 beats per minute 3. No significant pauses noted 4. Frequent PVCs noted with total burden of 8.9% without any sustained arrhythmias 5. No patient reported events MTDD
[2025-05-25 10:39] LABS: Prostate Specific Antigen 1.37 ng/mL (<0.05-4.0)
== END ==
LOC: HO.CARD 09:00
PROVIDERS: Nurse Practitioner Family; PCP Family Medicine; Visit Provider Family Medicine
DX: Z12.5 Encounter for screening for malignant neoplasm of prostate (principal); I49.3 Ventricular premature depolarization; I49.8 Other specified cardiac arrhythmias; R97.20 Elevated prostate specific antigen [PSA]
CPT/HCPCS: 36415; 84153; 93225

== ENCOUNTER → 2025-05-25 09:10 | Outpatient (BNV) | payer OTHER, SELFPAY | PROVIDERS: PCP Family Medicine; Visit Provider Internal Medicine Cardiovascular Disease | DX: I49.3 Ventricular premature depolarization (principal) | CPT/HCPCS: 93227 ==

== ENCOUNTER 2025-06-08 11:24 | Outpatient (REF) | payer OTHER, SELFPAY ==
--- NOTE | ~2025-06-08 | XR_ITS ---
EXAMINATION: XR CERVICAL SPINE CLINICAL INFORMATION: pain in right side of neck, recent fall, whiplash COMPARISON: March 05, 2009. Correlated to CT cervical spine dated April 03, 2025 reporting multilevel spondylosis without acute findings. TECHNIQUE: AP lateral and swimmer's and atlantoodontoid views. FINDINGS: Craniocervical junction is intact. Endplate sclerosis decreased intervertebral disc height and marginal osteophyte formation C5-6 and C6-7 and to a lesser extent C4-5. Grade 1 anterolisthesis C4-5. No acute cortical disruption. No lytic or blastic lesions. XR/XR cervical spine 3V IMPRESSION: Multilevel cervical spondylosis C4-5 to C6-7 pronounced at C5-6 and C6-7. Grade 1 anterolisthesis C4-5. Electronically signed by: Sam Wolfe MD 06/09/2025 10:38 AM EDT
--- OUTSIDE RECORDS SUMMARY | 2025-06-08 14:08 | XMS_ITS | Encounter Summary ---
Author Organization [facility] Address [address] [place] [address] Encounters * CPT with Medical [facility] at [facility] on 2025-05-02 { reasonForRequest : Pt reporting high blood pressure>was recently in the ED for about 5 days (COPD), discovered a blip on his EKG , patientRepo rts : , denies :[ History of Heart Attack, in the setting of active chest pain , Active Chest pain, radiates to neck jaw and or arm , Diaphoretic/Swe ating , Describes as crushing , Sudden onset of nausea/Vomiting and shortness of breath. , Shortness of Breath , Unable to speak in full sentences without distress , Palpitations, feeling dizzy , Chest pain, increased fatigue ,"CHF history, increased swelling and edema , Weakness/tachycardia ], chiefComplaints : High Blood Pressure , pmh : COPD/Asthma, Cancer, HIV/AIDS, Hypertension , allergies : No Known Drug Allergies , otherAllergies&quo t;: , painAssessment : , visitOutcome : , additionalComments : 65 y.o male complains of High Blood Pressure\n\nPt reports he was recently discharged from the hospital with difficulty breathing and hypertension \n\nPt reports he cont inues to feel unwell - \ I just feel off.\ - Weakness - Headache - \n\nDenies chest pain - Denies shortness of breath - Denies fever\n\nWellness check checked requested\n\nEmergency treatment declined\n\nAgreed to a visit on 05/03\n\n\nI provided information on the mobile health provider response time and advised the patient and/or caregiver to monitor reported signs and symptoms. I discussed the warning signs of when to seek emergency care. } 65 year-old male complaining of earlier short-lived episode of anxious, anxiety and some indigestion. Patient was concerned about his blood pressure as he had been sent home with a blood pressure machine and had never used it. He did not use it for this episode but did teach him how to use it. Patient states that he also recently found out his girlfriend from high school had asked about him and he became very nervous about that. Patient is currently taking doxycycline prednisone and thyroxine for a pneumonia and was discharged 2 1/2 days ago from [facility]. Patient states he feels perfectly fine now just some anxiety about making sure that his blood pressure is OK multiple blood pressure isdone matched the blood pressures from his new machine and sent 12 lead EKG and vitals to Dr. Vargas who reviewed Agreed patient did not seem to be having any issues currently went over the side effects of prednisone and doxycycline education for the blood pressure cuff done and placed in a convenient spot for him to check his blood pressure when he has anxiety. Patient has HIV and some kidney disease which seem to be doing well. No other concerns patient thanked us for a visit and had no othercomplaints. EKG showed normal sinus rhythm. Left copy with patient to take to his PCP in two weeks.Also set up his notebook to take time blood pressure and heart rate over the next few weeks before going to his PCP. IV_(FLUIDS_AND/OR_MEDICATION), MEDICATION_IM, ORAL_MEDICATION, EKG, ORTHOSTATIC_VITAL_SIGNS Written by Medical inst[facility] on 2025-05-02
--- OUTSIDE RECORDS SUMMARY | 2025-06-08 14:08 | XMS_ITS | Continuity of Care Document ---
Author Name [facility] Address [address] [place] [id number] Organization Unknown Address [address] [place] [address] Medications No known medications Problems No known problems
[2025-06-08 14:22] LABS: Appearance Urine Clear; Glucose Urine UA Negative (Negative); PH 5.0 (5.0-9.0); Specific Gravity - Urine >= 1.030 (1.005-1.025)
[2025-06-08 14:29] LABS: Anion Gap 14 (12-20); Blood Urea Nitrogen 24 mg/dL (9-16); Calcium 8.9 mg/dL (8.4-10.2); Carbon Dioxide 26 mmol/L (22-29); Chloride 105 mmol/L (96-108); Estimated Glomerular Filt Rate 41; Potassium 4.2 mmol/L (3.3-5.1); Sodium 141 mmol/L (135-145)
[2025-06-08 14:52] LABS: Total Protein Urine Random 16 mg/dL (<12)
[2025-06-10 14:49] LABS: HIV RNA PCR Qn Copies 200 copies/mL (NOT DETECTED); HIV RNA PCR Qn Log Copies 2.30 (NOT DETECTED)
== END 2025-06-08 11:25 | disposition home or self-care (01) ==
LOC: HO.HHCL 11:24
PROVIDERS: PCP Family Medicine; Referring Provider Internal Medicine Hypertension Specialist; Visit Provider Family Medicine
DX: M54.2 Cervicalgia (principal); N18.30 Chronic kidney disease, stage 3 unspecified; Z21 Asymptomatic human immunodeficiency virus [HIV] infection status
CPT/HCPCS: 36415; 72040; 80048; 81003; 82570; 84156; 87536

== ENCOUNTER → 2025-06-09 09:44 | Outpatient (BNV) | payer OTHER, SELFPAY | PROVIDERS: PCP Family Medicine; Referring Provider Internal Medicine Hypertension Specialist; Visit Provider Radiology Diagnostic Radiology | DX: M47.812 Spondylosis without myelopathy or radiculopathy, cervical region (principal) | CPT/HCPCS: 72040 ==

== ENCOUNTER 2025-06-11 10:26 | Outpatient (AMB) | payer OTHER, SELFPAY ==
--- NOTE | 2025-06-11 10:34 | HO.NEPHOV ---
Vital Signs 06/11/25 10:35 Height 5 ft 9 in Weight 174 lb BMI 25.7 BP 112/72 Blood Pressure Location Lt brachial Position Sitting Pulse 92 Pulse Source Pulse Oximeter Pulse Oximetry (%) 44 L Oxygen Delivery Method Room Air Intake Visit Reasons: 4 MO FU-Conf Story Editor Required: No Accompanied by: Self / Same As Patient Allergies levofloxacin Allergy (Intermediate, Verified 06/11/25 10:39) Nausea, chills, SOB Medication List - Last Reconciled 06/11/25 by Harpal Sotomayor MD albuterol sulfate 90 mcg/actuation (Ventolin HFA) 1 puff PO Q4H PRN budesonide-formoterol 160-4.5 mcg/actuation 2 puffs inhalation BID 30 days rridydipwg-jzpczbrj-uasvkp ala 200-25-25 mg (Odefsey) 1 tab PO BEDTIME finasteride 5 mg PO DAILY 90 days levothyroxine 25 mcg PO DAILY methadone 70 mg PO DAILY polyvinyl alcohol 1.4% 1 drp ophthalmic (eye) TID PRN umeclidinium 62.5 mcg/actuation (Incruse Ellipta) 1 inh PO DAILY HPI Comments Details: Ra is a pleasant 64-year-old man who has been referred for evaluation of CKD. He has a history of prostate cancer Adenocarcinoma grade [address] Stewart. History of COPD History of non-Hodgkin's lymphoma and being followed by Dr. Guerin History of HIV and being followed by Dr. Almaguer. He is currently on odetsey Recent creatinine was 1.96 mg/dL hence this referral. He underwent renal ultrasonogram which was unremarkable. Back in 2022 serum creatinine was 1.53. 07/25/24; Increased urinary frequency 10/20/24 ;Overall doing well. Hoarseness of voice x few months CT neck unremarkable -except for < 50% stenosis of carotid 02/05/25; Recently had a fall.No syncope. No improvement in hoarseness 06/09/25 The patient is a 65-year-old male with CKD 3 , recently hospitalzied for chronic obstructive pulmonary disease (COPD) History of HIV infection on antiretroviral therapy, hepatitis C, and obstructive sleep apnea. Lymphoma in remission, currently on methadone. Recent hospitalization for breathing issues, irregular heart rhythm noted. Reports fatigue and breathing difficulties, low oxygen levels improved with supplemental oxygen. Kidney function stable, advised to maintain hydration and reduce salt intake. Medical History: - Human Immunodeficiency Virus (HIV) infection - Hepatitis C - Obstructive Sleep Apnea - Lymphoma in remission - Chronic Obstructive Pulmonary Disease (COPD) - Irregular heart rhythm Medications: - Antiretroviral medications for HIV - Methadone for pain management Social History: - Uses public transportation, such as the bus, for mobility. [facility] Medical History (Updated 05/11/25 @ 10:26 by Virgilio Momin MD) COPD (chronic obstructive pulmonary disease) History of smoking at least 1 pack per day for at least 30 years Colon cancer screening Bronchitis MICHELLE (obstructive sleep apnea) Dyspnea on exertion Personal history of nicotine dependence History of lymphoma (~2004) Hypogonadism in male Chronic hepatitis C without hepatic coma Anal fistula Polysubstance abuse Hypothyroidism Exercise hypoxemia Hypogonadotropic hypogonadism (~2018) HIV (human immunodeficiency virus infection) Surgical History S/P lesley-rectal abscess repair, follow-up exam Hx of fracture Family History Father Cancer Mother No problems noted. Sister Cancer Social History Household Members: Family Housing: House Do you presently have visiting nurse or other home services: Yes ([facility] and [facility].) Alcohol intake: never Comment: NO COUNTS NEEDED Patient Tobacco Use Status: Former Tobacco user Years Smoked: 40 years +/- Substance Use Type: Amphetamines, Crack/Cocaine, Heroin, Marijuana and Painkillers service: No Current occupational status: disabled Physical Exam Vital Signs: Last Vital Signs Pulse 92 06/11/25 10:35 BP 112/72 06/11/25 10:35 Pulse Ox 44 L 06/11/25 10:35 Oxygen Delivery Method Room Air 06/11/25 10:35 BMI result Body Mass Index 25.7 Comfortable Neck supple no JVD. Lungs entry equal no rales. Few rhonchi Heart S1-S2 heard no gallop or rub. Abdomen soft nontender. Neuro alert awake oriented. No asterixis. Extremities no edema. Results Reviewed Nephrology Results: Hgb, (14.0-18.0) 11.9 g/dl L 04/29/25 WBC, (4.8-10.8) 4.9 X10*3/uL 04/29/25 Plt Count, (160-400) 98 X10*3/uL L 04/29/25 Sodium, (135-145) 141 mmol/L 06/08/25 Potassium, (3.3-5.1) 4.2 mmol/L 06/08/25 Chloride, (96-108) 105 mmol/L 06/08/25 Carbon Dioxide, (22-29) 26 mmol/L 06/08/25 BUN, (9-16) 24 mg/dL H 06/08/25 Creatinine, (0.5-1.4) 1.68 mg/dL H 06/08/25 Calcium, (8.4-10.2) 8.9 mg/dL 06/08/25 Urine Protein, (Neg-Trace) Negative mg/dL 06/08/25 Urine Creatinine 305.78 mg/dL 06/08/25 Renal US 07/28/24 Assessment & Plan Assessment & Plan (1) CKD (chronic kidney disease) stage 3, GFR 30-59 ml/min: Code(s): N18.30 - Chronic kidney disease, stage 3 unspecified Category: Medical (2) HIV (human immunodeficiency virus infection): Comment: (on HAART tx - stable in the last 20 years) Code(s): B20 - Human immunodeficiency virus [HIV] disease Category: Medical (3) History of lymphoma: Onset Date: ~2004 Comment: (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 s/p EPOCH [id number] and intrathecal [employer] prophylaxis) No remissions . Code(s): Z85.79 - Personal history of other malignant neoplasms of lymphoid, hematopoietic and related tissues Category: Medical Plan Middle aged man with stage III CKD in a setting of prostate cancer and HIV. He did sustained acute kidney injury with a creatinine peaking at 1.9 and subsequently decreased to 1.5. His baseline might be 1.5 mg/dL. to 1.7 mg/dL Urine : No protein or RBCs and benign Low salt diet Avoid nephrotoxins including NSAIDS Encouraged him to increase his fluid intake to avoid dehydration. Continue to avoid nephrotoxic agents including NSAIDs. Optimize blood pressure and avoid hypotension. No changes today Orders: Orders Basic Metabolic Panel 4 Months N18.30 - Chronic kidney disease, stage 3 unspecified Coding Level of Care Code Est Pt Level 4 (24940) Diagnoses CKD (chronic kidney disease) stage 3, GFR 30-59 ml/min N18.30 HIV (human immunodeficiency virus infection) B20 History of lymphoma Z85.79
[2025-06-11 10:35] VITALS: BP 112/72; PULSE 92; O2SAT 44; BMI 25.7
== END 2025-06-11 10:57 | disposition home or self-care (01) ==
LOC: HO.HKA 10:27
PROVIDERS: PCP Family Medicine; Visit Provider Internal Medicine Hypertension Specialist
DX: N18.30 Chronic kidney disease, stage 3 unspecified (principal); B20 Human immunodeficiency virus [HIV] disease; Z85.79 Personal history of other malignant neoplasms of lymphoid, hematopoietic and related tissues
CPT/HCPCS: 99214

== ENCOUNTER → 2025-06-11 10:26 | Outpatient (BNVA) | payer OTHER, SELFPAY | PROVIDERS: PCP Family Medicine; Visit Provider Internal Medicine Hypertension Specialist | DX: B20 Human immunodeficiency virus [HIV] disease (principal); N18.30 Chronic kidney disease, stage 3 unspecified; Z85.79 Personal history of other malignant neoplasms of lymphoid, hematopoietic and related tissues | CPT/HCPCS: 99212 ==

== ENCOUNTER 2025-06-21 22:08 | Emergency (ER) | payer OTHER, SELFPAY ==
--- NOTE | ~2025-06-21 | XR_ITS ---
CLINICAL HISTORY: Dyspnea 1 view chest x-ray Comparison: CT/REG/SR - CT ANGIO CHEST PE PROTOCOL - 04/26/25 03:[address] - CT ANGIO CHEST PE PROTOCOL - 04/26/25 03:22 EDT CR - XR CHEST 1V - 04/26/25 01:22 EDT Findings: Interval increase in diffuse interstitial prominence of both lungs may represent worsening pulmonary edema/fluid overload. Heart size is normal. No acute fracture. IMPRESSION: Interval increase in diffuse interstitial prominence of both lungs may represent worsening pulmonary edema/fluid overload. This document has been electronically signed by: Yamil Russell MD on 06/21/2025 23:27:48
[2025-06-21 22:12] VITALS: BP 166/100; PULSE 88; O2SAT 93
--- NOTE | 2025-06-21 22:21 | ECG_ITS ---
Test Reason : dyspnea Blood Pressure : */* mmHG Vent. Rate : 71 BPM Atrial Rate : 71 BPM P-R Int : 140 ms QRS Dur : 72 ms QT Int : 396 ms P-R-T Axes : 76 29 64 degrees QTcB Int : 430 ms Normal sinus rhythm Normal ECG When compared with ECG of 29-Apr-2025 09:45, No significant change was found Referred By: Generic ED Physician Electronically Signed By: Tonio Hdz
[2025-06-21 22:27] VITALS: BP 140/87; PULSE 71; RESP 13; TEMP 36.9; O2SAT 94; BMI 27.3
[2025-06-21 22:46] LABS: MANUAL DIFF FLAG NO
[2025-06-21 22:55] LABS: Hematocrit 38.0 % (42.0-52.0); Hemoglobin 13.0 g/dl (14.0-18.0); Imm Gran Abs Auto 0.02 X10*3/uL (0.00-0.03); Imm Gran Pct Auto 0.6 % (0.0-0.4); Lymphocytes Absolute Auto 0.4 X10*3/uL (1.2-4.9); Mean Corpuscular HGB Conc 34.2 g/dl (31.0-36.0); Mean Corpuscular Hemoglobin 30.0 pg (27.0-33.0); Mean Corpuscular Volume 87.6 fL (80.0-98.0); NRBC Abs Auto 0.000 X10*3/uL (0.0-0.012); NRBC Pct Auto 0.0 /100WBC (0.0-0.2); Platelet Count 147 X10*3/uL (160-400); Red Blood Count 4.34 X10*6/uL (4.60-5.80); White Blood Count 3.4 X10*3/uL (4.8-10.8)
[2025-06-21 23:11] LABS: Alanine Aminotransferase 15 U/L (0-40); Albumin Level 4.2 g/dL (3.5-5.0); Alkaline Phosphatase 158 U/L (39-117); Anion Gap 13 (12-20); Aspartate Amino Transferase 26 U/L (5-37); Blood Urea Nitrogen 22 mg/dL (9-16); Calcium 9.0 mg/dL (8.4-10.2); Carbon Dioxide 28 mmol/L (22-29); Chloride 101 mmol/L (96-108); Creatinine Clr Calc Pharmacy 57.9; Estimated Glomerular Filt Rate 57; Potassium 4.5 mmol/L (3.3-5.1); Sodium 137 mmol/L (135-145); Total Protein 7.2 g/dL (6.5-8.0)
[2025-06-21 23:26] LABS: Troponin-I High Sensitivity < 2.7 ng/L (<3.5-35.0)
--- NOTE | 2025-06-21 23:33 | PC.NURSE ---
assumed care of patient at this time. no apparent distress noted, call cyr within reach. at bedside
[2025-06-21 23:44] VITALS: BP 133/88; PULSE 66; RESP 18; TEMP 36.8; O2SAT 98
[2025-06-21 23:55] VITALS: PULSE 66; RESP 14; O2SAT 96
[2025-06-21] MEDS: Albuterol/Iprat 2.5/0.5MG 3 ML AMPUL.NEB INHALE (23:55)
[2025-06-22 00:25] LABS: COVID-19 Test Negative (Negative); IDNOW Serial# 55D5AD1C; IDNOW Serial# 58CA691E; Influenza B2 Negative (Negative)
[2025-06-22 01:16] LABS: NT Pro B Type Natriuretic Pept 128.0 pg/mL (<300)
[2025-06-22 02:36] VITALS: BP 135/83; PULSE 70; RESP 16; TEMP 36.6; O2SAT 94
[2025-06-22 03:00] LABS: Troponin-I High Sensitivity 3.9 ng/L (<3.5-35.0)
--- NOTE | 2025-06-22 03:53 | ED_ITS ---
HPI - General Adult General Chief complaint: Dyspnea Stated complaint: SOB feels off, COPD 3.5L Home O2 99% RA, Ax Time Seen by Provider: 06/21/25 22:31 Source: patient, EMS, RN notes reviewed and old records reviewed Mode of arrival: EMS Limitations: no limitations History of Present Illness ED Provider: Dr. Arabella Caceres HPI narrative: 65-year-old male with extensive past medical history including oxygen-dependent COPD, HIV, GERD, CKD presenting with shortness of breath and a ?feeling of impending doom? that began while he was sitting down watching television tonight. Admits that this has been an ongoing issue for him over the last several weeks. He was seen in this emergency department 2 weeks ago for this exact reason. Ended up being admitted for a COPD exacerbation and spent 5 days in the hospital. States that about a week later he had similar complaints but ?forced himself to stay at home instead of coming to the hospital for it?. Admits that he feels his symptoms are worse after using his albuterol rescue inhaler. Feels palpitations and ?discomfort? in his chest. Denies associated fever, cough or sputum production, abdominal pain, nausea, vomiting, diarrhea, bloody stools, urinary complaints, lower extremity edema or pain, known sick contacts or travel. Has been seen by his foreign law consultant, photography colorist and primary care doctor all within the last 2 weeks. No new changes in medications. Related Data Home Medications ?Medication ?Instructions ?Recorded ?Confirmed albuterol sulfate 90 mcg/actuation 1 puff PO Q4H PRN d yspnea 06/21/21 06/11/25 aerosol inhaler (Ventolin HFA) levothyroxine 25 mcg tablet 25 mcg PO DAILY 06/21/21 0 06/11/25 umeclidinium 62.5 mcg/actuation 1 inh PO DAILY 1 06/11/25 blister powder for inhalation (Incruse Ellipta) emtricitabine 200 mg-rilpivirine 1 tab PO BEDTIME 02/1906/11/25 25 mg-tenofovir alafenam 25 mg tablet (Odefsey) methadone 10 mg/mL oral concentrate 70 mg PO DAILY 06/11/25 polyvinyl alcohol 1.4 % eye drops 1 drp ophthalmic (ey e) TID PRN dry 04/26/25 06/11/25 eyes Previous Rx's ?Medication ?Instructions ?Recorded finasteride 5 mg tablet 5 mg PO DAILY 90 days #90 ta bs 05/11/25 budesonide-formoterol HFA 160 2 puff inhalation BID 30 days 05/25/25 mcg-4.5 mcg/actuation aerosol #10.2 grams inhaler Allergies Allergy/AdvReac Type Severity Reaction Status Date / Time levofloxacin Allergy Intermediate Nausea, Verified 06/21/25 22:28 chills, SOB Review of Systems 2 Review of Systems: as per HPI, full review of systems performed and negative but for the above mentioned pertinent positives and negatives. [facility] Past Medical History Medical History COPD (chronic obstructive pulmonary disease) History of smoking at least 1 pack per day for at least 30 years Colon cancer screening Bronchitis MICHELLE (obstructive sleep apnea) Dyspnea on exertion Personal history of nicotine dependence History of lymphoma (~2004) Hypogonadism in male Chronic hepatitis C without hepatic coma Anal fistula Polysubstance abuse Hypothyroidism Exercise hypoxemia Hypogonadotropic hypogonadism (~2018) HIV (human immunodeficiency virus infection) Surgical History S/P lesley-rectal abscess repair, follow-up exam Hx of fracture Family History Family History Father Cancer Mother No problems noted. Sister Cancer Social History Social History Household Members: Family Housing: House Do you presently have visiting nurse or other home services: Yes (Adrian and [facility].) Alcohol intake: never Comment: NO COUNTS NEEDED Patient Tobacco Use Status: Former Tobacco user Years Smoked: 40 years +/- Smoked in Last 30 Days: No Use of substances other than those prescribed or required for medical reasons: No Substance Use Type: Amphetamines, Crack/Cocaine, Heroin, Marijuana and Painkillers Advance Directives: No Advance Directives Information Provided: Yes Do you have a plan to hurt others: No Plan service: No Current occupational status: disabled Physical Exam ED Exam Exam: GENERAL: Ill-appearing, chronically ill-appearing, mild respiratory distress. SKIN: Normal skin color for ethnicity, warm, dry, no rashes noted. HEENT: Normocephalic, atraumatic, no stridor, EOMI. NECK: Soft, supple, full ROM, midline structures nontender, no step-offs, no deformities, no lymphadenopathy. CHEST: Heart regular rhythm, barrel chest, symmetric chest rise and fall. PULMONARY: Diffuse, faint, wheezes throughout, tachypnea, slightly diminished air movement bilaterally, mild respiratory distress. ABDOMINAL: Soft, nontender, quiet bowel sounds in all quadrants. : Deferred. MUSCULOSKELETAL: Normal tone, full range of motion, no deformities, no peripheral edema. NEURO: Alert and oriented to person, CN II through XII intact, no focal neurologic deficits. PSYCHIATRIC: Anxious affect, appropriate demeanor. Vital Signs: Vital Signs - 24 hr 06/21/25 22:27 06/21/25 23:44 06/21/25 23:55 Temperature 98.4 F 98.3 F Pulse Rate 71 66 66 Respiratory Rate 13 18 14 Blood Pressure 140/87 H 133/88 Pulse Oximetry 94 98 Oxygen Delivery Method Room Air Room Air Oxygen Flow Rate 06/22/25 02:36 Temperature 97.8 F Pulse Rate 70 Respiratory Rate 16 Blood Pressure 135/83 Pulse Oximetry 94 Oxygen Delivery Method Nasal Cannula Oxygen Flow Rate 2 BMI result Body Mass Index 27.3 Medications Administered Discontinued Medications Generic Name Dose Route Start Last Admin Trade Name Freq PRN Reason Stop Dose Admin Albuterol/Ipratropium 3 ml 06/21/25 23:51 06/21/25 23:55 Albuterol/Iprat 2.5/0.5mg 3 Ml Ampul.Neb INHALE 06/21/25 23:52 3 ml ONCE ONE Administration Lorazepam 1 mg 06/22/25 00:29 06/22/25 00:35 Lorazepam 1 Mg Tablet PO 06/22/25 00:30 1 mg ONCE ONE Administration Methylprednisolone Sodium Succinate 60 mg 06/21/25 23:41 06/22/25 00:06 Methylprednisolone Sod Succ 125 Mg/2 Ml Vial IVPUSH 06/21/25 23:42 60 mg ONCE ONE Administration Medical Decision Making Medical Decision Making [facility] Narrative: Patient presents today with a chief complaint of chest pain and dyspnea Differential diagnosis includes, but is not limited to, COPD exacerbation, CHF, acute coronary syndrome, musculoskeletal pain, pneumothorax, GERD, pleurisy, pulmonary embolism, dissection, among others. I will order EKG, chest x-ray, laboratory workup including cardiac enzymes to further evaluate for etiology. 1:59 AM 06/22/2025 (Dr. Arabella Caceres, D.O.) patient requesting something for his nerves. He states he feels most of her symptoms are related to ?feeling like he is withdrawing from methadone?. His workup has been reassuring. Cardiac enzyme is flat. EKG is not ischemic. He is tolerating oral intake without issue. Patient had wheezes on my initial exam which have resolved. I feel he is stable at this time for discharge and outpatient follow-up. He has excellent care as an outpatient. Using shared decision making, plan for discharge home to follow-up with primary care and/or specialist.? Patient understands and agrees with plan for discharge.? Discharged home in stable condition. Differential Diagnosis Differential Diagnoses: The differential diagnosis associated with the presentation includes (as above) Admission/Observation Consideration of admission/observation: Escalation of care including admission/observation considered Lab Data MDM Lab Attestation statement: I reviewed the patient's lab results. 06/21/25 22:40 06/21/25 22:40 Labs: Lab Results 06/21/25 06/22/25 06/22/25 Range/Units 22:40 00:09 02:34 WBC 3.4 L (4.8-10.8) X10*3/uL RBC 4.34 L (4.60-5.80) X10*6/uL Hgb 13.0 L (14.0-18.0) g/dl Hct 38.0 L (42.0-52.0) % MCV 87.6 (80.0-98.0) fL MCH 30.0 (27.0-33.0) pg MCHC 34.2 (31.0-36.0) g/dl RDW 13.3 (11.0-16.0) % Plt Count 147 L D (160-400) X10*3/uL MPV 8.8 L (9.4-12.4) fL Immature Gran % (Auto) 0.6 H (0.0-0.4) % Neut % (Auto) 76.8 H (45-73) % Lymph % (Auto) 11.6 L (20-40) % [place] % (Auto) 8.3 (2-11) % Eos % (Auto) 2.4 (0-4) % Baso % (Auto) 0.3 (0-2) % Lymph # (Auto) 0.4 L (1.2-4.9) X10*3/uL [place] # (Auto) 0.3 (0.1-1.2) X10*3/uL Eos # (Auto) 0.1 (0.0-0.4) X10*3/uL Baso # (Auto) 0.0 (0.0-0.2) X10*3/uL Abs Immat Gran (auto) 0.02 (0.00-0.03) X10*3/uL Absolute Neuts (auto) 2.6 (2.0-8.3) x10*3/uL Absolute Nucleated RBC 0.000 (0.0-0.012) X10*3/uL Nucleated RBC % (auto) 0.0 (0.0-0.2) /100WBC Sodium 137 (135-145) mmol/L Potassium 4.5 (3.3-5.1) mmol/L Chloride 101 (96-108) mmol/L Carbon Dioxide 28 (22-29) mmol/L Anion Gap 13 (12-20) BUN 22 H (9-16) mg/dL Creatinine 1.27 (0.5-1.4) mg/dL Estim Creat Clear Calc 57.9 Estimated GFR 57 Random Glucose 116 H (60-115) mg/dL Calcium 9.0 (8.4-10.2) mg/dL Total Bilirubin 0.6 (0.0-1.0) mg/dL AST 26 (5-37) U/L ALT 15 (0-40) U/L Alkaline Phosphatase 158 H (39-117) U/L Troponin I High Sens < 2.7 3.9 (<3.5-35.0) ng/L NT-Pro-B Natriuret Pep 128.0 (<300) pg/mL Total Protein 7.2 (6.5-8.0) g/dL Albumin 4.2 (3.5-5.0) g/dL COVID-19 (YARED) Negative (Negative) COVID-19 Clin Com See Note Influenza Type A ([facility]AM) Negative (Negative) Influenza Type B ([place]) Negative (Negative) Influenza A & B Note See Note Independent Interpretation I performed an independent interpretation of an: EKG Interpretation: My independent interpretation of the ECG reveals normal sinus rhythm with rate of 71, normal axis, normal intervals, no ST elevations or depressions to suggest ischemic changes, relatively unchanged from previous on 04/29/2025. Radiology Impression Discussion of test interpretation with radiology: I have reviewed the radiologist's reading. Independent Historian Clinical information obtained from an independent historian. History obtained from or confirmed by: EMS External Record Review External record reviewed: Inpatient record, Office record and Outpatient record Chronic Conditions Patient?s care impacted by: Cancer and Other (COPD, CKD) Social Determinants Patient?s care significantly limited by Social Determinants of Health including: Problems related to primary support group and Other Social Determinant of Health Discharge Plan Discharge Clinical Impression: Anxiety, Atypical chest pain Patient Disposition: Home, Self-Care Instructions: Anxiety (ED) Additional Instructions: DIAGNOSIS & TREATMENT: You were seen in the Emergency Department for your chest discomfort. We performed an EKG, laboratory work and chest xray which did not reveal any acute abnormalities that would explain your symptoms. FURTHER CARE: We have not found any emergent physical exam or lab abnormalities that would require admission to the hospital today. Many people who come to the ER with chest discomfort do not leave with a specific diagnosis at the end of their visit. In the Emergency Department we try to make sure that there is no emergent problem that needs admission to the hospital or antibiotics right now. This does not mean that your evaluation is complete--please be sure to follow up with your regular doctor as additional testing as an outpatient may be indicated. Please be certain to drink plenty of fluids over the next several days. WHEN YOU SHOULD BE SEEN NEXT: Please follow-up with your primary care provider within the next 2-3 days for reevaluation of your symptoms. WHEN TO RETURN TO THE ED: Monitor your symptoms closely and return to the emergency department immediately for any new/worsening symptoms including: Worsening chest pain, difficulty breathing, fevers greater than 100 degrees, passing out, any new symptom that concerns you. Call 911 with any medical emergency. Prescriptions: No Action budesonide-formoterol 160-4.5 mcg/actuation HFA aerosol inhaler 2 puff inhalation BID 30 Days Qty: 10.2 5RF polyvinyl alcohol 1.4 % drops 1 drp ophthalmic (eye) TID PRN (Reason: dry eyes) methadone 10 mg/mL Concentrate 70 mg PO DAILY albuterol sulfate [Ventolin HFA] 90 mcg/actuation HFA aerosol inhaler 1 puff PO Q4H PRN (Reason: dyspnea) Incruse Ellipta 62.5 mcg/actuation blister with device 1 inh PO DAILY levothyroxine 25 mcg tablet 25 mcg PO DAILY Odefsey 200-25-25 mg tablet 1 tab PO BEDTIME finasteride 5 mg tablet 5 mg PO DAILY 90 Days Qty: 90 1RF Print Language: Iranian
[2025-06-22 04:25] VITALS: BP 135/83; PULSE 70; RESP 16; TEMP 36.6; O2SAT 94
== END 2025-06-22 04:43 | disposition home or self-care (01) ==
PROVIDERS: Emergency Provider Emergency Medicine; PCP Family Medicine
DX: F41.9 Anxiety disorder, unspecified (principal); R07.89 Other chest pain; R06.02 Shortness of breath; J44.9 Chronic obstructive pulmonary disease, unspecified; Z99.81 Dependence on supplemental oxygen; Z11.52 Encounter for screening for COVID-19
CPT/HCPCS: 36415; 71045; 80053; 83880; 84484; 85025; 87502; 87635; 93005; 94640; 96374; 99284; J2919

== ENCOUNTER → 2025-06-21 22:21 | Outpatient (BNV) | payer OTHER, SELFPAY | PROVIDERS: Emergency Provider Emergency Medicine; PCP Family Medicine; Visit Provider Internal Medicine Cardiovascular Disease | DX: R06.00 Dyspnea, unspecified (principal) | CPT/HCPCS: 93010 ==

== ENCOUNTER → 2025-06-21 22:27 | Outpatient (BNV) | payer OTHER, SELFPAY | PROVIDERS: Emergency Provider Emergency Medicine; PCP Family Medicine; Visit Provider Student in an Organized Health Care Education/Training Program | DX: J84.9 Interstitial pulmonary disease, unspecified (principal) | CPT/HCPCS: 71045 ==

== ENCOUNTER 2025-06-30 09:36 | Outpatient (AMB) | payer OTHER, SELFPAY ==
--- NOTE | 2025-06-30 10:20 | A.OFFVIS_ITS ---
Vital Signs 06/30/25 10:21 Height 5 ft 9 in Weight 169 lb 12.095 oz BMI 25.1 BP 142/70 H Blood Pressure Location Lt brachial Position Sitting Pulse 111 H Pulse Oximetry (%) 92 Oxygen Delivery Method Nasal Cannula Oxygen Flow Rate 3 Intake Visit Reasons: COPD Intake Note: pt is here for follow up from ER and is having issues with oxygen, he is not using the cpap, says he cannot tolerate this, he has a lot of issues. Aircraft Mechanic Armament Required: No Allergies levofloxacin Allergy (Intermediate, Verified 06/30/25 10:36) Nausea, chills, SOB Medication List - Last Reconciled 06/30/25 by Virgilio Momin MD albuterol sulfate 90 mcg/actuation (Ventolin HFA) 1 puff PO Q4H PRN budesonide-formoterol 160-4.5 mcg/actuation 2 puffs inhalation BID 30 days clonazepam (Klonopin) 1 mg PO BEDTIME PRN spagfjpwss-fldhstzk-fxinmj ala 200-25-25 mg (Odefsey) 1 tab PO BEDTIME finasteride 5 mg PO DAILY 90 days levothyroxine 25 mcg PO DAILY methadone 70 mg PO DAILY polyvinyl alcohol 1.4% 1 drp ophthalmic (eye) TID PRN umeclidinium 62.5 mcg/actuation (Incruse Ellipta) 1 inh PO DAILY Do you need a note to return to daycare/school/sports/work: No HPI HPI COPD: Details: THIS 65 YEARS OLD GENTLEMAN IS COMING FOR FOLLOW-UP. HE IS BEING FOLLOWED FOR COPD, HYPOXEMIA, OBSTRUCTIVE SLEEP APNEA, AND ANXIETY SYNDROME. HE HAS BEEN HOMELESS IN THE PAST BUT RIGHT NOW HE HAS A STABLE RESIDENCE WITH HIS BROTHER. OVERALL DOING WELL AND HIS BREATHING HAS BEEN CONTROLLED. HE HAS NOT BEEN ABLE TO USE THE CPAP AT NIGHT, AND USES O2 INSTEAD. DURING THE DAYTIME HE CAN WALK AROUND. MOSTLY HAS BEEN STABLE AND HAS HAD NO RESPIRATORY INFECTION. HOWEVER A FEW WEEKS AGO WAS SEEN IN THE EMERGENCY ROOM WITH INCREASED SHORTNESS OF BREATH AND THE FINAL DIAGNOSIS WAS ANXIETY SYNDROME. HE CALMED DOWN WITH 1 TABLET OF KLONOPIN. [facility] Medical History COPD (chronic obstructive pulmonary disease) History of smoking at least 1 pack per day for at least 30 years Colon cancer screening Bronchitis MICHELLE (obstructive sleep apnea) Dyspnea on exertion Personal history of nicotine dependence History of lymphoma (~2005) Hypogonadism in male Chronic hepatitis C without hepatic coma Anal fistula Polysubstance abuse Hypothyroidism Exercise hypoxemia Hypogonadotropic hypogonadism (~2018) HIV (human immunodeficiency virus infection) Surgical History S/P lesley-rectal abscess repair, follow-up exam Hx of fracture Family History Father Cancer Mother No problems noted. Sister Cancer Social History Household Members: Family Housing: House Do you presently have visiting nurse or other home services: Yes ([facility] and [employer].) Alcohol intake: never Comment: NO COUNTS NEEDED Patient Tobacco Use Status: Former Tobacco user Years Smoked: 40 years +/- Substance Use Type: Amphetamines, Crack/Cocaine, Heroin, Marijuana and Painkillers service: No Current occupational status: disabled Review of Systems Const All systems reviewed & are unremarkable except as noted in HPI and below Eyes Reports no additional complaints ENT Reports nasal congestion (Mild off and on) Card Reports chest pain, Denies irregular heart rhythm and Denies leg edema Resp Reports as per HPI GI Reports no additional complaints Reports no additional complaints Musc Reports no additional complaints Skin/Breast Reports system reviewed and no additional complaints, except as documented Neuro Reports no additional complaints Psych Reports no additional complaints Endo Reports other (Being treated for diabetes mellitus, and hypothyroidism.) Physical Exam Vital Signs: Last Vital Signs Pulse 111 H 06/30/25 10:21 BP 142/70 H 06/30/25 10:21 Pulse Ox 92 06/30/25 10:21 Oxygen Delivery Method Nasal Cannula 06/30/25 10:21 Oxygen Flow Rate 3 06/30/25 10:21 BMI result Body Mass Index 25.1 Const General: comfortable (Slightly short of breath when walking), no acute distress, alert and awake Orientation/consciousness: patient oriented x3 HEENT Head: Yes normal to inspection General nose exam: No nasal polyps present and No nasal discharge present Face and sinus: Yes sinuses nontender Mouth: oropharynx normal Teeth and gingiva: edentulous Throat: Yes posterior oropharynx normal Eyes General: appearance normal, both eyes and all related structures Neck Neck: Yes normal visual inspection, Yes no lymphadenopathy, Yes trachea midline and Yes no JVD Thyroid: Thyroid normal Chest Chest palpation & inspection: normal inspection of the chest, normal palpation of entire chest wall and no tenderness Resp Other: Percussion note hyper-resonant, breath sounds are distant with prolonged expiratory phase, but equal on both sides. No audible wheezes or rhonchi. Cardio Palpation: normal PMI Rate: regular rate Rhythm: regular rhythm Heart sounds: no gallops and no murmurs GI Palpation (GI): Soft to palpation, nontender, No hepatosplenomegaly present and no masses Auscultation: normal bowel sounds Back/Spine/Pelvis Thoracic/Lumbar Spine: thoracic and lumbar spine normal to inspection Skin General skin exam: no rashes or lesions noted and dry skin Neuro General: patient oriented x3 and no focal motor deficits Cranial nerves: Yes CN's II-XII intact bilaterally Extrem General: Yes normal to inspection, Yes no clubbing, cyanosis or edema and Yes no calf tenderness Psych Appearance: grossly normal and well kempt Speech and movement: Normal speech and movement present Results Reviewed Results Reviewed: COMPLIANCE REPORT FOR THE LAST 30 NIGHTS SHOWS THAT HE USED ONLY FOR 2 NIGHTS IN 2 MONTHS. THIS WILL BE CONSIDERED TOTAL NONCOMPLIANCE Assessment & Plan Assessment & Plan (1) COPD (chronic obstructive pulmonary disease): Comment: Has advanced chronic obstructive pulmonary disease, related to his past smoking He is doing very well with the current regimen. BUT STILL GETS intermittent attacks of Dyspnea, more like Hyperventilation . * HAS BEEN TREATED IN THE HOSPITAL SETTING FOR ACUTE EXACERBATION OF COPD, AND CURRENTLY SEEMS TO BE AT HIS BASELINE. At present he is quite stable. Code(s): J44.9 - Chronic obstructive pulmonary disease, unspecified Category: Medical Plan: Advised to continue using budesonide-formoterol on 60-4.52 puffs b.i.d. and albuterol HFA 1 or 2 puffs Q 4-6 hours p.r.n. (2) Exercise hypoxemia: Comment: He is known to have exercise induced hypoxemia. He does have POC which he uses when walking around, and doing some physical work , outside the house. 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 FOR A WHILE HE WAS USING CPAP ALMOST REGULARLY. BUT MORE RECENTLY HE IS NOT USING IT, CLAIMING THAT HE JUST CAN NOT GO TO SLEEP WITH THE MASK ON HIS FACE HER NOSE. IT IS. MORE RELATED TO ANXIETY SYNDROME . Code(s): G47.33 - Obstructive sleep apnea (adult) (pediatric) Category: Medical Plan: ADVISED TO TIE USING IT EVEN FOR A FEW HOURS EVERY NIGHT. USE O2 2 L/MINUTE WHEN NOT USING THE CPAP ( MAINLY A PLACEBO EFFECT) DISCUSSED ABOUT POSSIBILITY OF INSPIRE. HE MAY BE A CANDIDATE FOR THAT BUT HE IS NOT MENTALLY VERY STABLE, STILL ON METHADONE, AND HAS FREQUENT MOOD CHANGES. (4) History of smoking at least 1 pack per day for at least 30 years: Comment: THIS GENTLEMAN DOES HAVE PAST HISTORY OF SMOKING FOR ALMOST 40 YEARS, 1 PACK A DAY. * LUCKILY HE WAS ABLE TO QUIT BACK IN 2020. HE DOES NOT HAVE ANY URGE TO GO BACK TO SMOKING. Code(s): Z87.891 - Personal history of nicotine dependence Category: Social Hx Plan: CONTINUE TO GO FOR ANNUAL LUNG SCREENING WITH LD CT. Coding Level of Care Code Est Pt Level 3 (43690) Diagnoses COPD (chronic obstructive pulmonary disease) J44.9 Exercise hypoxemia R09.02 MICHELLE (obstructive sleep apnea) G47.33 History of smoking at least 1 pack per day for at least 30 years Z87.891
[2025-06-30 10:21] VITALS: BP 142/70; PULSE 111; O2SAT 92; BMI 25.1
== END 2025-06-30 10:47 | disposition home or self-care (01) ==
LOC: HO.HPS 09:37
PROVIDERS: PCP Family Medicine; Visit Provider Internal Medicine
DX: J44.9 Chronic obstructive pulmonary disease, unspecified (principal); R09.02 Hypoxemia; G47.33 Obstructive sleep apnea (adult) (pediatric); Z87.891 Personal history of nicotine dependence
CPT/HCPCS: 99213

== ENCOUNTER → 2025-06-30 09:36 | Outpatient (BNVA) | payer OTHER, SELFPAY | PROVIDERS: PCP Family Medicine; Visit Provider Internal Medicine | DX: J44.9 Chronic obstructive pulmonary disease, unspecified (principal); R09.02 Hypoxemia; G47.33 Obstructive sleep apnea (adult) (pediatric); Z87.891 Personal history of nicotine dependence | CPT/HCPCS: 99212 ==

== ENCOUNTER 2025-07-28 08:53 | Outpatient (AMB) | payer OTHER, SELFPAY ==
[2025-07-28 08:59] VITALS: BP 130/78; PULSE 57; O2SAT 96; BMI 25.6
--- NOTE | 2025-07-28 08:59 | MHC.OFFVIS ---
Vital Signs 07/28/25 08:59 Height 5 ft 9 in Weight 173 lb 1.006 oz BMI 25.6 BP 130/78 Blood Pressure Location Lt brachial Position Sitting Pulse 57 Pulse Source Pulse Oximeter Pulse Oximetry (%) 96 Oxygen Delivery Method Room Air Intake Visit Reasons: Obstructive sleep apnea Intake Note: pt is here for follow up and needs to discuss the cpap. Medicaid Billing Clerk Required: No [place] Decorator: [employer] Dec[employer]ator offered & declined Allergies levofloxacin Allergy (Intermediate, Verified 07/28/25 10:23) Nausea, chills, SOB Medication List - Last Reconciled 07/28/25 by Virgilio Momin MD albuterol sulfate 90 mcg/actuation (Ventolin HFA) 1 puff PO Q4H PRN budesonide-formoterol 160-4.5 mcg/actuation 2 puffs inhalation BID 30 days clonazepam (Klonopin) 1 mg PO BEDTIME PRN omkfuqbzhs-avfmuvkb-lrzvod ala 200-25-25 mg (Odefsey) 1 tab PO BEDTIME finasteride 5 mg PO DAILY 90 days levothyroxine 25 mcg PO DAILY methadone 70 mg PO DAILY polyvinyl alcohol 1.4% 1 drp ophthalmic (eye) TID PRN umeclidinium 62.5 mcg/actuation (Incruse Ellipta) 1 inh PO DAILY Do you need a note to return to daycare/school/sports/work: No HPI HPI Obstructive sleep apnea: Details: THIS 65 YEARS OLD GENTLEMAN IS COMING FOR FOLLOW-UP, MAINLY TO DISCUSS ABOUT HIS SLEEP APNEA/HYPOXEMIA. HE IS BEING FOLLOWED FOR COPD, HYPOXEMIA, OBSTRUCTIVE SLEEP APNEA, AND ANXIETY SYNDROME. HE HAS BEEN HOMELESS IN THE PAST BUT RIGHT NOW HE HAS A STABLE RESIDENCE WITH HIS BROTHER. OVERALL DOING WELL AND HIS BREATHING ISSUE HAS BEEN CONTROLLED WELL. HE HAS NOT BEEN ABLE TO USE THE CPAP AT NIGHT, AND USES O2 INSTEAD. DURING THE DAYTIME HE CAN WALK AROUND. MOSTLY HAS BEEN STABLE AND HAS HAD NO RESPIRATORY INFECTION. HOWEVER A FEW WEEKS AGO WAS SEEN IN THE EMERGENCY ROOM WITH INCREASED SHORTNESS OF BREATH AND THE FINAL DIAGNOSIS WAS ANXIETY SYNDROME. HE CALMED DOWN WITH 1 TABLET OF KLONOPIN. HE IS STILL ON LOW-DOSE METHADONE , THERAPY AND USES KLONOPIN 1 MG AT BEDTIME P.R.N.. WITH. THIS COMBINATION HE COMES DOWN PRETTY GOOD * HIS COMPLIANCE TO THE USE OF CPAP HAS BEEN SUBOPTIMAL. HE HAS BEEN SENT A NOTICE THAT HIS CPAP DEVICE WILL BE TAKEN AWAY. HE DID DISCUSS OPTIONS INCLUDING [id number] OFFICE VISIT WHICH IS BEING DONE, AND HE NEW FACILITY BASED TITRATION SLEEP STUDY. PATIENT IS ALSO EDUCATED ABOUT THE EXPECTORATION FOR HIS COMPLIANCE . 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 [facility] Medical History COPD (chronic obstructive pulmonary disease) History of smoking at least 1 pack per day for at least 30 years Colon cancer screening Bronchitis MICHELLE (obstructive sleep apnea) Dyspnea on exertion Personal history of nicotine dependence History of lymphoma (~2004) Hypogonadism in male Chronic hepatitis C without hepatic coma Anal fistula Polysubstance abuse Hypothyroidism Exercise hypoxemia Hypogonadotropic hypogonadism (~2018) HIV (human immunodeficiency virus infection) Surgical History S/P lesley-rectal abscess repair, follow-up exam Hx of fracture Family History Father Cancer Mother No problems noted. Sister Cancer Social History Household Members: Family Housing: House Do you presently have visiting nurse or other home services: Yes ([facility]rian and [employer].) Alcohol intake: never Comment: NO COUNTS NEEDED Patient Tobacco Use Status: Former Tobacco user Years Smoked: 40 years +/- Substance Use Type: Amphetamines, Crack/Cocaine, Heroin, Marijuana and Painkillers service: No Current occupational status: disabled Review of Systems Const All systems reviewed & are unremarkable except as noted in HPI and below Eyes Reports no additional complaints ENT Reports nasal congestion (Mild off and on) Card Reports chest pain, Denies irregular heart rhythm and Denies leg edema Resp Reports as per HPI GI Reports no additional complaints Reports no additional complaints Musc Reports no additional complaints Skin/Breast Reports system reviewed and no additional complaints, except as documented Neuro Reports no additional complaints Psych Reports no additional complaints Endo Reports other (Being treated for diabetes mellitus, and hypothyroidism.) Physical Exam Vital Signs: Last Vital Signs Pulse 36 L 07/28/25 08:59 BP 130/78 07/28/25 08:59 Pulse Ox 96 07/28/25 08:59 Oxygen Delivery Method Room Air 07/28/25 08:59 BMI result Body Mass Index 25.6 Const General: comfortable (Slightly short of breath when walking), no acute distress, alert and awake Orientation/consciousness: patient oriented x3 HEENT Head: Yes normal to inspection General nose exam: No nasal polyps present and No nasal discharge present Face and sinus: Yes sinuses nontender Mouth: oropharynx normal Teeth and gingiva: edentulous Throat: Yes posterior oropharynx normal Eyes General: appearance normal, both eyes and all related structures Neck Neck: Yes normal visual inspection, Yes no lymphadenopathy, Yes trachea midline and Yes no JVD Thyroid: Thyroid normal Chest Chest palpation & inspection: normal inspection of the chest, normal palpation of entire chest wall and no tenderness Resp Other: Percussion note hyper-resonant, breath sounds are distant with prolonged expiratory phase, but equal on both sides. No audible wheezes or rhonchi. Cardio Palpation: normal PMI Rate: regular rate Rhythm: regular rhythm Heart sounds: no gallops and no murmurs GI Palpation (GI): Soft to palpation, nontender, No hepatosplenomegaly present and no masses Auscultation: normal bowel sounds Back/Spine/Pelvis Thoracic/Lumbar Spine: thoracic and lumbar spine normal to inspection Skin General skin exam: no rashes or lesions noted and dry skin Neuro General: patient oriented x3 and no focal motor deficits Cranial nerves: Yes CN's II-XII intact bilaterally Extrem General: Yes normal to inspection, Yes no clubbing, cyanosis or edema and Yes no calf tenderness Psych Appearance: grossly normal and well kempt Speech and movement: Normal speech and movement present Results Reviewed Results Reviewed: LAST COMPLIANCE REPORT WAS FROM 03/05/25 TO 06/02/25 AND IT SHOWED THAT HE HAD USED ONLY 19/90 NIGHT5 21% THAT IS GROSSLY SUBOPTIMAL. Assessment & Plan Assessment & Plan (1) COPD (chronic obstructive pulmonary disease): Comment: Has advanced chronic obstructive pulmonary disease, related to his past smoking He is doing very well with the current regimen. BUT STILL GETS intermittent attacks of Dyspnea, more like Hyperventilation . * HAS BEEN TREATED IN THE HOSPITAL SETTING FOR ACUTE EXACERBATION OF COPD, AND CURRENTLY SEEMS TO BE AT HIS BASELINE. At present he is quite stable. Code(s): J44.9 - Chronic obstructive pulmonary disease, unspecified Category: Medical Plan: CONTINUE THE CURRENT REGIMEN WHICH INCLUDES : SYMBICORT 160-4.52 PUFFS B.I.D. INCRUSE ELLIPTA 1 INHALATION DAILY VENTOLIN HFA 1 OR 2 PUFFS Q 6 HOURS P.R.N. (2) Personal history of nicotine dependence: Comment: (Former smoker, onset 12yo, 1-2ppd x 49yrs, 60+PYH, QUIT IN 2020. He is active in annual lung screening program. Code(s): Z87.891 - Personal history of nicotine dependence Category: Medical Plan: AGAIN COUNSELED NOT TO RESTART SMOKING AT ALL . CONTINUE TO PARTICIPATE IN ANNUAL LUNG SCREENING PROGRAM (3) MICHELLE (obstructive sleep apnea): Comment: PATIENT DOES HAVE CHRONIC OBSTRUCTIVE SLEEP APNEA DUE TO COURTNEY DENTAL MALFORMATION. FOR A WHILE HE WAS USING CPAP ALMOST REGULARLY. BUT MORE RECENTLY HE IS NOT USING IT, CLAIMING THAT HE JUST CAN NOT GO TO SLEEP WITH THE MASK ON HIS FACE or NOSE. IT IS MORE RELATED TO ANXIETY SYNDROME . Code(s): G47.33 - Obstructive sleep apnea (adult) (pediatric) Category: Medical Plan: He was educated that he does need to use the CPAP or BiPAP on a regular basis. BECAUSE OF HIS ONGOING NONCOMPLIANCE, HE WILL HAVE A REPEAT POLYSOMNOGRAM STUDY IN THE SLEEP LAB, WITH CPAP TITRATION, TO FIND THE OPTIMAL PRESSURE SETTING AND ALSO THE OPTIMAL INTERFACE. HE WAS EDUCATED ABOUT THIS AND IS AGREEABLE. Coding Level of Care Code Est Pt Level 3 (75881) Diagnoses COPD (chronic obstructive pulmonary disease) J44.9 Personal history of nicotine dependence Z87.891 MICHELLE (obstructive sleep apnea) G47.33
== END 2025-07-28 10:29 | disposition home or self-care (01) ==
LOC: HO.HPS 08:53
PROVIDERS: PCP Family Medicine; Visit Provider Internal Medicine
DX: J44.9 Chronic obstructive pulmonary disease, unspecified (principal); Z87.891 Personal history of nicotine dependence; G47.33 Obstructive sleep apnea (adult) (pediatric)
CPT/HCPCS: 99213

== ENCOUNTER → 2025-07-28 08:53 | Outpatient (BNVA) | payer OTHER, SELFPAY | PROVIDERS: PCP Family Medicine; Visit Provider Internal Medicine | DX: B20 Human immunodeficiency virus [HIV] disease (principal); J44.9 Chronic obstructive pulmonary disease, unspecified; G47.33 Obstructive sleep apnea (adult) (pediatric); F41.9 Anxiety disorder, unspecified; Z87.891 Personal history of nicotine dependence; Z99.81 Dependence on supplemental oxygen; Z78.9 Other specified health status | CPT/HCPCS: 99212 ==